=== PATIENT | female | born 1935 | race Caucasian/White ===

== ENCOUNTER 2017-07-11 14:10 | Inpatient (IN) | payer OTHER, MEDICAID ==
[2017-07-11] MEDS ORDERED: TYLENOL 500 MG TAB EXTRA STRENGTH PO PRN (15:25)
[2017-07-11 16:48] LABS: BASOPHILS % (AUTO) 0.6 % (0.2-1.0); EOSINOPHILS # (AUTO) 0.3 x10^3/uL (0.0-0.2); EOSINOPHILS % (AUTO) 4.2 % (0.9-2.9); HEMOGLOBIN 10.3 g/dL (12.0-16.0); LYMPHOCYTES # (AUTO) 1.1 X10^3/uL (1.3-2.9); LYMPHOCYTES % (AUTO) 15.6 % (21.0-51.0); MEAN CORPUSCULAR HEMOGLOBIN 32.5 pg (27.0-34.0); MEAN CORPUSCULAR HGB CONC 34.4 g/dL (33.0-35.0); MEAN CORPUSCULAR VOLUME 94.6 fL (80.0-100.0); MEAN PLATELET VOLUME 8.8 fL (7.4-11.0); MONOCYTES # (AUTO) 0.6 x10^3/uL (0.3-0.8); NEUTROPHILS % (AUTO) 70.6 % (42.0-75.0); PLATELET COUNT 166 X10^3/uL (150.0-450.0); RED BLOOD COUNT 3.17 X10^6/uL (3.5-5.4); RED CELL DISTRIBUTION WIDTH 13.7 % (11.6-16.5)
[2017-07-11] MEDS: NS 1000 ML 1,000 ML IV SCH (16:49)
[2017-07-11 16:53] LABS: APPEARANCE,URINE HAZY (CLEAR); BILIRUBIN,URINE NEGATIVE (NEGATIVE); BLOOD/HEMOGLOBIN,URINE 1+ (NEGATIVE); COLOR,URINE YELLOW (YELLOW); GLUCOSE, URINE NEGATIVE (NEGATIVE); KETONES,URINE NEGATIVE (NEGATIVE); LEUKOCYTE ESTERASE ,URINE 3+ (NEGATIVE); NITRITES,URINE POSITIVE (NEGATIVE); PROTEIN,URINE 1+ (NEGATIVE); UROBILINOGEN,URINE NORMAL (NORMAL)
[2017-07-11 17:00] LABS: BACTERIA,URINE 3+ /HPF (NEGATIVE); SQUAMOUS EPITHELIAL CELL,UR RARE /HPF (NEGATIVE)
[2017-07-11 17:01] LABS: ALANINE AMINOTRANSFERASE 18 Units/L (12-78); ALBUMIN 3.4 g/dL (3.4-5.0); ALKALINE PHOSPHATASE 121 Units/L (46-116); ASPARTATE AMINO TRANSFERASE 12 Units/L (15-37); BLOOD UREA NITROGEN 26 mg/dL (7-18); CALCIUM 7.9 mg/dL (8.5-10.1); CARBON DIOXIDE 24.7 mmol/L (21-32); CHLORIDE 104 mmol/L (98-107); COR NA(FOR HYPERGLY) 139 mmol/L (136-145); SODIUM 139 mmol/L (136-145); TOTAL PROTEIN 6.7 g/dL (6.4-8.2); eGFR BLACK RACES 40 (>60); eGFR NON BLACK RACES 33 (>60)
[2017-07-11] MEDS ORDERED: MERREM PREMIX IV 500 MG 500 MG/50 ML BAG IV SCH (21:00)
[2017-07-11] MEDS ORDERED: PHENERGAN TAB 25 MG PO PRN (21:11)
[2017-07-11] MEDS ORDERED: PATIENT'S HOME MEDICATION (Alprazolam [Alprazolam] 1 MG) PO PRN (21:11)
--- NOTE | 2017-07-11 21:18 | DR.H&P ---
H&P - History & Physical for Day of: H&P Date: 07/11/17 - Chief Complaint Chief Complaint: Weakness with Nausea - Allergies Allergies/Adverse Reactions: Allergies Allergy/AdvReac Type Severity Reaction Status Date / Time azithromycin [From Zithromax] Allergy Verified 07/11/17 16:45 ceftriaxone [From Rocephin] Allergy Verified 07/11/17 16:45 cefuroxime Allergy Verified 07/11/17 16:45 cephalexin [From Keflex] Allergy Verified 07/11/17 16:45 gentamicin Allergy Verified 07/11/17 16:45 levofloxacin [From Levaquin] Allergy Verified 07/11/17 16:45 meperidine [From Demerol] Allergy Verified 07/11/17 16:45 methylprednisolone Allergy Verified 07/11/17 16:45 [From Solu-Medrol] nitrofurantoin Allergy Verified 07/11/17 16:45 [From Furadantin] Penicillins Allergy Verified 07/11/17 16:45 Sulfa (Sulfonamide Allergy Verified 07/11/17 16:45 Antibiotics) Tetracyclines Allergy Verified 07/11/17 16:45 trimethoprim Allergy Verified 07/11/17 16:45 - History of Present Illness History of Present Illness: The patient is an 82yo WF who has history of recurrent UTIs. Is followed by Dr KAT Perdomo Urologist. Patient was hospitalized 2 weeks ago with UTI. Urine culture was negative. Patient complained of weakness with persistent nausea. No Fever. Urine culture is + for >100,000 colony count E Coli. Patient urine culture is senstive to all meds however, patient is allergic to all PO meds. Patient admitted for IV antibiotic. - Past Medical History Past Medical History: Anxiety, Diabetes, Hypertension - Past Surgical History Surgical History: Appendectomy, Hysterectomy, Mastectomy, Lithotripsy, Other Additional Surgical History: Colon resection with colostomy, Cystoscopy - Family History Family Medical History: Diabetes Mellitus, Cancer, [place], Coronary Artery Disease, Heart Failure, Hypertension - Social History Does patient currently use any type of tobacco product: No Have you used tobacco products in the last 12 months: No Type of Tobacco Use: None Does any household member use tobacco: No Alcohol Use: None Drug Use: Prescription Drugs - Medications Home Medications: Allopurinol [ZYLOPRIM tab 100 mg *] 100 mg PO DAILY 07/11/17 [History Confirmed 07/11/17] Alprazolam 1 mg PO BID PRN 07/11/17 [History Confirmed 07/11/17] Alprazolam 1 mg PO HS 07/11/17 [History Confirmed 07/11/17] Biotin 10,000 mcg PO DAILY 07/11/17 [History Confirmed 07/11/17] Cyanocobalamin (Vitamin B-12) [B-12] 1,000 mcg PO DAILY 07/11/17 [History Confirmed 07/11/17] Furosemide [Lasix] 40 mg PO BID 07/11/17 [History Confirmed 07/11/17] Hydrocodone Bitartrate [Hysingla ER] 80 mg PO 1200 07/11/17 [History Confirmed 07/11/17] Hydroxychloroquine Sulfate [Plaquenil] 200 mg PO BID 07/11/17 [History Confirmed 07/11/17] Levothyroxine Sodium 125 mcg PO HS 07/11/17 [History Confirmed 07/11/17] Montelukast Sodium 10 mg PO HS 07/11/17 [History Confirmed 07/11/17] Peg 400/Hypromellose/Glycerin [Visine Dry Eye Relief Drop] 15 ml OP QID [History Confirmed 07/11/17] Potassium Chloride [K-Dur Tab 20 Meq] 20 meq PO DAILY 07/11/17 [History Confirmed 07/11/17] Pramipexole Dihydrochloride [Mirapex Tab 0.25 mg] 0.25 mg PO HS 07/11/17 [ History Confirmed 07/11/17] Promethazine HCl [PHENERGAN TAB 25 MG *] 25 mg PO BID PRN 07/11/17 [History Confirmed 07/11/17] Ranitidine HCl [Ranitidine [address]] 150 mg PO BID 07/11/17 [History Confirmed 07/11/17] Tamsulosin HCl [FLOMAX (GENERIC) 0.4 MG *] 0.4 mg PO HS 07/11/17 [History Confirmed 07/11/17] - Review of Systems Constitutional: Weakness, Malaise Eyes: No Symptoms Reported ENT: No Symptoms Reported Respiratory: No Symptoms Reported Cardiovascular: No Symptoms Reported Gastrointestinal: No Symptoms Reported Genitourinary: See HPI, Dysuria Musculoskeletal: No Symptoms Reported Skin: No Symptoms Reported Neurological: No Symptoms Reported - Physical Exam Vital Signs: Temperature 98.1 F Pulse Rate [Left Brachial] 78 Respiratory Rate 16 Blood Pressure [Left Arm] 139/58 O2 Sat by Pulse Oximetry 98 Oriented: Normal Eyes: Normal Ear: Normal Nose: Normal Throat: Normal Respiratory: Clear Throughout Cardiovascular: Normal : Normal Auscultation: Bowel Sounds: Normal Palpation: Normal, Other (Colostomy LLQ) Tenderness: Normal Skin: Normal Musculoskeletal: Normal Psychiatric: Normal Mood Description: Calm Affect: Normal Speech Pattern: Clear - Assessment/Plan (1) UTI (urinary tract infection) due to Enterococcus Status: Acute Plan: IV Merrem. Labs, UA CX. See admit orders.
[2017-07-11] MEDS ORDERED: MERREM VIAL ONE (21:23)
[2017-07-11] MEDS ORDERED: NS 100 ML IV 100 ML IV ONE (21:23)
[2017-07-11] MEDS ORDERED: XANAX PO PRN (22:43)
[2017-07-12 05:17] VITALS: BMI 27.5
[2017-07-12 06:20] LABS: BASOPHILS % (AUTO) 0.9 % (0.2-1.0); EOSINOPHILS # (AUTO) 0.3 x10^3/uL (0.0-0.2); EOSINOPHILS % (AUTO) 6.1 % (0.9-2.9); HEMATOCRIT 27.3 % (36.0-47.0); HEMOGLOBIN 9.4 g/dL (12.0-16.0); LYMPHOCYTES # (AUTO) 1.2 X10^3/uL (1.3-2.9); LYMPHOCYTES % (AUTO) 26.4 % (21.0-51.0); MEAN CORPUSCULAR HEMOGLOBIN 33.1 pg (27.0-34.0); MEAN CORPUSCULAR HGB CONC 34.6 g/dL (33.0-35.0); MEAN CORPUSCULAR VOLUME 95.7 fL (80.0-100.0); MEAN PLATELET VOLUME 8.8 fL (7.4-11.0); MONOCYTES # (AUTO) 0.5 x10^3/uL (0.3-0.8); MONOCYTES % (AUTO) 9.9 % (0.0-13.0); NEUTROPHILS # (AUTO) 2.6 x10^3/uL (2.2-4.8); NEUTROPHILS % (AUTO) 56.7 % (42.0-75.0); PLATELET COUNT 142 X10^3/uL (150.0-450.0); RED BLOOD COUNT 2.85 X10^6/uL (3.5-5.4); RED CELL DISTRIBUTION WIDTH 13.7 % (11.6-16.5); WHITE BLOOD COUNT 4.6 X10^3/uL (3.6-10.0)
[2017-07-12 06:23] LABS: ALBUMIN 2.7 g/dL (3.4-5.0); CALCIUM 7.9 mg/dL (8.5-10.1); CARBON DIOXIDE 22.6 mmol/L (21-32); COR CA(FOR HYPOALB) 8.9 mg/dL (8.5-10.1); CREATININE 1.55 mg/dL (0.55-1.02); TOTAL PROTEIN 5.7 g/dL (6.4-8.2)
[2017-07-12] MEDS: ZYLOPRIM PO SCH (08:57)
[2017-07-12] MEDS: ZANTAC PO SCH (08:57)
[2017-07-12] MEDS: VITAMIN B-12 PO SCH (08:57)
[2017-07-12] MEDS: PLAQUENIL PO SCH ×2 (08:58→21:14)
[2017-07-12] MEDS: K-DUR TAB 20 MEQ PO SCH (08:58)
[2017-07-12] MEDS: NS 1000 ML 1,000 ML IV SCH (08:59)
[2017-07-12] MEDS ORDERED: PATIENT'S HOME MEDICATION (Biotin [Biotin] 10,000 MCG) PO SCH (09:00)
[2017-07-12] MEDS ORDERED: GLYCERIN OP SCH (09:00)
[2017-07-12] MEDS ORDERED: HYPROMELLOSE OP SCH (09:00)
[2017-07-12] MEDS ORDERED: POLYETHYLENE GLYCOL 400 OP SCH (09:00)
[2017-07-12] MEDS ORDERED: [UNRECOGNIZED DRUG - OTHER] OP SCH (09:00)
[2017-07-12] MEDS ORDERED: PATIENT'S HOME MEDICATION (Cyanocobalamin (Vitamin B-12) [Vitamin B-12] 1,000 MCG) PO SCH (09:00)
--- NOTE | 2017-07-12 10:40 | RAD ---
History: Diminished breath sounds, hypertension Study: Chest AP portable Findings: AP portable examination of chest demonstrates satisfactory appearance of the heart and medi astinal structures. A left subclavian Port-A-Cath is in place tip in the region of the superior vena cava. Lungs and pleural spaces are clear. There are degenerative changes of the right shoulder. Impression: No acute intra thoracic disease is identified. Reported By:
[2017-07-12] MEDS: MERREM VIAL 500 MG in NS 100 ML IV + SPIKE MINIBAG* 100 ML IV SCH ×2 (11:40→21:13)
[2017-07-12] MEDS: HYDROCODONE BITARTRATE 80 MG PO SCH (11:43)
[2017-07-12] MEDS ORDERED: PATIENT'S HOME MEDICATION (Alprazolam [Alprazolam] 1 MG) PO SCH (21:00)
[2017-07-12] MEDS: FLOMAX PO SCH (21:13)
[2017-07-12] MEDS: SYNTHROID 125 mcg TAB PO SCH (21:14)
[2017-07-12] MEDS: SINGULAIR TAB 10 MG PO SCH (21:14)
[2017-07-12] MEDS: MIRAPEX TAB 0.25 MG PO SCH (21:14)
[2017-07-12] MEDS: XANAX PO SCH (21:15)
[2017-07-12] MEDS: NORCO 10/325 TAB PO PRN (21:19)
[2017-07-13] MEDS: NORCO 10/325 TAB PO PRN ×3 (01:57→23:36)
[2017-07-13 06:15] LABS: BASOPHILS % (AUTO) 0.9 % (0.2-1.0); EOSINOPHILS # (AUTO) 0.3 x10^3/uL (0.0-0.2); EOSINOPHILS % (AUTO) 6.7 % (0.9-2.9); HEMATOCRIT 27.9 % (36.0-47.0); HEMOGLOBIN 9.6 g/dL (12.0-16.0); LYMPHOCYTES # (AUTO) 1.2 X10^3/uL (1.3-2.9); LYMPHOCYTES % (AUTO) 25.5 % (21.0-51.0); MEAN CORPUSCULAR HEMOGLOBIN 32.8 pg (27.0-34.0); MEAN CORPUSCULAR HGB CONC 34.4 g/dL (33.0-35.0); MEAN CORPUSCULAR VOLUME 95.3 fL (80.0-100.0); MEAN PLATELET VOLUME 8.8 fL (7.4-11.0); MONOCYTES # (AUTO) 0.4 x10^3/uL (0.3-0.8); MONOCYTES % (AUTO) 9.5 % (0.0-13.0); NEUTROPHILS # (AUTO) 2.7 x10^3/uL (2.2-4.8); NEUTROPHILS % (AUTO) 57.4 % (42.0-75.0); PLATELET COUNT 153 X10^3/uL (150.0-450.0); RED BLOOD COUNT 2.93 X10^6/uL (3.5-5.4); RED CELL DISTRIBUTION WIDTH 13.7 % (11.6-16.5); WHITE BLOOD COUNT 4.6 X10^3/uL (3.6-10.0)
[2017-07-13 06:37] LABS: ALBUMIN 2.8 g/dL (3.4-5.0); CALCIUM 7.8 mg/dL (8.5-10.1); CARBON DIOXIDE 21.7 mmol/L (21-32); COR CA(FOR HYPOALB) 8.8 mg/dL (8.5-10.1); CREATININE 1.46 mg/dL (0.55-1.02); TOTAL PROTEIN 5.9 g/dL (6.4-8.2)
[2017-07-13] MEDS: ZANTAC PO SCH (08:30)
[2017-07-13] MEDS: NS 1000 ML 1,000 ML IV SCH ×2 (08:30→18:11)
[2017-07-13] MEDS: MERREM VIAL 500 MG in NS 100 ML IV + SPIKE MINIBAG* 100 ML IV SCH ×2 (08:30→20:55)
[2017-07-13] MEDS: VITAMIN B-12 PO SCH (08:30)
[2017-07-13] MEDS: PLAQUENIL PO SCH ×2 (08:30→20:56)
[2017-07-13] MEDS: ZYLOPRIM PO SCH (08:31)
[2017-07-13] MEDS: K-DUR TAB 20 MEQ PO SCH (08:31)
[2017-07-13] MEDS: MIRALAX POWDER (1 DOSE 17GM) PO SCH ×3 (09:57→21:00)
[2017-07-13] MEDS: HYDROCODONE BITARTRATE 80 MG PO SCH (12:40)
[2017-07-13] MEDS: FLOMAX PO SCH (20:55)
[2017-07-13] MEDS: XANAX PO SCH (20:56)
[2017-07-13] MEDS: MIRAPEX TAB 0.25 MG PO SCH (20:56)
[2017-07-13] MEDS: SINGULAIR TAB 10 MG PO SCH (20:56)
[2017-07-13] MEDS: SYNTHROID 125 mcg TAB PO SCH (20:56)
[2017-07-14] MEDS: NS 1000 ML 1,000 ML IV SCH ×3 (00:24→18:46)
[2017-07-14 05:49] LABS: ALBUMIN 2.6 g/dL (3.4-5.0); CALCIUM 7.8 mg/dL (8.5-10.1); CARBON DIOXIDE 22.5 mmol/L (21-32); COR CA(FOR HYPOALB) 8.9 mg/dL (8.5-10.1); CREATININE 1.29 mg/dL (0.55-1.02); TOTAL PROTEIN 5.3 g/dL (6.4-8.2)
[2017-07-14 06:10] LABS: BASOPHILS % (AUTO) 0.8 % (0.2-1.0); EOSINOPHILS # (AUTO) 0.3 x10^3/uL (0.0-0.2); EOSINOPHILS % (AUTO) 7.9 % (0.9-2.9); HEMATOCRIT 26.4 % (36.0-47.0); LYMPHOCYTES # (AUTO) 1.1 X10^3/uL (1.3-2.9); LYMPHOCYTES % (AUTO) 27.6 % (21.0-51.0); MEAN CORPUSCULAR HEMOGLOBIN 33.1 pg (27.0-34.0); MEAN CORPUSCULAR HGB CONC 34.3 g/dL (33.0-35.0); MEAN CORPUSCULAR VOLUME 96.6 fL (80.0-100.0); MEAN PLATELET VOLUME 8.8 fL (7.4-11.0); MONOCYTES # (AUTO) 0.4 x10^3/uL (0.3-0.8); MONOCYTES % (AUTO) 9.3 % (0.0-13.0); NEUTROPHILS # (AUTO) 2.1 x10^3/uL (2.2-4.8); NEUTROPHILS % (AUTO) 54.4 % (42.0-75.0); PLATELET COUNT 134 X10^3/uL (150.0-450.0); RED BLOOD COUNT 2.73 X10^6/uL (3.5-5.4); RED CELL DISTRIBUTION WIDTH 13.7 % (11.6-16.5); WHITE BLOOD COUNT 3.9 X10^3/uL (3.6-10.0)
[2017-07-14] MEDS: MERREM VIAL 500 MG in NS 100 ML IV + SPIKE MINIBAG* 100 ML IV SCH ×2 (09:28→21:08)
[2017-07-14] MEDS: PLAQUENIL PO SCH ×2 (09:29→21:09)
[2017-07-14] MEDS: VITAMIN B-12 PO SCH (09:29)
[2017-07-14] MEDS: ZYLOPRIM PO SCH (09:29)
[2017-07-14] MEDS: K-DUR TAB 20 MEQ PO SCH (09:29)
[2017-07-14] MEDS: ZANTAC PO SCH (09:30)
[2017-07-14] MEDS: HYDROCODONE BITARTRATE 80 MG PO SCH (12:33)
--- NOTE | 2017-07-14 13:40 | PCM.PROG ---
Progress Note - Progress Note for Day of Date: 07/13/17 - Subjective Subjective: 82 WF DIRECT ADMIT FOR TREATMENT OF RESISTENT UTI. PT CURRENTLY ON IV ATBX, WITH URINE CULTURE POSITIVE FOR ECOLI. PT CO CONSTIPATION. PT HAS COLOSTOMY AND STATES SHE TAKE MOM FOR BM'S. PT ALSO CO INSOMNIA, PT HAS PRN XANAX AND ENCOURAGED TO USE MEDS FOR REST NEEDED. - Past Medical Family Social History Past Med/Fam/Surg Hx: No changes since H&P Allergies: Allergies azithromycin [From Zithromax] Allergy (Verified 07/11/17 16:45) ceftriaxone [From Rocephin] Allergy (Verified 07/11/17 16:45) cefuroxime Allergy (Verified 07/11/17 16:45) cephalexin [From Keflex] Allergy (Verified 07/11/17 16:45) gentamicin Allergy (Verified 07/11/17 16:45) levofloxacin [From Levaquin] Allergy (Verified 07/11/17 16:45) meperidine [From Demerol] Allergy (Verified 07/11/17 16:45) methylprednisolone [From Solu-Medrol] Allergy (Verified 07/11/17 16:45) nitrofurantoin [From Furadantin] Allergy (Verified 07/11/17 16:45) Penicillins Allergy (Verified 07/11/17 16:45) Sulfa (Sulfonamide Antibiotics) Allergy (Verified 07/11/17 16:45) Tetracyclines Allergy (Verified 07/11/17 16:45) trimethoprim Allergy (Verified 07/11/17 16:45) - Review of Systems ROS: No change since H&P - Vital Signs and I&O's Vital Signs: Temperature 97.8 F Pulse Rate [Right Brachial] 61 Pulse Rate [Left Brachial] 56 Respiratory Rate 18 Blood Pressure [Right Arm] 119/55 Blood Pressure [Left Arm] 120/51 O2 Sat by Pulse Oximetry 97 Intake and Output: Intake & Output 07/12/17 07/13/17 07/14/17 07/15/17 11:59 11:59 11:59 11:59 Intake Total 1671 2490 2340 Output Total 1000 400 Balance 671 2090 2340 - Physical Exam Oriented: Normal Eyes: Normal Ear: Normal Nose: Normal Throat: Normal Respiratory: Normal Cardiovascular: Normal : Normal Auscultation: Bowel Sounds: Decreased Tenderness: Normal Skin: Normal, Other (COLOSTOMY) Musculoskeletal: Back:Lumbar Psychiatric: Anxiety Mood Description: Anxious Affect: Normal Speech Pattern: Clear, Appropriate - Laboratory and Diagnostics Result Diagrams: 07/14/17 04:34 07/14/17 04:34 Labs: 07/11/17 21:34 Blood Blood Culture - Preliminary 07/11/17 21:28 Blood Blood Culture - Preliminary 07/11/17 16:30 Urine,Clean Catch Urine Culture - Final Escherichia Coli Laboratory WBC 3.9 X10^3/uL (3.6-10.0) 07/14/17 04:34 RBC 2.73 X10^6/uL (3.5-5.4) L 07/14/17 04:34 Hgb 9.0 g/dL (12.0-16.0) L 07/14/17 04:34 Hct 26.4 % (36.0-47.0) L 07/14/17 04:34 MCV 96.6 fL (80.0-100.0) 07/14/17 04:34 MCH 33.1 pg (27.0-34.0) 07/14/17 04:34 MCHC 34.3 g/dL (33.0-35.0) 07/14/17 04:34 RDW 13.7 % (11.6-16.5) 07/14/17 04:34 Plt Count 134 X10^3/uL (150.0-450.0) L 07/14/17 04:34 MPV 8.8 fL (7.4-11.0) 07/14/17 04:34 Neut % (Auto) 54.4 % (42.0-75.0) 07/14/17 04:34 Lymph % (Auto) 27.6 % (21.0-51.0) 07/14/17 04:34 [place] % (Auto) 9.3 % (0.0-13.0) 07/14/17 04:34 Eos % (Auto) 7.9 % (0.9-2.9) H 07/14/17 04:34 Baso % (Auto) 0.8 % (0.2-1.0) 07/14/17 04:34 Neut # (Auto) 2.1 x10^3/uL (2.2-4.8) L 07/14/17 04:34 Lymph # (Auto) 1.1 X10^3/uL (1.3-2.9) L 07/14/17 04:34 [place] # (Auto) 0.4 x10^3/uL (0.3-0.8) 07/14/17 04:34 Eos # (Auto) 0.3 x10^3/uL (0.0-0.2) H 07/14/17 04:34 Baso # (Auto) 0.0 X10^3/uL (0.0-0.1) 07/14/17 04:34 Absolute Nucleated RBC 0.0 /100WBC 07/14/17 04:34 Sodium 141 mmol/L (136-145) 07/14/17 04:34 Corrected Sodium 141 mmol/L (136-145) 07/14/17 04:34 Potassium 4.0 mmol/L (3.5-5.1) 07/14/17 04:34 Chloride 109 mmol/L (98-107) H 07/14/17 04:34 Carbon Dioxide 22.5 mmol/L (21-32) 07/14/17 04:34 BUN 18 mg/dL (7-18) 07/14/17 04:34 Creatinine 1.29 mg/dL (0.55-1.02) H 07/14/17 04:34 Est GFR (MDRD) Af Amer 51 (>60) L 07/14/17 04:34 Est GFR (MDRD) Non-Af 42 (>60) L 07/14/17 04:34 Glucose 118 mg/dL (65-99) H 07/14/17 04:34 POC Glucose (mg/dL) 145 mg/dL (65-99) H 07/13/17 20:53 Calcium 7.8 mg/dL (8.5-10.1) L 07/14/17 04:34 Corrected Calcium 8.9 mg/dL (8.5-10.1) 07/14/17 04:34 Total Bilirubin 0.10 mg/dL (0.2-1.0) L 07/14/17 04:34 AST 11 Units/L (15-37) L 07/14/17 04:34 ALT 14 Units/L (12-78) 07/14/17 04:34 Alkaline Phosphatase 92 Units/L (46-116) 07/14/17 04:34 Total Protein 5.3 g/dL (6.4-8.2) L 07/14/17 04:34 Albumin 2.6 g/dL (3.4-5.0) L 07/14/17 04:34 Globulin 2.7 g/dL (2.5-4.5) 07/14/17 04:34 Albumin/Globulin Ratio 1.0 Ratio (1.1-2.1) L 07/14/17 04:34 Specimen Type Clean catch urine 07/11/17 16:30 Urine Color Yellow (YELLOW) 07/11/17 16:30 Urine Appearance Hazy (CLEAR) 07/11/17 16:30 Urine pH 5.0 (5.0 - 8.0) 07/11/17 16:30 Ur Specific [place] 1.015 (1.000-1.030) 07/11/17 16:30 Urine Protein 1+ (NEGATIVE) 07/11/17 16:30 Urine Glucose (UA) Negative (NEGATIVE) 07/11/17 16:30 Urine Ketones Negative (NEGATIVE) 07/11/17 16:30 Urine Occult Blood 1+ (NEGATIVE) 07/11/17 16:30 Urine Nitrite Positive (NEGATIVE) 07/11/17 16:30 Urine Bilirubin Negative (NEGATIVE) 07/11/17 16:30 Urine Urobilinogen Normal (NORMAL) 07/11/17 16:30 Ur Leukocyte Esterase 3+ (NEGATIVE) 07/11/17 16:30 Urine RBC 3-5 /HPF (NONE SEEN) 07/11/17 16:30 Urine WBC Tntc /HPF (NONE SEEN) 07/11/17 16:30 Ur Squamous Epith Cells Rare /HPF (NEGATIVE) 07/11/17 16:30 Urine Bacteria 3+ /HPF (NEGATIVE) 07/11/17 16:30 Ur Culture Indicated? Yes/culture set up 07/11/17 16:30 - Plan (1) UTI (urinary tract infection), bacterial Status: Acute Plan: CONTINUE IV ATBX. ENCOURAGE ORAL HYDRATION AND PT. REPEAT AM LABS. CONTINUE HOME MEDS, MOM PRN CONSTIPATION. 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 Labs, UA CX. See admit orders.
--- NOTE | 2017-07-14 13:43 | PCM.PROG ---
Progress Note - Progress Note for Day of Date: 07/14/17 - Subjective Subjective: 82 WF DIRECT ADMIT FOR TREATMENT OF RESISTENT UTI. PT CURRENTLY ON IV ATBX, WITH URINE CULTURE POSITIVE FOR ECOLI. PT ALSO CO INSOMNIA, PT HAS PRN XANAX AND ENCOURAGED TO USE MEDS FOR REST NEEDED. PT STATES SHE FEEL A LITTLE IMPROVED, DENIES FEVER NAUSEA OR VOMITING - Past Medical Family Social History Past Med/Fam/Surg Hx: No changes since H&P Allergies: Allergies azithromycin [From Zithromax] Allergy (Verified 07/11/17 16:45) ceftriaxone [From Rocephin] Allergy (Verified 07/11/17 16:45) cefuroxime Allergy (Verified 07/11/17 16:45) cephalexin [From Keflex] Allergy (Verified 07/11/17 16:45) gentamicin Allergy (Verified 07/11/17 16:45) levofloxacin [From Levaquin] Allergy (Verified 07/11/17 16:45) meperidine [From Demerol] Allergy (Verified 07/11/17 16:45) methylprednisolone [From Solu-Medrol] Allergy (Verified 07/11/17 16:45) nitrofurantoin [From Furadantin] Allergy (Verified 07/11/17 16:45) Penicillins Allergy (Verified 07/11/17 16:45) Sulfa (Sulfonamide Antibiotics) Allergy (Verified 07/11/17 16:45) Tetracyclines Allergy (Verified 07/11/17 16:45) trimethoprim Allergy (Verified 07/11/17 16:45) - Review of Systems ROS: No change since H&P - Vital Signs and I&O's Vital Signs: Temperature 97.8 F Pulse Rate [Right Brachial] 61 Pulse Rate [Left Brachial] 56 Respiratory Rate 18 Blood Pressure [Right Arm] 119/55 Blood Pressure [Left Arm] 120/51 O2 Sat by Pulse Oximetry 97 Intake and Output: Intake & Output 07/12/17 07/13/17 07/14/17 07/15/17 11:59 11:59 11:59 11:59 Intake Total 1671 2490 2340 Output Total 1000 400 Balance 671 2090 2340 - Physical Exam Oriented: Normal Eyes: Normal Ear: Normal Nose: Normal Throat: Normal Respiratory: Normal Cardiovascular: Normal : Normal Auscultation: Bowel Sounds: Decreased Tenderness: Normal Skin: Normal, Other (COLOSTOMY) Musculoskeletal: Back:Lumbar Psychiatric: Anxiety Mood Description: Anxious Affect: Normal Speech Pattern: Clear, Appropriate - Laboratory and Diagnostics Result Diagrams: 07/14/17 04:34 07/14/17 04:34 Labs: 07/11/17 21:34 Blood Blood Culture - Preliminary 07/11/17 21:28 Blood Blood Culture - Preliminary 07/11/17 16:30 Urine,Clean Catch Urine Culture - Final Escherichia Coli Laboratory WBC 3.9 X10^3/uL (3.6-10.0) 07/14/17 04:34 RBC 2.73 X10^6/uL (3.5-5.4) L 07/14/17 04:34 Hgb 9.0 g/dL (12.0-16.0) L 07/14/17 04:34 Hct 26.4 % (36.0-47.0) L 07/14/17 04:34 MCV 96.6 fL (80.0-100.0) 07/14/17 04:34 MCH 33.1 pg (27.0-34.0) 07/14/17 04:34 MCHC 34.3 g/dL (33.0-35.0) 07/14/17 04:34 RDW 13.7 % (11.6-16.5) 07/14/17 04:34 Plt Count 134 X10^3/uL (150.0-450.0) L 07/14/17 04:34 MPV 8.8 fL (7.4-11.0) 07/14/17 04:34 Neut % (Auto) 54.4 % (42.0-75.0) 07/14/17 04:34 Lymph % (Auto) 27.6 % (21.0-51.0) 07/14/17 04:34 [place] % (Auto) 9.3 % (0.0-13.0) 07/14/17 04:34 Eos % (Auto) 7.9 % (0.9-2.9) H 07/14/17 04:34 Baso % (Auto) 0.8 % (0.2-1.0) 07/14/17 04:34 Neut # (Auto) 2.1 x10^3/uL (2.2-4.8) L 07/14/17 04:34 Lymph # (Auto) 1.1 X10^3/uL (1.3-2.9) L 07/14/17 04:34 [place] # (Auto) 0.4 x10^3/uL (0.3-0.8) 07/14/17 04:34 Eos # (Auto) 0.3 x10^3/uL (0.0-0.2) H 07/14/17 04:34 Baso # (Auto) 0.0 X10^3/uL (0.0-0.1) 07/14/17 04:34 Absolute Nucleated RBC 0.0 /100WBC 07/14/17 04:34 Sodium 141 mmol/L (136-145) 07/14/17 04:34 Corrected Sodium 141 mmol/L (136-145) 07/14/17 04:34 Potassium 4.0 mmol/L (3.5-5.1) 07/14/17 04:34 Chloride 109 mmol/L (98-107) H 07/14/17 04:34 Carbon Dioxide 22.5 mmol/L (21-32) 07/14/17 04:34 BUN 18 mg/dL (7-18) 07/14/17 04:34 Creatinine 1.29 mg/dL (0.55-1.02) H 07/14/17 04:34 Est GFR (MDRD) Af Amer 51 (>60) L 07/14/17 04:34 Est GFR (MDRD) Non-Af 42 (>60) L 07/14/17 04:34 Glucose 118 mg/dL (65-99) H 07/14/17 04:34 POC Glucose (mg/dL) 145 mg/dL (65-99) H 07/13/17 20:53 Calcium 7.8 mg/dL (8.5-10.1) L 07/14/17 04:34 Corrected Calcium 8.9 mg/dL (8.5-10.1) 07/14/17 04:34 Total Bilirubin 0.10 mg/dL (0.2-1.0) L 07/14/17 04:34 AST 11 Units/L (15-37) L 07/14/17 04:34 ALT 14 Units/L (12-78) 07/14/17 04:34 Alkaline Phosphatase 92 Units/L (46-116) 07/14/17 04:34 Total Protein 5.3 g/dL (6.4-8.2) L 07/14/17 04:34 Albumin 2.6 g/dL (3.4-5.0) L 07/14/17 04:34 Globulin 2.7 g/dL (2.5-4.5) 07/14/17 04:34 Albumin/Globulin Ratio 1.0 Ratio (1.1-2.1) L 07/14/17 04:34 Specimen Type Clean catch urine 07/11/17 16:30 Urine Color Yellow (YELLOW) 07/11/17 16:30 Urine Appearance Hazy (CLEAR) 07/11/17 16:30 Urine pH 5.0 (5.0 - 8.0) 07/11/17 16:30 Ur Specific [place] 1.015 (1.000-1.030) 07/11/17 16:30 Urine Protein 1+ (NEGATIVE) 07/11/17 16:30 Urine Glucose (UA) Negative (NEGATIVE) 07/11/17 16:30 Urine Ketones Negative (NEGATIVE) 07/11/17 16:30 Urine Occult Blood 1+ (NEGATIVE) 07/11/17 16:30 Urine Nitrite Positive (NEGATIVE) 07/11/17 16:30 Urine Bilirubin Negative (NEGATIVE) 07/11/17 16:30 Urine Urobilinogen Normal (NORMAL) 07/11/17 16:30 Ur Leukocyte Esterase 3+ (NEGATIVE) 07/11/17 16:30 Urine RBC 3-5 /HPF (NONE SEEN) 07/11/17 16:30 Urine WBC Tntc /HPF (NONE SEEN) 07/11/17 16:30 Ur Squamous Epith Cells Rare /HPF (NEGATIVE) 07/11/17 16:30 Urine Bacteria 3+ /HPF (NEGATIVE) 07/11/17 16:30 Ur Culture Indicated? Yes/culture set up 07/11/17 16:30 - Plan (1) UTI (urinary tract infection), bacterial Status: Acute Plan: CONTINUE IV ATBX. ENCOURAGE ORAL HYDRATION AND PT. REPEAT AM LABS. CONTINUE HOME MEDS, MOM PRN CONSTIPATION. COLOSTOMY CARE (2) Colostomy in place Status: Acute (3) Osteoarthritis Status: Acute (4) TAHMINA (generalized anxiety disorder) Status: Acute (5) UTI (urinary tract infection) due to Enterococcus Status: Acute Plan: IV MEROPENEM. Labs, UA CX. See admit orders.
[2017-07-14] MEDS: NORCO 10/325 TAB PO PRN ×2 (15:12→21:08)
[2017-07-14] MEDS: FLOMAX PO SCH (21:09)
[2017-07-14] MEDS: MIRAPEX TAB 0.25 MG PO SCH (21:09)
[2017-07-14] MEDS: SINGULAIR TAB 10 MG PO SCH (21:09)
[2017-07-14] MEDS: SYNTHROID 125 mcg TAB PO SCH (21:09)
[2017-07-14] MEDS: MIRALAX POWDER (1 DOSE 17GM) PO SCH (21:09)
[2017-07-14] MEDS: XANAX PO SCH (21:09)
[2017-07-15] MEDS: NS 1000 ML 1,000 ML IV SCH ×3 (04:29→15:27)
[2017-07-15 05:35] LABS: EOSINOPHILS # (AUTO) 0.3 x10^3/uL (0.0-0.2); EOSINOPHILS % (AUTO) 7.7 % (0.9-2.9); HEMATOCRIT 25.8 % (36.0-47.0); HEMOGLOBIN 8.9 g/dL (12.0-16.0); LYMPHOCYTES # (AUTO) 0.9 X10^3/uL (1.3-2.9); LYMPHOCYTES % (AUTO) 28.9 % (21.0-51.0); MEAN CORPUSCULAR HGB CONC 34.3 g/dL (33.0-35.0); MEAN CORPUSCULAR VOLUME 96.1 fL (80.0-100.0); MEAN PLATELET VOLUME 8.8 fL (7.4-11.0); MONOCYTES # (AUTO) 0.3 x10^3/uL (0.3-0.8); MONOCYTES % (AUTO) 10.3 % (0.0-13.0); NEUTROPHILS # (AUTO) 1.7 x10^3/uL (2.2-4.8); NEUTROPHILS % (AUTO) 52.1 % (42.0-75.0); PLATELET COUNT 120 X10^3/uL (150.0-450.0); RED BLOOD COUNT 2.69 X10^6/uL (3.5-5.4); WHITE BLOOD COUNT 3.3 X10^3/uL (3.6-10.0)
[2017-07-15 05:40] LABS: ALANINE AMINOTRANSFERASE 14 Units/L (12-78); ALBUMIN 2.6 g/dL (3.4-5.0); ALKALINE PHOSPHATASE 92 Units/L (46-116); ASPARTATE AMINO TRANSFERASE 10 Units/L (15-37); BLOOD UREA NITROGEN 16 mg/dL (7-18); CALCIUM 7.7 mg/dL (8.5-10.1); CARBON DIOXIDE 21.7 mmol/L (21-32); CHLORIDE 112 mmol/L (98-107); COR CA(FOR HYPOALB) 8.8 mg/dL (8.5-10.1); CREATININE 1.28 mg/dL (0.55-1.02); SODIUM 142 mmol/L (136-145); TOTAL PROTEIN 5.3 g/dL (6.4-8.2); eGFR BLACK RACES 51 (>60); eGFR NON BLACK RACES 43 (>60)
[2017-07-15] MEDS: PLAQUENIL PO SCH ×2 (09:06→20:58)
[2017-07-15] MEDS: MERREM VIAL 500 MG in NS 100 ML IV + SPIKE MINIBAG* 100 ML IV SCH ×2 (09:06→21:35)
[2017-07-15] MEDS: ZYLOPRIM PO SCH (09:07)
[2017-07-15] MEDS: ZANTAC PO SCH (09:07)
[2017-07-15] MEDS: VITAMIN B-12 PO SCH (09:07)
[2017-07-15] MEDS: K-DUR TAB 20 MEQ PO SCH (09:07)
[2017-07-15] MEDS: HYDROCODONE BITARTRATE 80 MG PO SCH (11:25)
--- NOTE | 2017-07-15 14:09 | PCM.PROG ---
Progress Note - Progress Note for Day of Date: 07/15/17 - Subjective Subjective: 82 WF DIRECT ADMIT FOR TREATMENT OF RESISTENT UTI. PT CURRENTLY ON IV ATBX, WITH URINE CULTURE POSITIVE FOR ECOLI. PT CO INCREASED JOINT PAIN THIS AM, LOW BACK PAIN. PT STATES SHE FEEL A LITTLE IMPROVED, DENIES FEVER NAUSEA OR VOMITING - Past Medical Family Social History Past Med/Fam/Surg Hx: No changes since H&P Allergies: Allergies azithromycin [From Zithromax] Allergy (Verified 07/11/17 16:45) ceftriaxone [From Rocephin] Allergy (Verified 07/11/17 16:45) cefuroxime Allergy (Verified 07/11/17 16:45) cephalexin [From Keflex] Allergy (Verified 07/11/17 16:45) gentamicin Allergy (Verified 07/11/17 16:45) levofloxacin [From Levaquin] Allergy (Verified 07/11/17 16:45) meperidine [From Demerol] Allergy (Verified 07/11/17 16:45) methylprednisolone [From Solu-Medrol] Allergy (Verified 07/11/17 16:45) nitrofurantoin [From Furadantin] Allergy (Verified 07/11/17 16:45) Penicillins Allergy (Verified 07/11/17 16:45) Sulfa (Sulfonamide Antibiotics) Allergy (Verified 07/11/17 16:45) Tetracyclines Allergy (Verified 07/11/17 16:45) trimethoprim Allergy (Verified 07/11/17 16:45) - Review of Systems ROS: No change since H&P - Vital Signs and I&O's Vital Signs: Temperature 98.1 F Pulse Rate [Right Brachial] 53 Pulse Rate [Left Brachial] 64 Respiratory Rate 18 Blood Pressure [Right Arm] 125/60 Blood Pressure [Left Arm] 121/57 O2 Sat by Pulse Oximetry 96 Intake and Output: Intake & Output 07/13/17 07/14/17 07/15/17 07/16/17 11:59 11:59 11:59 11:59 Intake Total 2490 2340 2978 Output Total 400 Balance 0 2340 2978 - Physical Exam Oriented: Normal Eyes: Normal Ear: Normal Nose: Normal Throat: Normal Respiratory: Normal Cardiovascular: Normal : Normal Auscultation: Bowel Sounds: Decreased Tenderness: Normal Skin: Normal, Other (COLOSTOMY) Musculoskeletal: Hip, Back:Thoracic, Back:Lumbar Psychiatric: Anxiety Mood Description: Anxious Affect: Normal Speech Pattern: Clear, Appropriate - Laboratory and Diagnostics Result Diagrams: 07/15/17 05:00 07/15/17 05:00 Labs: 07/11/17 21:34 Blood Blood Culture - Preliminary 07/11/17 21:28 Blood Blood Culture - Preliminary 07/11/17 16:30 Urine,Clean Catch Urine Culture - Final Escherichia Coli Laboratory WBC 3.3 X10^3/uL (3.6-10.0) L 07/15/17 05:00 RBC 2.69 X10^6/uL (3.5-5.4) L 07/15/17 05:00 Hgb 8.9 g/dL (12.0-16.0) L 07/15/17 05:00 Hct 25.8 % (36.0-47.0) L 07/15/17 05:00 MCV 96.1 fL (80.0-100.0) 07/15/17 05:00 MCH 33.0 pg (27.0-34.0) 07/15/17 05:00 MCHC 34.3 g/dL (33.0-35.0) 07/15/17 05:00 RDW 14.0 % (11.6-16.5) 07/15/17 05:00 Plt Count 120 X10^3/uL (150.0-450.0) L 07/15/17 05:00 MPV 8.8 fL (7.4-11.0) 07/15/17 05:00 Neut % (Auto) 52.1 % (42.0-75.0) 07/15/17 05:00 Lymph % (Auto) 28.9 % (21.0-51.0) 07/15/17 05:00 [place] % (Auto) 10.3 % (0.0-13.0) 07/15/17 05:00 Eos % (Auto) 7.7 % (0.9-2.9) H 07/15/17 05:00 Baso % (Auto) 1.0 % (0.2-1.0) 07/15/17 05:00 Neut # (Auto) 1.7 x10^3/uL (2.2-4.8) L 07/15/17 05:00 Lymph # (Auto) 0.9 X10^3/uL (1.3-2.9) L 07/15/17 05:00 [place] # (Auto) 0.3 x10^3/uL (0.3-0.8) 07/15/17 05:00 Eos # (Auto) 0.3 x10^3/uL (0.0-0.2) H 07/15/17 05:00 Baso # (Auto) 0.0 X10^3/uL (0.0-0.1) 07/15/17 05:00 Absolute Nucleated RBC 0.1 /100WBC 07/15/17 05:00 Sodium 142 mmol/L (136-145) 07/15/17 05:00 Corrected Sodium TNP 07/15/17 05:00 Potassium 4.4 mmol/L (3.5-5.1) 07/15/17 05:00 Chloride 112 mmol/L (98-107) H 07/15/17 05:00 Carbon Dioxide 21.7 mmol/L (21-32) 07/15/17 05:00 BUN 16 mg/dL (7-18) 07/15/17 05:00 Creatinine 1.28 mg/dL (0.55-1.02) H 07/15/17 05:00 Est GFR (MDRD) Af Amer 51 (>60) L 07/15/17 05:00 Est GFR (MDRD) Non-Af 43 (>60) L 07/15/17 05:00 Glucose 106 mg/dL (65-99) H 07/15/17 05:00 POC Glucose (mg/dL) 145 mg/dL (65-99) H 07/13/17 20:53 Calcium 7.7 mg/dL (8.5-10.1) L 07/15/17 05:00 Corrected Calcium 8.8 mg/dL (8.5-10.1) 07/15/17 05:00 Total Bilirubin 0.10 mg/dL (0.2-1.0) L 07/15/17 05:00 AST 10 Units/L (15-37) L 07/15/17 05:00 ALT 14 Units/L (12-78) 07/15/17 05:00 Alkaline Phosphatase 92 Units/L (46-116) 07/15/17 05:00 Total Protein 5.3 g/dL (6.4-8.2) L 07/15/17 05:00 Albumin 2.6 g/dL (3.4-5.0) L 07/15/17 05:00 Globulin 2.7 g/dL (2.5-4.5) 07/15/17 05:00 Albumin/Globulin Ratio 1.0 Ratio (1.1-2.1) L 07/15/17 05:00 Specimen Type Clean catch urine 07/11/17 16:30 Urine Color Yellow (YELLOW) 07/11/17 16:30 Urine Appearance Hazy (CLEAR) 07/11/17 16:30 Urine pH 5.0 (5.0 - 8.0) 07/11/17 16:30 Ur Specific [place] 1.015 (1.000-1.030) 07/11/17 16:30 Urine Protein 1+ (NEGATIVE) 07/11/17 16:30 Urine Glucose (UA) Negative (NEGATIVE) 07/11/17 16:30 Urine Ketones Negative (NEGATIVE) 07/11/17 16:30 Urine Occult Blood 1+ (NEGATIVE) 07/11/17 16:30 Urine Nitrite Positive (NEGATIVE) 07/11/17 16:30 Urine Bilirubin Negative (NEGATIVE) 07/11/17 16:30 Urine Urobilinogen Normal (NORMAL) 07/11/17 16:30 Ur Leukocyte Esterase 3+ (NEGATIVE) 07/11/17 16:30 Urine RBC 3-5 /HPF (NONE SEEN) 07/11/17 16:30 Urine WBC Tntc /HPF (NONE SEEN) 07/11/17 16:30 Ur Squamous Epith Cells Rare /HPF (NEGATIVE) 07/11/17 16:30 Urine Bacteria 3+ /HPF (NEGATIVE) 07/11/17 16:30 Ur Culture Indicated? Yes/culture set up 07/11/17 16:30 - Plan (1) UTI (urinary tract infection), bacterial Status: Acute Plan: CONTINUE IV ATBX. ENCOURAGE ORAL HYDRATION AND PT. REPEAT AM LABS. CONTINUE HOME MEDS, MOM PRN CONSTIPATION. COLOSTOMY CARE (2) Colostomy in place Status: Acute (3) Osteoarthritis Status: Acute Plan: PAIN CONTROL (4) TAHMINA (generalized anxiety disorder) Status: Acute (5) UTI (urinary tract infection) due to Enterococcus Status: Acute Plan: IV MEROPENEM. Labs, UA CX. See admit orders.
[2017-07-15] MEDS: NORCO 10/325 TAB PO PRN ×2 (14:37→20:57)
[2017-07-15] MEDS: SYNTHROID 125 mcg TAB PO SCH (20:56)
[2017-07-15] MEDS: XANAX PO SCH (20:57)
[2017-07-15] MEDS: SINGULAIR TAB 10 MG PO SCH (20:58)
[2017-07-15] MEDS: FLOMAX PO SCH (20:58)
[2017-07-15] MEDS: MIRAPEX TAB 0.25 MG PO SCH (20:58)
[2017-07-15] MEDS: MIRALAX POWDER (1 DOSE 17GM) PO SCH (21:01)
[2017-07-16] MEDS: NS 1000 ML 1,000 ML IV SCH ×3 (03:51→16:07)
[2017-07-16 06:24] LABS: BASOPHILS % (AUTO) 0.6 % (0.2-1.0); EOSINOPHILS # (AUTO) 0.3 x10^3/uL (0.0-0.2); EOSINOPHILS % (AUTO) 5.8 % (0.9-2.9); HEMATOCRIT 25.2 % (36.0-47.0); HEMOGLOBIN 8.7 g/dL (12.0-16.0); LYMPHOCYTES # (AUTO) 0.8 X10^3/uL (1.3-2.9); MEAN CORPUSCULAR HEMOGLOBIN 32.9 pg (27.0-34.0); MEAN CORPUSCULAR HGB CONC 34.4 g/dL (33.0-35.0); MEAN CORPUSCULAR VOLUME 95.7 fL (80.0-100.0); MEAN PLATELET VOLUME 8.9 fL (7.4-11.0); MONOCYTES # (AUTO) 0.5 x10^3/uL (0.3-0.8); MONOCYTES % (AUTO) 12.3 % (0.0-13.0); NEUTROPHILS # (AUTO) 2.7 x10^3/uL (2.2-4.8); NEUTROPHILS % (AUTO) 62.3 % (42.0-75.0); PLATELET COUNT 111 X10^3/uL (150.0-450.0); RED BLOOD COUNT 2.63 X10^6/uL (3.5-5.4); RED CELL DISTRIBUTION WIDTH 13.9 % (11.6-16.5); WHITE BLOOD COUNT 4.4 X10^3/uL (3.6-10.0)
[2017-07-16 06:38] LABS: ALANINE AMINOTRANSFERASE 14 Units/L (12-78); ALBUMIN 2.5 g/dL (3.4-5.0); ALKALINE PHOSPHATASE 94 Units/L (46-116); ASPARTATE AMINO TRANSFERASE 11 Units/L (15-37); BLOOD UREA NITROGEN 15 mg/dL (7-18); CALCIUM 7.5 mg/dL (8.5-10.1); CARBON DIOXIDE 22.5 mmol/L (21-32); CHLORIDE 111 mmol/L (98-107); COR CA(FOR HYPOALB) 8.7 mg/dL (8.5-10.1); COR NA(FOR HYPERGLY) 141 mmol/L (136-145); CREATININE 1.12 mg/dL (0.55-1.02); SODIUM 141 mmol/L (136-145); TOTAL PROTEIN 5.2 g/dL (6.4-8.2); eGFR BLACK RACES > 60 (>60); eGFR NON BLACK RACES 50 (>60)
[2017-07-16] MEDS: VITAMIN B-12 PO SCH (08:10)
[2017-07-16] MEDS: ZANTAC PO SCH (08:11)
[2017-07-16] MEDS: PLAQUENIL PO SCH ×2 (08:11→20:42)
[2017-07-16] MEDS: K-DUR TAB 20 MEQ PO SCH (08:11)
[2017-07-16] MEDS: MERREM VIAL 500 MG in NS 100 ML IV + SPIKE MINIBAG* 100 ML IV SCH ×2 (08:11→20:40)
[2017-07-16] MEDS: ZYLOPRIM PO SCH (08:11)
[2017-07-16] MEDS: HYDROCODONE BITARTRATE 80 MG PO SCH (13:08)
[2017-07-16] MEDS: XANAX PO SCH (20:38)
[2017-07-16] MEDS: SYNTHROID 125 mcg TAB PO SCH (20:39)
[2017-07-16] MEDS: MIRAPEX TAB 0.25 MG PO SCH (20:40)
[2017-07-16] MEDS: FLOMAX PO SCH (20:40)
[2017-07-16] MEDS: SINGULAIR TAB 10 MG PO SCH (20:40)
[2017-07-16] MEDS: MIRALAX POWDER (1 DOSE 17GM) PO SCH (20:41)
[2017-07-16] MEDS: NORCO 10/325 TAB PO PRN (20:47)
[2017-07-17] MEDS: NS 1000 ML 1,000 ML IV SCH ×2 (04:53→10:26)
[2017-07-17 05:58] LABS: BASOPHILS % (AUTO) 0.8 % (0.2-1.0); EOSINOPHILS # (AUTO) 0.3 x10^3/uL (0.0-0.2); EOSINOPHILS % (AUTO) 6.5 % (0.9-2.9); HEMATOCRIT 24.5 % (36.0-47.0); HEMOGLOBIN 8.6 g/dL (12.0-16.0); LYMPHOCYTES # (AUTO) 0.8 X10^3/uL (1.3-2.9); LYMPHOCYTES % (AUTO) 21.1 % (21.0-51.0); MEAN CORPUSCULAR HEMOGLOBIN 33.3 pg (27.0-34.0); MEAN CORPUSCULAR HGB CONC 34.9 g/dL (33.0-35.0); MEAN CORPUSCULAR VOLUME 95.4 fL (80.0-100.0); MEAN PLATELET VOLUME 8.2 fL (7.4-11.0); MONOCYTES # (AUTO) 0.5 x10^3/uL (0.3-0.8); MONOCYTES % (AUTO) 14.1 % (0.0-13.0); NEUTROPHILS # (AUTO) 2.2 x10^3/uL (2.2-4.8); NEUTROPHILS % (AUTO) 57.5 % (42.0-75.0); PLATELET COUNT 112 X10^3/uL (150.0-450.0); RED BLOOD COUNT 2.57 X10^6/uL (3.5-5.4); RED CELL DISTRIBUTION WIDTH 14.1 % (11.6-16.5); WHITE BLOOD COUNT 3.9 X10^3/uL (3.6-10.0)
[2017-07-17 06:22] LABS: ALANINE AMINOTRANSFERASE 14 Units/L (12-78); ALBUMIN 2.5 g/dL (3.4-5.0); ALKALINE PHOSPHATASE 94 Units/L (46-116); ASPARTATE AMINO TRANSFERASE 10 Units/L (15-37); BLOOD UREA NITROGEN 13 mg/dL (7-18); CALCIUM 7.5 mg/dL (8.5-10.1); CARBON DIOXIDE 20.5 mmol/L (21-32); CHLORIDE 109 mmol/L (98-107); COR CA(FOR HYPOALB) 8.7 mg/dL (8.5-10.1); CREATININE 1.13 mg/dL (0.55-1.02); SODIUM 139 mmol/L (136-145); TOTAL PROTEIN 5.5 g/dL (6.4-8.2); eGFR BLACK RACES 59 (>60); eGFR NON BLACK RACES 49 (>60)
[2017-07-17] MEDS: ZANTAC PO SCH (08:49)
[2017-07-17] MEDS: K-DUR TAB 20 MEQ PO SCH (08:50)
[2017-07-17] MEDS: ZYLOPRIM PO SCH (08:50)
[2017-07-17] MEDS: VITAMIN B-12 PO SCH (08:50)
[2017-07-17] MEDS: MERREM VIAL 500 MG in NS 100 ML IV + SPIKE MINIBAG* 100 ML IV SCH (08:51)
[2017-07-17] MEDS: PLAQUENIL PO SCH (10:19)
[2017-07-17 10:29] VITALS: BP 146/63
== END 2017-07-17 11:30 | disposition home health service (06) | DRG 690 ==
LOC: MED/SURG 14:10
PROVIDERS: ADMIT Internal Medicine; ATTEND Internal Medicine
DX: N39.0 Urinary tract infection, site not specified (principal); B95.2 Enterococcus as the cause of diseases classified elsewhere; E11.65 Type 2 diabetes mellitus with hyperglycemia; I10 Essential (primary) hypertension; Z93.3 Colostomy status; F41.8 Other specified anxiety disorders; M19.90 Unspecified osteoarthritis, unspecified site; G47.09 Other insomnia; K21.9 Gastro-esophageal reflux disease without esophagitis
CPT/HCPCS: 36415; 71045; 80053; 81001; 85025; 87040; 87086; 87088; 87186; A4216; A4222; J2185

== ENCOUNTER 2017-08-31 09:35 | Observation (INO) | payer OTHER, MEDICAID ==
[2017-08-31 11:38] VITALS: BMI 26.9
[2017-08-31 11:51] LABS: COLOR,URINE ORANGE (YELLOW)
[2017-08-31] MEDS ORDERED: TYLENOL 500 MG TAB EXTRA STRENGTH PO PRN (11:51)
[2017-08-31 11:52] LABS: APPEARANCE,URINE CLEAR (CLEAR)
[2017-08-31] MEDS ORDERED: HumuLIN R SUBCUT PRN (11:57)
[2017-08-31 12:00] LABS: BACTERIA,URINE 1+ /HPF (NEGATIVE); SQUAMOUS EPITHELIAL CELL,UR FEW /HPF (NEGATIVE)
[2017-08-31 12:11] LABS: ALANINE AMINOTRANSFERASE 20 Units/L (12-78); ALBUMIN 3.8 g/dL (3.4-5.0); ALKALINE PHOSPHATASE 122 Units/L (46-116); ASPARTATE AMINO TRANSFERASE 15 Units/L (15-37); BLOOD UREA NITROGEN 24 mg/dL (7-18); CALCIUM 7.8 mg/dL (8.5-10.1); CARBON DIOXIDE 27.6 mmol/L (21-32); CHLORIDE 102 mmol/L (98-107); CREATININE 1.52 mg/dL (0.55-1.02); SODIUM 137 mmol/L (136-145); TOTAL PROTEIN 6.9 g/dL (6.4-8.2); eGFR BLACK RACES 42 (>60); eGFR NON BLACK RACES 35 (>60)
[2017-08-31 12:14] LABS: BASOPHILS # (AUTO) 0.1 X10^3/uL (0.0-0.1); BASOPHILS % (AUTO) 1.3 % (0.2-1.0); EOSINOPHILS # (AUTO) 0.2 x10^3/uL (0.0-0.2); EOSINOPHILS % (AUTO) 4.2 % (0.9-2.9); HEMATOCRIT 31.3 % (36.0-47.0); HEMOGLOBIN 10.6 g/dL (12.0-16.0); LYMPHOCYTES % (AUTO) 20.5 % (21.0-51.0); MEAN CORPUSCULAR HEMOGLOBIN 31.9 pg (27.0-34.0); MEAN CORPUSCULAR HGB CONC 33.8 g/dL (33.0-35.0); MEAN CORPUSCULAR VOLUME 94.2 fL (80.0-100.0); MEAN PLATELET VOLUME 8.7 fL (7.4-11.0); MONOCYTES # (AUTO) 0.5 x10^3/uL (0.3-0.8); MONOCYTES % (AUTO) 10.2 % (0.0-13.0); NEUTROPHILS % (AUTO) 63.8 % (42.0-75.0); PLATELET COUNT 185 X10^3/uL (150.0-450.0); RED BLOOD COUNT 3.33 X10^6/uL (3.5-5.4); RED CELL DISTRIBUTION WIDTH 13.5 % (11.6-16.5); WHITE BLOOD COUNT 4.8 X10^3/uL (3.6-10.0)
[2017-08-31] MEDS ORDERED: PHENERGAN TAB 25 MG PO PRN (12:33)
[2017-08-31] MEDS: MERREM VIAL 500 MG in NS 100 ML IV + SPIKE MINIBAG* 100 ML IV SCH ×2 (14:23→21:08)
[2017-08-31] MEDS: NS 1000 ML 1,000 ML IV SCH ×2 (14:23→20:21)
[2017-08-31] MEDS: NORCO 10/325 TAB PO PRN ×2 (14:29→20:50)
[2017-08-31] MEDS: FLOMAX PO SCH (20:41)
[2017-08-31] MEDS: PLAQUENIL PO SCH (20:42)
[2017-08-31] MEDS: SINGULAIR TAB 10 MG PO SCH (20:42)
[2017-08-31] MEDS: ZANTAC PO SCH (20:43)
[2017-08-31] MEDS: SYNTHROID 125 mcg TAB PO SCH (20:43)
[2017-08-31] MEDS: MIRAPEX TAB 0.25 MG PO SCH (20:50)
[2017-08-31] MEDS ORDERED: MERREM PREMIX IV 500 MG 500 MG/50 ML BAG IV SCH (21:00)
[2017-08-31] MEDS: XANAX PO PRN (22:29)
[2017-09-01] MEDS: MERREM VIAL 500 MG in NS 100 ML IV + SPIKE MINIBAG* 100 ML IV SCH ×3 (05:06→20:44)
[2017-09-01] MEDS: NS 1000 ML 1,000 ML IV SCH ×3 (05:24→20:51)
[2017-09-01] MEDS: NORCO 10/325 TAB PO PRN ×3 (05:46→23:45)
[2017-09-01 06:09] LABS: BASOPHILS % (AUTO) 0.8 % (0.2-1.0); EOSINOPHILS # (AUTO) 0.2 x10^3/uL (0.0-0.2); EOSINOPHILS % (AUTO) 7.3 % (0.9-2.9); HEMATOCRIT 27.7 % (36.0-47.0); HEMOGLOBIN 9.4 g/dL (12.0-16.0); LYMPHOCYTES # (AUTO) 0.9 X10^3/uL (1.3-2.9); LYMPHOCYTES % (AUTO) 25.5 % (21.0-51.0); MEAN CORPUSCULAR HEMOGLOBIN 32.2 pg (27.0-34.0); MEAN CORPUSCULAR VOLUME 94.7 fL (80.0-100.0); MEAN PLATELET VOLUME 8.4 fL (7.4-11.0); MONOCYTES # (AUTO) 0.4 x10^3/uL (0.3-0.8); MONOCYTES % (AUTO) 11.2 % (0.0-13.0); NEUTROPHILS # (AUTO) 1.9 x10^3/uL (2.2-4.8); NEUTROPHILS % (AUTO) 55.2 % (42.0-75.0); PLATELET COUNT 144 X10^3/uL (150.0-450.0); RED BLOOD COUNT 2.93 X10^6/uL (3.5-5.4); RED CELL DISTRIBUTION WIDTH 13.4 % (11.6-16.5); WHITE BLOOD COUNT 3.4 X10^3/uL (3.6-10.0)
[2017-09-01 07:14] LABS: ALBUMIN 3.1 g/dL (3.4-5.0); CALCIUM 7.5 mg/dL (8.5-10.1); COR CA(FOR HYPOALB) 8.2 mg/dL (8.5-10.1); CREATININE 1.36 mg/dL (0.55-1.02); TOTAL PROTEIN 5.8 g/dL (6.4-8.2)
[2017-09-01] MEDS: PLAQUENIL PO SCH ×2 (08:34→20:34)
[2017-09-01] MEDS: ZYLOPRIM PO SCH (08:35)
[2017-09-01] MEDS: ZANTAC PO SCH ×2 (08:35→20:36)
--- NOTE | 2017-09-01 12:24 | DR.H&P ---
H&P - History & Physical for Day of: H&P Date: 08/31/17 - Chief Complaint Chief Complaint: UTI, weakness and fever - Allergies Allergies/Adverse Reactions: Allergies Allergy/AdvReac Type Severity Reaction Status Date / Time azithromycin [From Zithromax] Allergy Verified 08/31/17 11:26 ceftriaxone [From Rocephin] Allergy Verified 08/31/17 11:26 cefuroxime Allergy Verified 08/31/17 11:26 cephalexin [From Keflex] Allergy Verified 08/31/17 11:26 gentamicin Allergy Verified 08/31/17 11:26 levofloxacin [From Levaquin] Allergy Verified 08/31/17 11:26 meperidine [From Demerol] Allergy Verified 08/31/17 11:26 methylprednisolone Allergy Verified 08/31/17 11:26 [From Solu-Medrol] nitrofurantoin Allergy Verified 08/31/17 11:26 [From Furadantin] Penicillins Allergy Verified 08/31/17 11:26 Sulfa (Sulfonamide Allergy Verified 08/31/17 11:26 Antibiotics) Tetracyclines Allergy Verified 08/31/17 11:26 trimethoprim Allergy Verified 08/31/17 11:26 - History of Present Illness History of Present Illness: The patient is an 82-year-old white female who presented to the clinic on 08/30/2017 and urinalysis revealed UTI. Patient states she is drinking plenty of fluids as well as taking cranberry tablets. Patient has multiple drug allergies. Patient was resistant to hospitalization for IV antibiotics due to great-granddaughter getting on the weekend. Subsequently on 08/31/2017 patient has complaints of low-grade fever with nausea which is consistent with symptoms for UTI. Patient will be admitted for IV antibiotics. - Past Medical History Past Medical History: Anxiety, Diabetes, Hypertension - Past Surgical History Surgical History: Appendectomy, Hysterectomy, Mastectomy, Lithotripsy, Other Additional Surgical History: Colon resection with colostomy, Cystoscopy - Family History Family Medical History: Diabetes Mellitus, Cancer, [place], Coronary Artery Disease, Heart Failure, Hypertension - Social History Does patient currently use any type of tobacco product: No Have you used tobacco products in the last 12 months: No Type of Tobacco Use: None Does any household member use tobacco: No Alcohol Use: None Drug Use: Prescription Drugs - Medications Home Medications: Misc Home Med [Patient's Home Medication] 1 ea PO DAILY 08/31/17 [History Confirmed 08/31/17] - Review of Systems Constitutional: Fever, Malaise Eyes: No Symptoms Reported ENT: No Symptoms Reported Respiratory: No Symptoms Reported Cardiovascular: No Symptoms Reported Gastrointestinal: Nausea (it is) Genitourinary: Dysuria Musculoskeletal: No Symptoms Reported Skin: No Symptoms Reported Neurological: No Symptoms Reported - Physical Exam Vital Signs: Temperature 98.7 F Pulse Rate [Left Brachial] 70 Respiratory Rate 15 Blood Pressure [Right Arm] 134/58 Blood Pressure [Left Arm] 181/77 Blood Pressure 146/63 O2 Sat by Pulse Oximetry 96 Oriented: Normal Eyes: Normal Ear: Normal Nose: Normal Throat: Normal Respiratory: Clear Throughout Cardiovascular: Normal : Normal Auscultation: Bowel Sounds: Normal Palpation: Normal Tenderness: Suprapubic Skin: Normal Musculoskeletal: Normal Psychiatric: Normal Mood Description: Calm Affect: Normal Speech Pattern: Clear - Assessment/Plan (1) Diabetes mellitus Qualifiers: Diabetes mellitus type: type 2 Status: Acute Plan: Monitor BS (2) UTI (urinary tract infection), bacterial Status: Acute Plan: UA Culture, Merrem IV x 5 days
[2017-09-01] MEDS: HYDROCODONE BITARTRATE 80 MG PO SCH (12:49)
--- NOTE | 2017-09-01 18:36 | PCM.PROG ---
Progress Note - Progress Note for Day of Date: 09/01/17 - Subjective Subjective: 82 WF ADMITTED ON 08/31 WITH UTI, N/V. PT ON MEROPENEM AND IV HYDRATION. RESUME HOME MEDS, CULTURE PENDING, CO CONSTIPATION TODAY, PT HAS COLOSTOMY, WILL ORDER KUB - Past Medical Family Social History Past Med/Fam/Surg Hx: No changes since H&P Allergies: Allergies azithromycin [From Zithromax] Allergy (Verified 08/31/17 11:26) ceftriaxone [From Rocephin] Allergy (Verified 08/31/17 11:26) cefuroxime Allergy (Verified 08/31/17 11:26) cephalexin [From Keflex] Allergy (Verified 08/31/17 11:26) gentamicin Allergy (Verified 08/31/17 11:26) levofloxacin [From Levaquin] Allergy (Verified 08/31/17 11:26) meperidine [From Demerol] Allergy (Verified 08/31/17 11:26) methylprednisolone [From Solu-Medrol] Allergy (Verified 08/31/17 11:26) nitrofurantoin [From Furadantin] Allergy (Verified 08/31/17 11:26) Penicillins Allergy (Verified 08/31/17 11:26) Sulfa (Sulfonamide Antibiotics) Allergy (Verified 08/31/17 11:26) Tetracyclines Allergy (Verified 08/31/17 11:26) trimethoprim Allergy (Verified 08/31/17 11:26) - Review of Systems ROS: No change since H&P - Vital Signs and I&O's Vital Signs: Temperature 98.4 F Pulse Rate [Left Brachial] 64 Respiratory Rate 16 Blood Pressure [Right Arm] 134/58 Blood Pressure [Left Arm] 138/70 Blood Pressure 146/63 O2 Sat by Pulse Oximetry 96 Intake and Output: Intake & Output 08/30/17 08/31/17 09/01/17 09/02/17 11:59 11:59 11:59 11:59 Intake Total 2063 1292 Output Total 500 Balance 1563 1292 - Physical Exam Oriented: Normal Eyes: Normal Ear: Normal Nose: Normal Throat: Normal Respiratory: Normal Cardiovascular: Normal : Normal Auscultation: Bowel Sounds: Normal Tenderness: Suprapubic Skin: Normal, Other (COLOSTOMY PRESENT WITH PINK STOMA) Musculoskeletal: Back:Thoracic, Back:Lumbar, Back:Midline, Tender, Instability Psychiatric: Normal Mood Description: Calm Affect: Normal Speech Pattern: Clear - Laboratory and Diagnostics Result Diagrams: 09/01/17 05:43 09/01/17 05:43 Labs: 08/31/17 12:40 Urine,Clean Catch Urine Culture - Preliminary Laboratory WBC 3.4 X10^3/uL (3.6-10.0) L 09/01/17 05:43 RBC 2.93 X10^6/uL (3.5-5.4) L 09/01/17 05:43 Hgb 9.4 g/dL (12.0-16.0) L 09/01/17 05:43 Hct 27.7 % (36.0-47.0) L 09/01/17 05:43 MCV 94.7 fL (80.0-100.0) 09/01/17 05:43 MCH 32.2 pg (27.0-34.0) 09/01/17 05:43 MCHC 34.0 g/dL (33.0-35.0) 09/01/17 05:43 RDW 13.4 % (11.6-16.5) 09/01/17 05:43 Plt Count 144 X10^3/uL (150.0-450.0) L 09/01/17 05:43 MPV 8.4 fL (7.4-11.0) 09/01/17 05:43 Neut % (Auto) 55.2 % (42.0-75.0) 09/01/17 05:43 Lymph % (Auto) 25.5 % (21.0-51.0) 09/01/17 05:43 [place] % (Auto) 11.2 % (0.0-13.0) 09/01/17 05:43 Eos % (Auto) 7.3 % (0.9-2.9) H 09/01/17 05:43 Baso % (Auto) 0.8 % (0.2-1.0) 09/01/17 05:43 Neut # (Auto) 1.9 x10^3/uL (2.2-4.8) L 09/01/17 05:43 Lymph # (Auto) 0.9 X10^3/uL (1.3-2.9) L 09/01/17 05:43 [place] # (Auto) 0.4 x10^3/uL (0.3-0.8) 09/01/17 05:43 Eos # (Auto) 0.2 x10^3/uL (0.0-0.2) 09/01/17 05:43 Baso # (Auto) 0.0 X10^3/uL (0.0-0.1) 09/01/17 05:43 Absolute Nucleated RBC 0.0 /100WBC 09/01/17 05:43 Sodium 139 mmol/L (136-145) 09/01/17 05:43 Corrected Sodium 139 mmol/L (136-145) 09/01/17 05:43 Potassium 4.0 mmol/L (3.5-5.1) 09/01/17 05:43 Chloride 107 mmol/L (98-107) 09/01/17 05:43 Carbon Dioxide 24.0 mmol/L (21-32) 09/01/17 05:43 BUN 22 mg/dL (7-18) H 09/01/17 05:43 Creatinine 1.36 mg/dL (0.55-1.02) H 09/01/17 05:43 Est GFR (MDRD) Af Amer 48 (>60) L 09/01/17 05:43 Est GFR (MDRD) Non-Af 40 (>60) L 09/01/17 05:43 Glucose 115 mg/dL (65-99) H 09/01/17 05:43 POC Glucose (mg/dL) 159 mg/dL (65-99) H 09/01/17 16:11 Calcium 7.5 mg/dL (8.5-10.1) L 09/01/17 05:43 Corrected Calcium 8.2 mg/dL (8.5-10.1) L 09/01/17 05:43 Total Bilirubin 0.30 mg/dL (0.2-1.0) 09/01/17 05:43 AST 12 Units/L (15-37) L 09/01/17 05:43 ALT 17 Units/L (12-78) 09/01/17 05:43 Alkaline Phosphatase 103 Units/L (46-116) 09/01/17 05:43 Total Protein 5.8 g/dL (6.4-8.2) L 09/01/17 05:43 Albumin 3.1 g/dL (3.4-5.0) L 09/01/17 05:43 Globulin 2.7 g/dL (2.5-4.5) 09/01/17 05:43 Albumin/Globulin Ratio 1.1 Ratio (1.1-2.1) 09/01/17 05:43 Specimen Type Random urine 08/31/17 11:45 Urine Color [place] (YELLOW) 08/31/17 11:45 Urine Appearance Clear (CLEAR) 08/31/17 11:45 Urine RBC 5-10 /HPF (NONE SEEN) 08/31/17 11:45 Urine WBC 30-50 /HPF (NONE SEEN) 08/31/17 11:45 Ur Squamous Epith Cells Few /HPF (NEGATIVE) 08/31/17 11:45 Urine Bacteria 1+ /HPF (NEGATIVE) 08/31/17 11:45 Ur Culture Indicated? No/not indicated 08/31/17 11:45 - Plan (1) UTI (urinary tract infection), bacterial Status: Acute Plan: UA Culture, Merrem IV x 5 days (2) Diabetes mellitus Status: Acute Qualifiers: Diabetes mellitus type: type 2 Plan: Monitor BS (3) Colostomy in place Status: Acute (4) TAHMINA (generalized anxiety disorder) Status: Acute (5) Osteoarthritis Status: Acute
[2017-09-01] MEDS: FLOMAX PO SCH (20:34)
[2017-09-01] MEDS: SYNTHROID 125 mcg TAB PO SCH (20:35)
[2017-09-01] MEDS: SINGULAIR TAB 10 MG PO SCH (20:35)
[2017-09-01] MEDS: MIRAPEX TAB 0.25 MG PO SCH (20:43)
[2017-09-01] MEDS: XANAX PO PRN (22:37)
[2017-09-02] MEDS: NS 1000 ML 1,000 ML IV SCH ×4 (02:00→21:30)
[2017-09-02 06:40] LABS: BASOPHILS % (AUTO) 1.1 % (0.2-1.0); EOSINOPHILS # (AUTO) 0.2 x10^3/uL (0.0-0.2); EOSINOPHILS % (AUTO) 7.9 % (0.9-2.9); HEMATOCRIT 26.9 % (36.0-47.0); HEMOGLOBIN 9.2 g/dL (12.0-16.0); LYMPHOCYTES # (AUTO) 0.9 X10^3/uL (1.3-2.9); LYMPHOCYTES % (AUTO) 29.1 % (21.0-51.0); MEAN CORPUSCULAR HEMOGLOBIN 32.3 pg (27.0-34.0); MEAN CORPUSCULAR HGB CONC 34.1 g/dL (33.0-35.0); MEAN CORPUSCULAR VOLUME 94.9 fL (80.0-100.0); MEAN PLATELET VOLUME 8.4 fL (7.4-11.0); MONOCYTES # (AUTO) 0.4 x10^3/uL (0.3-0.8); MONOCYTES % (AUTO) 11.3 % (0.0-13.0); NEUTROPHILS # (AUTO) 1.6 x10^3/uL (2.2-4.8); NEUTROPHILS % (AUTO) 50.6 % (42.0-75.0); PLATELET COUNT 132 X10^3/uL (150.0-450.0); RED BLOOD COUNT 2.83 X10^6/uL (3.5-5.4); RED CELL DISTRIBUTION WIDTH 13.4 % (11.6-16.5); WHITE BLOOD COUNT 3.2 X10^3/uL (3.6-10.0)
[2017-09-02 06:55] LABS: ALANINE AMINOTRANSFERASE 17 Units/L (12-78); ALBUMIN 2.9 g/dL (3.4-5.0); ALKALINE PHOSPHATASE 102 Units/L (46-116); ASPARTATE AMINO TRANSFERASE 12 Units/L (15-37); BLOOD UREA NITROGEN 16 mg/dL (7-18); CALCIUM 7.5 mg/dL (8.5-10.1); CARBON DIOXIDE 24.2 mmol/L (21-32); CHLORIDE 107 mmol/L (98-107); COR CA(FOR HYPOALB) 8.4 mg/dL (8.5-10.1); CREATININE 1.26 mg/dL (0.55-1.02); SODIUM 137 mmol/L (136-145); TOTAL PROTEIN 5.6 g/dL (6.4-8.2); eGFR BLACK RACES 52 (>60); eGFR NON BLACK RACES 43 (>60)
--- NOTE | 2017-09-02 07:11 | RAD ---
Examination: KUB History: Constipation Findings: Nonobstructive intestinal gas pattern when no evidence for abdominal mass, free fluid or vi sceral enlargement. Surgical clips right lower quadrant. Suspect stomal device, consistent with histo ry of colon resection with colostomy. Impression: Postsurgical findings, no acute abnormality demonstrated. Reported By:
[2017-09-02] MEDS: MERREM VIAL 500 MG in NS 100 ML IV + SPIKE MINIBAG* 100 ML IV SCH ×2 (08:15→20:51)
[2017-09-02] MEDS: ZANTAC PO SCH ×2 (08:15→20:50)
[2017-09-02] MEDS: ZYLOPRIM PO SCH (08:15)
[2017-09-02] MEDS: PLAQUENIL PO SCH ×2 (08:15→20:51)
[2017-09-02] MEDS: NORCO 10/325 TAB PO PRN ×3 (08:15→20:57)
[2017-09-02] MEDS: HYDROCODONE BITARTRATE 80 MG PO SCH (12:33)
--- NOTE | 2017-09-02 14:06 | PCM.PROG ---
Progress Note - Progress Note for Day of Date: 09/02/17 - Subjective Subjective: 82 WF ADMITTED ON 08/31 WITH UTI, N/V. PT ON MEROPENEM AND IV HYDRATION. RESUME HOME MEDS, CULTURE +ECOLI - Past Medical Family Social History Past Med/Fam/Surg Hx: No changes since H&P Allergies: Allergies azithromycin [From Zithromax] Allergy (Verified 08/31/17 11:26) ceftriaxone [From Rocephin] Allergy (Verified 08/31/17 11:26) cefuroxime Allergy (Verified 08/31/17 11:26) cephalexin [From Keflex] Allergy (Verified 08/31/17 11:26) gentamicin Allergy (Verified 08/31/17 11:26) levofloxacin [From Levaquin] Allergy (Verified 08/31/17 11:26) meperidine [From Demerol] Allergy (Verified 08/31/17 11:26) methylprednisolone [From Solu-Medrol] Allergy (Verified 08/31/17 11:26) nitrofurantoin [From Furadantin] Allergy (Verified 08/31/17 11:26) Penicillins Allergy (Verified 08/31/17 11:26) Sulfa (Sulfonamide Antibiotics) Allergy (Verified 08/31/17 11:26) Tetracyclines Allergy (Verified 08/31/17 11:26) trimethoprim Allergy (Verified 08/31/17 11:26) - Review of Systems ROS: No change since H&P - Vital Signs and I&O's Vital Signs: Temperature 98.5 F Pulse Rate [Left Brachial] 72 Respiratory Rate 18 Blood Pressure [Right Arm] 146/67 Blood Pressure [Left Arm] 143/85 Blood Pressure 146/63 O2 Sat by Pulse Oximetry 96 Intake and Output: Intake & Output 08/31/17 09/01/17 09/02/17 09/03/17 11:59 11:59 11:59 11:59 Intake Total 3 2202 Output Total 500 Balance 1563 2202 - Physical Exam Oriented: Normal Eyes: Normal Ear: Normal Nose: Normal Throat: Normal Respiratory: Diminished Cardiovascular: Murmur : Normal Auscultation: Bowel Sounds: Normal Tenderness: Suprapubic Skin: Normal, Other (COLOSTOMY PRESENT WITH PINK STOMA) Musculoskeletal: Back:Thoracic, Back:Lumbar, Back:Midline, Tender, Instability Psychiatric: Normal Mood Description: Calm Affect: Normal Speech Pattern: Clear, Appropriate - Laboratory and Diagnostics Result Diagrams: 09/02/17 06:00 09/02/17 06:00 Labs: 08/31/17 12:40 Urine,Clean Catch Urine Culture - Preliminary Escherichia Coli Laboratory WBC 3.2 X10^3/uL (3.6-10.0) L 09/02/17 06:00 RBC 2.83 X10^6/uL (3.5-5.4) L 09/02/17 06:00 Hgb 9.2 g/dL (12.0-16.0) L 09/02/17 06:00 Hct 26.9 % (36.0-47.0) L 09/02/17 06:00 MCV 94.9 fL (80.0-100.0) 09/02/17 06:00 MCH 32.3 pg (27.0-34.0) 09/02/17 06:00 MCHC 34.1 g/dL (33.0-35.0) 09/02/17 06:00 RDW 13.4 % (11.6-16.5) 09/02/17 06:00 Plt Count 132 X10^3/uL (150.0-450.0) L 09/02/17 06:00 MPV 8.4 fL (7.4-11.0) 09/02/17 06:00 Neut % (Auto) 50.6 % (42.0-75.0) 09/02/17 06:00 Lymph % (Auto) 29.1 % (21.0-51.0) 09/02/17 06:00 [place] % (Auto) 11.3 % (0.0-13.0) 09/02/17 06:00 Eos % (Auto) 7.9 % (0.9-2.9) H 09/02/17 06:00 Baso % (Auto) 1.1 % (0.2-1.0) H 09/02/17 06:00 Neut # (Auto) 1.6 x10^3/uL (2.2-4.8) L 09/02/17 06:00 Lymph # (Auto) 0.9 X10^3/uL (1.3-2.9) L 09/02/17 06:00 [place] # (Auto) 0.4 x10^3/uL (0.3-0.8) 09/02/17 06:00 Eos # (Auto) 0.2 x10^3/uL (0.0-0.2) 09/02/17 06:00 Baso # (Auto) 0.0 X10^3/uL (0.0-0.1) 09/02/17 06:00 Absolute Nucleated RBC 0.1 /100WBC 09/02/17 06:00 Sodium 137 mmol/L (136-145) 09/02/17 06:00 Corrected Sodium TNP 09/02/17 06:00 Potassium 4.0 mmol/L (3.5-5.1) 09/02/17 06:00 Chloride 107 mmol/L (98-107) 09/02/17 06:00 Carbon Dioxide 24.2 mmol/L (21-32) 09/02/17 06:00 BUN 16 mg/dL (7-18) 09/02/17 06:00 Creatinine 1.26 mg/dL (0.55-1.02) H 09/02/17 06:00 Est GFR (MDRD) Af Amer 52 (>60) L 09/02/17 06:00 Est GFR (MDRD) Non-Af 43 (>60) L 09/02/17 06:00 Glucose 105 mg/dL (65-99) H 09/02/17 06:00 POC Glucose (mg/dL) 117 mg/dL (65-99) H 09/02/17 11:13 Calcium 7.5 mg/dL (8.5-10.1) L 09/02/17 06:00 Corrected Calcium 8.4 mg/dL (8.5-10.1) L 09/02/17 06:00 Total Bilirubin 0.20 mg/dL (0.2-1.0) 09/02/17 06:00 AST 12 Units/L (15-37) L 09/02/17 06:00 ALT 17 Units/L (12-78) 09/02/17 06:00 Alkaline Phosphatase 102 Units/L (46-116) 09/02/17 06:00 Total Protein 5.6 g/dL (6.4-8.2) L 09/02/17 06:00 Albumin 2.9 g/dL (3.4-5.0) L 09/02/17 06:00 Globulin 2.7 g/dL (2.5-4.5) 09/02/17 06:00 Albumin/Globulin Ratio 1.1 Ratio (1.1-2.1) 09/02/17 06:00 Specimen Type Random urine 08/31/17 11:45 Urine Color [place] (YELLOW) 08/31/17 11:45 Urine Appearance Clear (CLEAR) 08/31/17 11:45 Urine RBC 5-10 /HPF (NONE SEEN) 08/31/17 11:45 Urine WBC 30-50 /HPF (NONE SEEN) 08/31/17 11:45 Ur Squamous Epith Cells Few /HPF (NEGATIVE) 08/31/17 11:45 Urine Bacteria 1+ /HPF (NEGATIVE) 08/31/17 11:45 Ur Culture Indicated? No/not indicated 08/31/17 11:45 - Plan (1) UTI (urinary tract infection), bacterial Status: Acute Plan: UA Culture + ECOLI. , Merrem IV x 5 days (2) Diabetes mellitus Status: Acute Qualifiers: Diabetes mellitus type: type 2 Plan: Monitor BS (3) Colostomy in place Status: Acute (4) TAHMINA (generalized anxiety disorder) Status: Acute (5) Osteoarthritis Status: Acute
[2017-09-02] MEDS: MIRAPEX TAB 0.25 MG PO SCH (20:50)
[2017-09-02] MEDS: SYNTHROID 125 mcg TAB PO SCH (20:50)
[2017-09-02] MEDS: SINGULAIR TAB 10 MG PO SCH (20:50)
[2017-09-02] MEDS: FLOMAX PO SCH (20:51)
[2017-09-02] MEDS: XANAX PO PRN (22:08)
[2017-09-03] MEDS: NS 1000 ML 1,000 ML IV SCH ×3 (05:04→20:42)
[2017-09-03] MEDS ORDERED: NORCO 10/325 TAB ONE (07:33)
[2017-09-03] MEDS: NORCO 10/325 TAB PO PRN ×4 (07:35→20:43)
[2017-09-03 07:37] LABS: BASOPHILS % (AUTO) 0.6 % (0.2-1.0); EOSINOPHILS # (AUTO) 0.3 x10^3/uL (0.0-0.2); EOSINOPHILS % (AUTO) 8.2 % (0.9-2.9); HEMATOCRIT 30.6 % (36.0-47.0); HEMOGLOBIN 10.3 g/dL (12.0-16.0); LYMPHOCYTES # (AUTO) 1.2 X10^3/uL (1.3-2.9); LYMPHOCYTES % (AUTO) 28.8 % (21.0-51.0); MEAN CORPUSCULAR HEMOGLOBIN 32.2 pg (27.0-34.0); MEAN CORPUSCULAR HGB CONC 33.8 g/dL (33.0-35.0); MEAN CORPUSCULAR VOLUME 95.3 fL (80.0-100.0); MEAN PLATELET VOLUME 8.5 fL (7.4-11.0); MONOCYTES # (AUTO) 0.4 x10^3/uL (0.3-0.8); NEUTROPHILS # (AUTO) 2.2 x10^3/uL (2.2-4.8); NEUTROPHILS % (AUTO) 52.4 % (42.0-75.0); PLATELET COUNT 166 X10^3/uL (150.0-450.0); RED BLOOD COUNT 3.22 X10^6/uL (3.5-5.4); RED CELL DISTRIBUTION WIDTH 13.7 % (11.6-16.5); WHITE BLOOD COUNT 4.3 X10^3/uL (3.6-10.0)
[2017-09-03 07:42] LABS: ALANINE AMINOTRANSFERASE 18 Units/L (12-78); ALBUMIN 3.4 g/dL (3.4-5.0); ALKALINE PHOSPHATASE 116 Units/L (46-116); ASPARTATE AMINO TRANSFERASE 11 Units/L (15-37); BLOOD UREA NITROGEN 17 mg/dL (7-18); CALCIUM 7.3 mg/dL (8.5-10.1); CARBON DIOXIDE 23.1 mmol/L (21-32); CHLORIDE 107 mmol/L (98-107); CREATININE 1.22 mg/dL (0.55-1.02); SODIUM 139 mmol/L (136-145); TOTAL PROTEIN 6.4 g/dL (6.4-8.2); eGFR BLACK RACES 54 (>60); eGFR NON BLACK RACES 45 (>60)
[2017-09-03] MEDS: ZANTAC PO SCH ×2 (08:54→20:42)
[2017-09-03] MEDS: ZYLOPRIM PO SCH (08:54)
[2017-09-03] MEDS: PLAQUENIL PO SCH ×2 (08:54→20:43)
[2017-09-03] MEDS: MERREM VIAL 500 MG in NS 100 ML IV + SPIKE MINIBAG* 100 ML IV SCH ×2 (08:54→20:43)
[2017-09-03] MEDS: MIRALAX POWDER (1 DOSE 17GM) PO SCH (10:18)
[2017-09-03] MEDS: HYDROCODONE BITARTRATE 80 MG PO SCH (12:24)
[2017-09-03] MEDS: MIRAPEX TAB 0.25 MG PO SCH (20:42)
[2017-09-03] MEDS: SINGULAIR TAB 10 MG PO SCH (20:42)
[2017-09-03] MEDS: SYNTHROID 125 mcg TAB PO SCH (20:42)
[2017-09-03] MEDS: FLOMAX PO SCH (20:43)
[2017-09-04] MEDS: NS 1000 ML 1,000 ML IV SCH ×3 (05:26→20:00)
[2017-09-04 07:31] LABS: BASOPHILS % (AUTO) 0.7 % (0.2-1.0); EOSINOPHILS # (AUTO) 0.3 x10^3/uL (0.0-0.2); EOSINOPHILS % (AUTO) 6.4 % (0.9-2.9); HEMATOCRIT 26.3 % (36.0-47.0); HEMOGLOBIN 9.1 g/dL (12.0-16.0); LYMPHOCYTES # (AUTO) 0.7 X10^3/uL (1.3-2.9); LYMPHOCYTES % (AUTO) 15.2 % (21.0-51.0); MEAN CORPUSCULAR HEMOGLOBIN 32.6 pg (27.0-34.0); MEAN CORPUSCULAR HGB CONC 34.5 g/dL (33.0-35.0); MEAN CORPUSCULAR VOLUME 94.5 fL (80.0-100.0); MEAN PLATELET VOLUME 8.5 fL (7.4-11.0); MONOCYTES # (AUTO) 0.5 x10^3/uL (0.3-0.8); MONOCYTES % (AUTO) 10.2 % (0.0-13.0); NEUTROPHILS # (AUTO) 3.3 x10^3/uL (2.2-4.8); NEUTROPHILS % (AUTO) 67.5 % (42.0-75.0); PLATELET COUNT 125 X10^3/uL (150.0-450.0); RED BLOOD COUNT 2.79 X10^6/uL (3.5-5.4); RED CELL DISTRIBUTION WIDTH 13.9 % (11.6-16.5); WHITE BLOOD COUNT 4.9 X10^3/uL (3.6-10.0)
[2017-09-04 07:48] LABS: ALANINE AMINOTRANSFERASE 16 Units/L (12-78); ALBUMIN 2.9 g/dL (3.4-5.0); ALKALINE PHOSPHATASE 98 Units/L (46-116); ASPARTATE AMINO TRANSFERASE 12 Units/L (15-37); BLOOD UREA NITROGEN 15 mg/dL (7-18); CALCIUM 7.4 mg/dL (8.5-10.1); CARBON DIOXIDE 22.3 mmol/L (21-32); CHLORIDE 108 mmol/L (98-107); COR CA(FOR HYPOALB) 8.3 mg/dL (8.5-10.1); CREATININE 1.16 mg/dL (0.55-1.02); SODIUM 139 mmol/L (136-145); TOTAL PROTEIN 5.6 g/dL (6.4-8.2); eGFR BLACK RACES 58 (>60); eGFR NON BLACK RACES 48 (>60)
[2017-09-04] MEDS ORDERED: NORCO 10/325 TAB ONE (08:21)
[2017-09-04] MEDS: MIRALAX POWDER (1 DOSE 17GM) PO SCH (08:26)
[2017-09-04] MEDS: MERREM VIAL 500 MG in NS 100 ML IV + SPIKE MINIBAG* 100 ML IV SCH ×2 (08:26→20:24)
[2017-09-04] MEDS: ZANTAC PO SCH ×2 (08:27→20:23)
[2017-09-04] MEDS: NORCO 10/325 TAB PO PRN ×3 (08:27→21:30)
[2017-09-04] MEDS: PLAQUENIL PO SCH ×2 (08:27→20:22)
[2017-09-04] MEDS: ZYLOPRIM PO SCH (08:27)
--- NOTE | 2017-09-04 10:45 | PCM.PROG ---
Progress Note - Progress Note for Day of Date: 09/03/17 - Subjective Subjective: 82 WF ADMITTED ON 08/31 WITH UTI, N/V. PT ON MEROPENEM AND IV HYDRATION. RESUME HOME MEDS, CULTURE +ECOLI - Past Medical Family Social History Past Med/Fam/Surg Hx: No changes since H&P Allergies: Allergies azithromycin [From Zithromax] Allergy (Verified 08/31/17 11:26) ceftriaxone [From Rocephin] Allergy (Verified 08/31/17 11:26) cefuroxime Allergy (Verified 08/31/17 11:26) cephalexin [From Keflex] Allergy (Verified 08/31/17 11:26) gentamicin Allergy (Verified 08/31/17 11:26) levofloxacin [From Levaquin] Allergy (Verified 08/31/17 11:26) meperidine [From Demerol] Allergy (Verified 08/31/17 11:26) methylprednisolone [From Solu-Medrol] Allergy (Verified 08/31/17 11:26) nitrofurantoin [From Furadantin] Allergy (Verified 08/31/17 11:26) Penicillins Allergy (Verified 08/31/17 11:26) Sulfa (Sulfonamide Antibiotics) Allergy (Verified 08/31/17 11:26) Tetracyclines Allergy (Verified 08/31/17 11:26) trimethoprim Allergy (Verified 08/31/17 11:26) - Review of Systems ROS: No change since H&P - Vital Signs and I&O's Vital Signs: Temperature 98.9 F Pulse Rate [Left Brachial] 67 Respiratory Rate 18 Blood Pressure [Right Arm] 178/72 Blood Pressure [Left Arm] 152/66 Blood Pressure 146/63 O2 Sat by Pulse Oximetry 97 Intake and Output: Intake & Output 09/01/17 09/02/17 09/03/17 09/04/17 11:59 11:59 11:59 11:59 Intake Total 2063 2202 1689 2800 Output Total 500 Balance 1563 2202 1689 2800 - Physical Exam Oriented: Normal Eyes: Normal Ear: Normal Nose: Normal Throat: Normal Respiratory: Diminished Cardiovascular: Murmur : Normal Auscultation: Bowel Sounds: Normal Tenderness: Suprapubic Skin: Normal, Other (COLOSTOMY PRESENT WITH PINK STOMA) Musculoskeletal: Back:Thoracic, Back:Lumbar, Back:Midline, Tender, Instability Psychiatric: Normal Mood Description: Calm Affect: Normal Speech Pattern: Clear, Appropriate - Laboratory and Diagnostics Result Diagrams: 09/04/17 07:12 09/04/17 07:12 Labs: 08/31/17 12:40 Urine,Clean Catch Urine Culture - Final Escherichia Coli Escherichia Coli#2 Laboratory WBC 4.9 X10^3/uL (3.6-10.0) 09/04/17 07:12 RBC 2.79 X10^6/uL (3.5-5.4) L 09/04/17 07:12 Hgb 9.1 g/dL (12.0-16.0) L 09/04/17 07:12 Hct 26.3 % (36.0-47.0) L 09/04/17 07:12 MCV 94.5 fL (80.0-100.0) 09/04/17 07:12 MCH 32.6 pg (27.0-34.0) 09/04/17 07:12 MCHC 34.5 g/dL (33.0-35.0) 09/04/17 07:12 RDW 13.9 % (11.6-16.5) 09/04/17 07:12 Plt Count 125 X10^3/uL (150.0-450.0) L 09/04/17 07:12 MPV 8.5 fL (7.4-11.0) 09/04/17 07:12 Neut % (Auto) 67.5 % (42.0-75.0) 09/04/17 07:12 Lymph % (Auto) 15.2 % (21.0-51.0) L 09/04/17 07:12 Lane % (Auto) 10.2 % (0.0-13.0) 09/04/17 07:12 Eos % (Auto) 6.4 % (0.9-2.9) H 09/04/17 07:12 Baso % (Auto) 0.7 % (0.2-1.0) 09/04/17 07:12 Neut # (Auto) 3.3 x10^3/uL (2.2-4.8) 09/04/17 07:12 Lymph # (Auto) 0.7 X10^3/uL (1.3-2.9) L 09/04/17 07:12 Lane # (Auto) 0.5 x10^3/uL (0.3-0.8) 09/04/17 07:12 Eos # (Auto) 0.3 x10^3/uL (0.0-0.2) H 09/04/17 07:12 Baso # (Auto) 0.0 X10^3/uL (0.0-0.1) 09/04/17 07:12 Absolute Nucleated RBC 0.0 /100WBC 09/04/17 07:12 Sodium 139 mmol/L (136-145) 09/04/17 07:12 Corrected Sodium TNP 09/04/17 07:12 Potassium 3.8 mmol/L (3.5-5.1) 09/04/17 07:12 Chloride 108 mmol/L (98-107) H 09/04/17 07:12 Carbon Dioxide 22.3 mmol/L (21-32) 09/04/17 07:12 BUN 15 mg/dL (7-18) 09/04/17 07:12 Creatinine 1.16 mg/dL (0.55-1.02) H 09/04/17 07:12 Est GFR (MDRD) Af Amer 58 (>60) L 09/04/17 07:12 Est GFR (MDRD) Non-Af 48 (>60) L 09/04/17 07:12 Glucose 110 mg/dL (65-99) H 09/04/17 07:12 POC Glucose (mg/dL) 117 mg/dL (65-99) H 09/02/17 11:13 Calcium 7.4 mg/dL (8.5-10.1) L 09/04/17 07:12 Corrected Calcium 8.3 mg/dL (8.5-10.1) L 09/04/17 07:12 Total Bilirubin 0.40 mg/dL (0.2-1.0) 09/04/17 07:12 AST 12 Units/L (15-37) L 09/04/17 07:12 ALT 16 Units/L (12-78) 09/04/17 07:12 Alkaline Phosphatase 98 Units/L (46-116) 09/04/17 07:12 Total Protein 5.6 g/dL (6.4-8.2) L 09/04/17 07:12 Albumin 2.9 g/dL (3.4-5.0) L 09/04/17 07:12 Globulin 2.7 g/dL (2.5-4.5) 09/04/17 07:12 Albumin/Globulin Ratio 1.1 Ratio (1.1-2.1) 09/04/17 07:12 Specimen Type Random urine 08/31/17 11:45 Urine Color [place] (YELLOW) 08/31/17 11:45 Urine Appearance Clear (CLEAR) 08/31/17 11:45 Urine RBC 5-10 /HPF (NONE SEEN) 08/31/17 11:45 Urine WBC 30-50 /HPF (NONE SEEN) 08/31/17 11:45 Ur Squamous Epith Cells Few /HPF (NEGATIVE) 08/31/17 11:45 Urine Bacteria 1+ /HPF (NEGATIVE) 08/31/17 11:45 Ur Culture Indicated? No/not indicated 08/31/17 11:45 - Plan (1) UTI (urinary tract infection), bacterial Status: Acute Plan: UA Culture + ECOLI. , Merrem IV x 5 days (2) Diabetes mellitus Status: Acute Qualifiers: Diabetes mellitus type: type 2 Plan: Monitor BS (3) Colostomy in place Status: Acute (4) TAHMINA (generalized anxiety disorder) Status: Acute (5) Osteoarthritis Status: Acute
[2017-09-04] MEDS: HYDROCODONE BITARTRATE 80 MG PO SCH (13:31)
[2017-09-04] MEDS: SINGULAIR TAB 10 MG PO SCH (20:22)
[2017-09-04] MEDS: MIRAPEX TAB 0.25 MG PO SCH (20:22)
[2017-09-04] MEDS: FLOMAX PO SCH (20:24)
[2017-09-05] MEDS: XANAX PO PRN (00:50)
[2017-09-05] MEDS: NS 1000 ML 1,000 ML IV SCH (04:00)
[2017-09-05 06:13] LABS: BASOPHILS % (AUTO) 0.6 % (0.2-1.0); EOSINOPHILS # (AUTO) 0.3 x10^3/uL (0.0-0.2); EOSINOPHILS % (AUTO) 5.3 % (0.9-2.9); HEMATOCRIT 27.8 % (36.0-47.0); HEMOGLOBIN 9.5 g/dL (12.0-16.0); LYMPHOCYTES # (AUTO) 1.2 X10^3/uL (1.3-2.9); LYMPHOCYTES % (AUTO) 22.2 % (21.0-51.0); MEAN CORPUSCULAR HEMOGLOBIN 32.2 pg (27.0-34.0); MEAN CORPUSCULAR HGB CONC 34.1 g/dL (33.0-35.0); MEAN CORPUSCULAR VOLUME 94.5 fL (80.0-100.0); MEAN PLATELET VOLUME 9.1 fL (7.4-11.0); MONOCYTES # (AUTO) 0.5 x10^3/uL (0.3-0.8); MONOCYTES % (AUTO) 9.8 % (0.0-13.0); NEUTROPHILS # (AUTO) 3.4 x10^3/uL (2.2-4.8); NEUTROPHILS % (AUTO) 62.1 % (42.0-75.0); PLATELET COUNT 140 X10^3/uL (150.0-450.0); RED BLOOD COUNT 2.94 X10^6/uL (3.5-5.4); RED CELL DISTRIBUTION WIDTH 13.3 % (11.6-16.5); WHITE BLOOD COUNT 5.5 X10^3/uL (3.6-10.0)
[2017-09-05 06:14] LABS: ALANINE AMINOTRANSFERASE 16 Units/L (12-78); ALBUMIN 3.1 g/dL (3.4-5.0); ALKALINE PHOSPHATASE 107 Units/L (46-116); ASPARTATE AMINO TRANSFERASE 13 Units/L (15-37); BLOOD UREA NITROGEN 16 mg/dL (7-18); CALCIUM 7.4 mg/dL (8.5-10.1); CARBON DIOXIDE 22.9 mmol/L (21-32); CHLORIDE 108 mmol/L (98-107); COR CA(FOR HYPOALB) 8.1 mg/dL (8.5-10.1); COR NA(FOR HYPERGLY) 139 mmol/L (136-145); CREATININE 1.09 mg/dL (0.55-1.02); SODIUM 139 mmol/L (136-145); eGFR BLACK RACES > 60 (>60); eGFR NON BLACK RACES 51 (>60)
[2017-09-05] MEDS ORDERED: SYNTHROID 125 mcg TAB PO SCH ×2 (07:00)
[2017-09-05] MEDS: MERREM VIAL 500 MG in NS 100 ML IV + SPIKE MINIBAG* 100 ML IV SCH (08:11)
[2017-09-05] MEDS: PLAQUENIL PO SCH (08:12)
[2017-09-05] MEDS: ZYLOPRIM PO SCH (08:12)
[2017-09-05] MEDS: ZANTAC PO SCH (08:13)
[2017-09-05] MEDS: MIRALAX POWDER (1 DOSE 17GM) PO SCH (08:13)
[2017-09-05] MEDS: HYDROCODONE BITARTRATE 80 MG PO SCH (12:00)
[2017-09-05 12:15] VITALS: BP 165/75
== END 2017-09-05 16:15 | disposition home or self-care (01) ==
LOC: UNDOADMOB 09:35 → OBS 09:35 → ICU 09-04 14:55
PROVIDERS: ADMIT Internal Medicine; ATTEND Internal Medicine
DX: N39.0 Urinary tract infection, site not specified (principal); R53.1 Weakness; E11.65 Type 2 diabetes mellitus with hyperglycemia; R11.2 Nausea with vomiting, unspecified; Z93.1 Gastrostomy status; F41.8 Other specified anxiety disorders; M19.90 Unspecified osteoarthritis, unspecified site; B96.29 Other Escherichia coli [E. coli] as the cause of diseases classified elsewhere
CPT/HCPCS: 36415; 74018; 80053; 85008; 85025; 87086; 87088; 87186; A4222; Q0169; G0378; J2185

== ENCOUNTER 2018-01-12 09:34 | Observation (INO) ==
[2018-01-12] MEDS: NS 1000 ML 1,000 ML IV SCH ×2 (12:55→20:48)
[2018-01-12 12:56] LABS: BILIRUBIN,URINE NEGATIVE (NEGATIVE); BLOOD/HEMOGLOBIN,URINE NEGATIVE (NEGATIVE); GLUCOSE, URINE NEGATIVE (NEGATIVE); KETONES,URINE NEGATIVE (NEGATIVE); LEUKOCYTE ESTERASE ,URINE NEGATIVE (NEGATIVE); NITRITES,URINE NEGATIVE (NEGATIVE); PROTEIN,URINE NEGATIVE (NEGATIVE); UROBILINOGEN,URINE NORMAL (NORMAL)
[2018-01-12 13:00] LABS: APPEARANCE,URINE CLEAR (CLEAR); COLOR,URINE YELLOW (YELLOW)
[2018-01-12 13:06] LABS: BASOPHILS % (AUTO) 0.7 % (0.2-1.0); EOSINOPHILS # (AUTO) 0.1 x10^3/uL (0.0-0.2); HEMATOCRIT 38.9 % (36.0-47.0); HEMOGLOBIN 13.3 g/dL (12.0-16.0); LYMPHOCYTES # (AUTO) 0.8 X10^3/uL (1.3-2.9); LYMPHOCYTES % (AUTO) 14.9 % (21.0-51.0); MEAN CORPUSCULAR HEMOGLOBIN 33.5 pg (27.0-34.0); MEAN CORPUSCULAR HGB CONC 34.2 g/dL (33.0-35.0); MEAN CORPUSCULAR VOLUME 98.1 fL (80.0-100.0); MONOCYTES # (AUTO) 0.6 x10^3/uL (0.3-0.8); MONOCYTES % (AUTO) 11.2 % (0.0-13.0); NEUTROPHILS # (AUTO) 3.8 x10^3/uL (2.2-4.8); NEUTROPHILS % (AUTO) 71.2 % (42.0-75.0); PLATELET COUNT 174 X10^3/uL (150.0-450.0); RED BLOOD COUNT 3.97 X10^6/uL (3.5-5.4); RED CELL DISTRIBUTION WIDTH 13.5 % (11.6-16.5); WHITE BLOOD COUNT 5.3 X10^3/uL (3.6-10.0)
[2018-01-12 13:13] LABS: ALANINE AMINOTRANSFERASE 25 Units/L (12-78); ALBUMIN 4.3 g/dL (3.4-5.0); ALKALINE PHOSPHATASE 106 Units/L (46-116); ASPARTATE AMINO TRANSFERASE 17 Units/L (15-37); BLOOD UREA NITROGEN 37 mg/dL (7-18); CARBON DIOXIDE 30.4 mmol/L (21-32); CHLORIDE 101 mmol/L (98-107); CREATININE 1.84 mg/dL (0.55-1.02); SODIUM 138 mmol/L (136-145); TOTAL PROTEIN 7.7 g/dL (6.4-8.2); eGFR NON BLACK RACES 28 (>60)
[2018-01-12] MEDS: MERREM VIAL 500 MG in NS 100 ML IV + SPIKE MINIBAG* 100 ML IV SCH ×2 (13:31→21:24)
[2018-01-12 14:33] VITALS: BMI 26.7
[2018-01-12] MEDS: TYLENOL 500 MG TAB EXTRA STRENGTH PO PRN (14:52)
--- NOTE | 2018-01-12 17:10 | RAD ---
HISTORY: Congestion. Headache. Study: PA and lateral chest Comparison: 07/12/2017 Findings: The lungs are clear. The heart size is normal. A mahamed cath is present on the left and the tip is a t the cavoatrial junction. Mild osteopenia is noted. No acute bony abnormalities are identified. IMPRESSION: 1. No radiographic evidence of acute cardiopulmonary disease or significant change is noted when co mpared to the prior examination. Reported By:
[2018-01-12] MEDS ORDERED: PHENERGAN TAB 25 MG PO PRN (17:16)
[2018-01-12] MEDS: NORCO 10/325 TAB PO PRN (19:20)
[2018-01-12] MEDS: FLOMAX PO SCH (20:48)
[2018-01-12] MEDS: SINGULAIR TAB 10 MG PO SCH (20:48)
[2018-01-12] MEDS: MIRAPEX TAB 0.25 MG PO SCH (20:48)
[2018-01-12] MEDS: SYNTHROID 125 mcg TAB PO SCH (20:48)
[2018-01-12] MEDS: PLAQUENIL PO SCH (20:48)
[2018-01-12] MEDS: ZANTAC PO SCH (20:49)
[2018-01-12] MEDS: XANAX PO PRN (22:53)
[2018-01-13] MEDS: MERREM VIAL 500 MG in NS 100 ML IV + SPIKE MINIBAG* 100 ML IV SCH ×3 (05:06→23:00)
[2018-01-13] MEDS: NS 1000 ML 1,000 ML IV SCH ×2 (05:06→23:56)
[2018-01-13 05:26] LABS: ALANINE AMINOTRANSFERASE 17 Units/L (12-78); ALBUMIN 2.9 g/dL (3.4-5.0); ALKALINE PHOSPHATASE 96 Units/L (46-116); ASPARTATE AMINO TRANSFERASE 13 Units/L (15-37); BLOOD UREA NITROGEN 38 mg/dL (7-18); CALCIUM 7.8 mg/dL (8.5-10.1); CARBON DIOXIDE 26.8 mmol/L (21-32); CHLORIDE 107 mmol/L (98-107); COR CA(FOR HYPOALB) 8.7 mg/dL (8.5-10.1); CREATININE 1.66 mg/dL (0.55-1.02); SODIUM 139 mmol/L (136-145); TOTAL PROTEIN 5.5 g/dL (6.4-8.2); eGFR NON BLACK RACES 32 (>60)
[2018-01-13 06:40] LABS: EOSINOPHILS # (AUTO) 0.2 x10^3/uL (0.0-0.2); EOSINOPHILS % (AUTO) 4.3 % (0.9-2.9); HEMATOCRIT 32.6 % (36.0-47.0); LYMPHOCYTES # (AUTO) 0.8 X10^3/uL (1.3-2.9); LYMPHOCYTES % (AUTO) 18.8 % (21.0-51.0); MEAN CORPUSCULAR HEMOGLOBIN 33.8 pg (27.0-34.0); MEAN CORPUSCULAR HGB CONC 34.4 g/dL (33.0-35.0); MEAN CORPUSCULAR VOLUME 98.5 fL (80.0-100.0); MEAN PLATELET VOLUME 8.8 fL (7.4-11.0); MONOCYTES # (AUTO) 0.5 x10^3/uL (0.3-0.8); MONOCYTES % (AUTO) 11.9 % (0.0-13.0); NEUTROPHILS # (AUTO) 2.9 x10^3/uL (2.2-4.8); PLATELET COUNT 149 X10^3/uL (150.0-450.0); RED BLOOD COUNT 3.31 X10^6/uL (3.5-5.4); RED CELL DISTRIBUTION WIDTH 13.6 % (11.6-16.5); WHITE BLOOD COUNT 4.5 X10^3/uL (3.6-10.0)
[2018-01-13 06:44] LABS: HEMOGLOBIN 11.2 g/dL (12.0-16.0)
[2018-01-13] MEDS: TYLENOL 500 MG TAB EXTRA STRENGTH PO PRN ×2 (07:44→13:52)
[2018-01-13] MEDS: ZYLOPRIM PO SCH (08:53)
[2018-01-13] MEDS: ZANTAC PO SCH ×2 (08:53→21:08)
[2018-01-13] MEDS: PLAQUENIL PO SCH ×2 (08:53→21:08)
[2018-01-13] MEDS: LASIX PO SCH (08:53)
[2018-01-13] MEDS: K-DUR TAB 20 MEQ PO SCH (08:53)
[2018-01-13] MEDS ORDERED: [UNRECOGNIZED DRUG - OTHER] PO SCH (09:00)
[2018-01-13 11:05] LABS: CRYPTOSPORIDIUM PARVUM ANTIGEN NEGATIVE (NEGATIVE); GIARDIA LAMBLIA ANTIGEN NEGATIVE (NEGATIVE); STOOL FOR WBC POSITIVE (NEGATIVE)
[2018-01-13] MEDS: HYDROCODONE BITARTRATE 80 MG PO SCH (11:35)
[2018-01-13] MEDS: LOVENOX INJ 40 MG SYR SC SCH (13:43)
--- NOTE | 2018-01-13 13:59 | PCM.PROG ---
Progress Note - Progress Note for Day of Date of Exam: 01/13/18 - Subjective Subjective: 82 WF ADMITTED ON 01/12 WITH GE, DEHYDRATION. PT CURRENTLY ON IV ATBX, STOOL STUDIES ORDERED THIS AM, CONTINUE NAUSEA CONTROL. CHRONIC PAIN CONTROL, BP CONTROL - Past Medical Family Social History Past Med/Fam/Surg Hx: No changes since H&P Allergies: Allergies azithromycin [From Zithromax] Allergy (Verified 08/31/17 11:26) ceftriaxone [From Rocephin] Allergy (Verified 08/31/17 11:26) cefuroxime Allergy (Verified 08/31/17 11:26) cephalexin [From Keflex] Allergy (Verified 08/31/17 11:26) gentamicin Allergy (Verified 08/31/17 11:26) levofloxacin [From Levaquin] Allergy (Verified 08/31/17 11:26) meperidine [From Demerol] Allergy (Verified 08/31/17 11:26) methylprednisolone [From Solu-Medrol] Allergy (Verified 08/31/17 11:26) nitrofurantoin [From Furadantin] Allergy (Verified 08/31/17 11:26) Penicillins Allergy (Verified 08/31/17 11:26) Sulfa (Sulfonamide Antibiotics) Allergy (Verified 08/31/17 11:26) Tetracyclines Allergy (Verified 08/31/17 11:26) trimethoprim Allergy (Verified 08/31/17 11:26) - Vital Signs and I&O's Vital Signs: Temperature 98.1 F Pulse Rate [Right Brachial] 63 Respiratory Rate 20 Blood Pressure [Left Radial 127/63 Artery] Blood Pressure [Right Arm] 178/72 Blood Pressure [Left Arm] 136/63 Blood Pressure 165/75 O2 Sat by Pulse Oximetry 98 Intake and Output: Intake & Output 01/11/18 01/12/18 01/13/18 01/14/18 11:59 11:59 11:59 11:59 Intake Total 1800 / 1800 Output Total 700 / 700 Balance 1100 / 1100 - Physical Exam Oriented: Normal Eyes: Normal Ear: Normal Nose: Normal Throat: Normal Respiratory: Diminished Cardiovascular: Normal : Normal Auscultation: Bowel Sounds: Increased Palpation: Normal Tenderness: Diffuse, Mild, Other (COLOSTOMY PRESENT, PINK STOMA) Skin: Decreased Turgur Musculoskeletal: Right, Left, Knee, Back:Lumbar, Tender Psychiatric: Anxiety Affect: Anxious Speech Pattern: Clear, Appropriate - Laboratory and Diagnostics Result Diagrams: 01/13/18 06:20 01/13/18 06:20 Labs: 01/13/18 09:40 Stool - Final 01/12/18 12:36 Urine,Clean Catch Urine Culture - Preliminary Laboratory WBC 4.5 X10^3/uL (3.6-10.0) 01/13/18 06:20 RBC 3.31 X10^6/uL (3.5-5.4) L 01/13/18 06:20 Hgb 11.2 g/dL (12.0-16.0) L D 01/13/18 06:20 Hct 32.6 % (36.0-47.0) L 01/13/18 06:20 MCV 98.5 fL (80.0-100.0) 01/13/18 06:20 MCH 33.8 pg (27.0-34.0) 01/13/18 06:20 MCHC 34.4 g/dL (33.0-35.0) 01/13/18 06:20 RDW 13.6 % (11.6-16.5) 01/13/18 06:20 Plt Count 149 X10^3/uL (150.0-450.0) L 01/13/18 06:20 MPV 8.8 fL (7.4-11.0) 01/13/18 06:20 Neut % (Auto) 64.0 % (42.0-75.0) 01/13/18 06:20 Lymph % (Auto) 18.8 % (21.0-51.0) L 01/13/18 06:20 [place] % (Auto) 11.9 % (0.0-13.0) 01/13/18 06:20 Eos % (Auto) 4.3 % (0.9-2.9) H 01/13/18 06:20 Baso % (Auto) 1.0 % (0.2-1.0) 01/13/18 06:20 Neut # (Auto) 2.9 x10^3/uL (2.2-4.8) 01/13/18 06:20 Lymph # (Auto) 0.8 X10^3/uL (1.3-2.9) L 01/13/18 06:20 [place] # (Auto) 0.5 x10^3/uL (0.3-0.8) 01/13/18 06:20 Eos # (Auto) 0.2 x10^3/uL (0.0-0.2) 01/13/18 06:20 Baso # (Auto) 0.0 X10^3/uL (0.0-0.1) 01/13/18 06:20 Absolute Nucleated RBC 0.0 /100WBC 01/13/18 06:20 Sodium 139 mmol/L (136-145) 01/13/18 06:20 Corrected Sodium TNP 01/13/18 06:20 Potassium 4.4 mmol/L (3.5-5.1) 01/13/18 06:20 Chloride 107 mmol/L (98-107) 01/13/18 06:20 Carbon Dioxide 26.8 mmol/L (21-32) 01/13/18 06:20 BUN 38 mg/dL (7-18) H 01/13/18 06:20 Creatinine 1.66 mg/dL (0.55-1.02) H 01/13/18 06:20 Est GFR (MDRD) Af Amer 38 (>60) L 01/13/18 06:20 Est GFR (MDRD) Non-Af 32 (>60) L 01/13/18 06:20 Glucose 106 mg/dL (65-99) H 01/13/18 06:20 Calcium 7.8 mg/dL (8.5-10.1) L 01/13/18 06:20 Corrected Calcium 8.7 mg/dL (8.5-10.1) 01/13/18 06:20 Total Bilirubin 0.20 mg/dL (0.2-1.0) 01/13/18 06:20 AST 13 Units/L (15-37) L 01/13/18 06:20 ALT 17 Units/L (12-78) 01/13/18 06:20 Alkaline Phosphatase 96 Units/L (46-116) 01/13/18 06:20 Total Protein 5.5 g/dL (6.4-8.2) L 01/13/18 06:20 Albumin 2.9 g/dL (3.4-5.0) L 01/13/18 06:20 Globulin 2.6 g/dL (2.5-4.5) 01/13/18 06:20 Albumin/Globulin Ratio 1.1 Ratio (1.1-2.1) 01/13/18 06:20 Specimen Type Clean catch urine 01/12/18 12:36 Urine Color Yellow (YELLOW) 01/12/18 12:36 Urine Appearance Clear (CLEAR) 01/12/18 12:36 Urine pH 5.0 (5.0 - 8.0) 01/12/18 12:36 Ur Specific [place] 1.010 (1.000-1.030) 01/12/18 12:36 Urine Protein Negative (NEGATIVE) 01/12/18 12:36 Urine Glucose (UA) Negative (NEGATIVE) 01/12/18 12:36 Urine Ketones Negative (NEGATIVE) 01/12/18 12:36 Urine Occult Blood Negative (NEGATIVE) 01/12/18 12:36 Urine Nitrite Negative (NEGATIVE) 01/12/18 12:36 Urine Bilirubin Negative (NEGATIVE) 01/12/18 12:36 Urine Urobilinogen Normal (NORMAL) 01/12/18 12:36 Ur Leukocyte Esterase Negative (NEGATIVE) 01/12/18 12:36 Stool Description 25g l.brn lqd 01/13/18 09:40 Stl Occult Blood (IFOB) Positive (NEGATIVE) A 01/13/18 09:40 Stool for White Cells Positive (NEGATIVE) A 01/13/18 09:40 Cryptosporid parvum Ag Negative (NEGATIVE) 01/13/18 09:40 Giardia lamblia Ag Negative (NEGATIVE) 01/13/18 09:40 - Plan (1) Gastroenteritis Status: Acute Plan: CONTINUE NAUSEA CONTROL, IV HDYRATION. AM LABS, PAIN CONTROL. 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
[2018-01-13] MEDS: NORCO 10/325 TAB PO PRN (16:28)
--- NOTE | 2018-01-13 16:40 | DR.H&P ---
H&P - History & Physical for Day of: H&P Date: 01/12/18 - Chief Complaint Chief Complaint: Weakness, Nausea, Fever - History of Present Illness History of Present Illness: The patient is a 82-year-old white female who is admitted secondary to complain of persistent generalized weakness with nausea. Patient was seen in the clinic yesterday. Patient complains of generalized weakness and fatigue. States that she does not feel good. Has had diarrhea which is slowly improving. States she is trying to drink anything and nausea. Patient does have a colostomy. Has complained of low-grade temperature. Patient does have multiple antibiotic allergies. Patient admitted for further workup - Past Medical History Past Medical History: Anxiety, Diabetes, Hypertension - Past Surgical History Surgical History: Appendectomy, Hysterectomy, Mastectomy, Lithotripsy, Other Additional Surgical History: Colon resection with colostomy, Cystoscopy - Family History Family Medical History: Diabetes Mellitus, Cancer, [place], Coronary Artery Disease, Heart Failure, Hypertension - Social History Does patient currently use any type of tobacco product: No Have you used tobacco products in the last 12 months: No Type of Tobacco Use: None Does any household member use tobacco: No Alcohol Use: None Drug Use: None - Medications Home Medications: azithromycin [From Zithromax] Allergy (Verified 08/31/17 11:26) ceftriaxone [From Rocephin] Allergy (Verified 08/31/17 11:26) cefuroxime Allergy (Verified 08/31/17 11:26) cephalexin [From Keflex] Allergy (Verified 08/31/17 11:26) gentamicin Allergy (Verified 08/31/17 11:26) levofloxacin [From Levaquin] Allergy (Verified 08/31/17 11:26) meperidine [From Demerol] Allergy (Verified 08/31/17 11:26) methylprednisolone [From Solu-Medrol] Allergy (Verified 08/31/17 11:26) nitrofurantoin [From Furadantin] Allergy (Verified 08/31/17 11:26) Penicillins Allergy (Verified 08/31/17 11:26) Sulfa (Sulfonamide Antibiotics) Allergy (Verified 08/31/17 11:26) Tetracyclines Allergy (Verified 08/31/17 11:26) trimethoprim Allergy (Verified 08/31/17 11:26) - Review of Systems Constitutional: Fever, Weakness, Malaise Eyes: No Symptoms Reported ENT: No Symptoms Reported Respiratory: Cough Cardiovascular: No Symptoms Reported Gastrointestinal: Nausea, Diarrhea Genitourinary: No Symptoms Reported Musculoskeletal: No Symptoms Reported Skin: No Symptoms Reported Neurological: No Symptoms Reported - Physical Exam Vital Signs: Temperature 98.6 F Pulse Rate [Right Brachial] 66 Respiratory Rate 17 Blood Pressure [Left Radial 127/63 Artery] Blood Pressure [Right Arm] 140/74 Blood Pressure [Left Arm] 136/63 Blood Pressure 165/75 O2 Sat by Pulse Oximetry 97 Oriented: Normal Eyes: Normal Ear: Normal Nose: Normal Throat: Normal Respiratory: Clear Throughout Cardiovascular: Normal : Normal Auscultation: Bowel Sounds: Normal, Other (Left colostomy) Palpation: Normal Tenderness: Diffuse Skin: Decreased Turgur Musculoskeletal: Normal Psychiatric: Normal Mood Description: Calm Affect: Normal Speech Pattern: Clear - Assessment/Plan (1) Nausea Status: Acute Plan: antimetics prn (2) Fever Status: Acute (3) Weakness generalized Status: Acute Plan: Labs, IVFs (4) Diarrhea Status: Acute Plan: IV hydration, Labs, Monitor output (5) Dehydration Narrative Support Text: In office CR 1.50 Status: Acute Plan: Labs, IV hydration - Allergies Allergies/Adverse Reactions: Allergies Allergy/AdvReac Type Severity Reaction Status Date / Time azithromycin [From Zithromax] Allergy Verified 08/31/17 11:26 ceftriaxone [From Rocephin] Allergy Verified 08/31/17 11:26 cefuroxime Allergy Verified 08/31/17 11:26 cephalexin [From Keflex] Allergy Verified 08/31/17 11:26 gentamicin Allergy Verified 08/31/17 11:26 levofloxacin [From Levaquin] Allergy Verified 08/31/17 11:26 meperidine [From Demerol] Allergy Verified 08/31/17 11:26 methylprednisolone Allergy Verified 08/31/17 11:26 [From Solu-Medrol] nitrofurantoin Allergy Verified 08/31/17 11:26 [From Furadantin] Penicillins Allergy Verified 08/31/17 11:26 Sulfa (Sulfonamide Allergy Verified 08/31/17 11:26 Antibiotics) Tetracyclines Allergy Verified 08/31/17 11:26 trimethoprim Allergy Verified 08/31/17 11:26
[2018-01-13] MEDS: FLOMAX PO SCH (21:08)
[2018-01-13] MEDS: MIRAPEX TAB 0.25 MG PO SCH (21:08)
[2018-01-13] MEDS: SYNTHROID 125 mcg TAB PO SCH (21:08)
[2018-01-13] MEDS: SINGULAIR TAB 10 MG PO SCH (21:09)
[2018-01-13] MEDS: XANAX PO PRN (23:30)
[2018-01-14] MEDS: NS 1000 ML 1,000 ML IV SCH ×3 (05:39→22:03)
[2018-01-14] MEDS: MERREM VIAL 500 MG in NS 100 ML IV + SPIKE MINIBAG* 100 ML IV SCH ×3 (06:07→22:03)
[2018-01-14 06:08] LABS: BASOPHILS % (AUTO) 0.6 % (0.2-1.0); EOSINOPHILS # (AUTO) 0.3 x10^3/uL (0.0-0.2); EOSINOPHILS % (AUTO) 5.8 % (0.9-2.9); HEMATOCRIT 32.5 % (36.0-47.0); HEMOGLOBIN 11.1 g/dL (12.0-16.0); LYMPHOCYTES # (AUTO) 1.2 X10^3/uL (1.3-2.9); LYMPHOCYTES % (AUTO) 24.3 % (21.0-51.0); MEAN CORPUSCULAR HEMOGLOBIN 33.5 pg (27.0-34.0); MEAN CORPUSCULAR HGB CONC 34.2 g/dL (33.0-35.0); MEAN CORPUSCULAR VOLUME 97.8 fL (80.0-100.0); MEAN PLATELET VOLUME 8.7 fL (7.4-11.0); MONOCYTES # (AUTO) 0.5 x10^3/uL (0.3-0.8); MONOCYTES % (AUTO) 10.2 % (0.0-13.0); NEUTROPHILS # (AUTO) 2.9 x10^3/uL (2.2-4.8); NEUTROPHILS % (AUTO) 59.1 % (42.0-75.0); PLATELET COUNT 145 X10^3/uL (150.0-450.0); RED BLOOD COUNT 3.32 X10^6/uL (3.5-5.4); RED CELL DISTRIBUTION WIDTH 13.5 % (11.6-16.5); WHITE BLOOD COUNT 4.9 X10^3/uL (3.6-10.0)
[2018-01-14 06:54] LABS: ALBUMIN 3.2 g/dL (3.4-5.0); CALCIUM 8.3 mg/dL (8.5-10.1); CARBON DIOXIDE 27.5 mmol/L (21-32); COR CA(FOR HYPOALB) 8.9 mg/dL (8.5-10.1); CREATININE 1.49 mg/dL (0.55-1.02); TOTAL PROTEIN 5.9 g/dL (6.4-8.2)
[2018-01-14] MEDS: LOVENOX INJ 40 MG SYR SC SCH (08:25)
[2018-01-14] MEDS: PLAQUENIL PO SCH ×2 (08:26→20:32)
[2018-01-14] MEDS: ZANTAC PO SCH ×2 (08:26→20:32)
[2018-01-14] MEDS: ZYLOPRIM PO SCH (08:26)
[2018-01-14] MEDS: K-DUR TAB 20 MEQ PO SCH (08:26)
[2018-01-14] MEDS: LASIX PO SCH (08:26)
[2018-01-14] MEDS: HYDROCODONE BITARTRATE 80 MG PO SCH (12:38)
[2018-01-14] MEDS: TYLENOL 500 MG TAB EXTRA STRENGTH PO PRN (16:11)
[2018-01-14] MEDS: FLOMAX PO SCH (20:32)
[2018-01-14] MEDS: SINGULAIR TAB 10 MG PO SCH (20:32)
[2018-01-14] MEDS: SYNTHROID 125 mcg TAB PO SCH (20:32)
[2018-01-14] MEDS: MIRAPEX TAB 0.25 MG PO SCH (20:32)
[2018-01-14] MEDS: XANAX PO PRN (22:54)
[2018-01-15] MEDS: MERREM VIAL 500 MG in NS 100 ML IV + SPIKE MINIBAG* 100 ML IV SCH ×2 (06:03→14:49)
[2018-01-15] MEDS: NS 1000 ML 1,000 ML IV SCH ×2 (06:03→12:48)
[2018-01-15 06:12] LABS: BASOPHILS % (AUTO) 0.8 % (0.2-1.0); EOSINOPHILS # (AUTO) 0.2 x10^3/uL (0.0-0.2); EOSINOPHILS % (AUTO) 6.2 % (0.9-2.9); HEMATOCRIT 30.6 % (36.0-47.0); HEMOGLOBIN 10.5 g/dL (12.0-16.0); LYMPHOCYTES % (AUTO) 25.5 % (21.0-51.0); MEAN CORPUSCULAR HEMOGLOBIN 33.8 pg (27.0-34.0); MEAN CORPUSCULAR HGB CONC 34.4 g/dL (33.0-35.0); MEAN CORPUSCULAR VOLUME 98.3 fL (80.0-100.0); MEAN PLATELET VOLUME 8.8 fL (7.4-11.0); MONOCYTES # (AUTO) 0.4 x10^3/uL (0.3-0.8); MONOCYTES % (AUTO) 11.3 % (0.0-13.0); NEUTROPHILS # (AUTO) 2.2 x10^3/uL (2.2-4.8); NEUTROPHILS % (AUTO) 56.2 % (42.0-75.0); PLATELET COUNT 137 X10^3/uL (150.0-450.0); RED BLOOD COUNT 3.12 X10^6/uL (3.5-5.4); RED CELL DISTRIBUTION WIDTH 13.6 % (11.6-16.5); WHITE BLOOD COUNT 3.9 X10^3/uL (3.6-10.0)
[2018-01-15 06:35] LABS: ALANINE AMINOTRANSFERASE 21 Units/L (12-78); ALBUMIN 2.9 g/dL (3.4-5.0); ALKALINE PHOSPHATASE 73 Units/L (46-116); ASPARTATE AMINO TRANSFERASE 12 Units/L (15-37); BLOOD UREA NITROGEN 30 mg/dL (7-18); CALCIUM 8.1 mg/dL (8.5-10.1); CARBON DIOXIDE 25.8 mmol/L (21-32); CHLORIDE 106 mmol/L (98-107); CREATININE 1.41 mg/dL (0.55-1.02); SODIUM 140 mmol/L (136-145); TOTAL PROTEIN 5.5 g/dL (6.4-8.2); eGFR NON BLACK RACES 38 (>60)
[2018-01-15] MEDS: K-DUR TAB 20 MEQ PO SCH (08:46)
[2018-01-15] MEDS: ZYLOPRIM PO SCH (08:46)
[2018-01-15] MEDS: ZANTAC PO SCH (08:46)
[2018-01-15] MEDS: PLAQUENIL PO SCH (08:46)
[2018-01-15] MEDS: LASIX PO SCH (08:47)
[2018-01-15] MEDS: LOVENOX INJ 40 MG SYR SC SCH (08:47)
[2018-01-15] MEDS: HYDROCODONE BITARTRATE 80 MG PO SCH (12:30)
[2018-01-15 12:52] VITALS: BP 140/60
== END 2018-01-15 14:40 | disposition home health service (06) ==
LOC: MED/SURG
PROVIDERS: ADMIT Internal Medicine; ATTEND Internal Medicine
DX: F41.8 Other specified anxiety disorders; R26.89 Other abnormalities of gait and mobility; E11.65 Type 2 diabetes mellitus with hyperglycemia; K52.89 Other specified noninfective gastroenteritis and colitis; K92.1 Melena; R53.1 Weakness; N39.0 Urinary tract infection, site not specified; B96.29 Other Escherichia coli [E. coli] as the cause of diseases classified elsewhere; I10 Essential (primary) hypertension; R11.0 Nausea; Z93.3 Colostomy status; R53.83 Other fatigue; R50.9 Fever, unspecified; E86.0 Dehydration; R94.4 Abnormal results of kidney function studies
CPT/HCPCS: 36415; 71020; 71046; 80053; 81003; 82270; 83630; 85025; 87045; 87086; 87088; 87186; 87328; 87329; 87427; 87449; 87899; 96367; 96372; 97161; A4222; Q0169; G0378; J1650; J2185; J7030; J7050

== ENCOUNTER 2018-07-10 15:01 | Inpatient (IN) ==
[2018-07-10 16:47] LABS: BILIRUBIN,URINE NEGATIVE (NEGATIVE); BLOOD/HEMOGLOBIN,URINE 1+ (NEGATIVE); GLUCOSE, URINE NEGATIVE (NEGATIVE); KETONES,URINE NEGATIVE (NEGATIVE); LEUKOCYTE ESTERASE ,URINE 3+ (NEGATIVE); NITRITES,URINE POSITIVE (NEGATIVE); PROTEIN,URINE 1+ (NEGATIVE); UROBILINOGEN,URINE 1+ (NORMAL)
[2018-07-10 16:58] LABS: APPEARANCE,URINE HAZY (CLEAR); COLOR,URINE ORANGE (YELLOW)
[2018-07-10 16:59] LABS: BACTERIA,URINE 3+ /HPF (NEGATIVE); SQUAMOUS EPITHELIAL CELL,UR FEW /HPF (NEGATIVE)
[2018-07-10] MEDS ORDERED: TYLENOL 500 MG TAB EXTRA STRENGTH PO PRN (17:13)
--- NOTE | 2018-07-10 17:23 | DR.H&P ---
H&P - History & Physical for Day of: H&P Date: 07/10/18 - Chief Complaint Chief Complaint: UTI symptoms - History of Present Illness History of Present Illness: the patient is an 83-year-old white female who presents to the office with complaints of UTI symptoms. States last she began to ache more than usual. States that she is having burning with urination and frequency since yesterday. Denies fever. Patient has chronic UTIs with multidrug allergies. Is not able to take any by mouth antibiotics. Urinalysis does reflect positive nitrites, leukocytes 3+. Trace blood. Patient does have history of urosepsis as well. Patient denies any other complaints. Is agreeable for hospitalization. - Past Medical History Past Medical History: Anxiety, Diabetes, Hypertension - Past Surgical History Surgical History: Appendectomy, Hysterectomy, Mastectomy, Lithotripsy, Other Additional Surgical History: Colon resection with colostomy, Cystoscopy - Family History Family Medical History: Diabetes Mellitus, Cancer, [place], Coronary Artery Disease, Heart Failure, Hypertension - Social History Does patient currently use any type of tobacco product: No Have you used tobacco products in the last 12 months: No Type of Tobacco Use: None Does any household member use tobacco: No Alcohol Use: None Drug Use: None - Medications Home Medications: azithromycin [From Zithromax] Allergy (Verified 07/10/18 16:24) ceftriaxone [From Rocephin] Allergy (Verified 07/10/18 16:24) cefuroxime Allergy (Verified 07/10/18 16:24) cephalexin [From Keflex] Allergy (Verified 07/10/18 16:24) gentamicin Allergy (Verified 07/10/18 16:24) levofloxacin [From Levaquin] Allergy (Verified 07/10/18 16:24) meperidine [From Demerol] Allergy (Verified 07/10/18 16:24) methylprednisolone [From Solu-Medrol] Allergy (Verified 07/10/18 16:24) nitrofurantoin [From Furadantin] Allergy (Verified 07/10/18 16:24) Penicillins Allergy (Verified 07/10/18 16:24) Sulfa (Sulfonamide Antibiotics) Allergy (Verified 07/10/18 16:24) Tetracyclines Allergy (Verified 07/10/18 16:24) trimethoprim Allergy (Verified 07/10/18 16:24) - Review of Systems Constitutional: Weakness, Malaise Eyes: No Symptoms Reported ENT: No Symptoms Reported Respiratory: No Symptoms Reported Cardiovascular: No Symptoms Reported Gastrointestinal: No Symptoms Reported Genitourinary: Dysuria, Frequency Musculoskeletal: Back Pain, Leg Pain Skin: No Symptoms Reported Neurological: No Symptoms Reported - Physical Exam Vital Signs: Temperature 98.0 F Pulse Rate [Apical] 65 Respiratory Rate 20 Blood Pressure [Left Radial 147/65 Artery] Blood Pressure [Right Arm] 148/67 Blood Pressure [Left Arm] 136/63 Blood Pressure 140/60 O2 Sat by Pulse Oximetry 97 Oriented: Normal Eyes: Normal Ear: Normal Nose: Normal Throat: Normal Respiratory: Clear Throughout Cardiovascular: Normal : Normal Auscultation: Bowel Sounds: Normal Palpation: Other (Colostomy Left mid abd) Tenderness: Suprapubic Skin: Normal Musculoskeletal: Back:Lumbar, Motor Deficit Psychiatric: Normal Mood Description: Calm Affect: Normal Speech Pattern: Clear - Assessment/Plan (1) UTI (urinary tract infection), bacterial Status: Acute Plan: LABS, UA, UA CX, [place] (2) Diabetes mellitus Qualifiers: Diabetes mellitus type: type 2 Status: Acute Plan: Monitor BS and provide coverage as needed. (3) Weakness generalized Status: Acute Plan: IV Hydration, Labs - Allergies Allergies/Adverse Reactions: Allergies Allergy/AdvReac Type Severity Reaction Status Date / Time azithromycin [From Zithromax] Allergy Verified 07/10/18 16:24 ceftriaxone [From Rocephin] Allergy Verified 07/10/18 16:24 cefuroxime Allergy Verified 07/10/18 16:24 cephalexin [From Keflex] Allergy Verified 07/10/18 16:24 gentamicin Allergy Verified 07/10/18 16:24 levofloxacin [From Levaquin] Allergy Verified 07/10/18 16:24 meperidine [From Demerol] Allergy Verified 07/10/18 16:24 methylprednisolone Allergy Verified 07/10/18 16:24 [From Solu-Medrol] nitrofurantoin Allergy Verified 07/10/18 16:24 [From Furadantin] Penicillins Allergy Verified 07/10/18 16:24 Sulfa (Sulfonamide Allergy Verified 07/10/18 16:24 Antibiotics) Tetracyclines Allergy Verified 07/10/18 16:24 trimethoprim Allergy Verified 07/10/18 16:24
[2018-07-10 17:24] LABS: BASOPHILS % (AUTO) 0.6 % (0.2-1.0); EOSINOPHILS # (AUTO) 0.2 x10^3/uL (0.0-0.2); EOSINOPHILS % (AUTO) 3.1 % (0.9-2.9); HEMATOCRIT 34.8 % (36.0-47.0); HEMOGLOBIN 11.7 g/dL (12.0-16.0); LYMPHOCYTES # (AUTO) 1.3 X10^3/uL (1.3-2.9); LYMPHOCYTES % (AUTO) 20.3 % (21.0-51.0); MEAN CORPUSCULAR HEMOGLOBIN 33.4 pg (27.0-34.0); MEAN CORPUSCULAR HGB CONC 33.6 g/dL (33.0-35.0); MEAN CORPUSCULAR VOLUME 99.2 fL (80.0-100.0); MEAN PLATELET VOLUME 8.7 fL (7.4-11.0); MONOCYTES # (AUTO) 0.5 x10^3/uL (0.3-0.8); MONOCYTES % (AUTO) 8.8 % (0.0-13.0); NEUTROPHILS # (AUTO) 4.2 x10^3/uL (2.2-4.8); NEUTROPHILS % (AUTO) 67.2 % (42.0-75.0); PLATELET COUNT 202 X10^3/uL (150.0-450.0); RED BLOOD COUNT 3.51 X10^6/uL (3.5-5.4); RED CELL DISTRIBUTION WIDTH 13.6 % (11.6-16.5); WHITE BLOOD COUNT 6.2 X10^3/uL (3.6-10.0)
[2018-07-10 17:36] LABS: ALANINE AMINOTRANSFERASE 22 Units/L (12-78); ALKALINE PHOSPHATASE 106 Units/L (46-116); ASPARTATE AMINO TRANSFERASE 19 Units/L (15-37); BLOOD UREA NITROGEN 30 mg/dL (7-18); CALCIUM 8.8 mg/dL (8.5-10.1); CARBON DIOXIDE 25.9 mmol/L (21-32); CHLORIDE 103 mmol/L (98-107); COR NA(FOR HYPERGLY) 141 mmol/L (136-145); CREATININE 1.87 mg/dL (0.55-1.02); SODIUM 140 mmol/L (136-145); TOTAL PROTEIN 7.5 g/dL (6.4-8.2); eGFR NON BLACK RACES 27 (>60)
[2018-07-10 18:33] VITALS: BMI 28.5
[2018-07-10] MEDS: MERREM VIAL 500 MG in NS 100 ML IV + SPIKE MINIBAG* 100 ML IV SCH ×2 (19:04→21:18)
[2018-07-10] MEDS: NS 1000 ML 1,000 ML IV SCH (19:04)
[2018-07-10] MEDS: NORCO 10/325 TAB PO PRN (19:32)
[2018-07-11] MEDS: NORCO 10/325 TAB PO PRN ×3 (00:48→21:26)
[2018-07-11] MEDS: NS 1000 ML 1,000 ML IV SCH ×3 (03:01→18:34)
[2018-07-11 08:05] LABS: ALANINE AMINOTRANSFERASE 18 Units/L (12-78); ALBUMIN 2.9 g/dL (3.4-5.0); ALKALINE PHOSPHATASE 83 Units/L (46-116); ASPARTATE AMINO TRANSFERASE 14 Units/L (15-37); BLOOD UREA NITROGEN 27 mg/dL (7-18); CALCIUM 8.4 mg/dL (8.5-10.1); CHLORIDE 108 mmol/L (98-107); COR CA(FOR HYPOALB) 9.3 mg/dL (8.5-10.1); CREATININE 1.44 mg/dL (0.55-1.02); SODIUM 142 mmol/L (136-145); TOTAL PROTEIN 5.7 g/dL (6.4-8.2); eGFR NON BLACK RACES 37 (>60)
[2018-07-11 08:14] LABS: BASOPHILS % (AUTO) 0.6 % (0.2-1.0); EOSINOPHILS # (AUTO) 0.2 x10^3/uL (0.0-0.2); EOSINOPHILS % (AUTO) 3.9 % (0.9-2.9); HEMATOCRIT 30.4 % (36.0-47.0); HEMOGLOBIN 10.1 g/dL (12.0-16.0); LYMPHOCYTES # (AUTO) 1.1 X10^3/uL (1.3-2.9); LYMPHOCYTES % (AUTO) 25.2 % (21.0-51.0); MEAN CORPUSCULAR HEMOGLOBIN 33.6 pg (27.0-34.0); MEAN CORPUSCULAR HGB CONC 33.4 g/dL (33.0-35.0); MEAN CORPUSCULAR VOLUME 100.6 fL (80.0-100.0); MEAN PLATELET VOLUME 8.4 fL (7.4-11.0); MONOCYTES # (AUTO) 0.4 x10^3/uL (0.3-0.8); NEUTROPHILS # (AUTO) 2.6 x10^3/uL (2.2-4.8); NEUTROPHILS % (AUTO) 61.3 % (42.0-75.0); PLATELET COUNT 158 X10^3/uL (150.0-450.0); RED BLOOD COUNT 3.02 X10^6/uL (3.5-5.4); RED CELL DISTRIBUTION WIDTH 13.4 % (11.6-16.5); WHITE BLOOD COUNT 4.3 X10^3/uL (3.6-10.0)
[2018-07-11] MEDS: MERREM VIAL 500 MG in NS 100 ML IV + SPIKE MINIBAG* 100 ML IV SCH ×2 (08:47→21:27)
[2018-07-11] MEDS ORDERED: IMODIUM CAP 2 MG PO PRN (09:44)
[2018-07-11] MEDS: GLIMEPIRIDE 1 MG PO SCH (11:39)
[2018-07-11] MEDS: COZAAR PO SCH (11:40)
[2018-07-11] MEDS: NexIUM PO SCH (11:40)
--- NOTE | 2018-07-11 12:39 | PCM.PROG ---
Progress Note - Progress Note for Day of Date of Exam: 07/11/18 - Subjective Subjective: 83 WF ADMITTED ON 07/10 WITH UTI, LOWER ABDOMINAL PAIN. PT HAS HX OF MULTI-DRUG RESISTANT UTI'S. PT WAS STARTED ON [place] WITH CULTURE COLLECTED ON ADMISSION. PT HAS PMH OF COLOSTOMY AND RA. PTS HOME MEDICATION HAS BEEN RESUMED. PT DENIES DYSURIA THIS AM, CO MILD NAUSEA. - Past Medical Family Social History Past Med/Fam/Surg Hx: No changes since H&P Allergies: Allergies azithromycin [From Zithromax] Allergy (Verified 07/10/18 16:24) ceftriaxone [From Rocephin] Allergy (Verified 07/10/18 16:24) cefuroxime Allergy (Verified 07/10/18 16:24) cephalexin [From Keflex] Allergy (Verified 07/10/18 16:24) gentamicin Allergy (Verified 07/10/18 16:24) levofloxacin [From Levaquin] Allergy (Verified 07/10/18 16:24) meperidine [From Demerol] Allergy (Verified 07/10/18 16:24) methylprednisolone [From Solu-Medrol] Allergy (Verified 07/10/18 16:24) nitrofurantoin [From Furadantin] Allergy (Verified 07/10/18 16:24) Penicillins Allergy (Verified 07/10/18 16:24) Sulfa (Sulfonamide Antibiotics) Allergy (Verified 07/10/18 16:24) Tetracyclines Allergy (Verified 07/10/18 16:24) trimethoprim Allergy (Verified 07/10/18 16:24) - Review of Systems ROS: No change since H&P - Vital Signs and I&O's Vital Signs: Temperature 97.9 F Pulse Rate [Apical] 53 Respiratory Rate 16 Blood Pressure [Left Radial 147/65 Artery] Blood Pressure [Right Arm] 144/66 Blood Pressure [Left Arm] 136/63 Blood Pressure 140/60 O2 Sat by Pulse Oximetry 96 Intake and Output: Intake & Output 07/09/18 07/10/18 07/11/18 07/12/18 11:59 11:59 11:59 11:59 Intake Total 1170 / 1170 Balance 1170 / 1170 - Physical Exam Oriented: Normal Eyes: Normal Ear: Normal Nose: Normal Throat: Normal Respiratory: Diminished Cardiovascular: Normal : Normal Auscultation: Bowel Sounds: Normal Tenderness: Suprapubic Skin: Normal, Other (COLOSTOMY PRESENT) Musculoskeletal: Back:Lumbar, Motor Deficit Psychiatric: Normal Mood Description: Calm Affect: Normal Speech Pattern: Clear, Appropriate - Laboratory and Diagnostics Result Diagrams: 07/11/18 07:43 07/11/18 07:43 Labs: 07/10/18 16:00 Urine,Clean Catch Urine Culture - Preliminary Laboratory WBC 4.3 X10^3/uL (3.6-10.0) 07/11/18 07:43 RBC 3.02 X10^6/uL (3.5-5.4) L 07/11/18 07:43 Hgb 10.1 g/dL (12.0-16.0) L 07/11/18 07:43 Hct 30.4 % (36.0-47.0) L 07/11/18 07:43 MCV 100.6 fL (80.0-100.0) H 07/11/18 07:43 MCH 33.6 pg (27.0-34.0) 07/11/18 07:43 MCHC 33.4 g/dL (33.0-35.0) 07/11/18 07:43 RDW 13.4 % (11.6-16.5) 07/11/18 07:43 Plt Count 158 X10^3/uL (150.0-450.0) 07/11/18 07:43 MPV 8.4 fL (7.4-11.0) 07/11/18 07:43 Neut % (Auto) 61.3 % (42.0-75.0) 07/11/18 07:43 Lymph % (Auto) 25.2 % (21.0-51.0) 07/11/18 07:43 [place] % (Auto) 9.0 % (0.0-13.0) 07/11/18 07:43 Eos % (Auto) 3.9 % (0.9-2.9) H 07/11/18 07:43 Baso % (Auto) 0.6 % (0.2-1.0) 07/11/18 07:43 Neut # (Auto) 2.6 x10^3/uL (2.2-4.8) 07/11/18 07:43 Lymph # (Auto) 1.1 X10^3/uL (1.3-2.9) L 07/11/18 07:43 [place] # (Auto) 0.4 x10^3/uL (0.3-0.8) 07/11/18 07:43 Eos # (Auto) 0.2 x10^3/uL (0.0-0.2) 07/11/18 07:43 Baso # (Auto) 0.0 X10^3/uL (0.0-0.1) 07/11/18 07:43 Absolute Nucleated RBC 0.0 /100WBC 07/11/18 07:43 Sodium 142 mmol/L (136-145) 07/11/18 07:43 Corrected Sodium TNP 07/11/18 07:43 Potassium 4.3 mmol/L (3.5-5.1) 07/11/18 07:43 Chloride 108 mmol/L (98-107) H 07/11/18 07:43 Carbon Dioxide 27.0 mmol/L (21-32) 07/11/18 07:43 BUN 27 mg/dL (7-18) H 07/11/18 07:43 Creatinine 1.44 mg/dL (0.55-1.02) H 07/11/18 07:43 Est GFR (MDRD) Af Amer 45 (>60) L 07/11/18 07:43 Est GFR (MDRD) Non-Af 37 (>60) L 07/11/18 07:43 Glucose 98 mg/dL (65-99) 07/11/18 07:43 POC Glucose (mg/dL) 86 mg/dL (65-99) 07/11/18 11:48 Calcium 8.4 mg/dL (8.5-10.1) L 07/11/18 07:43 Corrected Calcium 9.3 mg/dL (8.5-10.1) 07/11/18 07:43 Total Bilirubin 0.30 mg/dL (0.2-1.0) 07/11/18 07:43 AST 14 Units/L (15-37) L 07/11/18 07:43 ALT 18 Units/L (12-78) 07/11/18 07:43 Alkaline Phosphatase 83 Units/L (46-116) 07/11/18 07:43 Total Protein 5.7 g/dL (6.4-8.2) L 07/11/18 07:43 Albumin 2.9 g/dL (3.4-5.0) L 07/11/18 07:43 Globulin 2.8 g/dL (2.5-4.5) 07/11/18 07:43 Albumin/Globulin Ratio 1.0 Ratio (1.1-2.1) L 07/11/18 07:43 Specimen Type Clean catch urine 07/10/18 16:00 Urine Color [place] (YELLOW) 07/10/18 16:00 Urine Appearance Hazy (CLEAR) 07/10/18 16:00 Urine pH 5.0 (5.0 - 8.0) 07/10/18 16:00 Ur Specific [place] 1.015 (1.000-1.030) 07/10/18 16:00 Urine Protein 1+ (NEGATIVE) 07/10/18 16:00 Urine Glucose (UA) Negative (NEGATIVE) 07/10/18 16:00 Urine Ketones Negative (NEGATIVE) 07/10/18 16:00 Urine Occult Blood 1+ (NEGATIVE) 07/10/18 16:00 Urine Nitrite Positive (NEGATIVE) 07/10/18 16:00 Urine Bilirubin Negative (NEGATIVE) 07/10/18 16:00 Urine Urobilinogen 1+ (NORMAL) 07/10/18 16:00 Ur Leukocyte Esterase 3+ (NEGATIVE) 07/10/18 16:00 Urine RBC 5-10 /HPF (NONE SEEN) 07/10/18 16:00 Urine WBC 30-50 /HPF (NONE SEEN) 07/10/18 16:00 Ur Squamous Epith Cells Few /HPF (NEGATIVE) 07/10/18 16:00 Urine Bacteria 3+ /HPF (NEGATIVE) 07/10/18 16:00 Ur Culture Indicated? 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 (6) Nausea Status: Acute
[2018-07-11] MEDS: HYDROCODONE BITARTRATE 80 MG PO SCH (13:17)
[2018-07-11] MEDS: FLEXERIL TAB 10 MG PO PRN (15:15)
[2018-07-11] MEDS: XANAX PO PRN (15:15)
[2018-07-11] MEDS: LOVENOX INJ 30 MG SYR SC SCH (15:29)
[2018-07-11] MEDS: ZANTAC PO SCH (21:26)
[2018-07-11] MEDS: FLOMAX PO SCH (21:26)
[2018-07-11] MEDS: PLAQUENIL PO SCH (21:27)
[2018-07-11] MEDS: ZyrTEC TAB 10 MG PO SCH (21:27)
[2018-07-11] MEDS: MIRAPEX TAB 0.25 MG PO SCH (21:27)
[2018-07-11] MEDS: SYNTHROID 125 mcg TAB PO SCH (21:27)
[2018-07-11] MEDS: SINGULAIR TAB 10 MG PO SCH (21:27)
[2018-07-12] MEDS: XANAX PO PRN ×2 (00:19→23:41)
[2018-07-12] MEDS: NS 1000 ML 1,000 ML IV SCH ×4 (01:43→23:49)
[2018-07-12 06:19] LABS: EOSINOPHILS # (AUTO) 0.2 x10^3/uL (0.0-0.2); EOSINOPHILS % (AUTO) 5.3 % (0.9-2.9); HEMATOCRIT 27.4 % (36.0-47.0); HEMOGLOBIN 9.3 g/dL (12.0-16.0); LYMPHOCYTES # (AUTO) 1.1 X10^3/uL (1.3-2.9); LYMPHOCYTES % (AUTO) 30.3 % (21.0-51.0); MEAN CORPUSCULAR HGB CONC 33.8 g/dL (33.0-35.0); MEAN CORPUSCULAR VOLUME 100.3 fL (80.0-100.0); MEAN PLATELET VOLUME 8.5 fL (7.4-11.0); MONOCYTES # (AUTO) 0.4 x10^3/uL (0.3-0.8); NEUTROPHILS # (AUTO) 1.9 x10^3/uL (2.2-4.8); NEUTROPHILS % (AUTO) 53.4 % (42.0-75.0); PLATELET COUNT 138 X10^3/uL (150.0-450.0); RED BLOOD COUNT 2.73 X10^6/uL (3.5-5.4); RED CELL DISTRIBUTION WIDTH 13.4 % (11.6-16.5); WHITE BLOOD COUNT 3.6 X10^3/uL (3.6-10.0)
[2018-07-12 06:39] LABS: ALBUMIN 2.5 g/dL (3.4-5.0); CALCIUM 7.9 mg/dL (8.5-10.1); CARBON DIOXIDE 25.1 mmol/L (21-32); COR CA(FOR HYPOALB) 9.1 mg/dL (8.5-10.1); CREATININE 1.34 mg/dL (0.55-1.02); TOTAL PROTEIN 5.1 g/dL (6.4-8.2)
[2018-07-12] MEDS: COZAAR PO SCH (08:24)
[2018-07-12] MEDS: GLIMEPIRIDE 1 MG PO SCH (08:25)
[2018-07-12] MEDS: K-DUR TAB 20 MEQ PO SCH (08:25)
[2018-07-12] MEDS: LASIX PO SCH (08:25)
[2018-07-12] MEDS: LOVENOX INJ 30 MG SYR SC SCH (08:26)
[2018-07-12] MEDS: MERREM VIAL 500 MG in NS 100 ML IV + SPIKE MINIBAG* 100 ML IV SCH ×2 (08:26→20:56)
[2018-07-12] MEDS: NexIUM PO SCH (08:27)
[2018-07-12] MEDS: PLAQUENIL PO SCH ×2 (08:27→20:57)
[2018-07-12] MEDS: TAB-A-VITE PO SCH (08:28)
[2018-07-12] MEDS: ZANTAC PO SCH ×2 (08:28→20:56)
[2018-07-12] MEDS: ZYLOPRIM PO SCH (08:28)
[2018-07-12] MEDS: NORCO 10/325 TAB PO PRN ×4 (08:29→21:59)
[2018-07-12] MEDS: HYDROCODONE BITARTRATE 80 MG PO SCH (11:39)
--- NOTE | 2018-07-12 12:57 | CT ---
HISTORY: Pelvic, flank pain, left-sided pain, history of colectomy Study: CT abdomen and pelvis without contrast Comparison: None Technique: Multiple axial images of the abdomen and pelvis were obtained without IV contrast. Dose reduction techniques including Automated Exposure Control (AEC) and adjustment of mA and kV were utilized. Findings: Please note evaluation is limited without use of IV contrast. The visualized lung bases are clear. The liver, spleen, pancreas, and adrenal glands are unremarkable in their unenhanced CT appearance. The gallbladder is normal. Left nephrolithiasis is noted with the largest stone at the lower pole measuring 7 mm. No obstructive uropathy. No ureteral stones are identified. No free intraperitoneal air. No evidence of intestinal obstruction or inflammation. There is surgical changes compatible with previous colectomy with a moderate-sized parastomal hernia. No free fluid is identified. There is grade 1 anterolisthesis of L4 on L5 without pars interarticularis defect. Limited evaluation of vascular structures due to lack of contrast. No pathologically enlarged lymph nodes are identified. Uterus is absent. Urinary bladder is unremarkable. IMPRESSION: 1. Left nephrolithiasis without evidence of obstructive uropathy. 2. 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 No evidence of bowel obstruction. 3. Additional chronic findings as noted above. Reported By:
[2018-07-12] MEDS: SINGULAIR TAB 10 MG PO SCH (20:56)
[2018-07-12] MEDS: ZyrTEC TAB 10 MG PO SCH (20:56)
[2018-07-12] MEDS: SYNTHROID 125 mcg TAB PO SCH (20:57)
[2018-07-12] MEDS: MIRAPEX TAB 0.25 MG PO SCH (20:57)
[2018-07-12] MEDS: FLOMAX PO SCH (21:01)
[2018-07-13] MEDS: NORCO 10/325 TAB PO PRN ×3 (03:16→20:23)
[2018-07-13] MEDS: NS 1000 ML 1,000 ML IV SCH ×4 (03:22→18:36)
[2018-07-13 06:26] LABS: BASOPHILS % (AUTO) 1.1 % (0.2-1.0); EOSINOPHILS # (AUTO) 0.2 x10^3/uL (0.0-0.2); HEMATOCRIT 28.2 % (36.0-47.0); HEMOGLOBIN 9.7 g/dL (12.0-16.0); LYMPHOCYTES # (AUTO) 1.1 X10^3/uL (1.3-2.9); LYMPHOCYTES % (AUTO) 29.6 % (21.0-51.0); MEAN CORPUSCULAR HEMOGLOBIN 34.2 pg (27.0-34.0); MEAN CORPUSCULAR HGB CONC 34.5 g/dL (33.0-35.0); MEAN CORPUSCULAR VOLUME 99.1 fL (80.0-100.0); MEAN PLATELET VOLUME 8.5 fL (7.4-11.0); MONOCYTES # (AUTO) 0.4 x10^3/uL (0.3-0.8); MONOCYTES % (AUTO) 9.6 % (0.0-13.0); NEUTROPHILS # (AUTO) 2.1 x10^3/uL (2.2-4.8); NEUTROPHILS % (AUTO) 53.7 % (42.0-75.0); PLATELET COUNT 149 X10^3/uL (150.0-450.0); RED BLOOD COUNT 2.84 X10^6/uL (3.5-5.4); RED CELL DISTRIBUTION WIDTH 13.4 % (11.6-16.5); WHITE BLOOD COUNT 3.8 X10^3/uL (3.6-10.0)
[2018-07-13 06:33] LABS: ALANINE AMINOTRANSFERASE 16 Units/L (12-78); ALBUMIN 2.7 g/dL (3.4-5.0); ALKALINE PHOSPHATASE 77 Units/L (46-116); ASPARTATE AMINO TRANSFERASE 15 Units/L (15-37); BLOOD UREA NITROGEN 19 mg/dL (7-18); CALCIUM 8.2 mg/dL (8.5-10.1); CARBON DIOXIDE 27.1 mmol/L (21-32); CHLORIDE 108 mmol/L (98-107); COR CA(FOR HYPOALB) 9.2 mg/dL (8.5-10.1); CREATININE 1.32 mg/dL (0.55-1.02); SODIUM 141 mmol/L (136-145); TOTAL PROTEIN 5.3 g/dL (6.4-8.2); eGFR NON BLACK RACES 41 (>60)
[2018-07-13] MEDS: COZAAR PO SCH (08:26)
[2018-07-13] MEDS: ZYLOPRIM PO SCH (08:26)
[2018-07-13] MEDS: NexIUM PO SCH (08:27)
[2018-07-13] MEDS: TAB-A-VITE PO SCH (08:27)
[2018-07-13] MEDS: LASIX PO SCH (08:27)
[2018-07-13] MEDS: K-DUR TAB 20 MEQ PO SCH (08:28)
[2018-07-13] MEDS: PLAQUENIL PO SCH ×2 (08:28→20:32)
[2018-07-13] MEDS: ZANTAC PO SCH ×2 (08:29→20:31)
[2018-07-13] MEDS: MERREM VIAL 500 MG in NS 100 ML IV + SPIKE MINIBAG* 100 ML IV SCH ×2 (08:29→20:29)
[2018-07-13] MEDS: GLIMEPIRIDE 1 MG PO SCH (08:30)
[2018-07-13] MEDS: LOVENOX INJ 30 MG SYR SC SCH (08:30)
[2018-07-13] MEDS: HYDROCODONE BITARTRATE 80 MG PO SCH (11:55)
[2018-07-13] MEDS: XANAX PO PRN (14:26)
--- NOTE | 2018-07-13 18:22 | PCM.PROG ---
Progress Note - Progress Note for Day of Date of Exam: 07/13/18 - Subjective Subjective: 83 WF ADMITTED ON 07/10 WITH UTI, LOWER ABDOMINAL PAIN. PT HAS HX OF MULTI-DRUG RESISTANT UTI'S. PT WAS STARTED ON MEROPENEM WITH CULTURE COLLECTED ON ADMISSION, CULTURE +ENTEROBACTER. PT HAS PMH OF COLOSTOMY AND RA. PT CO FLANK PAIN, CT W/O WITH RENAL CALCULI WITHOUT OBSTRUCTION - Past Medical Family Social History Past Med/Fam/Surg Hx: No changes since H&P Allergies: Allergies azithromycin [From Zithromax] Allergy (Verified 07/10/18 16:24) ceftriaxone [From Rocephin] Allergy (Verified 07/10/18 16:24) cefuroxime Allergy (Verified 07/10/18 16:24) cephalexin [From Keflex] Allergy (Verified 07/10/18 16:24) gentamicin Allergy (Verified 07/10/18 16:24) levofloxacin [From Levaquin] Allergy (Verified 07/10/18 16:24) meperidine [From Demerol] Allergy (Verified 07/10/18 16:24) methylprednisolone [From Solu-Medrol] Allergy (Verified 07/10/18 16:24) nitrofurantoin [From Furadantin] Allergy (Verified 07/10/18 16:24) Penicillins Allergy (Verified 07/10/18 16:24) Sulfa (Sulfonamide Antibiotics) Allergy (Verified 07/10/18 16:24) Tetracyclines Allergy (Verified 07/10/18 16:24) trimethoprim Allergy (Verified 07/10/18 16:24) - Review of Systems ROS: No change since H&P - Vital Signs and I&O's Vital Signs: Temperature 98.3 F Pulse Rate [Left Brachial] 62 Pulse Rate [Apical] 69 Respiratory Rate 18 Blood Pressure [Left Radial 147/65 Artery] Blood Pressure [Right Arm] 167/70 Blood Pressure [Left Arm] 145/63 Blood Pressure 140/60 O2 Sat by Pulse Oximetry 97 Intake and Output: Intake & Output 07/11/18 07/12/18 07/13/18 07/14/18 11:59 11:59 11:59 11:59 Intake Total 1170 / 1170 2740 / 2740 2570 / 2570 814 / 814 Balance 1170 / 1170 2740 / 2740 2570 / 2570 814 / 814 - Physical Exam Oriented: Normal Eyes: Normal Ear: Normal Nose: Normal Throat: Normal Respiratory: Diminished Cardiovascular: Normal : Normal Auscultation: Bowel Sounds: Normal Tenderness: Suprapubic Skin: Normal, Other (COLOSTOMY PRESENT) Musculoskeletal: Back:Lumbar, Motor Deficit Psychiatric: Normal Mood Description: Calm Affect: Normal Speech Pattern: Clear, Appropriate - Laboratory and Diagnostics Result Diagrams: 07/13/18 05:45 07/13/18 05:45 Labs: 07/10/18 16:00 Urine,Clean Catch Urine Culture - Final Enterobacter Cloacae Laboratory WBC 3.8 X10^3/uL (3.6-10.0) 07/13/18 05:45 RBC 2.84 X10^6/uL (3.5-5.4) L 07/13/18 05:45 Hgb 9.7 g/dL (12.0-16.0) L 07/13/18 05:45 Hct 28.2 % (36.0-47.0) L 07/13/18 05:45 MCV 99.1 fL (80.0-100.0) 07/13/18 05:45 MCH 34.2 pg (27.0-34.0) H 07/13/18 05:45 MCHC 34.5 g/dL (33.0-35.0) 07/13/18 05:45 RDW 13.4 % (11.6-16.5) 07/13/18 05:45 Plt Count 149 X10^3/uL (150.0-450.0) L 07/13/18 05:45 MPV 8.5 fL (7.4-11.0) 07/13/18 05:45 Neut % (Auto) 53.7 % (42.0-75.0) 07/13/18 05:45 Lymph % (Auto) 29.6 % (21.0-51.0) 07/13/18 05:45 [place] % (Auto) 9.6 % (0.0-13.0) 07/13/18 05:45 Eos % (Auto) 6.0 % (0.9-2.9) H 07/13/18 05:45 Baso % (Auto) 1.1 % (0.2-1.0) H 07/13/18 05:45 Neut # (Auto) 2.1 x10^3/uL (2.2-4.8) L 07/13/18 05:45 Lymph # (Auto) 1.1 X10^3/uL (1.3-2.9) L 07/13/18 05:45 [place] # (Auto) 0.4 x10^3/uL (0.3-0.8) 07/13/18 05:45 Eos # (Auto) 0.2 x10^3/uL (0.0-0.2) 07/13/18 05:45 Baso # (Auto) 0.0 X10^3/uL (0.0-0.1) 07/13/18 05:45 Absolute Nucleated RBC 0.1 /100WBC 07/13/18 05:45 Sodium 141 mmol/L (136-145) 07/13/18 05:45 Corrected Sodium TNP 07/13/18 05:45 Potassium 4.0 mmol/L (3.5-5.1) 07/13/18 05:45 Chloride 108 mmol/L (98-107) H 07/13/18 05:45 Carbon Dioxide 27.1 mmol/L (21-32) 07/13/18 05:45 BUN 19 mg/dL (7-18) H 07/13/18 05:45 Creatinine 1.32 mg/dL (0.55-1.02) H 07/13/18 05:45 Est GFR (MDRD) Af Amer 50 (>60) L 07/13/18 05:45 Est GFR (MDRD) Non-Af 41 (>60) L 07/13/18 05:45 Glucose 100 mg/dL (65-99) H 07/13/18 05:45 POC Glucose (mg/dL) 109 mg/dL (65-99) H 07/13/18 16:24 Calcium 8.2 mg/dL (8.5-10.1) L 07/13/18 05:45 Corrected Calcium 9.2 mg/dL (8.5-10.1) 07/13/18 05:45 Total Bilirubin 0.10 mg/dL (0.2-1.0) L 07/13/18 05:45 AST 15 Units/L (15-37) 07/13/18 05:45 ALT 16 Units/L (12-78) 07/13/18 05:45 Alkaline Phosphatase 77 Units/L (46-116) 07/13/18 05:45 Total Protein 5.3 g/dL (6.4-8.2) L 07/13/18 05:45 Albumin 2.7 g/dL (3.4-5.0) L 07/13/18 05:45 Globulin 2.6 g/dL (2.5-4.5) 07/13/18 05:45 Albumin/Globulin Ratio 1.0 Ratio (1.1-2.1) L 07/13/18 05:45 Specimen Type Clean catch urine 07/10/18 16:00 Urine Color [place] (YELLOW) 07/10/18 16:00 Urine Appearance Hazy (CLEAR) 07/10/18 16:00 Urine pH 5.0 (5.0 - 8.0) 07/10/18 16:00 Ur Specific [place] 1.015 (1.000-1.030) 07/10/18 16:00 Urine Protein 1+ (NEGATIVE) 07/10/18 16:00 Urine Glucose (UA) Negative (NEGATIVE) 07/10/18 16:00 Urine Ketones Negative (NEGATIVE) 07/10/18 16:00 Urine Occult Blood 1+ (NEGATIVE) 07/10/18 16:00 Urine Nitrite Positive (NEGATIVE) 07/10/18 16:00 Urine Bilirubin Negative (NEGATIVE) 07/10/18 16:00 Urine Urobilinogen 1+ (NORMAL) 07/10/18 16:00 Ur Leukocyte Esterase 3+ (NEGATIVE) 07/10/18 16:00 Urine RBC 5-10 /HPF (NONE SEEN) 07/10/18 16:00 Urine WBC 30-50 /HPF (NONE SEEN) 07/10/18 16:00 Ur Squamous Epith Cells Few /HPF (NEGATIVE) 07/10/18 16:00 Urine Bacteria 3+ /HPF (NEGATIVE) 07/10/18 16:00 Ur Culture Indicated? 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 (6) Nausea Status: Acute
[2018-07-13] MEDS: MIRAPEX TAB 0.25 MG PO SCH (20:24)
[2018-07-13] MEDS: SINGULAIR TAB 10 MG PO SCH (20:24)
[2018-07-13] MEDS: ZyrTEC TAB 10 MG PO SCH (20:25)
[2018-07-13] MEDS: FLOMAX PO SCH (20:32)
[2018-07-14] MEDS: NORCO 10/325 TAB PO PRN ×4 (00:03→19:30)
[2018-07-14] MEDS: NS 1000 ML 1,000 ML IV SCH ×4 (03:17→22:00)
[2018-07-14] MEDS: XANAX PO PRN ×2 (03:17→23:35)
[2018-07-14] MEDS: SYNTHROID 125 mcg TAB PO SCH (05:47)
[2018-07-14 06:08] LABS: BASOPHILS % (AUTO) 0.9 % (0.2-1.0); EOSINOPHILS # (AUTO) 0.3 x10^3/uL (0.0-0.2); EOSINOPHILS % (AUTO) 6.5 % (0.9-2.9); HEMATOCRIT 27.7 % (36.0-47.0); HEMOGLOBIN 9.3 g/dL (12.0-16.0); LYMPHOCYTES # (AUTO) 1.2 X10^3/uL (1.3-2.9); LYMPHOCYTES % (AUTO) 30.5 % (21.0-51.0); MEAN CORPUSCULAR HEMOGLOBIN 33.5 pg (27.0-34.0); MEAN CORPUSCULAR HGB CONC 33.6 g/dL (33.0-35.0); MEAN CORPUSCULAR VOLUME 99.7 fL (80.0-100.0); MEAN PLATELET VOLUME 8.3 fL (7.4-11.0); MONOCYTES # (AUTO) 0.4 x10^3/uL (0.3-0.8); MONOCYTES % (AUTO) 11.2 % (0.0-13.0); NEUTROPHILS % (AUTO) 50.9 % (42.0-75.0); PLATELET COUNT 149 X10^3/uL (150.0-450.0); RED BLOOD COUNT 2.78 X10^6/uL (3.5-5.4); RED CELL DISTRIBUTION WIDTH 13.2 % (11.6-16.5); WHITE BLOOD COUNT 3.9 X10^3/uL (3.6-10.0)
[2018-07-14 06:38] LABS: ALANINE AMINOTRANSFERASE 21 Units/L (12-78); ALBUMIN 2.7 g/dL (3.4-5.0); ALKALINE PHOSPHATASE 87 Units/L (46-116); ASPARTATE AMINO TRANSFERASE 20 Units/L (15-37); BLOOD UREA NITROGEN 21 mg/dL (7-18); CALCIUM 8.1 mg/dL (8.5-10.1); CARBON DIOXIDE 26.4 mmol/L (21-32); CHLORIDE 106 mmol/L (98-107); COR CA(FOR HYPOALB) 9.1 mg/dL (8.5-10.1); CREATININE 1.35 mg/dL (0.55-1.02); SODIUM 141 mmol/L (136-145); TOTAL PROTEIN 5.4 g/dL (6.4-8.2); eGFR NON BLACK RACES 40 (>60)
[2018-07-14] MEDS: ZANTAC PO SCH ×2 (09:50→22:01)
[2018-07-14] MEDS: LASIX PO SCH (09:50)
[2018-07-14] MEDS: TAB-A-VITE PO SCH (09:50)
[2018-07-14] MEDS: PLAQUENIL PO SCH ×2 (09:50→22:01)
[2018-07-14] MEDS: NexIUM PO SCH (09:50)
[2018-07-14] MEDS: COZAAR PO SCH (09:51)
[2018-07-14] MEDS: K-DUR TAB 20 MEQ PO SCH (09:52)
[2018-07-14] MEDS: ZYLOPRIM PO SCH (09:54)
[2018-07-14] MEDS: LOVENOX INJ 30 MG SYR SC SCH (09:54)
[2018-07-14] MEDS: MERREM VIAL 500 MG in NS 100 ML IV + SPIKE MINIBAG* 100 ML IV SCH ×2 (09:57→22:00)
[2018-07-14] MEDS: GLIMEPIRIDE 1 MG PO SCH (10:00)
[2018-07-14] MEDS ORDERED: MORPHINE SULFATE INJ 2 MG INJ IVP PRN (10:31)
[2018-07-14] MEDS: HYDROCODONE BITARTRATE 80 MG PO SCH (12:22)
[2018-07-14] MEDS: SINGULAIR TAB 10 MG PO SCH (22:00)
[2018-07-14] MEDS: ZyrTEC TAB 10 MG PO SCH (22:00)
[2018-07-14] MEDS: MIRAPEX TAB 0.25 MG PO SCH (22:01)
[2018-07-14] MEDS: FLOMAX PO SCH (22:01)
[2018-07-15] MEDS: NORCO 10/325 TAB PO PRN ×3 (01:44→22:05)
[2018-07-15] MEDS: NS 1000 ML 1,000 ML IV SCH ×4 (01:44→21:10)
[2018-07-15 05:27] LABS: BASOPHILS # (AUTO) 0.1 X10^3/uL (0.0-0.1); BASOPHILS % (AUTO) 1.1 % (0.2-1.0); EOSINOPHILS # (AUTO) 0.3 x10^3/uL (0.0-0.2); EOSINOPHILS % (AUTO) 6.5 % (0.9-2.9); HEMATOCRIT 32.3 % (36.0-47.0); LYMPHOCYTES # (AUTO) 1.3 X10^3/uL (1.3-2.9); LYMPHOCYTES % (AUTO) 27.5 % (21.0-51.0); MEAN CORPUSCULAR HEMOGLOBIN 33.8 pg (27.0-34.0); MEAN CORPUSCULAR VOLUME 99.3 fL (80.0-100.0); MEAN PLATELET VOLUME 8.8 fL (7.4-11.0); MONOCYTES # (AUTO) 0.4 x10^3/uL (0.3-0.8); MONOCYTES % (AUTO) 9.1 % (0.0-13.0); NEUTROPHILS # (AUTO) 2.7 x10^3/uL (2.2-4.8); NEUTROPHILS % (AUTO) 55.8 % (42.0-75.0); PLATELET COUNT 161 X10^3/uL (150.0-450.0); RED BLOOD COUNT 3.25 X10^6/uL (3.5-5.4); RED CELL DISTRIBUTION WIDTH 13.4 % (11.6-16.5); WHITE BLOOD COUNT 4.9 X10^3/uL (3.6-10.0)
[2018-07-15 05:34] LABS: ALANINE AMINOTRANSFERASE 36 Units/L (12-78); ALBUMIN 3.2 g/dL (3.4-5.0); ALKALINE PHOSPHATASE 102 Units/L (46-116); ASPARTATE AMINO TRANSFERASE 38 Units/L (15-37); BLOOD UREA NITROGEN 23 mg/dL (7-18); CALCIUM 8.5 mg/dL (8.5-10.1); CARBON DIOXIDE 24.6 mmol/L (21-32); CHLORIDE 105 mmol/L (98-107); COR CA(FOR HYPOALB) 9.1 mg/dL (8.5-10.1); CREATININE 1.31 mg/dL (0.55-1.02); SODIUM 141 mmol/L (136-145); TOTAL PROTEIN 6.4 g/dL (6.4-8.2); eGFR NON BLACK RACES 41 (>60)
[2018-07-15] MEDS: SYNTHROID 125 mcg TAB PO SCH (06:01)
[2018-07-15] MEDS: COZAAR PO SCH (09:18)
[2018-07-15] MEDS: MERREM VIAL 500 MG in NS 100 ML IV + SPIKE MINIBAG* 100 ML IV SCH ×2 (09:18→21:09)
[2018-07-15] MEDS: LOVENOX INJ 30 MG SYR SC SCH (09:18)
[2018-07-15] MEDS: TAB-A-VITE PO SCH (09:20)
[2018-07-15] MEDS: K-DUR TAB 20 MEQ PO SCH (09:20)
[2018-07-15] MEDS: LASIX PO SCH (09:20)
[2018-07-15] MEDS: ZYLOPRIM PO SCH (09:21)
[2018-07-15] MEDS: NexIUM PO SCH (09:22)
[2018-07-15] MEDS: ZANTAC PO SCH ×2 (09:23→21:08)
[2018-07-15] MEDS: PLAQUENIL PO SCH ×2 (09:23→21:08)
[2018-07-15] MEDS: GLIMEPIRIDE 1 MG PO SCH (10:18)
[2018-07-15] MEDS: HYDROCODONE BITARTRATE 80 MG PO SCH (13:00)
[2018-07-15] MEDS: PHENERGAN TAB 25 MG PO PRN (15:55)
--- NOTE | 2018-07-15 16:10 | PCM.PROG ---
Progress Note - Progress Note for Day of Date of Exam: 07/15/18 - Subjective Subjective: IS BEING TREATED FOR A UTI AND LEFT SIDED NON-OBSTRUCTIVE RENAL STONE. TODAY, SHE IS ALERT, LYING IN BED ON MORNING ROUNDS. SHE CONTINUES WITH ABDOMINAL TENDERNESS. ABDOMEN IS ROUND, SOFT, AND NOTED WITH NORMAL BOWEL SOUNDS IN ALL QUADRANTS. COLOSTOMY PRESENT. HER VITALS THIS MORNING ARE 97.7-78-18-97%-169/72. LABS WERE OBTAINED. ABNORMAL LAB VALUES INCLUDE THE FOLLOWING: RBC 3.25, HGB 11.0, HCT 32.3, BUN 23, CREATININE 1.31, GLUCOSE 108, AST 38, ALBUMIN 3.2. URINE CULTURE REPORTED GROWTH OF ENTEROBACTER CLOACAE. SHE IS CURRENTLY RECEIVING MEROPENEM 500MG IV Q12H AND IV HYDRATION. WE WILL CONTINUE WITH CURRENT PLAN OF CARE TODAY. OTHERWISE, WE WILL FOLLOW UP WITH AM LABS AND CONTINUE TO MONITOR. - Past Medical Family Social History Past Med/Fam/Surg Hx: No changes since H&P Allergies: Allergies azithromycin [From Zithromax] Allergy (Verified 07/10/18 16:24) ceftriaxone [From Rocephin] Allergy (Verified 07/10/18 16:24) cefuroxime Allergy (Verified 07/10/18 16:24) cephalexin [From Keflex] Allergy (Verified 07/10/18 16:24) gentamicin Allergy (Verified 07/10/18 16:24) levofloxacin [From Levaquin] Allergy (Verified 07/10/18 16:24) meperidine [From Demerol] Allergy (Verified 07/10/18 16:24) methylprednisolone [From Solu-Medrol] Allergy (Verified 07/10/18 16:24) nitrofurantoin [From Furadantin] Allergy (Verified 07/10/18 16:24) Penicillins Allergy (Verified 07/10/18 16:24) Sulfa (Sulfonamide Antibiotics) Allergy (Verified 07/10/18 16:24) Tetracyclines Allergy (Verified 07/10/18 16:24) trimethoprim Allergy (Verified 07/10/18 16:24) - Review of Systems ROS: No change since H&P - Vital Signs and I&O's Vital Signs: Temperature 97.6 F Pulse Rate [Left Brachial] 78 Pulse Rate [Apical] 68 Respiratory Rate 18 Blood Pressure [Left Radial 147/65 Artery] Blood Pressure [Right Arm] 144/65 Blood Pressure [Left Arm] 169/72 Blood Pressure 140/60 O2 Sat by Pulse Oximetry 95 Intake and Output: Intake & Output 07/13/18 07/14/18 07/15/18 07/16/18 11:59 11:59 11:59 11:59 Intake Total 2570 / 2570 2655 / 2655 3025 / 3025 Balance 2570 / 2570 2655 / 2655 3025 / 3025 - Physical Exam Oriented: Normal Eyes: Normal Ear: Normal Nose: Normal Throat: Normal Respiratory: Diminished Cardiovascular: Normal : Normal Auscultation: Bowel Sounds: Normal Tenderness: Suprapubic Skin: Normal, Other (COLOSTOMY PRESENT) Musculoskeletal: Back:Lumbar, Motor Deficit Psychiatric: Normal Mood Description: Calm Affect: Normal Speech Pattern: Clear, Appropriate - Laboratory and Diagnostics Result Diagrams: 07/15/18 05:10 07/15/18 05:10 Labs: 07/10/18 16:00 Urine,Clean Catch Urine Culture - Final Enterobacter Cloacae Laboratory WBC 4.9 X10^3/uL (3.6-10.0) 07/15/18 05:10 RBC 3.25 X10^6/uL (3.5-5.4) L 07/15/18 05:10 Hgb 11.0 g/dL (12.0-16.0) L 07/15/18 05:10 Hct 32.3 % (36.0-47.0) L 07/15/18 05:10 MCV 99.3 fL (80.0-100.0) 07/15/18 05:10 MCH 33.8 pg (27.0-34.0) 07/15/18 05:10 MCHC 34.0 g/dL (33.0-35.0) 07/15/18 05:10 RDW 13.4 % (11.6-16.5) 07/15/18 05:10 Plt Count 161 X10^3/uL (150.0-450.0) 07/15/18 05:10 MPV 8.8 fL (7.4-11.0) 07/15/18 05:10 Neut % (Auto) 55.8 % (42.0-75.0) 07/15/18 05:10 Lymph % (Auto) 27.5 % (21.0-51.0) 07/15/18 05:10 [place] % (Auto) 9.1 % (0.0-13.0) 07/15/18 05:10 Eos % (Auto) 6.5 % (0.9-2.9) H 07/15/18 05:10 Baso % (Auto) 1.1 % (0.2-1.0) H 07/15/18 05:10 Neut # (Auto) 2.7 x10^3/uL (2.2-4.8) 07/15/18 05:10 Lymph # (Auto) 1.3 X10^3/uL (1.3-2.9) 07/15/18 05:10 [place] # (Auto) 0.4 x10^3/uL (0.3-0.8) 07/15/18 05:10 Eos # (Auto) 0.3 x10^3/uL (0.0-0.2) H 07/15/18 05:10 Baso # (Auto) 0.1 X10^3/uL (0.0-0.1) 07/15/18 05:10 Absolute Nucleated RBC 0.0 /100WBC 07/15/18 05:10 Sodium 141 mmol/L (136-145) 07/15/18 05:10 Corrected Sodium TNP 07/15/18 05:10 Potassium 3.9 mmol/L (3.5-5.1) 07/15/18 05:10 Chloride 105 mmol/L (98-107) 07/15/18 05:10 Carbon Dioxide 24.6 mmol/L (21-32) 07/15/18 05:10 BUN 23 mg/dL (7-18) H 07/15/18 05:10 Creatinine 1.31 mg/dL (0.55-1.02) H 07/15/18 05:10 Est GFR (MDRD) Af Amer 50 (>60) L 07/15/18 05:10 Est GFR (MDRD) Non-Af 41 (>60) L 07/15/18 05:10 Glucose 108 mg/dL (65-99) H 07/15/18 05:10 POC Glucose (mg/dL) 84 mg/dL (65-99) 07/15/18 12:35 Calcium 8.5 mg/dL (8.5-10.1) 07/15/18 05:10 Corrected Calcium 9.1 mg/dL (8.5-10.1) 07/15/18 05:10 Magnesium 1.9 mg/dL (1.7-2.9) 07/14/18 05:40 Total Bilirubin 0.20 mg/dL (0.2-1.0) 07/15/18 05:10 AST 38 Units/L (15-37) H 07/15/18 05:10 ALT 36 Units/L (12-78) 07/15/18 05:10 Alkaline Phosphatase 102 Units/L (46-116) 07/15/18 05:10 Total Protein 6.4 g/dL (6.4-8.2) 07/15/18 05:10 Albumin 3.2 g/dL (3.4-5.0) L 07/15/18 05:10 Globulin 3.2 g/dL (2.5-4.5) 07/15/18 05:10 Albumin/Globulin Ratio 1.0 Ratio (1.1-2.1) L 07/15/18 05:10 Specimen Type Clean catch urine 07/10/18 16:00 Urine Color [place] (YELLOW) 07/10/18 16:00 Urine Appearance Hazy (CLEAR) 07/10/18 16:00 Urine pH 5.0 (5.0 - 8.0) 07/10/18 16:00 Ur Specific [place] 1.015 (1.000-1.030) 07/10/18 16:00 Urine Protein 1+ (NEGATIVE) 07/10/18 16:00 Urine Glucose (UA) Negative (NEGATIVE) 07/10/18 16:00 Urine Ketones Negative (NEGATIVE) 07/10/18 16:00 Urine Occult Blood 1+ (NEGATIVE) 07/10/18 16:00 Urine Nitrite Positive (NEGATIVE) 07/10/18 16:00 Urine Bilirubin Negative (NEGATIVE) 07/10/18 16:00 Urine Urobilinogen 1+ (NORMAL) 07/10/18 16:00 Ur Leukocyte Esterase 3+ (NEGATIVE) 07/10/18 16:00 Urine RBC 5-10 /HPF (NONE SEEN) 07/10/18 16:00 Urine WBC 30-50 /HPF (NONE SEEN) 07/10/18 16:00 Ur Squamous Epith Cells Few /HPF (NEGATIVE) 07/10/18 16:00 Urine Bacteria 3+ /HPF (NEGATIVE) 07/10/18 16:00 Ur Culture Indicated? Yes/culture set up 07/10/18 16:00 - Plan (1) UTI (urinary tract infection) due to Enterococcus Status: Acute Plan: MEROPENEM 500MG IV Q12H, CONTINUE TO MONITOR
[2018-07-15 17:10] LABS: BILIRUBIN,URINE NEGATIVE (NEGATIVE); BLOOD/HEMOGLOBIN,URINE NEGATIVE (NEGATIVE); GLUCOSE, URINE NEGATIVE (NEGATIVE); KETONES,URINE NEGATIVE (NEGATIVE); LEUKOCYTE ESTERASE ,URINE NEGATIVE (NEGATIVE); NITRITES,URINE NEGATIVE (NEGATIVE); PROTEIN,URINE NEGATIVE (NEGATIVE); UROBILINOGEN,URINE NORMAL (NORMAL)
[2018-07-15 17:14] LABS: APPEARANCE,URINE CLEAR (CLEAR); COLOR,URINE PALE YELLOW (YELLOW)
[2018-07-15] MEDS: SINGULAIR TAB 10 MG PO SCH (21:08)
[2018-07-15] MEDS: FLOMAX PO SCH (21:08)
[2018-07-15] MEDS: ZyrTEC TAB 10 MG PO SCH (21:08)
[2018-07-15] MEDS: MIRAPEX TAB 0.25 MG PO SCH (21:09)
[2018-07-16] MEDS: XANAX PO PRN ×2 (00:22→23:32)
[2018-07-16] MEDS: NS 1000 ML 1,000 ML IV SCH ×4 (01:28→20:42)
[2018-07-16] MEDS: SYNTHROID 125 mcg TAB PO SCH (05:20)
[2018-07-16 05:41] LABS: BASOPHILS % (AUTO) 0.8 % (0.2-1.0); EOSINOPHILS # (AUTO) 0.3 x10^3/uL (0.0-0.2); EOSINOPHILS % (AUTO) 7.5 % (0.9-2.9); HEMATOCRIT 27.8 % (36.0-47.0); HEMOGLOBIN 9.5 g/dL (12.0-16.0); LYMPHOCYTES # (AUTO) 1.1 X10^3/uL (1.3-2.9); MEAN CORPUSCULAR VOLUME 99.9 fL (80.0-100.0); MEAN PLATELET VOLUME 8.7 fL (7.4-11.0); MONOCYTES # (AUTO) 0.4 x10^3/uL (0.3-0.8); NEUTROPHILS # (AUTO) 2.3 x10^3/uL (2.2-4.8); NEUTROPHILS % (AUTO) 54.7 % (42.0-75.0); PLATELET COUNT 139 X10^3/uL (150.0-450.0); RED BLOOD COUNT 2.78 X10^6/uL (3.5-5.4); RED CELL DISTRIBUTION WIDTH 13.7 % (11.6-16.5); WHITE BLOOD COUNT 4.2 X10^3/uL (3.6-10.0)
[2018-07-16 05:58] LABS: ALBUMIN 2.7 g/dL (3.4-5.0); CALCIUM 8.3 mg/dL (8.5-10.1); CARBON DIOXIDE 29.2 mmol/L (21-32); COR CA(FOR HYPOALB) 9.3 mg/dL (8.5-10.1); CREATININE 1.3 mg/dL (0.55-1.02); TOTAL PROTEIN 5.4 g/dL (6.4-8.2)
[2018-07-16] MEDS: COZAAR PO SCH (10:25)
[2018-07-16] MEDS: LOVENOX INJ 30 MG SYR SC SCH (10:26)
[2018-07-16] MEDS: LASIX PO SCH (10:26)
[2018-07-16] MEDS: K-DUR TAB 20 MEQ PO SCH (10:26)
[2018-07-16] MEDS: ZYLOPRIM PO SCH (10:27)
[2018-07-16] MEDS: ZANTAC PO SCH ×2 (10:27→20:43)
[2018-07-16] MEDS: NexIUM PO SCH (10:27)
[2018-07-16] MEDS: PLAQUENIL PO SCH ×2 (10:27→20:43)
[2018-07-16] MEDS: TAB-A-VITE PO SCH (10:27)
[2018-07-16] MEDS: PHENERGAN TAB 25 MG PO PRN (10:27)
[2018-07-16] MEDS: MERREM VIAL 500 MG in NS 100 ML IV + SPIKE MINIBAG* 100 ML IV SCH ×2 (10:28→20:43)
[2018-07-16] MEDS: GLIMEPIRIDE 1 MG PO SCH (11:55)
[2018-07-16] MEDS: HYDROCODONE BITARTRATE 80 MG PO SCH (13:00)
[2018-07-16] MEDS: NORCO 10/325 TAB PO PRN ×2 (18:16→22:15)
[2018-07-16] MEDS: SINGULAIR TAB 10 MG PO SCH (20:43)
[2018-07-16] MEDS: MIRAPEX TAB 0.25 MG PO SCH (20:43)
[2018-07-16] MEDS: FLOMAX PO SCH (20:43)
[2018-07-16] MEDS: ZyrTEC TAB 10 MG PO SCH (20:44)
--- NOTE | 2018-07-16 21:22 | PCM.PROG ---
Progress Note - Progress Note for Day of Date of Exam: 07/16/18 - Subjective Subjective: IS BEING TREATED FOR A UTI AND LEFT SIDED NON-OBSTRUCTIVE RENAL STONE. TODAY, SHE IS ALERT, LYING IN BED ON MORNING ROUNDS. SHE CONTINUES WITH ABDOMINAL TENDERNESS. ABDOMEN IS ROUND, SOFT, AND NOTED WITH NORMAL BOWEL SOUNDS IN ALL QUADRANTS. COLOSTOMY PRESENT. HER VITALS THIS MORNING ARE 97.8-60-18-96%-128/60. LABS WERE OBTAINED. ABNORMAL LAB VALUES INCLUDE THE FOLLOWING: RBC 2.78, HGB 9.5, HCT 27.8, PLT COUNT 139, BUN 22, CREATININE 1.30, GLUCOSE 112, CALCIUM 8.3, TOTAL BILI 0.10, TOTAL PROTEIN 5.4, ALBUMIN 2.7. URINE CULTURE REPORTED GROWTH OF ENTEROBACTER CLOACAE. SHE IS CURRENTLY RECEIVING MEROPENEM 500MG IV Q12H AND IV HYDRATION. WE WILL CONTINUE WITH CURRENT PLAN OF CARE TODAY. OTHERWISE, WE WILL FOLLOW UP WITH AM LABS AND CONTINUE TO MONITOR. - Past Medical Family Social History Past Med/Fam/Surg Hx: No changes since H&P Allergies: Allergies azithromycin [From Zithromax] Allergy (Verified 07/10/18 16:24) ceftriaxone [From Rocephin] Allergy (Verified 07/10/18 16:24) cefuroxime Allergy (Verified 07/10/18 16:24) cephalexin [From Keflex] Allergy (Verified 07/10/18 16:24) gentamicin Allergy (Verified 07/10/18 16:24) levofloxacin [From Levaquin] Allergy (Verified 07/10/18 16:24) meperidine [From Demerol] Allergy (Verified 07/10/18 16:24) methylprednisolone [From Solu-Medrol] Allergy (Verified 07/10/18 16:24) nitrofurantoin [From Furadantin] Allergy (Verified 07/10/18 16:24) Penicillins Allergy (Verified 07/10/18 16:24) Sulfa (Sulfonamide Antibiotics) Allergy (Verified 07/10/18 16:24) Tetracyclines Allergy (Verified 07/10/18 16:24) trimethoprim Allergy (Verified 07/10/18 16:24) - Review of Systems ROS: No change since H&P - Vital Signs and I&O's Vital Signs: Temperature 98.3 F Pulse Rate [Left Brachial] 52 Pulse Rate [Apical] 60 Respiratory Rate 20 Blood Pressure [Left Radial 147/65 Artery] Blood Pressure [Right Arm] 167/68 Blood Pressure [Left Arm] 169/72 Blood Pressure 140/60 O2 Sat by Pulse Oximetry 97 Intake and Output: Intake & Output 07/14/18 07/15/18 07/16/18 07/17/18 11:59 11:59 11:59 11:59 Intake Total 2655 / 2655 3025 / 3025 2490 / 2490 360 / 360 Balance 2655 / 2655 3025 / 3025 2490 / 2490 360 / 360 - Physical Exam Oriented: Normal Eyes: Normal Ear: Normal Nose: Normal Throat: Normal Respiratory: Diminished Cardiovascular: Normal : Normal Auscultation: Bowel Sounds: Normal Palpation: Normal Tenderness: Suprapubic Skin: Normal, Other (COLOSTOMY PRESENT) Musculoskeletal: Back:Lumbar, Motor Deficit Psychiatric: Normal Mood Description: Calm Affect: Normal Speech Pattern: Clear, Appropriate - Laboratory and Diagnostics Result Diagrams: 07/16/18 04:48 07/16/18 04:48 Labs: 07/10/18 16:00 Urine,Clean Catch Urine Culture - Final Enterobacter Cloacae Laboratory WBC 4.2 X10^3/uL (3.6-10.0) 07/16/18 04:48 RBC 2.78 X10^6/uL (3.5-5.4) L 07/16/18 04:48 Hgb 9.5 g/dL (12.0-16.0) L 07/16/18 04:48 Hct 27.8 % (36.0-47.0) L 07/16/18 04:48 MCV 99.9 fL (80.0-100.0) 07/16/18 04:48 MCH 34.0 pg (27.0-34.0) 07/16/18 04:48 MCHC 34.0 g/dL (33.0-35.0) 07/16/18 04:48 RDW 13.7 % (11.6-16.5) 07/16/18 04:48 Plt Count 139 X10^3/uL (150.0-450.0) L 07/16/18 04:48 MPV 8.7 fL (7.4-11.0) 07/16/18 04:48 Neut % (Auto) 54.7 % (42.0-75.0) 07/16/18 04:48 Lymph % (Auto) 27.0 % (21.0-51.0) 07/16/18 04:48 [place] % (Auto) 10.0 % (0.0-13.0) 07/16/18 04:48 Eos % (Auto) 7.5 % (0.9-2.9) H 07/16/18 04:48 Baso % (Auto) 0.8 % (0.2-1.0) 07/16/18 04:48 Neut # (Auto) 2.3 x10^3/uL (2.2-4.8) 07/16/18 04:48 Lymph # (Auto) 1.1 X10^3/uL (1.3-2.9) L 07/16/18 04:48 [place] # (Auto) 0.4 x10^3/uL (0.3-0.8) 07/16/18 04:48 Eos # (Auto) 0.3 x10^3/uL (0.0-0.2) H 07/16/18 04:48 Baso # (Auto) 0.0 X10^3/uL (0.0-0.1) 07/16/18 04:48 Absolute Nucleated RBC 0.0 /100WBC 07/16/18 04:48 Sodium 142 mmol/L (136-145) 07/16/18 04:48 Corrected Sodium 142 mmol/L (136-145) 07/16/18 04:48 Potassium 4.0 mmol/L (3.5-5.1) 07/16/18 04:48 Chloride 107 mmol/L (98-107) 07/16/18 04:48 Carbon Dioxide 29.2 mmol/L (21-32) 07/16/18 04:48 BUN 22 mg/dL (7-18) H 07/16/18 04:48 Creatinine 1.30 mg/dL (0.55-1.02) H 07/16/18 04:48 Est GFR (MDRD) Af Amer 50 (>60) L 07/16/18 04:48 Est GFR (MDRD) Non-Af 42 (>60) L 07/16/18 04:48 Glucose 112 mg/dL (65-99) H 07/16/18 04:48 POC Glucose (mg/dL) 108 mg/dL (65-99) H 07/16/18 20:05 Calcium 8.3 mg/dL (8.5-10.1) L 07/16/18 04:48 Corrected Calcium 9.3 mg/dL (8.5-10.1) 07/16/18 04:48 Magnesium 1.9 mg/dL (1.7-2.9) 07/14/18 05:40 Total Bilirubin 0.10 mg/dL (0.2-1.0) L 07/16/18 04:48 AST 28 Units/L (15-37) 07/16/18 04:48 ALT 34 Units/L (12-78) 07/16/18 04:48 Alkaline Phosphatase 79 Units/L (46-116) 07/16/18 04:48 Total Protein 5.4 g/dL (6.4-8.2) L 07/16/18 04:48 Albumin 2.7 g/dL (3.4-5.0) L 07/16/18 04:48 Globulin 2.7 g/dL (2.5-4.5) 07/16/18 04:48 Albumin/Globulin Ratio 1.0 Ratio (1.1-2.1) L 07/16/18 04:48 Specimen Type Clean catch urine 07/15/18 16:52 Urine Color Pale yellow (YELLOW) 07/15/18 16:52 Urine Appearance Clear (CLEAR) 07/15/18 16:52 Urine pH 6.0 (5.0 - 8.0) 07/15/18 16:52 Ur Specific [place] 1.010 (1.000-1.030) 07/15/18 16:52 Urine Protein Negative (NEGATIVE) 07/15/18 16:52 Urine Glucose (UA) Negative (NEGATIVE) 07/15/18 16:52 Urine Ketones Negative (NEGATIVE) 07/15/18 16:52 Urine Occult Blood Negative (NEGATIVE) 07/15/18 16:52 Urine Nitrite Negative (NEGATIVE) 07/15/18 16:52 Urine Bilirubin Negative (NEGATIVE) 07/15/18 16:52 Urine Urobilinogen Normal (NORMAL) 07/15/18 16:52 Ur Leukocyte Esterase Negative (NEGATIVE) 07/15/18 16:52 Urine RBC 5-10 /HPF (NONE SEEN) 07/10/18 16:00 Urine WBC 30-50 /HPF (NONE SEEN) 07/10/18 16:00 Ur Squamous Epith Cells Few /HPF (NEGATIVE) 07/10/18 16:00 Urine Bacteria 3+ /HPF (NEGATIVE) 07/10/18 16:00 Ur Culture Indicated? Yes/culture set up 07/10/18 16:00 - Plan (1) UTI (urinary tract infection) due to Enterococcus Status: Acute Plan: MEROPENEM 500MG IV Q12H, CONTINUE TO MONITOR
[2018-07-17] MEDS: NS 1000 ML 1,000 ML IV SCH ×3 (04:49→18:09)
[2018-07-17] MEDS: SYNTHROID 125 mcg TAB PO SCH (05:39)
[2018-07-17 06:08] LABS: BASOPHILS % (AUTO) 0.6 % (0.2-1.0); EOSINOPHILS # (AUTO) 0.3 x10^3/uL (0.0-0.2); EOSINOPHILS % (AUTO) 6.3 % (0.9-2.9); HEMATOCRIT 27.2 % (36.0-47.0); HEMOGLOBIN 9.3 g/dL (12.0-16.0); LYMPHOCYTES # (AUTO) 1.1 X10^3/uL (1.3-2.9); LYMPHOCYTES % (AUTO) 27.4 % (21.0-51.0); MEAN CORPUSCULAR VOLUME 100.1 fL (80.0-100.0); MONOCYTES # (AUTO) 0.5 x10^3/uL (0.3-0.8); MONOCYTES % (AUTO) 11.2 % (0.0-13.0); NEUTROPHILS # (AUTO) 2.2 x10^3/uL (2.2-4.8); NEUTROPHILS % (AUTO) 54.5 % (42.0-75.0); PLATELET COUNT 140 X10^3/uL (150.0-450.0); RED BLOOD COUNT 2.72 X10^6/uL (3.5-5.4); RED CELL DISTRIBUTION WIDTH 13.3 % (11.6-16.5)
[2018-07-17 06:25] LABS: ALANINE AMINOTRANSFERASE 33 Units/L (12-78); ALBUMIN 2.7 g/dL (3.4-5.0); ALKALINE PHOSPHATASE 83 Units/L (46-116); ASPARTATE AMINO TRANSFERASE 26 Units/L (15-37); BLOOD UREA NITROGEN 25 mg/dL (7-18); CALCIUM 8.1 mg/dL (8.5-10.1); CARBON DIOXIDE 28.7 mmol/L (21-32); CHLORIDE 107 mmol/L (98-107); COR CA(FOR HYPOALB) 9.1 mg/dL (8.5-10.1); CREATININE 1.28 mg/dL (0.55-1.02); SODIUM 142 mmol/L (136-145); TOTAL PROTEIN 5.4 g/dL (6.4-8.2); eGFR NON BLACK RACES 42 (>60)
[2018-07-17] MEDS: LOVENOX INJ 30 MG SYR SC SCH (09:19)
[2018-07-17] MEDS: COZAAR PO SCH (09:19)
[2018-07-17] MEDS: PLAQUENIL PO SCH ×2 (09:20→20:48)
[2018-07-17] MEDS: NexIUM PO SCH (09:20)
[2018-07-17] MEDS: K-DUR TAB 20 MEQ PO SCH (09:20)
[2018-07-17] MEDS: LASIX PO SCH (09:20)
[2018-07-17] MEDS: TAB-A-VITE PO SCH (09:20)
[2018-07-17] MEDS: NORCO 10/325 TAB PO PRN ×3 (09:20→22:22)
[2018-07-17] MEDS: ZYLOPRIM PO SCH (09:20)
[2018-07-17] MEDS: GLIMEPIRIDE 1 MG PO SCH (09:20)
[2018-07-17] MEDS: ZANTAC PO SCH ×2 (09:21→20:47)
[2018-07-17] MEDS: MERREM VIAL 500 MG in NS 100 ML IV + SPIKE MINIBAG* 100 ML IV SCH (09:21)
[2018-07-17] MEDS: HYDROCODONE BITARTRATE 80 MG PO SCH (12:54)
[2018-07-17] MEDS: FLEXERIL TAB 10 MG PO PRN (13:33)
--- NOTE | 2018-07-17 16:30 | RAD ---
HISTORY: Back pain. History of kidney stones. Flank pain. Study: Upright PA chest with supine and upright abdominal views. Comparison: 09/02/2017, 01/12/2018 Findings: The lungs are clear. The heart size is normal. A Port-A-Cath is present on the left and the tip is at the cavoatrial junction. No acute bony abnormalities are identified. Examination of the abdomen demonstrates scattered large and small bowel gas. There are questionable left-sided renal calculi versus material within bowel. A small to moderate amount of stool is noted in the ascending colon and proximal transverse colon. Surgical clips overlie the abdomen. There appears to be a colostomy ring overlying the midline abdomen. The hernia demonstrated on the CT scan is not identified. Mild lumbar spondylosis is noted. Mild degenerative changes present in the hips. IMPRESSION: 1. No radiographic evidence of acute cardiopulmonary disease or significant change is noted when compared to the prior examination. 2. No evidence of bowel obstruction or pneumoperitoneum. Reported By:
--- NOTE | 2018-07-17 16:50 | RAD ---
Thoracic spine three views Indication: Back pain. History of kidney stones. Flank pain Comparison: 01/12/2018 chest radiograph Findings: Port-A-Cath tip is over the SVC. Heart size is prominent lungs appear minimally hyperinflated suggesting COPD. There is mild multilevel disc degenerative change, generally worse caudally at the lower thoracic spine/thoracolumbar junction. Mild cervical spine DJD suggested. There is no cortical lucency or malalignment. No compression deformity convincingly demonstrated. Impression: Spine degenerative changes without acute abnormality otherwise. Reported By:
--- NOTE | 2018-07-17 17:47 | PCM.PROG ---
Progress Note - Progress Note for Day of Date of Exam: 07/17/18 - Subjective Subjective: IS BEING TREATED FOR A UTI AND LEFT SIDED NON-OBSTRUCTIVE RENAL STONE. TODAY, SHE IS ALERT, LYING IN BED ON MORNING ROUNDS. SHE CONTINUES WITH ABDOMINAL TENDERNESS. ABDOMEN IS ROUND, SOFT, AND NOTED WITH NORMAL BOWEL SOUNDS IN ALL QUADRANTS. COLOSTOMY PRESENT. URINE CULTURE REPORTED GROWTH OF ENTEROBACTER CLOACAE. SHE IS CURRENTLY RECEIVING MEROPENEM 500MG IV Q12H AND IV HYDRATION, DISCUSSED D/C HOME. PT CO MID BACK, LEFT FLANK PAIN AND LOWER ABDOMINAL PAIN YESTERDAY NOT RELIEVED WITH NORCO. T SPINE SERIES AND ABD SERIES ORDRED, REPEAT UA - Past Medical Family Social History Past Med/Fam/Surg Hx: No changes since H&P Allergies: Allergies azithromycin [From Zithromax] Allergy (Verified 07/10/18 16:24) ceftriaxone [From Rocephin] Allergy (Verified 07/10/18 16:24) cefuroxime Allergy (Verified 07/10/18 16:24) cephalexin [From Keflex] Allergy (Verified 07/10/18 16:24) gentamicin Allergy (Verified 07/10/18 16:24) levofloxacin [From Levaquin] Allergy (Verified 07/10/18 16:24) meperidine [From Demerol] Allergy (Verified 07/10/18 16:24) methylprednisolone [From Solu-Medrol] Allergy (Verified 07/10/18 16:24) nitrofurantoin [From Furadantin] Allergy (Verified 07/10/18 16:24) Penicillins Allergy (Verified 07/10/18 16:24) Sulfa (Sulfonamide Antibiotics) Allergy (Verified 07/10/18 16:24) Tetracyclines Allergy (Verified 07/10/18 16:24) trimethoprim Allergy (Verified 07/10/18 16:24) - Review of Systems ROS: No change since H&P - Vital Signs and I&O's Vital Signs: Temperature 97.8 F Pulse Rate [Left Brachial] 60 Pulse Rate [Apical] 60 Respiratory Rate 18 Blood Pressure [Left Radial 147/65 Artery] Blood Pressure [Right Arm] 148/61 Blood Pressure [Left Arm] 169/72 Blood Pressure 140/60 O2 Sat by Pulse Oximetry 99 Intake and Output: Intake & Output 07/15/18 07/16/18 07/17/1819 11:59 11:59 11:59 11:59 Intake Total 3025 / 3025 2490 / 2490 1740 / 1740 843 / 843 Balance 3025 / 3025 2490 / 2490 1740 / 1740 843 / 843 - Physical Exam Oriented: Normal Eyes: Normal Ear: Normal Nose: Normal Throat: Normal Respiratory: Diminished Cardiovascular: Normal : Normal Auscultation: Bowel Sounds: Normal Tenderness: Suprapubic Skin: Normal, Other (COLOSTOMY PRESENT) Musculoskeletal: Back:Lumbar, Motor Deficit Psychiatric: Normal Mood Description: Calm Affect: Normal Speech Pattern: Clear, Appropriate - Laboratory and Diagnostics Result Diagrams: 07/17/18 04:56 07/17/18 04:56 Labs: 07/10/18 16:00 Urine,Clean Catch Urine Culture - Final Enterobacter Cloacae Laboratory WBC 4.0 X10^3/uL (3.6-10.0) 07/17/18 04:56 RBC 2.72 X10^6/uL (3.5-5.4) L 07/17/18 04:56 Hgb 9.3 g/dL (12.0-16.0) L 07/17/18 04:56 Hct 27.2 % (36.0-47.0) L 07/17/18 04:56 MCV 100.1 fL (80.0-100.0) H 07/17/18 04:56 MCH 34.0 pg (27.0-34.0) 07/17/18 04:56 MCHC 34.0 g/dL (33.0-35.0) 07/17/18 04:56 RDW 13.3 % (11.6-16.5) 07/17/18 04:56 Plt Count 140 X10^3/uL (150.0-450.0) L 07/17/18 04:56 MPV 9.0 fL (7.4-11.0) 07/17/18 04:56 Neut % (Auto) 54.5 % (42.0-75.0) 07/17/18 04:56 Lymph % (Auto) 27.4 % (21.0-51.0) 07/17/18 04:56 [place] % (Auto) 11.2 % (0.0-13.0) 07/17/18 04:56 Eos % (Auto) 6.3 % (0.9-2.9) H 07/17/18 04:56 Baso % (Auto) 0.6 % (0.2-1.0) 07/17/18 04:56 Neut # (Auto) 2.2 x10^3/uL (2.2-4.8) 07/17/18 04:56 Lymph # (Auto) 1.1 X10^3/uL (1.3-2.9) L 07/17/18 04:56 [place] # (Auto) 0.5 x10^3/uL (0.3-0.8) 07/17/18 04:56 Eos # (Auto) 0.3 x10^3/uL (0.0-0.2) H 07/17/18 04:56 Baso # (Auto) 0.0 X10^3/uL (0.0-0.1) 07/17/18 04:56 Absolute Nucleated RBC 0.2 /100WBC 07/17/18 04:56 Sodium 142 mmol/L (136-145) 07/17/18 04:56 Corrected Sodium TNP 07/17/18 04:56 Potassium 3.9 mmol/L (3.5-5.1) 07/17/18 04:56 Chloride 107 mmol/L (98-107) 07/17/18 04:56 Carbon Dioxide 28.7 mmol/L (21-32) 07/17/18 04:56 BUN 25 mg/dL (7-18) H 07/17/18 04:56 Creatinine 1.28 mg/dL (0.55-1.02) H 07/17/18 04:56 Est GFR (MDRD) Af Amer 51 (>60) L 07/17/18 04:56 Est GFR (MDRD) Non-Af 42 (>60) L 07/17/18 04:56 Glucose 99 mg/dL (65-99) 07/17/18 04:56 POC Glucose (mg/dL) 107 mg/dL (65-99) H 07/17/18 16:32 Calcium 8.1 mg/dL (8.5-10.1) L 07/17/18 04:56 Corrected Calcium 9.1 mg/dL (8.5-10.1) 07/17/18 04:56 Magnesium 1.9 mg/dL (1.7-2.9) 07/14/18 05:40 Total Bilirubin 0.10 mg/dL (0.2-1.0) L 07/17/18 04:56 AST 26 Units/L (15-37) 07/17/18 04:56 ALT 33 Units/L (12-78) 07/17/18 04:56 Alkaline Phosphatase 83 Units/L (46-116) 07/17/18 04:56 Total Protein 5.4 g/dL (6.4-8.2) L 07/17/18 04:56 Albumin 2.7 g/dL (3.4-5.0) L 07/17/18 04:56 Globulin 2.7 g/dL (2.5-4.5) 07/17/18 04:56 Albumin/Globulin Ratio 1.0 Ratio (1.1-2.1) L 07/17/18 04:56 Specimen Type Clean catch urine 07/15/18 16:52 Urine Color Pale yellow (YELLOW) 07/15/18 16:52 Urine Appearance Clear (CLEAR) 07/15/18 16:52 Urine pH 6.0 (5.0 - 8.0) 07/15/18 16:52 Ur Specific [place] 1.010 (1.000-1.030) 07/15/18 16:52 Urine Protein Negative (NEGATIVE) 07/15/18 16:52 Urine Glucose (UA) Negative (NEGATIVE) 07/15/18 16:52 Urine Ketones Negative (NEGATIVE) 07/15/18 16:52 Urine Occult Blood Negative (NEGATIVE) 07/15/18 16:52 Urine Nitrite Negative (NEGATIVE) 07/15/18 16:52 Urine Bilirubin Negative (NEGATIVE) 07/15/18 16:52 Urine Urobilinogen Normal (NORMAL) 07/15/18 16:52 Ur Leukocyte Esterase Negative (NEGATIVE) 07/15/18 16:52 Urine RBC 5-10 /HPF (NONE SEEN) 07/10/18 16:00 Urine WBC 30-50 /HPF (NONE SEEN) 07/10/18 16:00 Ur Squamous Epith Cells Few /HPF (NEGATIVE) 07/10/18 16:00 Urine Bacteria 3+ /HPF (NEGATIVE) 07/10/18 16:00 Ur Culture Indicated? 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 (6) Nausea Status: Acute (7) Flank pain Status: Acute
[2018-07-17 20:07] LABS: BILIRUBIN,URINE NEGATIVE (NEGATIVE); BLOOD/HEMOGLOBIN,URINE NEGATIVE (NEGATIVE); GLUCOSE, URINE NEGATIVE (NEGATIVE); KETONES,URINE NEGATIVE (NEGATIVE); LEUKOCYTE ESTERASE ,URINE NEGATIVE (NEGATIVE); NITRITES,URINE NEGATIVE (NEGATIVE); PROTEIN,URINE NEGATIVE (NEGATIVE); UROBILINOGEN,URINE NORMAL (NORMAL)
[2018-07-17 20:09] LABS: APPEARANCE,URINE CLEAR (CLEAR); COLOR,URINE YELLOW (YELLOW)
[2018-07-17] MEDS: FLOMAX PO SCH (20:46)
[2018-07-17] MEDS: MIRAPEX TAB 0.25 MG PO SCH (20:47)
[2018-07-17] MEDS: ZyrTEC TAB 10 MG PO SCH (20:47)
[2018-07-17] MEDS: SINGULAIR TAB 10 MG PO SCH (20:48)
[2018-07-17] MEDS: XANAX PO PRN (22:20)
[2018-07-18] MEDS: NS 1000 ML 1,000 ML IV SCH ×2 (03:07→09:51)
[2018-07-18] MEDS: SYNTHROID 125 mcg TAB PO SCH (05:11)
[2018-07-18 05:36] LABS: ALANINE AMINOTRANSFERASE 31 Units/L (12-78); ALBUMIN 2.8 g/dL (3.4-5.0); ALKALINE PHOSPHATASE 85 Units/L (46-116); ASPARTATE AMINO TRANSFERASE 22 Units/L (15-37); BLOOD UREA NITROGEN 26 mg/dL (7-18); CARBON DIOXIDE 28.4 mmol/L (21-32); CHLORIDE 105 mmol/L (98-107); CREATININE 1.42 mg/dL (0.55-1.02); SODIUM 140 mmol/L (136-145); TOTAL PROTEIN 5.5 g/dL (6.4-8.2); eGFR NON BLACK RACES 38 (>60)
[2018-07-18 06:16] LABS: BASOPHILS % (AUTO) 0.7 % (0.2-1.0); EOSINOPHILS # (AUTO) 0.3 x10^3/uL (0.0-0.2); EOSINOPHILS % (AUTO) 5.8 % (0.9-2.9); HEMATOCRIT 27.2 % (36.0-47.0); HEMOGLOBIN 9.2 g/dL (12.0-16.0); LYMPHOCYTES # (AUTO) 1.1 X10^3/uL (1.3-2.9); LYMPHOCYTES % (AUTO) 21.5 % (21.0-51.0); MEAN CORPUSCULAR HEMOGLOBIN 34.1 pg (27.0-34.0); MEAN CORPUSCULAR VOLUME 100.4 fL (80.0-100.0); MEAN PLATELET VOLUME 9.1 fL (7.4-11.0); MONOCYTES # (AUTO) 0.5 x10^3/uL (0.3-0.8); MONOCYTES % (AUTO) 10.9 % (0.0-13.0); NEUTROPHILS % (AUTO) 61.1 % (42.0-75.0); PLATELET COUNT 132 X10^3/uL (150.0-450.0); RED BLOOD COUNT 2.71 X10^6/uL (3.5-5.4); RED CELL DISTRIBUTION WIDTH 13.3 % (11.6-16.5)
[2018-07-18] MEDS: NexIUM PO SCH (08:43)
[2018-07-18] MEDS: K-DUR TAB 20 MEQ PO SCH (08:43)
[2018-07-18] MEDS: PLAQUENIL PO SCH (08:43)
[2018-07-18] MEDS: ZYLOPRIM PO SCH (08:43)
[2018-07-18] MEDS: LASIX PO SCH (08:43)
[2018-07-18] MEDS: ZANTAC PO SCH (08:43)
[2018-07-18] MEDS: TAB-A-VITE PO SCH (08:43)
[2018-07-18] MEDS: COZAAR PO SCH (08:43)
[2018-07-18] MEDS: GLIMEPIRIDE 1 MG PO SCH (08:44)
[2018-07-18] MEDS: LOVENOX INJ 30 MG SYR SC SCH (08:48)
[2018-07-18] MEDS: NORCO 10/325 TAB PO PRN (11:19)
[2018-07-18 13:06] VITALS: BP 173/68
[2018-07-18] MEDS: HYDROCODONE BITARTRATE 80 MG PO SCH (13:07)
== END 2018-07-18 13:25 | disposition home health service (06) | DRG 690 ==
LOC: MED/SURG
PROVIDERS: ADMIT Internal Medicine; ATTEND Internal Medicine
DX: N39.0 Urinary tract infection, site not specified; F41.8 Other specified anxiety disorders; B96.89 Other specified bacterial agents as the cause of diseases classified elsewhere; R94.4 Abnormal results of kidney function studies; M06.9 Rheumatoid arthritis, unspecified; N28.9 Disorder of kidney and ureter, unspecified; N20.0 Calculus of kidney; R53.1 Weakness; E86.0 Dehydration; Z93.3 Colostomy status; Z87.440 Personal history of urinary (tract) infections; E11.65 Type 2 diabetes mellitus with hyperglycemia; R10.84 Generalized abdominal pain; I10 Essential (primary) hypertension; K21.9 Gastro-esophageal reflux disease without esophagitis; R11.2 Nausea with vomiting, unspecified
CPT/HCPCS: 36415; 72072; 74022; 74176; 80053; 81001; 81003; 83735; 85025; 87086; 87088; 87186; 94760; A4216; A4222; Q0169; G0378; J1642; J1650; J2185; J7030; J7050

== ENCOUNTER 2018-07-27 14:00 | Observation (INO) ==
[2018-07-27] MEDS ORDERED: TYLENOL 500 MG TAB EXTRA STRENGTH PO PRN (16:09)
[2018-07-27] MEDS ORDERED: HumuLIN R SC PRN (16:11)
[2018-07-27 16:25] LABS: BASOPHILS % (AUTO) 0.7 % (0.2-1.0); EOSINOPHILS # (AUTO) 0.4 x10^3/uL (0.0-0.2); EOSINOPHILS % (AUTO) 6.1 % (0.9-2.9); HEMATOCRIT 34.9 % (36.0-47.0); HEMOGLOBIN 11.8 g/dL (12.0-16.0); LYMPHOCYTES # (AUTO) 0.9 X10^3/uL (1.3-2.9); MEAN CORPUSCULAR HEMOGLOBIN 33.5 pg (27.0-34.0); MEAN CORPUSCULAR HGB CONC 33.9 g/dL (33.0-35.0); MEAN CORPUSCULAR VOLUME 98.7 fL (80.0-100.0); MEAN PLATELET VOLUME 8.9 fL (7.4-11.0); MONOCYTES # (AUTO) 0.6 x10^3/uL (0.3-0.8); MONOCYTES % (AUTO) 9.8 % (0.0-13.0); NEUTROPHILS # (AUTO) 3.9 x10^3/uL (2.2-4.8); NEUTROPHILS % (AUTO) 67.4 % (42.0-75.0); PLATELET COUNT 266 X10^3/uL (150.0-450.0); RED BLOOD COUNT 3.54 X10^6/uL (3.5-5.4); RED CELL DISTRIBUTION WIDTH 12.9 % (11.6-16.5); WHITE BLOOD COUNT 5.8 X10^3/uL (3.6-10.0)
[2018-07-27] MEDS ORDERED: ADRENALINE CHL INJ IM PRN (16:34)
[2018-07-27] MEDS ORDERED: BENADRYL INJ 50 MG VIAL IVP PRN (16:35)
[2018-07-27 16:40] LABS: ALANINE AMINOTRANSFERASE 24 Units/L (12-78); ALBUMIN 4.4 g/dL (3.4-5.0); ALKALINE PHOSPHATASE 105 Units/L (46-116); ASPARTATE AMINO TRANSFERASE 17 Units/L (15-37); BLOOD UREA NITROGEN 40 mg/dL (7-18); CALCIUM 9.1 mg/dL (8.5-10.1); CARBON DIOXIDE 25.3 mmol/L (21-32); CHLORIDE 100 mmol/L (98-107); CREATININE 1.83 mg/dL (0.55-1.02); SODIUM 137 mmol/L (136-145); eGFR NON BLACK RACES 28 (>60)
[2018-07-27] MEDS ORDERED: MERREM VIAL 500 MG in NS 100 ML IV + SPIKE MINIBAG* 100 ML IV SCH (17:00)
[2018-07-27 17:24] VITALS: BMI 28.5
[2018-07-27] MEDS: NS 1000 ML 1,000 ML IV SCH (17:38)
[2018-07-27] MEDS: INVANZ INJ 1 GM VIAL 1 GM in NS 100 ML IV + SPIKE MINIBAG* 100 ML IV SCH (17:39)
[2018-07-27 19:41] LABS: BILIRUBIN,URINE NEGATIVE (NEGATIVE); BLOOD/HEMOGLOBIN,URINE 1+ (NEGATIVE); GLUCOSE, URINE NEGATIVE (NEGATIVE); KETONES,URINE NEGATIVE (NEGATIVE); LEUKOCYTE ESTERASE ,URINE 3+ (NEGATIVE); NITRITES,URINE NEGATIVE (NEGATIVE); PROTEIN,URINE 1+ (NEGATIVE); UROBILINOGEN,URINE NORMAL (NORMAL)
[2018-07-27 19:44] LABS: APPEARANCE,URINE SLIGHTLY HAZY (CLEAR); COLOR,URINE YELLOW (YELLOW)
[2018-07-27 19:45] LABS: BACTERIA,URINE TRACE /HPF (NEGATIVE); SQUAMOUS EPITHELIAL CELL,UR NEGATIVE /HPF (NEGATIVE)
[2018-07-27] MEDS ORDERED: KEFLEX CAP 500 MG PO SCH (21:00)
[2018-07-27] MEDS: SNACK - Diabetic Appropriate PO SCH (21:00)
[2018-07-27] MEDS: CEFTIN PO SCH (22:40)
[2018-07-28 06:37] LABS: BASOPHILS % (AUTO) 0.9 % (0.2-1.0); EOSINOPHILS # (AUTO) 0.4 x10^3/uL (0.0-0.2); EOSINOPHILS % (AUTO) 10.8 % (0.9-2.9); HEMATOCRIT 29.7 % (36.0-47.0); HEMOGLOBIN 10.1 g/dL (12.0-16.0); LYMPHOCYTES # (AUTO) 1.1 X10^3/uL (1.3-2.9); LYMPHOCYTES % (AUTO) 29.2 % (21.0-51.0); MEAN CORPUSCULAR HEMOGLOBIN 33.6 pg (27.0-34.0); MEAN CORPUSCULAR HGB CONC 33.8 g/dL (33.0-35.0); MEAN CORPUSCULAR VOLUME 99.4 fL (80.0-100.0); MEAN PLATELET VOLUME 8.5 fL (7.4-11.0); MONOCYTES # (AUTO) 0.5 x10^3/uL (0.3-0.8); MONOCYTES % (AUTO) 13.3 % (0.0-13.0); NEUTROPHILS # (AUTO) 1.8 x10^3/uL (2.2-4.8); NEUTROPHILS % (AUTO) 45.8 % (42.0-75.0); PLATELET COUNT 211 X10^3/uL (150.0-450.0); RED BLOOD COUNT 2.99 X10^6/uL (3.5-5.4); RED CELL DISTRIBUTION WIDTH 12.9 % (11.6-16.5); WHITE BLOOD COUNT 3.9 X10^3/uL (3.6-10.0)
[2018-07-28 06:46] LABS: ALANINE AMINOTRANSFERASE 20 Units/L (12-78); ALBUMIN 3.3 g/dL (3.4-5.0); ALKALINE PHOSPHATASE 81 Units/L (46-116); ASPARTATE AMINO TRANSFERASE 14 Units/L (15-37); BLOOD UREA NITROGEN 34 mg/dL (7-18); CALCIUM 8.5 mg/dL (8.5-10.1); CARBON DIOXIDE 24.3 mmol/L (21-32); CHLORIDE 105 mmol/L (98-107); COR CA(FOR HYPOALB) 9.1 mg/dL (8.5-10.1); CREATININE 1.59 mg/dL (0.55-1.02); SODIUM 139 mmol/L (136-145); TOTAL PROTEIN 6.3 g/dL (6.4-8.2); eGFR NON BLACK RACES 33 (>60)
[2018-07-28] MEDS: CEFTIN PO SCH ×2 (08:17→21:46)
[2018-07-28] MEDS: INVANZ INJ 1 GM VIAL 1 GM in NS 100 ML IV + SPIKE MINIBAG* 100 ML IV SCH (08:17)
[2018-07-28] MEDS: CULTURELLE PRO-WELL PROBIOTIC CAP PO SCH (08:17)
[2018-07-28] MEDS: NORCO 10/325 TAB PO PRN ×2 (09:19→23:18)
[2018-07-28] MEDS ORDERED: XANAX PO PRN (09:51)
[2018-07-28] MEDS ORDERED: FLEXERIL TAB 10 MG PO PRN (09:51)
[2018-07-28] MEDS ORDERED: PHENERGAN TAB 25 MG PO PRN (09:51)
[2018-07-28] MEDS ORDERED: XANAX ONE (09:51)
[2018-07-28] MEDS: XANAX PO PRN (09:58)
[2018-07-28] MEDS: LASIX PO SCH ×2 (12:48→21:45)
[2018-07-28] MEDS: COZAAR PO SCH (12:48)
[2018-07-28] MEDS: MIRAPEX TAB 0.25 MG PO SCH (12:48)
[2018-07-28] MEDS: NexIUM PO SCH (12:49)
[2018-07-28] MEDS: ZANTAC PO SCH ×2 (12:49→21:45)
[2018-07-28] MEDS: AMARYL TAB 4 MG PO SCH (12:49)
[2018-07-28] MEDS: ZyrTEC TAB 10 MG PO SCH (12:49)
[2018-07-28] MEDS: K-DUR TAB 20 MEQ PO SCH (12:49)
[2018-07-28] MEDS: ZYLOPRIM PO SCH (12:49)
[2018-07-28] MEDS: FLOMAX PO SCH (12:53)
[2018-07-28] MEDS: NS 1000 ML 1,000 ML IV SCH ×2 (12:57→21:46)
[2018-07-28] MEDS ORDERED: NORCO 10/325 TAB PO SCH (13:00)
--- NOTE | 2018-07-28 13:43 | PCM.PROG ---
Progress Note - Progress Note for Day of Date of Exam: 07/28/18 - Subjective Subjective: 83 WF ADMITTED ON 07/27 WITH REOCCURRING UTI.PT CO FEVER AND BILATERAL FLANK PAIN. PT STATES PAIN IS WORSE ON LEFT "KIDNEY" PT IS CURRENTLY ON IV ATBX THERAPY WITH REPEAT CULTURE PENDING. PT HAS HX OF CHRONIC UTIS AND WAS RECENLTY IN [facility] FOR UTI 2 WEEKS AGO. PT STATES SHE HAD FELT SOME BETTER BUT FLANK PAIN RETURNED AND HAS BEEN PERSISTANT. DENIES BLOOD IN HER URINE. - Past Medical Family Social History Past Med/Fam/Surg Hx: No changes since H&P Allergies: Allergies azithromycin [From Zithromax] Allergy (Verified 07/10/18 16:24) ceftriaxone [From Rocephin] Allergy (Verified 07/10/18 16:24) cefuroxime Allergy (Verified 07/10/18 16:24) cephalexin [From Keflex] Allergy (Verified 07/10/18 16:24) gentamicin Allergy (Verified 07/10/18 16:24) levofloxacin [From Levaquin] Allergy (Verified 07/10/18 16:24) meperidine [From Demerol] Allergy (Verified 07/10/18 16:24) methylprednisolone [From Solu-Medrol] Allergy (Verified 07/10/18 16:24) nitrofurantoin [From Furadantin] Allergy (Verified 07/10/18 16:24) Penicillins Allergy (Verified 07/10/18 16:24) Sulfa (Sulfonamide Antibiotics) Allergy (Verified 07/10/18 16:24) Tetracyclines Allergy (Verified 07/10/18 16:24) trimethoprim Allergy (Verified 07/10/18 16:24) - Review of Systems ROS: No change since H&P - Vital Signs and I&O's Vital Signs: Temperature 98 F Pulse Rate [Right Brachial] 81 Respiratory Rate 18 Blood Pressure [Left Radial 147/65 Artery] Blood Pressure [Right Arm] 137/72 Blood Pressure [Left Arm] 169/72 Blood Pressure 173/68 O2 Sat by Pulse Oximetry 94 Intake and Output: Intake & Output 07/26/18 07/27/18 07/28/18 07/29/18 11:59 11:59 11:59 11:59 Intake Total 1260 / 1260 Balance 1260 / 1260 - Physical Exam Oriented: Normal Eyes: Normal Ear: Normal Nose: Normal Throat: Normal Respiratory: Diminished Cardiovascular: Murmur. negative: Edema : Normal Auscultation: Bowel Sounds: Normal Palpation: Normal Tenderness: Mild (BILATERAL CVA TENDERNESS) Skin: Decreased Turgur Musculoskeletal: Back:Thoracic, Back:Lumbar Psychiatric: Normal Speech Pattern: Clear, Appropriate - Laboratory and Diagnostics Result Diagrams: 07/28/18 06:10 07/28/18 06:10 Labs: 07/27/18 19:00 Urine,Clean Catch Urine Culture - Preliminary Laboratory WBC 3.9 X10^3/uL (3.6-10.0) 07/28/18 06:10 RBC 2.99 X10^6/uL (3.5-5.4) L 07/28/18 06:10 Hgb 10.1 g/dL (12.0-16.0) L 07/28/18 06:10 Hct 29.7 % (36.0-47.0) L 07/28/18 06:10 MCV 99.4 fL (80.0-100.0) 07/28/18 06:10 MCH 33.6 pg (27.0-34.0) 07/28/18 06:10 MCHC 33.8 g/dL (33.0-35.0) 07/28/18 06:10 RDW 12.9 % (11.6-16.5) 07/28/18 06:10 Plt Count 211 X10^3/uL (150.0-450.0) 07/28/18 06:10 MPV 8.5 fL (7.4-11.0) 07/28/18 06:10 Neut % (Auto) 45.8 % (42.0-75.0) 07/28/18 06:10 Lymph % (Auto) 29.2 % (21.0-51.0) 07/28/18 06:10 [place] % (Auto) 13.3 % (0.0-13.0) H 07/28/18 06:10 Eos % (Auto) 10.8 % (0.9-2.9) H 07/28/18 06:10 Baso % (Auto) 0.9 % (0.2-1.0) 07/28/18 06:10 Neut # (Auto) 1.8 x10^3/uL (2.2-4.8) L 07/28/18 06:10 Lymph # (Auto) 1.1 X10^3/uL (1.3-2.9) L 07/28/18 06:10 [place] # (Auto) 0.5 x10^3/uL (0.3-0.8) 07/28/18 06:10 Eos # (Auto) 0.4 x10^3/uL (0.0-0.2) H 07/28/18 06:10 Baso # (Auto) 0.0 X10^3/uL (0.0-0.1) 07/28/18 06:10 Absolute Nucleated RBC 0.0 /100WBC 07/28/18 06:10 Sodium 139 mmol/L (136-145) 07/28/18 06:10 Corrected Sodium TNP 07/28/18 06:10 Potassium 4.1 mmol/L (3.5-5.1) 07/28/18 06:10 Chloride 105 mmol/L (98-107) 07/28/18 06:10 Carbon Dioxide 24.3 mmol/L (21-32) 07/28/18 06:10 BUN 34 mg/dL (7-18) H 07/28/18 06:10 Creatinine 1.59 mg/dL (0.55-1.02) H 07/28/18 06:10 Est GFR (MDRD) Af Amer 40 (>60) L 07/28/18 06:10 Est GFR (MDRD) Non-Af 33 (>60) L 07/28/18 06:10 Glucose 89 mg/dL (65-99) 07/28/18 06:10 POC Glucose (mg/dL) 137 mg/dL (65-99) H 07/28/18 11:21 Calcium 8.5 mg/dL (8.5-10.1) 07/28/18 06:10 Corrected Calcium 9.1 mg/dL (8.5-10.1) 07/28/18 06:10 Total Bilirubin 0.20 mg/dL (0.2-1.0) 07/28/18 06:10 AST 14 Units/L (15-37) L 07/28/18 06:10 ALT 20 Units/L (12-78) 07/28/18 06:10 Alkaline Phosphatase 81 Units/L (46-116) 07/28/18 06:10 Total Protein 6.3 g/dL (6.4-8.2) L 07/28/18 06:10 Albumin 3.3 g/dL (3.4-5.0) L 07/28/18 06:10 Globulin 3.0 g/dL (2.5-4.5) 07/28/18 06:10 Albumin/Globulin Ratio 1.1 Ratio (1.1-2.1) 07/28/18 06:10 Specimen Type Clean catch urine 07/27/18 19:00 Urine Color Yellow (YELLOW) 07/27/18 19:00 Urine Appearance Slightly hazy (CLEAR) 07/27/18 19:00 Urine pH 6.0 (5.0 - 8.0) 07/27/18 19:00 Ur Specific [place] 1.010 (1.000-1.030) 07/27/18 19:00 Urine Protein 1+ (NEGATIVE) 07/27/18 19:00 Urine Glucose (UA) Negative (NEGATIVE) 07/27/18 19:00 Urine Ketones Negative (NEGATIVE) 07/27/18 19:00 Urine Occult Blood 1+ (NEGATIVE) 07/27/18 19:00 Urine Nitrite Negative (NEGATIVE) 07/27/18 19:00 Urine Bilirubin Negative (NEGATIVE) 07/27/18 19:00 Urine Urobilinogen Normal (NORMAL) 07/27/18 19:00 Ur Leukocyte Esterase 3+ (NEGATIVE) 07/27/18 19:00 Urine RBC 5-10 /HPF (NONE SEEN) 07/27/18 19:00 Urine WBC 20-30 /HPF (NONE SEEN) 07/27/18 19:00 Ur Squamous Epith Cells Negative /HPF (NEGATIVE) 07/27/18 19:00 Urine Bacteria Trace /HPF (NEGATIVE) 07/27/18 19:00 Ur Culture Indicated? Yes/culture set up 07/27/18 19:00 - Plan (1) UTI (urinary tract infection), bacterial Status: Acute Plan: UC BC ON ADMISSION. BP CONTROL, BS CONTROL. IV ATBX THERAPY, PAIN AND NAUSEA CONTROL. 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
[2018-07-28] MEDS: HYDROCODONE BITARTRATE 80 MG PO SCH (13:56)
--- NOTE | 2018-07-28 18:41 | CT ---
HISTORY: Left flank pain, UTI, fever Study: CT abdomen and pelvis without contrast Comparison: None Technique: Multiple axial images of the abdomen and pelvis were obtained without IV contrast. Dose reduction techniques including Automated Exposure Control (AEC) and adjustment of mA and kV were utilized. Findings: Please note evaluation is limited without use of IV contrast. The visualized lung bases are clear. The liver, spleen, pancreas, and adrenal glands are unremarkable in their unenhanced CT appearance. The gallbladder is normal. Bilateral nephrolithiasis is noted with the largest stone on the left measuring 5 mm. No obstructive uropathy or ureteral calculus identified. No inflammatory changes around the kidneys. No free intraperitoneal air. No evidence of intestinal obstruction or inflammation. There is a parastomal hernia containing a segment of the transverse colon without intestinal obstruction status post partial colectomy. No free fluid is identified. There is anterolisthesis of L4 on L5. Vascular structures are unremarkable. Urinary bladder is intact. Uterus is removed. IMPRESSION: 1. Bilateral nephrolithiasis without obstructive uropathy. 2. Large parastomal hernia that appears unchanged. 3. Chronic findings as described. Reported By:
[2018-07-28] MEDS: SYNTHROID 125 mcg TAB PO SCH (21:46)
[2018-07-28] MEDS: PLAQUENIL PO SCH (21:46)
[2018-07-28] MEDS: SNACK - Diabetic Appropriate PO SCH (21:47)
[2018-07-28] MEDS: COLACE CAP 100 MG PO SCH (23:17)
[2018-07-29] MEDS: XANAX PO PRN ×3 (00:25→23:13)
[2018-07-29 05:20] LABS: ALBUMIN 3.1 g/dL (3.4-5.0); CALCIUM 8.5 mg/dL (8.5-10.1); CARBON DIOXIDE 27.6 mmol/L (21-32); COR CA(FOR HYPOALB) 9.2 mg/dL (8.5-10.1); CREATININE 1.46 mg/dL (0.55-1.02); TOTAL PROTEIN 6.1 g/dL (6.4-8.2)
[2018-07-29 05:30] LABS: BASOPHILS % (AUTO) 0.9 % (0.2-1.0); EOSINOPHILS # (AUTO) 0.4 x10^3/uL (0.0-0.2); EOSINOPHILS % (AUTO) 10.7 % (0.9-2.9); HEMATOCRIT 29.3 % (36.0-47.0); LYMPHOCYTES % (AUTO) 24.7 % (21.0-51.0); MEAN CORPUSCULAR HEMOGLOBIN 34.5 pg (27.0-34.0); MEAN CORPUSCULAR HGB CONC 34.3 g/dL (33.0-35.0); MEAN CORPUSCULAR VOLUME 100.6 fL (80.0-100.0); MEAN PLATELET VOLUME 8.7 fL (7.4-11.0); MONOCYTES # (AUTO) 0.5 x10^3/uL (0.3-0.8); MONOCYTES % (AUTO) 12.1 % (0.0-13.0); NEUTROPHILS # (AUTO) 2.1 x10^3/uL (2.2-4.8); NEUTROPHILS % (AUTO) 51.6 % (42.0-75.0); PLATELET COUNT 204 X10^3/uL (150.0-450.0); RED BLOOD COUNT 2.91 X10^6/uL (3.5-5.4); RED CELL DISTRIBUTION WIDTH 13.1 % (11.6-16.5)
[2018-07-29] MEDS: TAB-A-VITE PO SCH (08:42)
[2018-07-29] MEDS: MIRAPEX TAB 0.25 MG PO SCH (08:42)
[2018-07-29] MEDS: ZyrTEC TAB 10 MG PO SCH (08:42)
[2018-07-29] MEDS: ZYLOPRIM PO SCH (08:43)
[2018-07-29] MEDS: ZANTAC PO SCH ×2 (08:43→20:41)
[2018-07-29] MEDS: LASIX PO SCH ×2 (08:43→20:40)
[2018-07-29] MEDS: FLOMAX PO SCH (08:43)
[2018-07-29] MEDS: PLAQUENIL PO SCH ×2 (08:43→20:40)
[2018-07-29] MEDS: K-DUR TAB 20 MEQ PO SCH (08:43)
[2018-07-29] MEDS: INVANZ INJ 1 GM VIAL 1 GM in NS 100 ML IV + SPIKE MINIBAG* 100 ML IV SCH (08:44)
[2018-07-29] MEDS: AMARYL TAB 4 MG PO SCH (08:44)
[2018-07-29] MEDS: NexIUM PO SCH (08:44)
[2018-07-29] MEDS: COZAAR PO SCH (08:44)
[2018-07-29] MEDS: SINGULAIR TAB 10 MG PO SCH (08:44)
[2018-07-29] MEDS: CULTURELLE PRO-WELL PROBIOTIC CAP PO SCH (08:44)
--- NOTE | 2018-07-29 09:14 | DR.UPDATE ---
H&P Update History and Physical Update: History and Physical reviewed and patient examined. H&P 07/10 Yes with the following: CO LOWER GRADE FEVER, LEFT FLANK PAIN WITH MILD LEFT CVA TENDERESS
[2018-07-29] MEDS: CEFTIN PO SCH ×2 (10:33→20:40)
[2018-07-29] MEDS: NORCO 10/325 TAB PO PRN ×2 (10:48→22:30)
[2018-07-29] MEDS: NS 1000 ML 1,000 ML IV SCH ×2 (13:22→16:35)
[2018-07-29] MEDS: HYDROCODONE BITARTRATE 80 MG PO SCH ×2 (13:59)
[2018-07-29] MEDS: SNACK - Diabetic Appropriate PO SCH (20:00)
[2018-07-29] MEDS: COLACE CAP 100 MG PO SCH (20:40)
[2018-07-29] MEDS: SYNTHROID 125 mcg TAB PO SCH (20:41)
[2018-07-30] MEDS: NS 1000 ML 1,000 ML IV SCH ×3 (01:00→14:45)
[2018-07-30 04:54] LABS: BASOPHILS % (AUTO) 0.9 % (0.2-1.0); EOSINOPHILS # (AUTO) 0.4 x10^3/uL (0.0-0.2); EOSINOPHILS % (AUTO) 10.1 % (0.9-2.9); HEMATOCRIT 30.4 % (36.0-47.0); HEMOGLOBIN 10.4 g/dL (12.0-16.0); LYMPHOCYTES # (AUTO) 1.1 X10^3/uL (1.3-2.9); LYMPHOCYTES % (AUTO) 28.1 % (21.0-51.0); MEAN CORPUSCULAR HEMOGLOBIN 34.1 pg (27.0-34.0); MEAN CORPUSCULAR HGB CONC 34.1 g/dL (33.0-35.0); MEAN CORPUSCULAR VOLUME 99.8 fL (80.0-100.0); MEAN PLATELET VOLUME 8.5 fL (7.4-11.0); MONOCYTES # (AUTO) 0.4 x10^3/uL (0.3-0.8); MONOCYTES % (AUTO) 11.7 % (0.0-13.0); NEUTROPHILS # (AUTO) 1.9 x10^3/uL (2.2-4.8); NEUTROPHILS % (AUTO) 49.2 % (42.0-75.0); PLATELET COUNT 198 X10^3/uL (150.0-450.0); RED BLOOD COUNT 3.04 X10^6/uL (3.5-5.4); RED CELL DISTRIBUTION WIDTH 13.1 % (11.6-16.5); WHITE BLOOD COUNT 3.8 X10^3/uL (3.6-10.0)
[2018-07-30 05:03] LABS: ALANINE AMINOTRANSFERASE 16 Units/L (12-78); ALBUMIN 3.1 g/dL (3.4-5.0); ALKALINE PHOSPHATASE 80 Units/L (46-116); ASPARTATE AMINO TRANSFERASE 15 Units/L (15-37); BLOOD UREA NITROGEN 29 mg/dL (7-18); CALCIUM 8.3 mg/dL (8.5-10.1); CARBON DIOXIDE 27.5 mmol/L (21-32); CHLORIDE 104 mmol/L (98-107); CREATININE 1.53 mg/dL (0.55-1.02); SODIUM 139 mmol/L (136-145); TOTAL PROTEIN 6.1 g/dL (6.4-8.2); eGFR NON BLACK RACES 35 (>60)
[2018-07-30] MEDS: NORCO 10/325 TAB PO PRN ×2 (06:50→15:45)
[2018-07-30] MEDS: CULTURELLE PRO-WELL PROBIOTIC CAP PO SCH (08:59)
[2018-07-30] MEDS: AMARYL TAB 4 MG PO SCH (09:00)
[2018-07-30] MEDS: INVANZ INJ 1 GM VIAL 1 GM in NS 100 ML IV + SPIKE MINIBAG* 100 ML IV SCH (09:00)
[2018-07-30] MEDS: MIRAPEX TAB 0.25 MG PO SCH (09:01)
[2018-07-30] MEDS: CEFTIN PO SCH ×2 (09:01→20:45)
[2018-07-30] MEDS: NexIUM PO SCH (09:02)
[2018-07-30] MEDS: ZYLOPRIM PO SCH (09:02)
[2018-07-30] MEDS: ZANTAC PO SCH ×2 (09:02→20:44)
[2018-07-30] MEDS: LASIX PO SCH ×2 (09:02→20:45)
[2018-07-30] MEDS: K-DUR TAB 20 MEQ PO SCH (09:02)
[2018-07-30] MEDS: ZyrTEC TAB 10 MG PO SCH (09:02)
[2018-07-30] MEDS: TAB-A-VITE PO SCH (09:02)
[2018-07-30] MEDS: SINGULAIR TAB 10 MG PO SCH (09:02)
[2018-07-30] MEDS: PLAQUENIL PO SCH ×2 (09:03→20:44)
[2018-07-30] MEDS: FLOMAX PO SCH (09:03)
[2018-07-30] MEDS: COZAAR PO SCH (09:03)
[2018-07-30] MEDS: HYDROCODONE BITARTRATE 80 MG PO SCH (13:24)
[2018-07-30] MEDS ORDERED: CIPRO IV 200 MG PREMIX* 200 MG/100 ML BAG IV ONE (20:00)
[2018-07-30] MEDS: SNACK - Diabetic Appropriate PO SCH (20:45)
[2018-07-30] MEDS: COLACE CAP 100 MG PO SCH (20:45)
[2018-07-30] MEDS: SYNTHROID 125 mcg TAB PO SCH (20:45)
[2018-07-31 05:31] LABS: EOSINOPHILS # (AUTO) 0.4 x10^3/uL (0.0-0.2); EOSINOPHILS % (AUTO) 9.3 % (0.9-2.9); HEMATOCRIT 31.6 % (36.0-47.0); HEMOGLOBIN 10.9 g/dL (12.0-16.0); LYMPHOCYTES % (AUTO) 25.3 % (21.0-51.0); MEAN CORPUSCULAR HEMOGLOBIN 34.3 pg (27.0-34.0); MEAN CORPUSCULAR HGB CONC 34.4 g/dL (33.0-35.0); MEAN CORPUSCULAR VOLUME 99.5 fL (80.0-100.0); MEAN PLATELET VOLUME 8.5 fL (7.4-11.0); MONOCYTES # (AUTO) 0.5 x10^3/uL (0.3-0.8); MONOCYTES % (AUTO) 11.5 % (0.0-13.0); NEUTROPHILS # (AUTO) 2.1 x10^3/uL (2.2-4.8); NEUTROPHILS % (AUTO) 52.9 % (42.0-75.0); PLATELET COUNT 215 X10^3/uL (150.0-450.0); RED BLOOD COUNT 3.17 X10^6/uL (3.5-5.4); WHITE BLOOD COUNT 4.1 X10^3/uL (3.6-10.0)
[2018-07-31 05:32] LABS: ALANINE AMINOTRANSFERASE 15 Units/L (12-78); ALBUMIN 3.3 g/dL (3.4-5.0); ALKALINE PHOSPHATASE 84 Units/L (46-116); ASPARTATE AMINO TRANSFERASE 15 Units/L (15-37); BLOOD UREA NITROGEN 27 mg/dL (7-18); CALCIUM 8.6 mg/dL (8.5-10.1); CARBON DIOXIDE 28.2 mmol/L (21-32); CHLORIDE 103 mmol/L (98-107); COR CA(FOR HYPOALB) 9.2 mg/dL (8.5-10.1); CREATININE 1.51 mg/dL (0.55-1.02); SODIUM 139 mmol/L (136-145); TOTAL PROTEIN 6.3 g/dL (6.4-8.2); eGFR NON BLACK RACES 35 (>60)
[2018-07-31] MEDS: NS 1000 ML 1,000 ML IV SCH ×2 (05:50→10:44)
[2018-07-31] MEDS: AMARYL TAB 4 MG PO SCH (08:14)
[2018-07-31] MEDS: COZAAR PO SCH (08:14)
[2018-07-31] MEDS: CEFTIN PO SCH (08:14)
[2018-07-31] MEDS: LASIX PO SCH (08:15)
[2018-07-31] MEDS: FLOMAX PO SCH (08:15)
[2018-07-31] MEDS: CULTURELLE PRO-WELL PROBIOTIC CAP PO SCH (08:15)
[2018-07-31] MEDS: K-DUR TAB 20 MEQ PO SCH (08:15)
[2018-07-31] MEDS: INVANZ INJ 1 GM VIAL 1 GM in NS 100 ML IV + SPIKE MINIBAG* 100 ML IV SCH (08:15)
[2018-07-31] MEDS: TAB-A-VITE PO SCH (08:16)
[2018-07-31] MEDS: SINGULAIR TAB 10 MG PO SCH (08:16)
[2018-07-31] MEDS: PLAQUENIL PO SCH (08:16)
[2018-07-31] MEDS: NexIUM PO SCH (08:16)
[2018-07-31] MEDS: MIRAPEX TAB 0.25 MG PO SCH (08:16)
[2018-07-31] MEDS: ZYLOPRIM PO SCH (08:17)
[2018-07-31] MEDS: ZANTAC PO SCH (08:17)
[2018-07-31] MEDS ORDERED: ZyrTEC TAB 10 MG PO SCH (09:00)
[2018-07-31] MEDS: NORCO 10/325 TAB PO PRN (09:38)
[2018-07-31] MEDS ORDERED: HEPARIN SODIUM INJ 5000 UNITS IVP ONE (11:50)
[2018-07-31] MEDS ORDERED: PYRIDIUM PO ONE ×2 (11:51→13:00)
[2018-07-31] MEDS: HYDROCODONE BITARTRATE 80 MG PO SCH (12:10)
[2018-07-31 16:41] VITALS: BP 160/69
--- NOTE | 2018-07-31 17:47 | PCM.PROG ---
Progress Note - Progress Note for Day of Date of Exam: 07/30/18 - Subjective Subjective: 83 WF ADMITTED ON 07/27 WITH REOCCURRING UTI.PT CO FEVER AND BILATERAL FLANK PAIN. PT STATES PAIN IS WORSE ON LEFT "KIDNEY" PT IS CURRENTLY ON IV ATBX THERAPY WITH REPEAT CULTURE+ENTEROBACTER. PT IS ON INVANZ AND STARTED ON PO CEFIN, WHICH SHE IS TOLERATING WELL. BUN 29, CREAT 1.[address] PT'S CT RESULTS AND PLAN TO CONTINUE IV ATBX AND ENCOURAGE PO HYDRATION - Past Medical Family Social History Past Med/Fam/Surg Hx: No changes since H&P Allergies: Allergies azithromycin [From Zithromax] Allergy (Verified 07/10/18 16:24) ceftriaxone [From Rocephin] Allergy (Verified 07/10/18 16:24) cefuroxime Allergy (Verified 07/10/18 16:24) cephalexin [From Keflex] Allergy (Verified 07/10/18 16:24) gentamicin Allergy (Verified 07/10/18 16:24) levofloxacin [From Levaquin] Allergy (Verified 07/10/18 16:24) meperidine [From Demerol] Allergy (Verified 07/10/18 16:24) methylprednisolone [From Solu-Medrol] Allergy (Verified 07/10/18 16:24) nitrofurantoin [From Furadantin] Allergy (Verified 07/10/18 16:24) Penicillins Allergy (Verified 07/10/18 16:24) Sulfa (Sulfonamide Antibiotics) Allergy (Verified 07/10/18 16:24) Tetracyclines Allergy (Verified 07/10/18 16:24) trimethoprim Allergy (Verified 07/10/18 16:24) - Review of Systems ROS: No change since H&P - Vital Signs and I&O's Vital Signs: Temperature 98.0 F Pulse Rate [Right Brachial] 67 Respiratory Rate 20 Blood Pressure [Left Radial 147/65 Artery] Blood Pressure [Right Arm] 160/69 Blood Pressure [Left Arm] 139/60 Blood Pressure 173/68 O2 Sat by Pulse Oximetry 94 Intake and Output: Intake & Output 07/29/18 07/30/18 07/31/18 08/01/18 11:59 11:59 11:59 11:59 Intake Total 1735 / 1735 2490 / 2490 3060 / 3060 600 / 600 Balance 1735 / 1735 2490 / 2490 3060 / 3060 600 / 600 - Physical Exam Oriented: Normal Eyes: Normal Ear: Normal Nose: Normal Throat: Normal Respiratory: Diminished Cardiovascular: Murmur. negative: Edema : Normal Auscultation: Bowel Sounds: Normal Tenderness: Mild (BILATERAL CVA TENDERNESS) Skin: Decreased Turgur Musculoskeletal: Back:Thoracic, Back:Lumbar Psychiatric: Normal Speech Pattern: Clear, Appropriate - Laboratory and Diagnostics Result Diagrams: 07/31/18 04:53 07/31/18 04:53 Labs: 07/27/18 19:00 Urine,Clean Catch Urine Culture - Final Enterobacter [place]ii 07/27/18 16:03 Blood Blood Culture - Preliminary 07/27/18 15:49 Blood Blood Culture - Preliminary Laboratory WBC 4.1 X10^3/uL (3.6-10.0) 07/31/18 04:53 RBC 3.17 X10^6/uL (3.5-5.4) L 07/31/18 04:53 Hgb 10.9 g/dL (12.0-16.0) L 07/31/18 04:53 Hct 31.6 % (36.0-47.0) L 07/31/18 04:53 MCV 99.5 fL (80.0-100.0) 07/31/18 04:53 MCH 34.3 pg (27.0-34.0) H 07/31/18 04:53 MCHC 34.4 g/dL (33.0-35.0) 07/31/18 04:53 RDW 13.0 % (11.6-16.5) 07/31/18 04:53 Plt Count 215 X10^3/uL (150.0-450.0) 07/31/18 04:53 MPV 8.5 fL (7.4-11.0) 07/31/18 04:53 Neut % (Auto) 52.9 % (42.0-75.0) 07/31/18 04:53 Lymph % (Auto) 25.3 % (21.0-51.0) 07/31/18 04:53 [place] % (Auto) 11.5 % (0.0-13.0) 07/31/18 04:53 Eos % (Auto) 9.3 % (0.9-2.9) H 07/31/18 04:53 Baso % (Auto) 1.0 % (0.2-1.0) 07/31/18 04:53 Neut # (Auto) 2.1 x10^3/uL (2.2-4.8) L 07/31/18 04:53 Lymph # (Auto) 1.0 X10^3/uL (1.3-2.9) L 07/31/18 04:53 [place] # (Auto) 0.5 x10^3/uL (0.3-0.8) 07/31/18 04:53 Eos # (Auto) 0.4 x10^3/uL (0.0-0.2) H 07/31/18 04:53 Baso # (Auto) 0.0 X10^3/uL (0.0-0.1) 07/31/18 04:53 Absolute Nucleated RBC 0.0 /100WBC 07/31/18 04:53 Sodium 139 mmol/L (136-145) 07/31/18 04:53 Corrected Sodium TNP 07/31/18 04:53 Potassium 3.6 mmol/L (3.5-5.1) 07/31/18 04:53 Chloride 103 mmol/L (98-107) 07/31/18 04:53 Carbon Dioxide 28.2 mmol/L (21-32) 07/31/18 04:53 BUN 27 mg/dL (7-18) H 07/31/18 04:53 Creatinine 1.51 mg/dL (0.55-1.02) H 07/31/18 04:53 Est GFR (MDRD) Af Amer 42 (>60) L 07/31/18 04:53 Est GFR (MDRD) Non-Af 35 (>60) L 07/31/18 04:53 Glucose 101 mg/dL (65-99) H 07/31/18 04:53 POC Glucose (mg/dL) 120 mg/dL (65-99) H 07/29/18 16:11 Calcium 8.6 mg/dL (8.5-10.1) 07/31/18 04:53 Corrected Calcium 9.2 mg/dL (8.5-10.1) 07/31/18 04:53 Total Bilirubin 0.20 mg/dL (0.2-1.0) 07/31/18 04:53 AST 15 Units/L (15-37) 07/31/18 04:53 ALT 15 Units/L (12-78) 07/31/18 04:53 Alkaline Phosphatase 84 Units/L (46-116) 07/31/18 04:53 Total Protein 6.3 g/dL (6.4-8.2) L 07/31/18 04:53 Albumin 3.3 g/dL (3.4-5.0) L 07/31/18 04:53 Globulin 3.0 g/dL (2.5-4.5) 07/31/18 04:53 Albumin/Globulin Ratio 1.1 Ratio (1.1-2.1) 07/31/18 04:53 Specimen Type Clean catch urine 07/27/18 19:00 Urine Color Yellow (YELLOW) 07/27/18 19:00 Urine Appearance Slightly hazy (CLEAR) 07/27/18 19:00 Urine pH 6.0 (5.0 - 8.0) 07/27/18 19:00 Ur Specific [place] 1.010 (1.000-1.030) 07/27/18 19:00 Urine Protein 1+ (NEGATIVE) 07/27/18 19:00 Urine Glucose (UA) Negative (NEGATIVE) 07/27/18 19:00 Urine Ketones Negative (NEGATIVE) 07/27/18 19:00 Urine Occult Blood 1+ (NEGATIVE) 07/27/18 19:00 Urine Nitrite Negative (NEGATIVE) 07/27/18 19:00 Urine Bilirubin Negative (NEGATIVE) 07/27/18 19:00 Urine Urobilinogen Normal (NORMAL) 07/27/18 19:00 Ur Leukocyte Esterase 3+ (NEGATIVE) 07/27/18 19:00 Urine RBC 5-10 /HPF (NONE SEEN) 07/27/18 19:00 Urine WBC 20-30 /HPF (NONE SEEN) 07/27/18 19:00 Ur Squamous Epith Cells Negative /HPF (NEGATIVE) 07/27/18 19:00 Urine Bacteria Trace /HPF (NEGATIVE) 07/27/18 19:00 Ur Culture Indicated? Yes/culture set up 07/27/18 19:00 - Plan (1) UTI (urinary tract infection), bacterial Status: Acute Plan: UC ON ADMISSION +ENTEROBACTER. BP CONTROL, BS CONTROL. IV ATBX THERAPY, PAIN AND NAUSEA CONTROL. 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
== END 2018-07-31 17:34 | disposition home health service (06) ==
LOC: MED/SURG
PROVIDERS: ADMIT Internal Medicine; ATTEND Internal Medicine
DX: K43.5 Parastomal hernia without obstruction or gangrene; M06.80 Other specified rheumatoid arthritis, unspecified site; E11.65 Type 2 diabetes mellitus with hyperglycemia; F41.8 Other specified anxiety disorders; E86.0 Dehydration; Z93.3 Colostomy status; B96.89 Other specified bacterial agents as the cause of diseases classified elsewhere; R10.84 Generalized abdominal pain; N20.0 Calculus of kidney; I10 Essential (primary) hypertension; N39.0 Urinary tract infection, site not specified
CPT/HCPCS: 36415; 74176; 80053; 81001; 85025; 87040; 87086; 87088; 87186; 94760; 97162; A4222; Q0169; G0378; J0744; J1335; J1642; J1815; J7030; J7050

== ENCOUNTER 2018-12-19 17:09 | Observation (INO) ==
[2018-12-19] MEDS ORDERED: TYLENOL 500 MG TAB EXTRA STRENGTH PO PRN (18:16)
[2018-12-19] MEDS ORDERED: PHENERGAN INJ 25 MG IM PRN (18:17)
[2018-12-19] MEDS ORDERED: ZOFRAN INJ 4 MG VIAL IVP PRN (18:17)
[2018-12-19] MEDS ORDERED: ZOFRAN TAB 4 MG SL PRN (18:17)
[2018-12-19] MEDS ORDERED: HumuLIN R SUBCUT PRN (18:18)
--- NOTE | 2018-12-19 18:23 | DR.H&P ---
H&P - History & Physical for Day of: H&P Date: 12/19/18 - Chief Complaint Chief Complaint: generalized weakness with no energy - History of Present Illness History of Present Illness: the patient is an 83-year-old white female who presents to the office with complaint of feeling bad. States that she has pain to the left side/flank area. Patient has chronic history on UTI. Office urinalysis does show trace of leukocytes. Patient denies fever. patient does have extensive allergy list was not able to tolerate any by mouth antibiotics. We will admit for 5 day antibiotic. - Past Medical History Past Medical History: Anxiety, Diabetes, Hypertension - Past Surgical History Surgical History: Appendectomy, Hysterectomy, Mastectomy, Lithotripsy, Other Additional Surgical History: Colon resection with colostomy, Cystoscopy - Family History Family Medical History: Diabetes Mellitus, Cancer, CO, Coronary Artery Disease, Heart Failure, Hypertension - Social History Does patient currently use any type of tobacco product: No Have you used tobacco products in the last 12 months: No Type of Tobacco Use: None Does any household member use tobacco: No Alcohol Use: None Drug Use: None Risks, benefits, and alternatives of opioids discussed: Yes Prescription drug monitoring program results: PDMP reviewed and no concerns identified - Medications Home Medications: azithromycin [From Zithromax] Allergy (Verified 07/10/18 16:24) ceftriaxone [From Rocephin] Allergy (Verified 07/10/18 16:24) cefuroxime Allergy (Verified 07/10/18 16:24) cephalexin [From Keflex] Allergy (Verified 07/10/18 16:24) gentamicin Allergy (Verified 07/10/18 16:24) levofloxacin [From Levaquin] Allergy (Verified 07/10/18 16:24) meperidine [From Demerol] Allergy (Verified 07/10/18 16:24) methylprednisolone [From Solu-Medrol] Allergy (Verified 07/10/18 16:24) nitrofurantoin [From Furadantin] Allergy (Verified 07/10/18 16:24) Penicillins Allergy (Verified 07/10/18 16:24) Sulfa (Sulfonamide Antibiotics) Allergy (Verified 07/10/18 16:24) Tetracyclines Allergy (Verified 07/10/18 16:24) trimethoprim Allergy (Verified 07/10/18 16:24) - Review of Systems Constitutional: Weakness, Malaise Eyes: No Symptoms Reported ENT: No Symptoms Reported Respiratory: No Symptoms Reported Cardiovascular: No Symptoms Reported Gastrointestinal: No Symptoms Reported Genitourinary: Other (left flank pain) Musculoskeletal: No Symptoms Reported Skin: No Symptoms Reported - Physical Exam Vital Signs: Blood Pressure [Left Radial 147/65 Artery] Blood Pressure [Right Arm] 160/69 Blood Pressure [Left Arm] 139/60 Blood Pressure 160/69 Oriented: Normal Eyes: Normal Ear: Normal Nose: Normal Throat: Normal Respiratory: Clear Throughout Cardiovascular: Normal : Normal Auscultation: Bowel Sounds: Normal Palpation: Normal Tenderness: Other (left CVA) Skin: Normal Musculoskeletal: Normal Psychiatric: Normal Mood Description: Calm Affect: Normal Speech Pattern: Clear - Assessment/Plan (1) UTI (urinary tract infection), bacterial Status: Acute Plan: urinalysis, urine culture, Lasix, Merrem 500 mg IV every 8 hours (2) Flank pain Status: Acute - Allergies Allergies/Adverse Reactions: Allergies Allergy/AdvReac Type Severity Reaction Status Date / Time azithromycin [From Zithromax] Allergy Verified 07/10/18 16:24 ceftriaxone [From Rocephin] Allergy Verified 07/10/18 16:24 cefuroxime Allergy Verified 07/10/18 16:24 cephalexin [From Keflex] Allergy Verified 07/10/18 16:24 gentamicin Allergy Verified 07/10/18 16:24 levofloxacin [From Levaquin] Allergy Verified 07/10/18 16:24 meperidine [From Demerol] Allergy Verified 07/10/18 16:24 methylprednisolone Allergy Verified 07/10/18 16:24 [From Solu-Medrol] nitrofurantoin Allergy Verified 07/10/18 16:24 [From Furadantin] Penicillins Allergy Verified 07/10/18 16:24 Sulfa (Sulfonamide Allergy Verified 07/10/18 16:24 Antibiotics) Tetracyclines Allergy Verified 07/10/18 16:24 trimethoprim Allergy Verified 07/10/18 16:24
[2018-12-19 20:23] LABS: BILIRUBIN,URINE NEGATIVE (NEGATIVE); BLOOD/HEMOGLOBIN,URINE NEGATIVE (NEGATIVE); GLUCOSE, URINE NEGATIVE (NEGATIVE); KETONES,URINE NEGATIVE (NEGATIVE); LEUKOCYTE ESTERASE ,URINE NEGATIVE (NEGATIVE); NITRITES,URINE NEGATIVE (NEGATIVE); PROTEIN,URINE 1+ (NEGATIVE); UROBILINOGEN,URINE NORMAL (NORMAL)
[2018-12-19] MEDS ORDERED: MERREM VIAL ONE (20:33)
[2018-12-19] MEDS ORDERED: NS 100 ML IV + SPIKE MINIBAG* 100 ML ONE (20:33)
[2018-12-19 20:35] LABS: APPEARANCE,URINE SLIGHTLY HAZY (CLEAR); BACTERIA,URINE TRACE /HPF (NEGATIVE); COLOR,URINE YELLOW (YELLOW); RBC,URINE 0-2 /HPF (0-3); SQUAMOUS EPITHELIAL CELL,UR RARE /HPF (NEGATIVE)
[2018-12-19 20:40] LABS: BASOPHILS % (AUTO) 0.9 % (0.2-1.0); EOSINOPHILS # (AUTO) 0.2 x10^3/uL (0.0-0.2); EOSINOPHILS % (AUTO) 4.8 % (0.9-2.9); HEMATOCRIT 30.6 % (36.0-47.0); HEMOGLOBIN 10.5 g/dL (12.0-16.0); LYMPHOCYTES # (AUTO) 0.9 X10^3/uL (1.3-2.9); LYMPHOCYTES % (AUTO) 18.1 % (21.0-51.0); MEAN CORPUSCULAR HEMOGLOBIN 32.8 pg (27.0-34.0); MEAN CORPUSCULAR HGB CONC 34.1 g/dL (33.0-35.0); MEAN CORPUSCULAR VOLUME 96.2 fL (80.0-100.0); MEAN PLATELET VOLUME 7.9 fL (7.4-11.0); MONOCYTES # (AUTO) 0.5 x10^3/uL (0.3-0.8); MONOCYTES % (AUTO) 10.1 % (0.0-13.0); NEUTROPHILS # (AUTO) 3.3 x10^3/uL (2.2-4.8); NEUTROPHILS % (AUTO) 66.1 % (42.0-75.0); PLATELET COUNT 173 X10^3/uL (150.0-450.0); RED BLOOD COUNT 3.19 X10^6/uL (3.5-5.4); WHITE BLOOD COUNT 4.9 X10^3/uL (3.6-10.0)
[2018-12-19] MEDS: NS 1000 ML 1,000 ML IV SCH (20:44)
[2018-12-19] MEDS: SNACK - Diabetic Appropriate PO SCH (20:45)
[2018-12-19 20:49] LABS: ALANINE AMINOTRANSFERASE 18 Units/L (12-78); ALBUMIN 3.7 g/dL (3.4-5.0); ALKALINE PHOSPHATASE 99 Units/L (46-116); ASPARTATE AMINO TRANSFERASE 16 Units/L (15-37); BLOOD UREA NITROGEN 31 mg/dL (7-18); CALCIUM 8.6 mg/dL (8.5-10.1); CARBON DIOXIDE 26.2 mmol/L (21-32); CHLORIDE 102 mmol/L (98-107); COR NA(FOR HYPERGLY) 139 mmol/L (136-145); CREATININE 1.92 mg/dL (0.55-1.02); SODIUM 138 mmol/L (136-145); eGFR NON BLACK RACES 27 (>60)
[2018-12-19] MEDS ORDERED: MERREM VIAL 500 MG in NS 100 ML IV + SPIKE MINIBAG* 100 ML IV SCH (21:00)
[2018-12-19 21:19] VITALS: BMI 30.8
[2018-12-19] MEDS: XANAX PO PRN (22:48)
--- NOTE | 2018-12-20 03:11 | RAD ---
Abdomen, one view Indication: Left flank pain, UTI Comparison: 07/17/2018 Findings: Moderate stool is present throughout the colon. The bowel gas pattern is otherwise nonobstructive. No free air or pneumatosis is identified. 5 mm stone projecting over the left renal silhouette noted. No definite additional abnormal calcifications seen. Degenerative changes of the lumbar spine noted. Imaged osseous structures otherwise grossly intact. Impression: Nonobstructive bowel gas pattern. Moderate stool throughout the colon suggests constipation. 5 mm left renal calculus. Reported By:
[2018-12-20] MEDS ORDERED: COLACE CAP 100 MG PO ONE (04:08)
[2018-12-20 05:21] LABS: BASOPHILS % (AUTO) 0.9 % (0.2-1.0); EOSINOPHILS # (AUTO) 0.2 x10^3/uL (0.0-0.2); EOSINOPHILS % (AUTO) 5.4 % (0.9-2.9); HEMOGLOBIN 9.6 g/dL (12.0-16.0); LYMPHOCYTES # (AUTO) 0.6 X10^3/uL (1.3-2.9); LYMPHOCYTES % (AUTO) 18.4 % (21.0-51.0); MEAN CORPUSCULAR HEMOGLOBIN 33.4 pg (27.0-34.0); MEAN CORPUSCULAR HGB CONC 34.2 g/dL (33.0-35.0); MEAN CORPUSCULAR VOLUME 97.4 fL (80.0-100.0); MEAN PLATELET VOLUME 8.3 fL (7.4-11.0); MONOCYTES # (AUTO) 0.4 x10^3/uL (0.3-0.8); MONOCYTES % (AUTO) 11.6 % (0.0-13.0); NEUTROPHILS # (AUTO) 2.1 x10^3/uL (2.2-4.8); NEUTROPHILS % (AUTO) 63.7 % (42.0-75.0); PLATELET COUNT 137 X10^3/uL (150.0-450.0); RED BLOOD COUNT 2.88 X10^6/uL (3.5-5.4); RED CELL DISTRIBUTION WIDTH 13.8 % (11.6-16.5); WHITE BLOOD COUNT 3.2 X10^3/uL (3.6-10.0)
[2018-12-20 05:36] LABS: ALANINE AMINOTRANSFERASE 16 Units/L (12-78); ALBUMIN 2.9 g/dL (3.4-5.0); ALKALINE PHOSPHATASE 79 Units/L (46-116); ASPARTATE AMINO TRANSFERASE 13 Units/L (15-37); BLOOD UREA NITROGEN 27 mg/dL (7-18); CARBON DIOXIDE 26.5 mmol/L (21-32); CHLORIDE 106 mmol/L (98-107); COR CA(FOR HYPOALB) 8.9 mg/dL (8.5-10.1); CREATININE 1.69 mg/dL (0.55-1.02); SODIUM 140 mmol/L (136-145); TOTAL PROTEIN 5.9 g/dL (6.4-8.2); eGFR NON BLACK RACES 31 (>60)
[2018-12-20] MEDS: NS 1000 ML 1,000 ML IV SCH ×2 (05:41→19:17)
[2018-12-20] MEDS: COLACE CAP 100 MG PO SCH ×2 (05:41→20:09)
[2018-12-20] MEDS ORDERED: FLOMAX PO SCH (09:00)
[2018-12-20] MEDS: MERREM VIAL 500 MG in NS 100 ML IV + SPIKE MINIBAG* 100 ML IV SCH ×2 (09:14→20:09)
[2018-12-20] MEDS: VSL#3 PO SCH (09:15)
[2018-12-20] MEDS ORDERED: BENADRYL CAP/TAB 25 MG PO PRN (12:13)
[2018-12-20] MEDS ORDERED: COZAAR PO SCH (13:00)
[2018-12-20] MEDS ORDERED: ZYLOPRIM PO SCH (13:00)
[2018-12-20] MEDS ORDERED: PLAQUENIL PO SCH (13:00)
[2018-12-20] MEDS ORDERED: ZyrTEC TAB 10 MG PO SCH (13:00)
[2018-12-20] MEDS ORDERED: TAB-A-VITE PO SCH (13:00)
[2018-12-20] MEDS ORDERED: MIRAPEX TAB 0.25 MG PO SCH (13:00)
[2018-12-20] MEDS ORDERED: NexIUM PO SCH (13:00)
[2018-12-20] MEDS: MILK OF MAGNESIA PO SCH ×2 (13:08→20:08)
--- NOTE | 2018-12-20 13:42 | VAS ---
Ultrasound right lower extremity venous Doppler Indication: Right leg swelling Technique: Dynamic grayscale, color and spectral Doppler imaging through the right lower extremity veins with compression techniques and spectral analysis Findings: The right common femoral vein, superficial femoral vein throughout its length and popliteal vein are patent compressible with normal respiratory phasicity. Impression: No right lower extremity deep vein thrombosis Reported By:
[2018-12-20] MEDS: AMARYL TAB 4 MG PO SCH (17:07)
[2018-12-20] MEDS: SNACK - Diabetic Appropriate PO SCH (19:17)
[2018-12-20] MEDS ORDERED: SNACK - Diabetic Appropriate PO SCH (20:00)
[2018-12-20] MEDS: ZANTAC PO SCH (20:08)
[2018-12-20] MEDS: SINGULAIR TAB 10 MG PO SCH (20:08)
[2018-12-20] MEDS: XANAX PO PRN (20:08)
[2018-12-20] MEDS: PLAQUENIL PO SCH (20:09)
[2018-12-20] MEDS: NORCO 10/325 TAB PO PRN (21:18)
[2018-12-21 05:29] LABS: BASOPHILS % (AUTO) 0.9 % (0.2-1.0); EOSINOPHILS # (AUTO) 0.2 x10^3/uL (0.0-0.2); EOSINOPHILS % (AUTO) 6.3 % (0.9-2.9); HEMATOCRIT 32.2 % (36.0-47.0); HEMOGLOBIN 10.7 g/dL (12.0-16.0); LYMPHOCYTES % (AUTO) 26.7 % (21.0-51.0); MEAN CORPUSCULAR HEMOGLOBIN 32.5 pg (27.0-34.0); MEAN CORPUSCULAR HGB CONC 33.2 g/dL (33.0-35.0); MEAN CORPUSCULAR VOLUME 97.9 fL (80.0-100.0); MONOCYTES # (AUTO) 0.5 x10^3/uL (0.3-0.8); MONOCYTES % (AUTO) 12.1 % (0.0-13.0); PLATELET COUNT 166 X10^3/uL (150.0-450.0); RED BLOOD COUNT 3.29 X10^6/uL (3.5-5.4); RED CELL DISTRIBUTION WIDTH 13.8 % (11.6-16.5); WHITE BLOOD COUNT 3.7 X10^3/uL (3.6-10.0)
[2018-12-21 05:47] LABS: ALANINE AMINOTRANSFERASE 17 Units/L (12-78); ALBUMIN 3.4 g/dL (3.4-5.0); ALKALINE PHOSPHATASE 87 Units/L (46-116); ASPARTATE AMINO TRANSFERASE 19 Units/L (15-37); BLOOD UREA NITROGEN 22 mg/dL (7-18); CALCIUM 8.5 mg/dL (8.5-10.1); CARBON DIOXIDE 26.7 mmol/L (21-32); CHLORIDE 103 mmol/L (98-107); CREATININE 1.49 mg/dL (0.55-1.02); SODIUM 138 mmol/L (136-145); TOTAL PROTEIN 6.7 g/dL (6.4-8.2); eGFR NON BLACK RACES 36 (>60)
[2018-12-21] MEDS: NS 1000 ML 1,000 ML IV SCH ×4 (06:00→20:18)
[2018-12-21] MEDS: SYNTHROID 125 mcg TAB PO SCH (06:01)
[2018-12-21] MEDS: AMARYL TAB 4 MG PO SCH ×2 (06:01→17:47)
[2018-12-21] MEDS: VSL#3 PO SCH (08:18)
[2018-12-21] MEDS: FLOMAX PO SCH (08:18)
[2018-12-21] MEDS: ZANTAC PO SCH ×2 (08:18→20:22)
[2018-12-21] MEDS: TAB-A-VITE PO SCH (08:19)
[2018-12-21] MEDS: NexIUM PO SCH (08:20)
[2018-12-21] MEDS: PLAQUENIL PO SCH ×2 (08:20→20:22)
[2018-12-21] MEDS: MIRAPEX TAB 0.25 MG PO SCH (08:21)
[2018-12-21] MEDS: COZAAR PO SCH (08:21)
[2018-12-21] MEDS: MILK OF MAGNESIA PO SCH ×2 (08:22→20:22)
[2018-12-21] MEDS: MERREM VIAL 500 MG in NS 100 ML IV + SPIKE MINIBAG* 100 ML IV SCH ×2 (08:22→20:21)
[2018-12-21] MEDS: ZYLOPRIM PO SCH (08:23)
[2018-12-21] MEDS: ZyrTEC TAB 10 MG PO SCH (10:12)
[2018-12-21] MEDS ORDERED: PHARMACY CONSULT - DOSE _____ XX SCH (12:00)
--- NOTE | 2018-12-21 15:09 | CT ---
CT abdomen and pelvis without contrast Indication: Left abdominal/flank pain Comparison: 07/28/2018 Technique: CT images of the abdomen and pelvis were obtained without contrast. Automatic exposure control was utilized. Findings: There is multilevel spine degenerative change, worst within the lower lumbar spine, with unchanged grade 1 anterolisthesis of L4 on L5. No acute osseous abnormality. Lung bases are essentially clear. Evaluation of the abdominal pelvic viscera is limited without contrast. Accounting for this, the liver, gallbladder, spleen, stomach, duodenum, pancreas, and adrenals demonstrate no significant abnormality. Bilateral renal stones are similar prior. There is unchanged left pelviectasis, without overt hydronephrosis. No radiopaque ureteral stone or hydroureter is observed. Large parastomal hernia associated with the loop colostomy is similar to prior, again containing mesenteric fat and a portion of the gastric antrum. No marked thickening or dilatation of the lower GI tract can be identified. Previous hysterectomy is noted. There is vaginal prolapse of the inferior urinary bladder. There is aortoiliac atherosclerosis, without aneurysm. Impression: No acute abnormality, within non contrast limitations. Large parastomal hernia containing a portion of the distal stomach is similar to prior. Nonobstructing bilateral nephrolithiasis. Vaginal prolapse of the bladder. Reported By:
[2018-12-21] MEDS: NORCO 10/325 TAB PO PRN (16:30)
[2018-12-21] MEDS: TYLENOL 325 MG TAB PO PRN ×2 (17:54→21:56)
[2018-12-21] MEDS: SNACK - Diabetic Appropriate PO SCH (20:18)
[2018-12-21] MEDS: SINGULAIR TAB 10 MG PO SCH (20:22)
[2018-12-21] MEDS: COLACE CAP 100 MG PO SCH (20:22)
[2018-12-21] MEDS: XANAX PO PRN (21:56)
[2018-12-21] MEDS ORDERED: ULTRAM ONE (23:32)
[2018-12-21] MEDS: ULTRAM PO PRN (23:36)
[2018-12-22] MEDS: NS 1000 ML 1,000 ML IV SCH ×3 (02:35→21:12)
[2018-12-22] MEDS: NORCO 10/325 TAB PO PRN ×2 (04:27→21:03)
[2018-12-22 05:23] LABS: BASOPHILS % (AUTO) 0.5 % (0.2-1.0); EOSINOPHILS # (AUTO) 0.3 x10^3/uL (0.0-0.2); EOSINOPHILS % (AUTO) 5.8 % (0.9-2.9); HEMATOCRIT 32.4 % (36.0-47.0); LYMPHOCYTES # (AUTO) 1.3 X10^3/uL (1.3-2.9); LYMPHOCYTES % (AUTO) 29.1 % (21.0-51.0); MEAN CORPUSCULAR VOLUME 97.1 fL (80.0-100.0); MEAN PLATELET VOLUME 8.1 fL (7.4-11.0); MONOCYTES # (AUTO) 0.5 x10^3/uL (0.3-0.8); MONOCYTES % (AUTO) 11.4 % (0.0-13.0); NEUTROPHILS # (AUTO) 2.4 x10^3/uL (2.2-4.8); NEUTROPHILS % (AUTO) 53.2 % (42.0-75.0); PLATELET COUNT 178 X10^3/uL (150.0-450.0); RED BLOOD COUNT 3.34 X10^6/uL (3.5-5.4); RED CELL DISTRIBUTION WIDTH 13.7 % (11.6-16.5); WHITE BLOOD COUNT 4.6 X10^3/uL (3.6-10.0)
[2018-12-22 05:42] LABS: ALANINE AMINOTRANSFERASE 20 Units/L (12-78); ALBUMIN 3.3 g/dL (3.4-5.0); ALKALINE PHOSPHATASE 88 Units/L (46-116); ASPARTATE AMINO TRANSFERASE 21 Units/L (15-37); BLOOD UREA NITROGEN 17 mg/dL (7-18); CALCIUM 8.6 mg/dL (8.5-10.1); CARBON DIOXIDE 26.6 mmol/L (21-32); CHLORIDE 103 mmol/L (98-107); COR CA(FOR HYPOALB) 9.2 mg/dL (8.5-10.1); CREATININE 1.36 mg/dL (0.55-1.02); SODIUM 137 mmol/L (136-145); TOTAL PROTEIN 6.9 g/dL (6.4-8.2); eGFR NON BLACK RACES 40 (>60)
[2018-12-22] MEDS: SYNTHROID 125 mcg TAB PO SCH (06:37)
[2018-12-22] MEDS: AMARYL TAB 4 MG PO SCH ×2 (06:37→16:15)
[2018-12-22] MEDS ORDERED: MORPHINE SULFATE INJ 2 MG INJ ONE (09:15)
[2018-12-22] MEDS: LOVENOX INJ 30 MG SYR SC SCH (10:18)
[2018-12-22] MEDS: MORPHINE SULFATE INJ 2 MG INJ IVP SCH ×2 (10:19→10:30)
[2018-12-22] MEDS: MILK OF MAGNESIA PO SCH ×2 (10:21→21:02)
[2018-12-22] MEDS: MERREM VIAL 500 MG in NS 100 ML IV + SPIKE MINIBAG* 100 ML IV SCH ×2 (10:21→21:02)
[2018-12-22] MEDS: ZANTAC PO SCH ×2 (10:22→21:02)
[2018-12-22] MEDS: COZAAR PO SCH (10:22)
[2018-12-22] MEDS: TAB-A-VITE PO SCH (10:22)
[2018-12-22] MEDS: ZYLOPRIM PO SCH (10:22)
[2018-12-22] MEDS: FLOMAX PO SCH (10:22)
[2018-12-22] MEDS: MIRAPEX TAB 0.25 MG PO SCH (10:23)
[2018-12-22] MEDS: ZyrTEC TAB 10 MG PO SCH ×2 (10:23→10:24)
[2018-12-22] MEDS: PLAQUENIL PO SCH ×2 (10:23→21:02)
[2018-12-22] MEDS: NexIUM PO SCH (10:24)
[2018-12-22] MEDS: VSL#3 PO SCH (10:24)
[2018-12-22] MEDS: ULTRAM PO PRN (10:28)
[2018-12-22] MEDS: XANAX PO PRN ×2 (10:29→23:46)
[2018-12-22] MEDS ORDERED: TORADOL 15 MG VIAL IVP PRN (11:11)
[2018-12-22] MEDS: PATIENT'S HOME MEDICATION PO SCH (11:26)
[2018-12-22] MEDS: TORADOL 15 MG VIAL IVP SCH ×2 (15:09→23:47)
[2018-12-22] MEDS: SNACK - Diabetic Appropriate PO SCH (21:00)
[2018-12-22] MEDS: COLACE CAP 100 MG PO SCH (21:02)
[2018-12-22] MEDS: SINGULAIR TAB 10 MG PO SCH (21:02)
[2018-12-23] MEDS: NS 1000 ML 1,000 ML IV SCH ×2 (05:23→20:07)
[2018-12-23 05:47] LABS: BASOPHILS % (AUTO) 0.3 % (0.2-1.0); EOSINOPHILS # (AUTO) 0.3 x10^3/uL (0.0-0.2); EOSINOPHILS % (AUTO) 4.6 % (0.9-2.9); HEMATOCRIT 27.8 % (36.0-47.0); HEMOGLOBIN 9.5 g/dL (12.0-16.0); LYMPHOCYTES # (AUTO) 0.6 X10^3/uL (1.3-2.9); LYMPHOCYTES % (AUTO) 9.7 % (21.0-51.0); MEAN CORPUSCULAR HEMOGLOBIN 33.5 pg (27.0-34.0); MEAN CORPUSCULAR HGB CONC 34.3 g/dL (33.0-35.0); MEAN CORPUSCULAR VOLUME 97.5 fL (80.0-100.0); MEAN PLATELET VOLUME 8.2 fL (7.4-11.0); MONOCYTES # (AUTO) 0.7 x10^3/uL (0.3-0.8); MONOCYTES % (AUTO) 11.4 % (0.0-13.0); NEUTROPHILS # (AUTO) 4.3 x10^3/uL (2.2-4.8); PLATELET COUNT 126 X10^3/uL (150.0-450.0); RED BLOOD COUNT 2.85 X10^6/uL (3.5-5.4); RED CELL DISTRIBUTION WIDTH 13.6 % (11.6-16.5); WHITE BLOOD COUNT 5.8 X10^3/uL (3.6-10.0)
[2018-12-23 06:02] LABS: ALBUMIN 2.8 g/dL (3.4-5.0); CALCIUM 7.9 mg/dL (8.5-10.1); CARBON DIOXIDE 27.3 mmol/L (21-32); COR CA(FOR HYPOALB) 8.9 mg/dL (8.5-10.1); CREATININE 1.55 mg/dL (0.55-1.02); TOTAL PROTEIN 5.8 g/dL (6.4-8.2)
[2018-12-23] MEDS: SYNTHROID 125 mcg TAB PO SCH (06:34)
[2018-12-23] MEDS: AMARYL TAB 4 MG PO SCH ×2 (06:34→16:57)
[2018-12-23] MEDS: TORADOL 15 MG VIAL IVP SCH ×2 (08:55→16:45)
[2018-12-23] MEDS: LOVENOX INJ 30 MG SYR SC SCH (09:45)
[2018-12-23] MEDS: COZAAR PO SCH (09:46)
[2018-12-23] MEDS: PLAQUENIL PO SCH ×2 (09:46→20:26)
[2018-12-23] MEDS: VSL#3 PO SCH (09:46)
[2018-12-23] MEDS: ZYLOPRIM PO SCH (09:47)
[2018-12-23] MEDS: ZyrTEC TAB 10 MG PO SCH (09:47)
[2018-12-23] MEDS: MIRAPEX TAB 0.25 MG PO SCH (09:47)
[2018-12-23] MEDS: ZANTAC PO SCH ×2 (09:47→20:25)
[2018-12-23] MEDS: TAB-A-VITE PO SCH (09:48)
[2018-12-23] MEDS: MERREM VIAL 500 MG in NS 100 ML IV + SPIKE MINIBAG* 100 ML IV SCH ×2 (09:48→20:27)
[2018-12-23] MEDS: MILK OF MAGNESIA PO SCH ×2 (09:53→20:32)
[2018-12-23] MEDS: TYLENOL 325 MG TAB PO PRN ×2 (09:54→20:26)
[2018-12-23] MEDS: NexIUM PO SCH (09:55)
[2018-12-23] MEDS: PATIENT'S HOME MEDICATION PO SCH (16:44)
[2018-12-23] MEDS: SNACK - Diabetic Appropriate PO SCH (20:06)
[2018-12-23] MEDS: SINGULAIR TAB 10 MG PO SCH (20:25)
[2018-12-23] MEDS: COLACE CAP 100 MG PO SCH (20:26)
[2018-12-23] MEDS: XANAX PO PRN (23:23)
[2018-12-24] MEDS: TORADOL 15 MG VIAL IVP SCH ×2 (00:14→08:37)
[2018-12-24] MEDS ORDERED: CATAPRES TAB 0.1 MG PO PRN (00:16)
[2018-12-24] MEDS: TYLENOL 325 MG TAB PO PRN (00:19)
[2018-12-24] MEDS ORDERED: CATAPRES TAB 0.1 MG ONE (00:19)
[2018-12-24] MEDS: XANAX PO PRN ×2 (02:35→21:43)
[2018-12-24] MEDS: NS 1000 ML 1,000 ML IV SCH ×3 (03:16→11:22)
[2018-12-24] MEDS: NORCO 10/325 TAB PO PRN ×4 (04:23→20:12)
[2018-12-24 05:54] LABS: BASOPHILS % (AUTO) 0.5 % (0.2-1.0); EOSINOPHILS # (AUTO) 0.1 x10^3/uL (0.0-0.2); EOSINOPHILS % (AUTO) 2.4 % (0.9-2.9); LYMPHOCYTES # (AUTO) 0.6 X10^3/uL (1.3-2.9); LYMPHOCYTES % (AUTO) 9.3 % (21.0-51.0); MEAN CORPUSCULAR HEMOGLOBIN 33.5 pg (27.0-34.0); MEAN CORPUSCULAR HGB CONC 34.6 g/dL (33.0-35.0); MEAN CORPUSCULAR VOLUME 96.9 fL (80.0-100.0); MEAN PLATELET VOLUME 8.4 fL (7.4-11.0); MONOCYTES # (AUTO) 0.7 x10^3/uL (0.3-0.8); MONOCYTES % (AUTO) 11.5 % (0.0-13.0); NEUTROPHILS # (AUTO) 4.6 x10^3/uL (2.2-4.8); NEUTROPHILS % (AUTO) 76.3 % (42.0-75.0); PLATELET COUNT 116 X10^3/uL (150.0-450.0); RED BLOOD COUNT 2.68 X10^6/uL (3.5-5.4); RED CELL DISTRIBUTION WIDTH 13.7 % (11.6-16.5)
[2018-12-24] MEDS: AMARYL TAB 4 MG PO SCH ×2 (06:04→17:56)
[2018-12-24] MEDS: SYNTHROID 125 mcg TAB PO SCH (06:04)
[2018-12-24 06:10] LABS: ALANINE AMINOTRANSFERASE 16 Units/L (12-78); ALBUMIN 2.6 g/dL (3.4-5.0); ALKALINE PHOSPHATASE 76 Units/L (46-116); ASPARTATE AMINO TRANSFERASE 17 Units/L (15-37); BLOOD UREA NITROGEN 20 mg/dL (7-18); CALCIUM 8.1 mg/dL (8.5-10.1); CARBON DIOXIDE 22.8 mmol/L (21-32); CHLORIDE 106 mmol/L (98-107); COR CA(FOR HYPOALB) 9.2 mg/dL (8.5-10.1); CREATININE 1.53 mg/dL (0.55-1.02); SODIUM 138 mmol/L (136-145); TOTAL PROTEIN 5.8 g/dL (6.4-8.2); eGFR NON BLACK RACES 35 (>60)
[2018-12-24] MEDS: VSL#3 PO SCH (08:31)
[2018-12-24] MEDS: MILK OF MAGNESIA PO SCH ×2 (08:31→20:11)
[2018-12-24] MEDS: PLAQUENIL PO SCH ×2 (08:32→20:12)
[2018-12-24] MEDS: ZANTAC PO SCH ×2 (08:32→20:12)
[2018-12-24] MEDS: COZAAR PO SCH (08:32)
[2018-12-24] MEDS: LOVENOX INJ 30 MG SYR SC SCH (08:38)
[2018-12-24] MEDS: NexIUM PO SCH (08:39)
[2018-12-24] MEDS: MERREM VIAL 500 MG in NS 100 ML IV + SPIKE MINIBAG* 100 ML IV SCH ×3 (08:39→20:18)
[2018-12-24] MEDS: MIRAPEX TAB 0.25 MG PO SCH (08:40)
[2018-12-24] MEDS: ZYLOPRIM PO SCH (08:41)
[2018-12-24] MEDS: TAB-A-VITE PO SCH (08:41)
[2018-12-24] MEDS: ZyrTEC TAB 10 MG PO SCH (08:41)
--- NOTE | 2018-12-24 11:01 | RAD ---
HISTORY: Wheezing. Study: Portable chest. Comparison: Chest x-ray dated January 12, 2018. Findings: Stable appearance of a left chest Port-A-Cath. The trachea is midline. The cardiac silhouette is enlarged with prominent perihilar vasculature, cephalization of vessels, and diffuse alveolar/interstitial markings. Chronic emphysematous and interstitial lung changes. No obvious focal consolidation, pleural effusion, or pneumothorax. The bony thorax is unremarkable. IMPRESSION: Constellation of findings likely representing pulmonary edema secondary to congestive heart failure. Underlying infiltrate not entirely excluded. Reported By:
[2018-12-24] MEDS: PATIENT'S HOME MEDICATION PO SCH (11:38)
[2018-12-24] MEDS ORDERED: LASIX IVP ONE (14:00)
[2018-12-24] MEDS: SINGULAIR TAB 10 MG PO SCH (20:11)
[2018-12-24] MEDS: COLACE CAP 100 MG PO SCH (20:12)
[2018-12-24] MEDS: SNACK - Diabetic Appropriate PO SCH (20:19)
[2018-12-25] MEDS: NORCO 10/325 TAB PO PRN ×2 (01:27→09:19)
[2018-12-25] MEDS: TYLENOL 325 MG TAB PO PRN (04:34)
[2018-12-25 05:41] LABS: BASOPHILS % (AUTO) 0.4 % (0.2-1.0); EOSINOPHILS # (AUTO) 0.1 x10^3/uL (0.0-0.2); HEMATOCRIT 25.5 % (36.0-47.0); HEMOGLOBIN 8.7 g/dL (12.0-16.0); LYMPHOCYTES # (AUTO) 0.6 X10^3/uL (1.3-2.9); LYMPHOCYTES % (AUTO) 9.3 % (21.0-51.0); MEAN CORPUSCULAR HGB CONC 34.3 g/dL (33.0-35.0); MEAN CORPUSCULAR VOLUME 96.4 fL (80.0-100.0); MEAN PLATELET VOLUME 8.5 fL (7.4-11.0); MONOCYTES # (AUTO) 0.8 x10^3/uL (0.3-0.8); MONOCYTES % (AUTO) 12.8 % (0.0-13.0); NEUTROPHILS # (AUTO) 4.6 x10^3/uL (2.2-4.8); NEUTROPHILS % (AUTO) 75.5 % (42.0-75.0); PLATELET COUNT 127 X10^3/uL (150.0-450.0); RED BLOOD COUNT 2.64 X10^6/uL (3.5-5.4); RED CELL DISTRIBUTION WIDTH 13.7 % (11.6-16.5)
[2018-12-25 06:04] LABS: ALANINE AMINOTRANSFERASE 14 Units/L (12-78); ALBUMIN 2.4 g/dL (3.4-5.0); ALKALINE PHOSPHATASE 74 Units/L (46-116); ASPARTATE AMINO TRANSFERASE 24 Units/L (15-37); BLOOD UREA NITROGEN 20 mg/dL (7-18); CHLORIDE 105 mmol/L (98-107); COR CA(FOR HYPOALB) 9.3 mg/dL (8.5-10.1); SODIUM 138 mmol/L (136-145); TOTAL PROTEIN 5.9 g/dL (6.4-8.2); eGFR NON BLACK RACES 38 (>60)
[2018-12-25] MEDS: AMARYL TAB 4 MG PO SCH (06:32)
[2018-12-25] MEDS: SYNTHROID 125 mcg TAB PO SCH (06:32)
--- NOTE | 2018-12-25 07:34 | RAD ---
HISTORY: Follow-up pulmonary edema Study: Chest AP portable Comparison: 12/24/2018 Findings: There is a port present on the left. The heart is enlarged. The jesse are normal. There is been some improvement in the interstitial lung changes being followed possibly resolving edema. No acute alveolar infiltrates, alveolar edema, or pleural effusions are identified. The bony thorax is unremarkable. IMPRESSION: Continued cardiomegaly but with improving interstitial lung changes suggestive of improving edema. Some of the interstitial lung changes may represent underlying chronic interstitial lung disease. Reported By:
[2018-12-25] MEDS: MERREM VIAL 500 MG in NS 100 ML IV + SPIKE MINIBAG* 100 ML IV SCH ×2 (09:11→09:13)
[2018-12-25] MEDS: LOVENOX INJ 30 MG SYR SC SCH (09:13)
[2018-12-25] MEDS: MILK OF MAGNESIA PO SCH (09:14)
[2018-12-25] MEDS: VSL#3 PO SCH (09:20)
[2018-12-25] MEDS: ZyrTEC TAB 10 MG PO SCH (09:21)
[2018-12-25] MEDS: ZYLOPRIM PO SCH (09:22)
[2018-12-25] MEDS: ZANTAC PO SCH (09:22)
[2018-12-25] MEDS: MIRAPEX TAB 0.25 MG PO SCH (09:23)
[2018-12-25] MEDS: TAB-A-VITE PO SCH (09:23)
[2018-12-25] MEDS: COZAAR PO SCH (09:23)
[2018-12-25] MEDS: PLAQUENIL PO SCH (09:25)
[2018-12-25] MEDS: NexIUM PO SCH (09:26)
[2018-12-25 10:02] VITALS: BP 140/64
== END 2018-12-25 10:52 | disposition home or self-care (01) ==
LOC: MED/SURG
PROVIDERS: ADMIT Internal Medicine; ATTEND Internal Medicine
DX: R26.89 Other abnormalities of gait and mobility; E86.0 Dehydration; I50.9 Heart failure, unspecified; Z93.3 Colostomy status; K59.09 Other constipation; I11.0 Hypertensive heart disease with heart failure; R10.84 Generalized abdominal pain; N18.9 Chronic kidney disease, unspecified; N17.8 Other acute kidney failure; M19.90 Unspecified osteoarthritis, unspecified site; Z87.442 Personal history of urinary calculi; N20.0 Calculus of kidney; M06.9 Rheumatoid arthritis, unspecified; I12.9 Hypertensive chronic kidney disease with stage 1 through stage 4 chronic kidney disease, or unspecified chronic kidney disease; E11.65 Type 2 diabetes mellitus with hyperglycemia; N39.0 Urinary tract infection, site not specified
CPT/HCPCS: 36415; 71010; 71045; 74000; 74018; 74176; 80053; 81001; 85025; 87086; 93971; 94760; 96367; 96372; 96374; 97110; 97116; 97162; 97165; 97530; A4216; A4222; G0378; J1642; J1650; J1885; J1940; J2185; J2270; J3490; J7030; J7050

== ENCOUNTER 2019-09-17 17:45 | Inpatient (IN) ==
[2019-09-17] MEDS ORDERED: PEPCID 20 MG IV PREMIX* 20 MG/50 ML BAG IV PRN (18:03)
[2019-09-17] MEDS ORDERED: PHENERGAN INJ 25 MG IM PRN (18:03)
[2019-09-17] MEDS ORDERED: MORPHINE SULFATE INJ 2 MG INJ IVP PRN (18:03)
[2019-09-17] MEDS ORDERED: HumuLIN R SC PRN (18:06)
[2019-09-17] MEDS ORDERED: NS 1000 ML 1,000 ML ONE (19:21)
[2019-09-17] MEDS: NS 1000 ML 1,000 ML IV SCH (20:15)
[2019-09-17 20:49] VITALS: BMI 28.8
[2019-09-17] MEDS: ZOFRAN INJ 4 MG VIAL IVP PRN (21:35)
[2019-09-17 21:57] LABS: BASOPHILS % (AUTO) 0.3 % (0.2-1.0); EOSINOPHILS % (AUTO) 0.6 % (0.9-2.9); HEMATOCRIT 34.7 % (36.0-47.0); HEMOGLOBIN 11.7 g/dL (12.0-16.0); LYMPHOCYTES # (AUTO) 0.6 X10^3/uL (1.3-2.9); LYMPHOCYTES % (AUTO) 8.5 % (21.0-51.0); MEAN CORPUSCULAR HEMOGLOBIN 32.6 pg (27.0-34.0); MEAN CORPUSCULAR HGB CONC 33.9 g/dL (33.0-35.0); MEAN CORPUSCULAR VOLUME 96.4 fL (80.0-100.0); MEAN PLATELET VOLUME 7.6 fL (7.4-11.0); MONOCYTES # (AUTO) 0.4 x10^3/uL (0.3-0.8); MONOCYTES % (AUTO) 5.5 % (0.0-13.0); NEUTROPHILS # (AUTO) 6.2 x10^3/uL (2.2-4.8); NEUTROPHILS % (AUTO) 85.1 % (42.0-75.0); PLATELET COUNT 245 X10^3/uL (150.0-450.0); RED CELL DISTRIBUTION WIDTH 13.5 % (11.6-16.5); WHITE BLOOD COUNT 7.2 X10^3/uL (3.6-10.0)
[2019-09-17 22:29] LABS: ALANINE AMINOTRANSFERASE 22 Units/L (12-78); ALKALINE PHOSPHATASE 111 Units/L (46-116); AMYLASE 42 Units/L (25-115); ASPARTATE AMINO TRANSFERASE 21 Units/L (15-37); BLOOD UREA NITROGEN 35 mg/dL (7-18); CALCIUM 9.1 mg/dL (8.5-10.1); CARBON DIOXIDE 31.6 mmol/L (21-32); CHLORIDE 98 mmol/L (98-107); COR NA(FOR HYPERGLY) 137 mmol/L (136-145); CREATININE 2.64 mg/dL (0.55-1.02); LIPASE 89 Units/L (73-393); SODIUM 136 mmol/L (136-145); TOTAL PROTEIN 7.7 g/dL (6.4-8.2); eGFR NON BLACK RACES 18 (>60)
[2019-09-17] MEDS: NORCO 5/325 MG TAB PO PRN (22:43)
[2019-09-18] MEDS: NORCO 5/325 MG TAB PO PRN ×3 (04:30→20:34)
[2019-09-18] MEDS: NS 1000 ML 1,000 ML IV SCH ×3 (06:06→21:00)
[2019-09-18 06:22] LABS: BASOPHILS % (AUTO) 0.3 % (0.2-1.0); EOSINOPHILS # (AUTO) 0.1 x10^3/uL (0.0-0.2); EOSINOPHILS % (AUTO) 1.2 % (0.9-2.9); HEMATOCRIT 29.7 % (36.0-47.0); HEMOGLOBIN 10.2 g/dL (12.0-16.0); LYMPHOCYTES # (AUTO) 0.8 X10^3/uL (1.3-2.9); LYMPHOCYTES % (AUTO) 12.4 % (21.0-51.0); MEAN CORPUSCULAR HEMOGLOBIN 33.6 pg (27.0-34.0); MEAN CORPUSCULAR HGB CONC 34.2 g/dL (33.0-35.0); MEAN CORPUSCULAR VOLUME 98.2 fL (80.0-100.0); MEAN PLATELET VOLUME 8.2 fL (7.4-11.0); MONOCYTES # (AUTO) 0.7 x10^3/uL (0.3-0.8); MONOCYTES % (AUTO) 10.3 % (0.0-13.0); NEUTROPHILS # (AUTO) 5.1 x10^3/uL (2.2-4.8); NEUTROPHILS % (AUTO) 75.8 % (42.0-75.0); PLATELET COUNT 215 X10^3/uL (150.0-450.0); RED BLOOD COUNT 3.03 X10^6/uL (3.5-5.4); RED CELL DISTRIBUTION WIDTH 13.8 % (11.6-16.5); WHITE BLOOD COUNT 6.8 X10^3/uL (3.6-10.0)
--- NOTE | 2019-09-18 06:23 | RAD ---
HISTORYIntractable nausea, vomiting, abdominal painSTUDYACUTE ABDOMEN [id number] of the chest demonstrates a port present on the left. T he heart is mildly enlarged. No congestive heart failure is noted. The lung carrillo are clear. The abd ominal gas pattern is nonspecific and nonobstructive. No pneumoperitoneum is present. No abnormal mas ses or abnormal calcifications are identified. The regional skeleton is intact.IMPRESSIONCardiomegaly without congestive heart failureLungs clearUnremarkable flat and upright abdomenElectronically agapito d by: COLE CORBIN (Sep 18, 2019 06:21:45)
[2019-09-18 06:35] LABS: ALBUMIN 3.2 g/dL (3.4-5.0); CALCIUM 8.2 mg/dL (8.5-10.1); CARBON DIOXIDE 28.1 mmol/L (21-32); COR CA(FOR HYPOALB) 8.8 mg/dL (8.5-10.1); CREATININE 2.34 mg/dL (0.55-1.02); TOTAL PROTEIN 6.5 g/dL (6.4-8.2)
[2019-09-18] MEDS: LOVENOX INJ 30 MG SYR SC SCH (09:29)
[2019-09-18 11:05] LABS: BILIRUBIN,URINE NEGATIVE (NEGATIVE); BLOOD/HEMOGLOBIN,URINE 3+ (NEGATIVE); GLUCOSE, URINE NEGATIVE (NEGATIVE); KETONES,URINE NEGATIVE (NEGATIVE); LEUKOCYTE ESTERASE ,URINE 3+ (NEGATIVE); NITRITES,URINE POSITIVE (NEGATIVE); PROTEIN,URINE 3+ (NEGATIVE); UROBILINOGEN,URINE NORMAL (NORMAL)
[2019-09-18 11:17] LABS: APPEARANCE,URINE CLOUDY (CLEAR); BACTERIA,URINE 1+ /HPF (NEGATIVE); COLOR,URINE YELLOW (YELLOW); SQUAMOUS EPITHELIAL CELL,UR RARE /HPF (NEGATIVE)
--- NOTE | 2019-09-18 18:31 | DR.H&P ---
H&P - History & Physical for Day of: H&P Date: 09/17/19 - Chief Complaint Chief Complaint: abdominal pain, distention, n/v - History of Present Illness History of Present Illness: PT IS 84 WF DIRECT ADMIT WITH CO N/V, ABDOMINAL PAIN AND DISTENTION WITH "SOME FEVER" AND CHILLS. PT HAS PMH OF REOCCURRING BOWEL OBTRUCTIONS, HAS COLOSTOMY, RA, HTN, OA, TAHMINA, RENAL DISEASE. PT WAS ADMITTED FOR TREATMENT AND EVALUATION OF ACUTE ILLNESS. - Past Medical History Past Medical History: Anxiety, Arthritis, Diabetes, Hypertension - Past Surgical History Surgical History: Appendectomy, Bowel Resection, Hysterectomy, Mastectomy, Lithotripsy, Other Additional Surgical History: Colon resection with colostomy, Cystoscopy - Family History Family Medical History: Diabetes Mellitus, Cancer, NE, Coronary Artery Disease, Heart Failure, Hypertension - Social History Type of Tobacco Use: None Alcohol Use: None Drug Use: None - Medications Home Medications: azithromycin [From Zithromax] Allergy (Verified 09/17/19 21:05) ceftriaxone [From Rocephin] Allergy (Verified 09/17/19 21:05) cefuroxime Allergy (Verified 09/17/19 21:05) cephalexin [From Keflex] Allergy (Verified 09/17/19 21:05) gentamicin Allergy (Verified 09/17/19 21:05) levofloxacin [From Levaquin] Allergy (Verified 09/17/19 21:05) meperidine [From Demerol] Allergy (Verified 09/17/19 21:05) methylprednisolone [From Solu-Medrol] Allergy (Verified 09/17/19 21:05) morphine Allergy (Verified 09/17/19 21:40) nitrofurantoin [From Furadantin] Allergy (Verified 09/17/19 21:05) Penicillins Allergy (Verified 09/17/19 21:05) Sulfa (Sulfonamide Antibiotics) Allergy (Verified 09/17/19 21:05) Tetracyclines Allergy (Verified 09/17/19 21:05) trimethoprim Allergy (Verified 09/17/19 21:05) CONTINUE taking the following medications famotidine 20 mg PO BID 09/17/19 [History] - Review of Systems Constitutional: Fever, Chills Eyes: No Symptoms Reported ENT: No Symptoms Reported Respiratory: No Symptoms Reported Cardiovascular: No Symptoms Reported Gastrointestinal: Nausea, Vomiting, Abdominal Pain Genitourinary: No Symptoms Reported Musculoskeletal: Back Pain Skin: No Symptoms Reported Neurological: No Symptoms Reported - Physical Exam Vital Signs: Temperature 98.5 F Pulse Rate [Left Brachial] 59 Respiratory Rate 20 Blood Pressure [Left Arm] 133/71 Blood Pressure [Left Radial 147/65 Artery] Blood Pressure [Right Arm] 140/64 O2 Sat by Pulse Oximetry 96 Oriented: Normal Eyes: Normal Ear: Normal Nose: Normal Throat: Normal Respiratory: RML Diminished, LLL Diminished Cardiovascular: Normal, Murmur. negative: Edema : Normal Auscultation: Bowel Sounds: Normal Palpation: Normal Tenderness: Diffuse Skin: Decreased Turgur Musculoskeletal: Back:Thoracic, Back:Lumbar Psychiatric: Anxiety Affect: Anxious Speech Pattern: Clear, Appropriate - Assessment/Plan (1) Acute abdominal pain Status: Acute Plan: ADMIT, ADMISSION LABS. ABD SERIES, IV HYDRATION. NPO, VERIFY HOME MEDICATION. BP CONTROL, PPI THERAPY. GB US IN THE AM, PAIN AND NAUSEA CONTROL (2) Nausea & vomiting Status: Acute (3) Colostomy in place Status: Acute (4) Dehydration Status: Acute (5) Diabetes mellitus Status: Acute (6) TAHMINA (generalized anxiety disorder) Status: Acute (7) Rheumatoid arthritis Status: Acute - Allergies Allergies/Adverse Reactions: Allergies Allergy/AdvReac Type Severity Reaction Status Date / Time azithromycin [From Zithromax] Allergy Verified 09/17/19 21:05 ceftriaxone [From Rocephin] Allergy Verified 09/17/19 21:05 cefuroxime Allergy Verified 09/17/19 21:05 cephalexin [From Keflex] Allergy Verified 09/17/19 21:05 gentamicin Allergy Verified 09/17/19 21:05 levofloxacin [From Levaquin] Allergy Verified 09/17/19 21:05 meperidine [From Demerol] Allergy Verified 09/17/19 21:05 methylprednisolone Allergy Verified 09/17/19 21:05 [From Solu-Medrol] morphine Allergy Verified 09/17/19 21:40 nitrofurantoin Allergy Verified 09/17/19 21:05 [From Furadantin] Penicillins Allergy Verified 09/17/19 21:05 Sulfa (Sulfonamide Allergy Verified 09/17/19 21:05 Antibiotics) Tetracyclines Allergy Verified 09/17/19 21:05 trimethoprim Allergy Verified 09/17/19 21:05
[2019-09-18] MEDS: PEPCID TAB 20 MG PO SCH (20:33)
[2019-09-18] MEDS: MIRAPEX TAB 0.25 MG PO SCH (20:33)
[2019-09-18] MEDS: PLAQUENIL PO SCH (20:33)
[2019-09-18] MEDS: XANAX PO PRN (20:36)
[2019-09-19 06:42] LABS: BASOPHILS % (AUTO) 0.3 % (0.2-1.0); EOSINOPHILS # (AUTO) 0.1 x10^3/uL (0.0-0.2); EOSINOPHILS % (AUTO) 2.2 % (0.9-2.9); HEMATOCRIT 31.1 % (36.0-47.0); HEMOGLOBIN 10.5 g/dL (12.0-16.0); LYMPHOCYTES # (AUTO) 0.8 X10^3/uL (1.3-2.9); LYMPHOCYTES % (AUTO) 13.4 % (21.0-51.0); MEAN CORPUSCULAR HEMOGLOBIN 32.8 pg (27.0-34.0); MEAN CORPUSCULAR HGB CONC 33.6 g/dL (33.0-35.0); MEAN CORPUSCULAR VOLUME 97.8 fL (80.0-100.0); MEAN PLATELET VOLUME 7.9 fL (7.4-11.0); MONOCYTES # (AUTO) 0.5 x10^3/uL (0.3-0.8); MONOCYTES % (AUTO) 8.1 % (0.0-13.0); NEUTROPHILS # (AUTO) 4.7 x10^3/uL (2.2-4.8); PLATELET COUNT 203 X10^3/uL (150.0-450.0); RED BLOOD COUNT 3.18 X10^6/uL (3.5-5.4); RED CELL DISTRIBUTION WIDTH 13.7 % (11.6-16.5); WHITE BLOOD COUNT 6.2 X10^3/uL (3.6-10.0)
[2019-09-19 07:06] LABS: ALANINE AMINOTRANSFERASE 18 Units/L (12-78); ALBUMIN 3.1 g/dL (3.4-5.0); ALKALINE PHOSPHATASE 83 Units/L (46-116); ASPARTATE AMINO TRANSFERASE 17 Units/L (15-37); BLOOD UREA NITROGEN 21 mg/dL (7-18); CALCIUM 8.5 mg/dL (8.5-10.1); CHLORIDE 105 mmol/L (98-107); COR CA(FOR HYPOALB) 9.2 mg/dL (8.5-10.1); CREATININE 1.65 mg/dL (0.55-1.02); SODIUM 138 mmol/L (136-145); TOTAL PROTEIN 6.4 g/dL (6.4-8.2); eGFR NON BLACK RACES 32 (>60)
[2019-09-19] MEDS: LOVENOX INJ 30 MG SYR SC SCH (09:18)
[2019-09-19] MEDS: PROTONIX INJ 40 MG VIAL IVP SCH (09:18)
[2019-09-19] MEDS: PLAQUENIL PO SCH ×2 (09:19→20:41)
[2019-09-19] MEDS: SINGULAIR TAB 10 MG PO SCH (09:19)
[2019-09-19] MEDS: COZAAR PO SCH (09:19)
[2019-09-19] MEDS ORDERED: MIRAPEX TAB 0.25 MG PO ONE (09:52)
[2019-09-19] MEDS: NORCO 5/325 MG TAB PO PRN ×2 (10:55→17:44)
[2019-09-19] MEDS: NS 1000 ML 1,000 ML IV SCH ×2 (11:11→17:47)
[2019-09-19] MEDS: ZOFRAN INJ 4 MG VIAL IVP PRN (14:10)
--- NOTE | 2019-09-19 14:48 | US ---
HISTORYABD PAINSTUDYUltrasound of the right upper quadrant of the abdomenCOMPARISONNoneFINDINGSThe liver is normal in size without focal mass. There is appropriate flow in the hepatic and portal veins.The gallbladder is normal in size without wall thickening or stone or sludge. The common hepatic duct measures 2.6 mm diameter.The right kidney measures 5.7 x 4.5 x 9 cm with cortical thickness of 1.6 cm. There is no renal mass or hydronephrosis.The visualized pancreas is unremarkable.There is no free fluid.The IVC is patent.IMPRESSIONNegativeElectronically signed by: CAROLINE ARAUJO (Sep 19, 2019 14:46:59)
[2019-09-19] MEDS: SYNTHROID 125 mcg TAB PO SCH (17:44)
[2019-09-19] MEDS: PEPCID TAB 20 MG PO SCH (20:40)
[2019-09-19] MEDS: MIRAPEX TAB 0.25 MG PO SCH (20:40)
[2019-09-19] MEDS: MERREM VIAL 500 MG in NS 100 ML IV + SPIKE MINIBAG* 100 ML IV SCH (20:42)
[2019-09-19] MEDS: XANAX PO PRN (22:00)
[2019-09-20] MEDS: NORCO 5/325 MG TAB PO PRN ×2 (00:02→07:40)
[2019-09-20] MEDS: NS 1000 ML 1,000 ML IV SCH ×3 (01:06→20:00)
[2019-09-20 06:32] LABS: BASOPHILS % (AUTO) 0.3 % (0.2-1.0); EOSINOPHILS # (AUTO) 0.2 x10^3/uL (0.0-0.2); EOSINOPHILS % (AUTO) 2.9 % (0.9-2.9); HEMATOCRIT 30.8 % (36.0-47.0); HEMOGLOBIN 10.4 g/dL (12.0-16.0); LYMPHOCYTES # (AUTO) 0.8 X10^3/uL (1.3-2.9); LYMPHOCYTES % (AUTO) 12.9 % (21.0-51.0); MEAN CORPUSCULAR HGB CONC 33.8 g/dL (33.0-35.0); MEAN CORPUSCULAR VOLUME 97.7 fL (80.0-100.0); MEAN PLATELET VOLUME 8.1 fL (7.4-11.0); MONOCYTES # (AUTO) 0.6 x10^3/uL (0.3-0.8); MONOCYTES % (AUTO) 9.1 % (0.0-13.0); NEUTROPHILS # (AUTO) 4.6 x10^3/uL (2.2-4.8); NEUTROPHILS % (AUTO) 74.8 % (42.0-75.0); PLATELET COUNT 213 X10^3/uL (150.0-450.0); RED BLOOD COUNT 3.16 X10^6/uL (3.5-5.4); RED CELL DISTRIBUTION WIDTH 13.6 % (11.6-16.5); WHITE BLOOD COUNT 6.1 X10^3/uL (3.6-10.0)
[2019-09-20 06:47] LABS: ALANINE AMINOTRANSFERASE 17 Units/L (12-78); ALBUMIN 3.1 g/dL (3.4-5.0); ALKALINE PHOSPHATASE 88 Units/L (46-116); ASPARTATE AMINO TRANSFERASE 16 Units/L (15-37); BLOOD UREA NITROGEN 15 mg/dL (7-18); CALCIUM 8.4 mg/dL (8.5-10.1); CHLORIDE 105 mmol/L (98-107); COR CA(FOR HYPOALB) 9.1 mg/dL (8.5-10.1); CREATININE 1.64 mg/dL (0.55-1.02); SODIUM 138 mmol/L (136-145); TOTAL PROTEIN 6.3 g/dL (6.4-8.2); eGFR NON BLACK RACES 32 (>60)
--- NOTE | 2019-09-20 08:38 | CT ---
HISTORYABD PAIN, DISTENTION, N/V history of breast carcinoma hypertension diabetes and previous colostomy.STUDYCT ABDOMEN/PELVIS w/O [id number] images through the abdomen were performed with oral contrast. CT scan was performed following ALARA (As low as Reasonably Achievable). Coronal and sagittal reformatted images were also performedFINDINGSThe lung bases demonstrate a minimal atelectases in the left. The liver demonstrates no focal lesions for noncontrast CT. The is spleen is not enlarged, the gallbladder is mildly distended. There is no inflammatory changes of the gallbladder measures in transverse dimension approximately 3.5 centimeters.The pancreas is atrophic. There is no intra or extrahepatic biliary dilatation. The stomach is not distended. There are bilateral normal-sized kidneys without hydronephrosis. There are again seen renal calculus in the left with the largest in the lower pole measuring approximately 1.2 centimeters. No obstructive ureteral stones.There is a large ventral hernia containing mainly large bowel loops and some small bowel loops. The contrast reached the colon, there is no evidence of high-grade obstructionThere is clumping of the small-bowel loops centrally and posterior to the hernia, there is a stranding of the mesentery there is also focal mucosal thickening of a small bowel loop in the area better seen on image 42 series 3 and and the coronal images image number 14, with with questionable new 4 millimeter and 5 millimeter nodules. There is no retroperitoneal masses.Pelves: The uterus is not present. No free fluid. No adnexal masses, there is metallic artifact and clips from prior surgery.Bone windows s 6 millimeters anterolisthesis of L4 on L5 with degenerative disc disease. No evidence of acute fractures no evidence of aggressive bone lesions.IMPRESSIONClumping of the small bowel loops centrally with an abnormal wall thickening iileal loop ; however no obstruction. Stranding with possible few mesenteric lymph nodes differential include postradiation changes infection vs peritoneal carcinomatosis. There is mild thickening of the peritoneum in the left abdomen and we favor peritoneal carcinomatosis. Follow-up with CT with contrast or PET scan could be helpful. No obstruction.Mild distended gallbladderElectronically signed by: Luli Menendez (Sep 20, 2019 08:37:08)
[2019-09-20] MEDS: MERREM VIAL 500 MG in NS 100 ML IV + SPIKE MINIBAG* 100 ML IV SCH ×2 (08:56→21:27)
[2019-09-20] MEDS: LOVENOX INJ 30 MG SYR SC SCH (08:57)
[2019-09-20] MEDS: COZAAR PO SCH (08:57)
[2019-09-20] MEDS: PROTONIX INJ 40 MG VIAL IVP SCH (08:57)
[2019-09-20] MEDS: PLAQUENIL PO SCH ×2 (08:57→21:30)
[2019-09-20] MEDS: SINGULAIR TAB 10 MG PO SCH (08:57)
[2019-09-20] MEDS: PATIENT'S HOME MEDICATION PO SCH (12:28)
[2019-09-20] MEDS: SYNTHROID 125 mcg TAB PO SCH (17:20)
[2019-09-20] MEDS: MIRAPEX TAB 0.25 MG PO SCH (21:28)
[2019-09-20] MEDS: PEPCID TAB 20 MG PO SCH (21:29)
[2019-09-20] MEDS: XANAX PO PRN (22:18)
[2019-09-21] MEDS ORDERED: NORCO 5/325 MG TAB ONE (00:16)
[2019-09-21] MEDS: NORCO 5/325 MG TAB PO PRN ×2 (00:19→21:28)
[2019-09-21 06:24] LABS: BASOPHILS % (AUTO) 0.4 % (0.2-1.0); EOSINOPHILS # (AUTO) 0.3 x10^3/uL (0.0-0.2); HEMOGLOBIN 11.1 g/dL (12.0-16.0); LYMPHOCYTES # (AUTO) 1.2 X10^3/uL (1.3-2.9); LYMPHOCYTES % (AUTO) 18.3 % (21.0-51.0); MEAN CORPUSCULAR HEMOGLOBIN 33.2 pg (27.0-34.0); MEAN CORPUSCULAR HGB CONC 33.8 g/dL (33.0-35.0); MEAN CORPUSCULAR VOLUME 98.3 fL (80.0-100.0); MEAN PLATELET VOLUME 7.9 fL (7.4-11.0); MONOCYTES # (AUTO) 0.7 x10^3/uL (0.3-0.8); MONOCYTES % (AUTO) 11.5 % (0.0-13.0); NEUTROPHILS # (AUTO) 4.2 x10^3/uL (2.2-4.8); NEUTROPHILS % (AUTO) 65.8 % (42.0-75.0); PLATELET COUNT 240 X10^3/uL (150.0-450.0); RED BLOOD COUNT 3.36 X10^6/uL (3.5-5.4); RED CELL DISTRIBUTION WIDTH 14.1 % (11.6-16.5); WHITE BLOOD COUNT 6.5 X10^3/uL (3.6-10.0)
[2019-09-21] MEDS: NS 1000 ML 1,000 ML IV SCH ×3 (06:24→20:30)
[2019-09-21 06:38] LABS: ALBUMIN 3.3 g/dL (3.4-5.0); CALCIUM 8.6 mg/dL (8.5-10.1); CARBON DIOXIDE 22.7 mmol/L (21-32); COR CA(FOR HYPOALB) 9.2 mg/dL (8.5-10.1); CREATININE 1.57 mg/dL (0.55-1.02); TOTAL PROTEIN 6.8 g/dL (6.4-8.2)
[2019-09-21] MEDS: SINGULAIR TAB 10 MG PO SCH (08:59)
[2019-09-21] MEDS: COZAAR PO SCH (08:59)
[2019-09-21] MEDS: PROTONIX INJ 40 MG VIAL IVP SCH (08:59)
[2019-09-21] MEDS: MERREM VIAL 500 MG in NS 100 ML IV + SPIKE MINIBAG* 100 ML IV SCH (08:59)
[2019-09-21] MEDS: PLAQUENIL PO SCH ×2 (08:59→20:31)
[2019-09-21] MEDS: LOVENOX INJ 30 MG SYR SC SCH (09:00)
[2019-09-21] MEDS: PATIENT'S HOME MEDICATION PO SCH (11:58)
[2019-09-21] MEDS: LASIX PO SCH (14:13)
[2019-09-21] MEDS: SYNTHROID 125 mcg TAB PO SCH (17:20)
[2019-09-21] MEDS: PEPCID TAB 20 MG PO SCH (20:31)
[2019-09-21] MEDS: MERREM VIAL 500 MG in NS 100 ML IV 100 ML IV SCH (20:31)
[2019-09-21] MEDS: MIRAPEX TAB 0.25 MG PO SCH (20:31)
[2019-09-21] MEDS: XANAX PO PRN (22:54)
[2019-09-22 06:56] LABS: BASOPHILS % (AUTO) 0.7 % (0.2-1.0); EOSINOPHILS # (AUTO) 0.3 x10^3/uL (0.0-0.2); EOSINOPHILS % (AUTO) 4.5 % (0.9-2.9); HEMATOCRIT 35.1 % (36.0-47.0); HEMOGLOBIN 11.8 g/dL (12.0-16.0); LYMPHOCYTES # (AUTO) 1.5 X10^3/uL (1.3-2.9); LYMPHOCYTES % (AUTO) 24.4 % (21.0-51.0); MEAN CORPUSCULAR HGB CONC 33.6 g/dL (33.0-35.0); MEAN CORPUSCULAR VOLUME 98.2 fL (80.0-100.0); MEAN PLATELET VOLUME 8.3 fL (7.4-11.0); MONOCYTES # (AUTO) 0.8 x10^3/uL (0.3-0.8); MONOCYTES % (AUTO) 12.1 % (0.0-13.0); NEUTROPHILS # (AUTO) 3.7 x10^3/uL (2.2-4.8); NEUTROPHILS % (AUTO) 58.3 % (42.0-75.0); PLATELET COUNT 247 X10^3/uL (150.0-450.0); RED BLOOD COUNT 3.57 X10^6/uL (3.5-5.4); RED CELL DISTRIBUTION WIDTH 14.2 % (11.6-16.5); WHITE BLOOD COUNT 6.3 X10^3/uL (3.6-10.0)
[2019-09-22 07:09] LABS: ALANINE AMINOTRANSFERASE 21 Units/L (12-78); ALBUMIN 3.5 g/dL (3.4-5.0); ALKALINE PHOSPHATASE 117 Units/L (46-116); ASPARTATE AMINO TRANSFERASE 20 Units/L (15-37); BLOOD UREA NITROGEN 16 mg/dL (7-18); CALCIUM 8.8 mg/dL (8.5-10.1); CARBON DIOXIDE 23.4 mmol/L (21-32); CHLORIDE 103 mmol/L (98-107); COR NA(FOR HYPERGLY) 137 mmol/L (136-145); SODIUM 136 mmol/L (136-145); TOTAL PROTEIN 7.2 g/dL (6.4-8.2); eGFR NON BLACK RACES 33 (>60)
[2019-09-22] MEDS: PROTONIX INJ 40 MG VIAL IVP SCH (09:31)
[2019-09-22] MEDS: SINGULAIR TAB 10 MG PO SCH (09:32)
[2019-09-22] MEDS: LASIX PO SCH (09:32)
[2019-09-22] MEDS: COZAAR PO SCH (09:32)
[2019-09-22] MEDS: PLAQUENIL PO SCH ×2 (09:33→21:00)
[2019-09-22] MEDS: MERREM VIAL 500 MG in NS 100 ML IV 100 ML IV SCH ×2 (09:35→21:00)
[2019-09-22] MEDS: LOVENOX INJ 30 MG SYR SC SCH (09:35)
[2019-09-22] MEDS ORDERED: MILK OF MAGNESIA PO SCH (11:00)
--- NOTE | 2019-09-22 11:51 | PCM.PROG ---
Progress Note Progress Note for Day of Date of Exam: 09/22/19 Subjective Subjective: Patient seen at bedside, no overnight events. Patient states she is doing well. Denies any complaints this morning. She is currently admitted for E.coli UTI and is on meropenem due to multiple drug allergies. She has a hx of colectomy and colostomy. Patient states she has been ambulating in the room. Labs: Cr: 1.60, Hgb 11.8, WBC normal Plan: continue Merrem, monitor AM labs for renal function, continue current treatment. Past Medical Family Social History Past Med/Fam/Surg Hx: No changes since H&P Allergies: Allergies azithromycin [From Zithromax] Allergy (Verified 09/17/19 21:05) ceftriaxone [From Rocephin] Allergy (Verified 09/17/19 21:05) cefuroxime Allergy (Verified 09/17/19 21:05) cephalexin [From Keflex] Allergy (Verified 09/17/19 21:05) gentamicin Allergy (Verified 09/17/19 21:05) levofloxacin [From Levaquin] Allergy (Verified 09/17/19 21:05) meperidine [From Demerol] Allergy (Verified 09/17/19 21:05) methylprednisolone [From Solu-Medrol] Allergy (Verified 09/17/19 21:05) morphine Allergy (Verified 09/17/19 21:40) nitrofurantoin [From Furadantin] Allergy (Verified 09/17/19 21:05) Penicillins Allergy (Verified 09/17/19 21:05) Sulfa (Sulfonamide Antibiotics) Allergy (Verified 09/17/19 21:05) Tetracyclines Allergy (Verified 09/17/19 21:05) trimethoprim Allergy (Verified 09/17/19 21:05) Review of Systems ROS: No change since H&P Vital Signs and I&O's Vital Signs: Temperature 97.9 F Pulse Rate [Left Brachial] 78 Respiratory Rate 18 Blood Pressure [Left Arm] 169/76 Blood Pressure [Left Radial 147/65 Artery] Blood Pressure [Right Arm] 118/56 O2 Sat by Pulse Oximetry 99 Intake and Output: Intake & Output 09/19/19 09/20/19 09/21/19 09/22/19 23:59 23:59 23:59 23:59 Intake Total 50 / 50 2466 / 2466 3129 / 3129 816 / 816 Balance 50 / 50 2465 / 2465 312 / 312 816 / 816 Physical Exam Oriented: Normal Eyes: Normal Ear: Normal Nose: Normal Throat: Normal Respiratory: Normal Cardiovascular: Normal and Murmur; negative Edema Auscultation: Bowel Sounds: Normal Tenderness: Normal Skin: Decreased Turgur Musculoskeletal: Back:Thoracic and Back:Lumbar Psychiatric: Normal Affect: Normal Speech Pattern: Clear and Appropriate Laboratory and Diagnostics Result Diagrams: 09/22/19 05:56 09/22/19 05:56 Labs: 09/18/19 10:40 Urine,Clean Catch Urine Culture - Final Escherichia Coli Laboratory WBC 6.3 X10^3/uL (3.6-10.0) 09/22/19 05:56 RBC 3.57 X10^6/uL (3.5-5.4) 09/22/19 05:56 Hgb 11.8 g/dL (12.0-16.0) L 09/22/19 05:56 Hct 35.1 % (36.0-47.0) L 09/22/19 05:56 MCV 98.2 fL (80.0-100.0) 09/22/19 05:56 MCH 33.0 pg (27.0-34.0) 09/22/19 05:56 MCHC 33.6 g/dL (33.0-35.0) 09/22/19 05:56 RDW 14.2 % (11.6-16.5) 09/22/19 05:56 Plt Count 247 X10^3/uL (150.0-450.0) 09/22/19 05:56 MPV 8.3 fL (7.4-11.0) 09/22/19 05:56 Neut % (Auto) 58.3 % (42.0-75.0) 09/22/19 05:56 Lymph % (Auto) 24.4 % (21.0-51.0) 09/22/19 05:56 Daniels % (Auto) 12.1 % (0.0-13.0) 09/22/19 05:56 Eos % (Auto) 4.5 % (0.9-2.9) H 09/22/19 05:56 Baso % (Auto) 0.7 % (0.2-1.0) 09/22/19 05:56 Neut # (Auto) 3.7 x10^3/uL (2.2-4.8) 09/22/19 05:56 Lymph # (Auto) 1.5 X10^3/uL (1.3-2.9) 09/22/19 05:56 Daniels # (Auto) 0.8 x10^3/uL (0.3-0.8) 09/22/19 05:56 Eos # (Auto) 0.3 x10^3/uL (0.0-0.2) H 09/22/19 05:56 Baso # (Auto) 0.0 X10^3/uL (0.0-0.1) 09/22/19 05:56 Absolute Nucleated RBC 0.0 /100WBC 09/22/19 05:56 Sodium 136 mmol/L (136-145) 09/22/19 05:56 Corrected Sodium 137 mmol/L (136-145) 09/22/19 05:56 Potassium 3.9 mmol/L (3.5-5.1) 09/22/19 05:56 Chloride 103 mmol/L (98-107) 09/22/19 05:56 Carbon Dioxide 23.4 mmol/L (21-32) 09/22/19 05:56 BUN 16 mg/dL (7-18) 09/22/19 05:56 Creatinine 1.60 mg/dL (0.55-1.02) H 09/22/19 05:56 Est GFR (MDRD) Af Amer 40 (>60) L 09/22/19 05:56 Est GFR (MDRD) Non-Af 33 (>60) L 09/22/19 05:56 Glucose 131 mg/dL (65-99) H 09/22/19 05:56 POC Glucose (mg/dL) 122 mg/dL (65-99) H 09/22/19 05:50 Calcium 8.8 mg/dL (8.5-10.1) 09/22/19 05:56 Corrected Calcium TNP 09/22/19 05:56 Total Bilirubin 0.20 mg/dL (0.2-1.0) 09/22/19 05:56 AST 20 Units/L (15-37) 09/22/19 05:56 ALT 21 Units/L (12-78) 09/22/19 05:56 Alkaline Phosphatase 117 Units/L (46-116) H 09/22/19 05:56 Total Protein 7.2 g/dL (6.4-8.2) 09/22/19 05:56 Albumin 3.5 g/dL (3.4-5.0) 09/22/19 05:56 Globulin 3.7 g/dL (2.5-4.5) 09/22/19 05:56 Albumin/Globulin Ratio 0.9 Ratio (1.1-2.1) L 09/22/19 05:56 Amylase 42 Units/L (25-115) 09/17/19 21:45 Lipase 89 Units/L (73-393) 09/17/19 21:45 Specimen Type Clean catch urine 09/18/19 10:40 Urine Color Yellow (YELLOW) 09/18/19 10:40 Urine Appearance Cloudy (CLEAR) 09/18/19 10:40 Urine pH 7.0 (5.0 - 8.0) 09/18/19 10:40 Ur Specific [place] 1.010 (1.000-1.030) 09/18/19 10:40 Urine Protein 3+ (NEGATIVE) 09/18/19 10:40 Urine Glucose (UA) Negative (NEGATIVE) 09/18/19 10:40 Urine Ketones Negative (NEGATIVE) 09/18/19 10:40 Urine Occult Blood 3+ (NEGATIVE) 09/18/19 10:40 Urine Nitrite Positive (NEGATIVE) 09/18/19 10:40 Urine Bilirubin Negative (NEGATIVE) 09/18/19 10:40 Urine Urobilinogen Normal (NORMAL) 09/18/19 10:40 Ur Leukocyte Esterase 3+ (NEGATIVE) 09/18/19 10:40 Urine RBC 5-10 /HPF (0-3) A 09/18/19 10:40 Urine WBC Tntc /HPF (0-5) A 09/18/19 10:40 Ur Squamous Epith Cells Rare /HPF (NEGATIVE) 09/18/19 10:40 Urine Bacteria 1+ /HPF (NEGATIVE) 09/18/19 10:40 Ur Culture Indicated? Yes/culture set up 09/18/19 10:40 Plan (1) UTI (urinary tract infection), bacterial: Status: Acute (2) Acute kidney injury superimposed on CKD: Status: Acute (3) Acute abdominal pain: Status: Acute (4) Nausea & vomiting: Status: Acute Qualifiers: Vomiting Intractability: unspecified Vomiting type: unspecified Qualified Code(s): R11.2 - Nausea with vomiting, unspecified (5) Colostomy in place: Status: Acute (6) Dehydration: Status: Acute (7) Diabetes mellitus: Status: Acute (8) TAHMINA (generalized anxiety disorder): Status: Acute (9) Rheumatoid arthritis: Status: Acute
[2019-09-22] MEDS: NS 1000 ML 1,000 ML IV SCH (12:09)
[2019-09-22] MEDS: PATIENT'S HOME MEDICATION PO SCH (12:10)
[2019-09-22] MEDS: SYNTHROID 125 mcg TAB PO SCH (16:29)
[2019-09-22] MEDS: PEPCID TAB 20 MG PO SCH (21:00)
[2019-09-22] MEDS: MIRAPEX TAB 0.25 MG PO SCH (21:00)
[2019-09-22] MEDS: COLACE CAP 100 MG PO SCH (21:01)
[2019-09-22] MEDS: XANAX PO PRN (22:44)
[2019-09-23] MEDS: NS 1000 ML 1,000 ML IV SCH ×4 (00:41→22:45)
[2019-09-23 05:22] LABS: BASOPHILS % (AUTO) 0.4 % (0.2-1.0); EOSINOPHILS # (AUTO) 0.2 x10^3/uL (0.0-0.2); EOSINOPHILS % (AUTO) 4.1 % (0.9-2.9); LYMPHOCYTES # (AUTO) 1.2 X10^3/uL (1.3-2.9); LYMPHOCYTES % (AUTO) 21.6 % (21.0-51.0); MEAN CORPUSCULAR HEMOGLOBIN 33.6 pg (27.0-34.0); MEAN CORPUSCULAR HGB CONC 33.7 g/dL (33.0-35.0); MEAN CORPUSCULAR VOLUME 99.6 fL (80.0-100.0); MEAN PLATELET VOLUME 8.9 fL (7.4-11.0); MONOCYTES # (AUTO) 0.6 x10^3/uL (0.3-0.8); NEUTROPHILS # (AUTO) 3.3 x10^3/uL (2.2-4.8); NEUTROPHILS % (AUTO) 61.9 % (42.0-75.0); PLATELET COUNT 194 X10^3/uL (150.0-450.0); RED BLOOD COUNT 2.92 X10^6/uL (3.5-5.4); RED CELL DISTRIBUTION WIDTH 14.3 % (11.6-16.5); WHITE BLOOD COUNT 5.4 X10^3/uL (3.6-10.0)
[2019-09-23 05:31] LABS: CALCIUM 8.3 mg/dL (8.5-10.1); CARBON DIOXIDE 28.9 mmol/L (21-32); CREATININE 1.29 mg/dL (0.55-1.02)
[2019-09-23 05:44] LABS: HEMOGLOBIN 9.8 g/dL (12.0-16.0)
[2019-09-23] MEDS ORDERED: MILK OF MAGNESIA PO PRN (07:18)
[2019-09-23] MEDS: COZAAR PO SCH (08:47)
[2019-09-23] MEDS: MERREM VIAL 500 MG in NS 100 ML IV 100 ML IV SCH ×2 (08:47→20:56)
[2019-09-23] MEDS: PLAQUENIL PO SCH ×2 (08:47→20:56)
[2019-09-23] MEDS: LASIX PO SCH (08:47)
[2019-09-23] MEDS: SINGULAIR TAB 10 MG PO SCH (08:47)
[2019-09-23] MEDS: PROTONIX INJ 40 MG VIAL IVP SCH ×2 (08:52→12:31)
[2019-09-23] MEDS: LOVENOX INJ 30 MG SYR SC SCH (09:40)
--- NOTE | 2019-09-23 10:29 | PCM.PROG ---
Progress Note Progress Note for Day of Date of Exam: 09/23/19 Subjective Subjective: Patient seen at bedside, no overnight events. Patient states she is doing well. Denies any complaints this morning. Her hgb dropped to 9.8 from 11.8. She denies bleeding, no melena. She is currently admitted for E.coli UTI and is on meropenem due to multiple drug allergies. She has a hx of colectomy and colostomy. Patient states she has been ambulating in the hallway. Labs: Cr improved 1.29, Hgb 9.8 Plan: continue Merrem, monitor AM labs, continue current treatment. Past Medical Family Social History Past Med/Fam/Surg Hx: No changes since H&P Allergies: Allergies azithromycin [From Zithromax] Allergy (Verified 09/17/19 21:05) ceftriaxone [From Rocephin] Allergy (Verified 09/17/19 21:05) cefuroxime Allergy (Verified 09/17/19 21:05) cephalexin [From Keflex] Allergy (Verified 09/17/19 21:05) gentamicin Allergy (Verified 09/17/19 21:05) levofloxacin [From Levaquin] Allergy (Verified 09/17/19 21:05) meperidine [From Demerol] Allergy (Verified 09/17/19 21:05) methylprednisolone [From Solu-Medrol] Allergy (Verified 09/17/19 21:05) morphine Allergy (Verified 09/17/19 21:40) nitrofurantoin [From Furadantin] Allergy (Verified 09/17/19 21:05) Penicillins Allergy (Verified 09/17/19 21:05) Sulfa (Sulfonamide Antibiotics) Allergy (Verified 09/17/19 21:05) Tetracyclines Allergy (Verified 09/17/19 21:05) trimethoprim Allergy (Verified 09/17/19 21:05) Review of Systems ROS: No change since H&P Vital Signs and I&O's Vital Signs: Temperature 98.3 F Pulse Rate [Left Brachial] 55 Respiratory Rate 18 Blood Pressure [Left Arm] 140/59 Blood Pressure [Left Radial 147/65 Artery] Blood Pressure [Right Arm] 118/56 O2 Sat by Pulse Oximetry 96 Intake and Output: Intake & Output 09/20/19 09/21/19 09/22/19 09/23/19 23:59 23:59 23:59 23:59 Intake Total 2465 / 6 3129 / 3129 2766 / 2766 400 / 400 Balance 2466 / 2466 3129 / 3129 2766 / 2766 400 / 400 Physical Exam Oriented: Normal Eyes: Normal Ear: Normal Nose: Normal Throat: Normal Respiratory: Normal Cardiovascular: Normal and Murmur; negative Edema Auscultation: Bowel Sounds: Normal Tenderness: Normal Skin: Decreased Turgur Musculoskeletal: Back:Thoracic and Back:Lumbar Psychiatric: Normal Affect: Normal Speech Pattern: Clear and Appropriate Laboratory and Diagnostics Result Diagrams: 09/23/19 04:19 09/23/19 04:19 Labs: 09/18/19 10:40 Urine,Clean Catch Urine Culture - Final Escherichia Coli Laboratory WBC 5.4 X10^3/uL (3.6-10.0) 09/23/19 04:19 RBC 2.92 X10^6/uL (3.5-5.4) L 09/23/19 04:19 Hgb 9.8 g/dL (12.0-16.0) L D 09/23/19 04:19 Hct 29.0 % (36.0-47.0) L 09/23/19 04:19 MCV 99.6 fL (80.0-100.0) 09/23/19 04:19 MCH 33.6 pg (27.0-34.0) 09/23/19 04:19 MCHC 33.7 g/dL (33.0-35.0) 09/23/19 04:19 RDW 14.3 % (11.6-16.5) 09/23/19 04:19 Plt Count 194 X10^3/uL (150.0-450.0) 09/23/19 04:19 MPV 8.9 fL (7.4-11.0) 09/23/19 04:19 Neut % (Auto) 61.9 % (42.0-75.0) 09/23/19 04:19 Lymph % (Auto) 21.6 % (21.0-51.0) 09/23/19 04:19 Martin % (Auto) 12.0 % (0.0-13.0) 09/23/19 04:19 Eos % (Auto) 4.1 % (0.9-2.9) H 09/23/19 04:19 Baso % (Auto) 0.4 % (0.2-1.0) 09/23/19 04:19 Neut # (Auto) 3.3 x10^3/uL (2.2-4.8) 09/23/19 04:19 Lymph # (Auto) 1.2 X10^3/uL (1.3-2.9) L 09/23/19 04:19 Martin # (Auto) 0.6 x10^3/uL (0.3-0.8) 09/23/19 04:19 Eos # (Auto) 0.2 x10^3/uL (0.0-0.2) 09/23/19 04:19 Baso # (Auto) 0.0 X10^3/uL (0.0-0.1) 09/23/19 04:19 Absolute Nucleated RBC 0.2 /100WBC 09/23/19 04:19 Sodium 136 mmol/L (136-145) 09/23/19 04:19 Corrected Sodium 136 mmol/L (136-145) 09/23/19 04:19 Potassium 3.8 mmol/L (3.5-5.1) 09/23/19 04:19 Chloride 104 mmol/L (98-107) 09/23/19 04:19 Carbon Dioxide 28.9 mmol/L (21-32) 09/23/19 04:19 BUN 14 mg/dL (7-18) 09/23/19 04:19 Creatinine 1.29 mg/dL (0.55-1.02) H 09/23/19 04:19 Est GFR (MDRD) Af Amer 51 (>60) L 09/23/19 04:19 Est GFR (MDRD) Non-Af 42 (>60) L 09/23/19 04:19 Glucose 113 mg/dL (65-99) H 09/23/19 04:19 POC Glucose (mg/dL) 103 mg/dL (65-99) H 09/23/19 05:22 Calcium 8.3 mg/dL (8.5-10.1) L 09/23/19 04:19 Corrected Calcium TNP 09/22/19 05:56 Total Bilirubin 0.20 mg/dL (0.2-1.0) 09/22/19 05:56 AST 20 Units/L (15-37) 09/22/19 05:56 ALT 21 Units/L (12-78) 09/22/19 05:56 Alkaline Phosphatase 117 Units/L (46-116) H 09/22/19 05:56 Total Protein 7.2 g/dL (6.4-8.2) 09/22/19 05:56 Albumin 3.5 g/dL (3.4-5.0) 09/22/19 05:56 Globulin 3.7 g/dL (2.5-4.5) 09/22/19 05:56 Albumin/Globulin Ratio 0.9 Ratio (1.1-2.1) L 09/22/19 05:56 Amylase 42 Units/L (25-115) 09/17/19 21:45 Lipase 89 Units/L (73-393) 09/17/19 21:45 Specimen Type Clean catch urine 09/18/19 10:40 Urine Color Yellow (YELLOW) 09/18/19 10:40 Urine Appearance Cloudy (CLEAR) 09/18/19 10:40 Urine pH 7.0 (5.0 - 8.0) 09/18/19 10:40 Ur Specific [place] 1.010 (1.000-1.030) 09/18/19 10:40 Urine Protein 3+ (NEGATIVE) 09/18/19 10:40 Urine Glucose (UA) Negative (NEGATIVE) 09/18/19 10:40 Urine Ketones Negative (NEGATIVE) 09/18/19 10:40 Urine Occult Blood 3+ (NEGATIVE) 09/18/19 10:40 Urine Nitrite Positive (NEGATIVE) 09/18/19 10:40 Urine Bilirubin Negative (NEGATIVE) 09/18/19 10:40 Urine Urobilinogen Normal (NORMAL) 09/18/19 10:40 Ur Leukocyte Esterase 3+ (NEGATIVE) 09/18/19 10:40 Urine RBC 5-10 /HPF (0-3) A 09/18/19 10:40 Urine WBC Tntc /HPF (0-5) A 09/18/19 10:40 Ur Squamous Epith Cells Rare /HPF (NEGATIVE) 09/18/19 10:40 Urine Bacteria 1+ /HPF (NEGATIVE) 09/18/19 10:40 Ur Culture Indicated? Yes/culture set up 09/18/19 10:40 Plan (1) UTI (urinary tract infection), bacterial: Status: Acute (2) Acute kidney injury superimposed on CKD: Status: Acute (3) Acute abdominal pain: Status: Acute Plan: ADMIT, ADMISSION LABS ABD SERIES, IV HYDRATION NPO, VERIFY HOME MEDICATION BP CONTROL, PPI THERAPY GB US IN THE AM, PAIN AND NAUSEA CONTROL (4) Nausea & vomiting: Status: Acute Qualifiers: Vomiting Intractability: unspecified Vomiting type: unspecified Qualified Code(s): R11.2 - Nausea with vomiting, unspecified (5) Colostomy in place: Status: Acute (6) Dehydration: Status: Acute (7) Diabetes mellitus: Status: Acute (8) TAHMINA (generalized anxiety disorder): Status: Acute (9) Rheumatoid arthritis: Status: Acute
[2019-09-23] MEDS: ZOFRAN INJ 4 MG VIAL IVP PRN (12:31)
[2019-09-23] MEDS: PATIENT'S HOME MEDICATION PO SCH (14:36)
[2019-09-23] MEDS: SYNTHROID 125 mcg TAB PO SCH (16:25)
[2019-09-23] MEDS: PEPCID TAB 20 MG PO SCH (20:56)
[2019-09-23] MEDS: MIRAPEX TAB 0.25 MG PO SCH (20:56)
[2019-09-23] MEDS: COLACE CAP 100 MG PO SCH (20:59)
[2019-09-23] MEDS: NORCO 5/325 MG TAB PO PRN (21:02)
[2019-09-23] MEDS: XANAX PO PRN (22:45)
[2019-09-24] MEDS: NS 1000 ML 1,000 ML IV SCH (05:39)
[2019-09-24 05:45] LABS: BASOPHILS % (AUTO) 0.7 % (0.2-1.0); EOSINOPHILS # (AUTO) 0.2 x10^3/uL (0.0-0.2); EOSINOPHILS % (AUTO) 4.4 % (0.9-2.9); HEMATOCRIT 28.5 % (36.0-47.0); HEMOGLOBIN 9.7 g/dL (12.0-16.0); LYMPHOCYTES # (AUTO) 1.1 X10^3/uL (1.3-2.9); LYMPHOCYTES % (AUTO) 24.6 % (21.0-51.0); MEAN CORPUSCULAR HEMOGLOBIN 33.4 pg (27.0-34.0); MEAN CORPUSCULAR HGB CONC 33.9 g/dL (33.0-35.0); MEAN CORPUSCULAR VOLUME 98.5 fL (80.0-100.0); MEAN PLATELET VOLUME 9.1 fL (7.4-11.0); MONOCYTES # (AUTO) 0.6 x10^3/uL (0.3-0.8); MONOCYTES % (AUTO) 12.3 % (0.0-13.0); NEUTROPHILS # (AUTO) 2.7 x10^3/uL (2.2-4.8); PLATELET COUNT 178 X10^3/uL (150.0-450.0); RED BLOOD COUNT 2.89 X10^6/uL (3.5-5.4); RED CELL DISTRIBUTION WIDTH 14.5 % (11.6-16.5); WHITE BLOOD COUNT 4.6 X10^3/uL (3.6-10.0)
[2019-09-24 06:01] LABS: CALCIUM 8.3 mg/dL (8.5-10.1); CARBON DIOXIDE 27.9 mmol/L (21-32); CREATININE 1.45 mg/dL (0.55-1.02)
[2019-09-24] MEDS ORDERED: POTASSIUM CHL 40 MEQ/NS 0.45% 500 ML IV PRN (07:45)
[2019-09-24] MEDS ORDERED: POTASSIUM CHLORIDE LIQ 20 MEQ UDC PO PRN (07:45)
[2019-09-24] MEDS ORDERED: MICRO K EXTEN CAP 10 MEQ PO PRN (07:45)
[2019-09-24] MEDS ORDERED: K-RIDER 10 MEQ/NS 100 ML 10 MEQ/100 ML BAG IV PRN (07:45)
[2019-09-24] MEDS ORDERED: KLOR-CON PO PRN (07:45)
[2019-09-24] MEDS ORDERED: POTASSIUM CHL 60 MEQ/NS 0.45% 500 ML IV PRN (07:45)
[2019-09-24] MEDS ORDERED: K-DUR TAB 20 MEQ PO PRN (07:45)
[2019-09-24] MEDS: LASIX PO SCH (08:19)
[2019-09-24] MEDS: PLAQUENIL PO SCH (08:19)
[2019-09-24] MEDS: SINGULAIR TAB 10 MG PO SCH (08:19)
[2019-09-24] MEDS: PROTONIX INJ 40 MG VIAL IVP SCH (08:20)
[2019-09-24] MEDS: LOVENOX INJ 30 MG SYR SC SCH (08:20)
[2019-09-24] MEDS: COZAAR PO SCH (08:20)
[2019-09-24] MEDS: MERREM VIAL 500 MG in NS 100 ML IV 100 ML IV SCH (08:21)
[2019-09-24 09:54] VITALS: BP 153/63
== END 2019-09-24 11:30 | disposition home health service (06) | DRG 683 ==
LOC: MED/SURG
PROVIDERS: ADMIT Internal Medicine; ATTEND Internal Medicine
DX: N18.9 Chronic kidney disease, unspecified; F41.1 Generalized anxiety disorder; R10.84 Generalized abdominal pain; M06.89 Other specified rheumatoid arthritis, multiple sites; I12.9 Hypertensive chronic kidney disease with stage 1 through stage 4 chronic kidney disease, or unspecified chronic kidney disease; E86.0 Dehydration; I25.10 Atherosclerotic heart disease of native coronary artery without angina pectoris; N17.8 Other acute kidney failure; Z79.899 Other long term (current) drug therapy; R11.2 Nausea with vomiting, unspecified; E11.65 Type 2 diabetes mellitus with hyperglycemia; B96.29 Other Escherichia coli [E. coli] as the cause of diseases classified elsewhere; R26.89 Other abnormalities of gait and mobility; Z93.3 Colostomy status; N39.0 Urinary tract infection, site not specified
CPT/HCPCS: 36415; 74022; 74176; 76705; 80048; 80053; 81001; 82150; 83690; 83735; 85025; 87086; 87088; 87186; 97110; 97116; 97162; 97166; 97530; 97535; A4216; A4222; C9113; G0378; J1642; J1650; J2185; J2405; J2550; J7030; J7050

== ENCOUNTER 2019-12-27 15:59 | Observation (INO) ==
[2019-12-28] MEDS ORDERED: NORCO 5/325 MG TAB PO PRN (02:29)
[2019-12-28] MEDS ORDERED: NORCO 5/325 MG TAB ONE (02:33)
[2019-12-28 06:05] LABS: BASOPHILS % (AUTO) 0.5 % (0.2-1.0); EOSINOPHILS # (AUTO) 0.1 x10^3/uL (0.0-0.2); EOSINOPHILS % (AUTO) 2.5 % (0.9-2.9); HEMATOCRIT 30.9 % (36.0-47.0); HEMOGLOBIN 10.5 g/dL (12.0-16.0); LYMPHOCYTES # (AUTO) 1.2 X10^3/uL (1.3-2.9); LYMPHOCYTES % (AUTO) 23.3 % (21.0-51.0); MEAN CORPUSCULAR HEMOGLOBIN 33.2 pg (27.0-34.0); MEAN CORPUSCULAR VOLUME 97.7 fL (80.0-100.0); MEAN PLATELET VOLUME 8.5 fL (7.4-11.0); MONOCYTES # (AUTO) 0.5 x10^3/uL (0.3-0.8); MONOCYTES % (AUTO) 10.7 % (0.0-13.0); NEUTROPHILS # (AUTO) 3.2 x10^3/uL (2.2-4.8); PLATELET COUNT 164 X10^3/uL (150.0-450.0); RED BLOOD COUNT 3.16 X10^6/uL (3.5-5.4); RED CELL DISTRIBUTION WIDTH 13.8 % (11.6-16.5); WHITE BLOOD COUNT 5.1 X10^3/uL (3.6-10.0)
[2019-12-28 06:22] LABS: CALCIUM 8.9 mg/dL (8.5-10.1); CARBON DIOXIDE 26.1 mmol/L (21-32); COR CA(FOR HYPOALB) 9.7 mg/dL (8.5-10.1); CREATININE 1.77 mg/dL (0.55-1.02); TOTAL PROTEIN 6.4 g/dL (6.4-8.2)
[2019-12-28] MEDS: ZYLOPRIM PO SCH (10:15)
[2019-12-28] MEDS: SINGULAIR TAB 10 MG PO SCH (10:15)
[2019-12-28] MEDS: NexIUM PO SCH (10:15)
[2019-12-28] MEDS: LASIX PO SCH ×2 (10:15→20:55)
[2019-12-28] MEDS: PEPCID TAB 20 MG PO SCH ×2 (10:15→21:20)
[2019-12-28] MEDS: ZyrTEC TAB 10 MG PO SCH (10:15)
[2019-12-28] MEDS: FLOMAX PO SCH (10:15)
[2019-12-28] MEDS: COZAAR PO SCH (10:15)
[2019-12-28] MEDS: K-DUR TAB 20 MEQ PO SCH (10:15)
[2019-12-28] MEDS ORDERED: LOVENOX INJ 30 MG SYR SC SCH (11:00)
[2019-12-28 12:00] LABS: BILIRUBIN,URINE NEGATIVE (NEGATIVE); BLOOD/HEMOGLOBIN,URINE NEGATIVE (NEGATIVE); GLUCOSE, URINE NEGATIVE (NEGATIVE); KETONES,URINE NEGATIVE (NEGATIVE); LEUKOCYTE ESTERASE ,URINE 2+ (NEGATIVE); NITRITES,URINE NEGATIVE (NEGATIVE); PROTEIN,URINE 1+ (NEGATIVE); UROBILINOGEN,URINE NORMAL (NORMAL)
[2019-12-28 12:07] LABS: APPEARANCE,URINE CLEAR (CLEAR); BACTERIA,URINE TRACE /HPF (NEGATIVE); COLOR,URINE YELLOW (YELLOW); RBC,URINE 0-2 /HPF (0-3); SQUAMOUS EPITHELIAL CELL,UR FEW /HPF (NEGATIVE); YEAST,URINE FEW /HPF (NEGATIVE)
[2019-12-28] MEDS: TAB-A-VITE PO SCH (12:40)
[2019-12-28] MEDS: HYDROCODONE BITARTRATE 80 MG PO SCH (12:40)
--- NOTE | 2019-12-28 13:06 | RAD ---
HISTORYPORT POSITIONINGSTUDYCHEST x-ray, 1 VIEWCOMPARISONX-ray 12/25/2018FINDINGSPort catheter terminates in the region of the mid SVC, similar to prior study. No pneumothorax, focal infiltrate, or pleural effusion is seen. Heart is normal in size.IMPRESSIONPort catheter terminates in the region of the mid SVC.Electronically signed by: Zack Read (Dec 28, 2019 13:05:52)
--- NOTE | 2019-12-28 13:45 | DR.H&P ---
H&P - History & Physical for Day of: H&P Date: 12/27/19 - Chief Complaint Chief Complaint: UTI, WEAKNESS - History of Present Illness History of Present Illness: PT IS 84 WF DIRECT ADMIT WITH UTI, WITH HX RECENT BILATERAL RENAL CALCULI WITH HYDRONEPHROSIS. PT STATES SHE HAS PASSED 2 STONES WITH IMPROVING PAIN, THEN ONSET OF UTI SYMPTOMS AND WEAKNESS AND MYALGIAS. PT HAS HX OF MULTI DRUG RESISTANT BACTERIA. PT ADMITTED FOR TREATMENT OF ACUTE ILLNESS. - Past Medical History Past Medical History: Anxiety, Arthritis, Diabetes, Hypertension, Liver Disease, Renal Disease - Past Surgical History Surgical History: Appendectomy, Bowel Resection, Hysterectomy, Mastectomy, Lithotripsy, Other Additional Surgical History: Colon resection with colostomy, Cystoscopy - Family History Family Medical History: Diabetes Mellitus, Cancer, [place], Coronary Artery Disease, Heart Failure, Hypertension - Social History Does patient currently use any type of tobacco product: No Have you used tobacco products in the last 12 months: No Type of Tobacco Use: None Alcohol Use: None Drug Use: None - Medications Home Medications: azithromycin [From Zithromax] Allergy (Verified 09/17/19 21:05) ceftriaxone [From Rocephin] Allergy (Verified 09/17/19 21:05) cefuroxime Allergy (Verified 09/17/19 21:05) cephalexin [From Keflex] Allergy (Verified 09/17/19 21:05) gentamicin Allergy (Verified 09/17/19 21:05) levofloxacin [From Levaquin] Allergy (Verified 09/17/19 21:05) meperidine [From Demerol] Allergy (Verified 09/17/19 21:05) methylprednisolone [From Solu-Medrol] Allergy (Verified 09/17/19 21:05) morphine Allergy (Verified 09/17/19 21:40) nitrofurantoin [From Furadantin] Allergy (Verified 09/17/19 21:05) Penicillins Allergy (Verified 09/17/19 21:05) Sulfa (Sulfonamide Antibiotics) Allergy (Verified 09/17/19 21:05) Tetracyclines Allergy (Verified 09/17/19 21:05) trimethoprim Allergy (Verified 09/17/19 21:05) CONTINUE taking the following medications furosemide [Lasix] 40 mg PO BID 12/27/19 [History] - Review of Systems Constitutional: Weakness Eyes: No Symptoms Reported ENT: No Symptoms Reported Respiratory: No Symptoms Reported Cardiovascular: No Symptoms Reported Gastrointestinal: Nausea Genitourinary: Dysuria, Frequency, Hematuria, Retention Musculoskeletal: Back Pain Skin: No Symptoms Reported Neurological: Weakness - Physical Exam Vital Signs: Temperature 97.7 F Pulse Rate [Left Brachial] 55 Respiratory Rate 16 Blood Pressure [Left Arm] 139/63 O2 Sat by Pulse Oximetry 97 Oriented: Normal Eyes: Normal Ear: Normal Nose: Normal Throat: Normal Respiratory: RLL Diminished, LLL Diminished Cardiovascular: Normal, Murmur : Normal Auscultation: Bowel Sounds: Normal Palpation: Normal Tenderness: Normal Skin: Decreased Turgur Musculoskeletal: Back:Thoracic, Back:Lumbar Psychiatric: Anxiety Affect: Anxious Speech Pattern: Clear, Appropriate - Assessment/Plan (1) UTI (urinary tract infection), bacterial Status: Acute Plan: ADMIT, BLOOD AND URINE CULTURE. IV ATBX THERAPY. VERIFY AND RESUME HOME MEDICATIONS. IV HYDRATION. AM LABS, COLOSTOMY CARE. OBTAIN LAST CT FROM [facility] AND URINE CULTURE (2) Acute kidney injury superimposed on CKD Status: Acute (3) TAHMINA (generalized anxiety disorder) Status: Acute (4) Osteoarthritis Status: Acute (5) Rheumatoid arthritis Status: Acute (6) Weakness generalized Status: Acute - Allergies Allergies/Adverse Reactions: Allergies Allergy/AdvReac Type Severity Reaction Status Date / Time azithromycin [From Zithromax] Allergy Verified 09/17/19 21:05 ceftriaxone [From Rocephin] Allergy Verified 09/17/19 21:05 cefuroxime Allergy Verified 09/17/19 21:05 cephalexin [From Keflex] Allergy Verified 09/17/19 21:05 gentamicin Allergy Verified 09/17/19 21:05 levofloxacin [From Levaquin] Allergy Verified 09/17/19 21:05 meperidine [From Demerol] Allergy Verified 09/17/19 21:05 methylprednisolone Allergy Verified 09/17/19 21:05 [From Solu-Medrol] morphine Allergy Verified 09/17/19 21:40 nitrofurantoin Allergy Verified 09/17/19 21:05 [From Furadantin] Penicillins Allergy Verified 09/17/19 21:05 Sulfa (Sulfonamide Allergy Verified 09/17/19 21:05 Antibiotics) Tetracyclines Allergy Verified 09/17/19 21:05 trimethoprim Allergy Verified 09/17/19 21:05
[2019-12-28] MEDS: MERREM VIAL 500 MG in NS 100 ML IV + SPIKE MINIBAG* 100 ML IV SCH ×3 (15:10→21:21)
[2019-12-28] MEDS: NS 1000 ML 1,000 ML IV SCH (15:10)
[2019-12-28] MEDS: NORCO 10/325 TAB PO PRN (20:55)
[2019-12-28] MEDS: SYNTHROID 125 mcg TAB PO SCH (20:55)
[2019-12-28] MEDS: MIRAPEX TAB 0.25 MG PO SCH (21:20)
[2019-12-28] MEDS: XANAX PO PRN (22:17)
[2019-12-29] MEDS: MERREM VIAL 500 MG in NS 100 ML IV + SPIKE MINIBAG* 100 ML IV SCH ×2 (05:04→19:18)
[2019-12-29] MEDS: PHENERGAN TAB 25 MG PO PRN (05:04)
[2019-12-29 07:11] LABS: CALCIUM 8.3 mg/dL (8.5-10.1); COR CA(FOR HYPOALB) 9.1 mg/dL (8.5-10.1); CREATININE 1.84 mg/dL (0.55-1.02); TOTAL PROTEIN 6.4 g/dL (6.4-8.2)
[2019-12-29 07:14] LABS: BASOPHILS # (AUTO) 0.1 X10^3/uL (0.0-0.1); BASOPHILS % (AUTO) 0.6 % (0.2-1.0); EOSINOPHILS # (AUTO) 0.3 x10^3/uL (0.0-0.2); EOSINOPHILS % (AUTO) 2.9 % (0.9-2.9); HEMATOCRIT 32.1 % (36.0-47.0); HEMOGLOBIN 10.7 g/dL (12.0-16.0); LYMPHOCYTES % (AUTO) 10.6 % (21.0-51.0); MEAN CORPUSCULAR HEMOGLOBIN 32.8 pg (27.0-34.0); MEAN CORPUSCULAR HGB CONC 33.5 g/dL (33.0-35.0); MEAN CORPUSCULAR VOLUME 97.8 fL (80.0-100.0); MEAN PLATELET VOLUME 8.6 fL (7.4-11.0); MONOCYTES # (AUTO) 1.1 x10^3/uL (0.3-0.8); MONOCYTES % (AUTO) 12.3 % (0.0-13.0); NEUTROPHILS # (AUTO) 6.6 x10^3/uL (2.2-4.8); NEUTROPHILS % (AUTO) 73.6 % (42.0-75.0); PLATELET COUNT 144 X10^3/uL (150.0-450.0); RED BLOOD COUNT 3.28 X10^6/uL (3.5-5.4)
[2019-12-29 07:24] LABS: PLATELET MORPHOLOGY COMMENT NORMAL (NORMAL)
[2019-12-29] MEDS: COZAAR PO SCH (09:19)
[2019-12-29] MEDS: FLOMAX PO SCH (09:21)
[2019-12-29] MEDS: LASIX PO SCH ×2 (09:22→21:23)
[2019-12-29] MEDS: NexIUM PO SCH (09:22)
[2019-12-29] MEDS: PEPCID TAB 20 MG PO SCH ×2 (09:22→21:24)
[2019-12-29] MEDS: SINGULAIR TAB 10 MG PO SCH (09:23)
[2019-12-29] MEDS: ZyrTEC TAB 10 MG PO SCH (09:23)
[2019-12-29] MEDS: ZYLOPRIM PO SCH (09:23)
[2019-12-29] MEDS: TAB-A-VITE PO SCH (09:23)
[2019-12-29] MEDS: K-DUR TAB 20 MEQ PO SCH (10:40)
[2019-12-29] MEDS: HYDROCODONE BITARTRATE 80 MG PO SCH (14:34)
[2019-12-29] MEDS: NS 1000 ML 1,000 ML IV SCH (19:18)
[2019-12-29] MEDS ORDERED: SNACK - Diabetic Appropriate PO SCH (20:00)
[2019-12-29] MEDS ORDERED: INVANZ INJ 1 GM VIAL ONE (20:51)
[2019-12-29] MEDS: INVANZ INJ 1 GM VIAL IM SCH (21:00)
[2019-12-29] MEDS: XANAX PO PRN (21:22)
[2019-12-29] MEDS: NORCO 10/325 TAB PO PRN (21:23)
[2019-12-29] MEDS: SYNTHROID 125 mcg TAB PO SCH (21:23)
[2019-12-29] MEDS: MIRAPEX TAB 0.25 MG PO SCH (21:23)
[2019-12-30] MEDS: PHENERGAN TAB 25 MG PO PRN (03:44)
[2019-12-30 06:32] LABS: BASOPHILS % (AUTO) 0.4 % (0.2-1.0); EOSINOPHILS # (AUTO) 0.2 x10^3/uL (0.0-0.2); EOSINOPHILS % (AUTO) 2.9 % (0.9-2.9); HEMATOCRIT 31.2 % (36.0-47.0); HEMOGLOBIN 10.5 g/dL (12.0-16.0); LYMPHOCYTES # (AUTO) 0.9 X10^3/uL (1.3-2.9); LYMPHOCYTES % (AUTO) 14.2 % (21.0-51.0); MEAN CORPUSCULAR HEMOGLOBIN 33.3 pg (27.0-34.0); MEAN CORPUSCULAR HGB CONC 33.8 g/dL (33.0-35.0); MEAN CORPUSCULAR VOLUME 98.6 fL (80.0-100.0); MEAN PLATELET VOLUME 8.3 fL (7.4-11.0); MONOCYTES # (AUTO) 0.7 x10^3/uL (0.3-0.8); MONOCYTES % (AUTO) 11.3 % (0.0-13.0); NEUTROPHILS # (AUTO) 4.6 x10^3/uL (2.2-4.8); NEUTROPHILS % (AUTO) 71.2 % (42.0-75.0); PLATELET COUNT 150 X10^3/uL (150.0-450.0); RED BLOOD COUNT 3.16 X10^6/uL (3.5-5.4); RED CELL DISTRIBUTION WIDTH 14.3 % (11.6-16.5); WHITE BLOOD COUNT 6.4 X10^3/uL (3.6-10.0)
[2019-12-30 06:57] LABS: CALCIUM 8.6 mg/dL (8.5-10.1); CARBON DIOXIDE 25.9 mmol/L (21-32); COR CA(FOR HYPOALB) 9.4 mg/dL (8.5-10.1); CREATININE 1.95 mg/dL (0.55-1.02); TOTAL PROTEIN 6.6 g/dL (6.4-8.2)
[2019-12-30] MEDS ORDERED: XYLOCAINE 1 % (PLAIN) ONE (07:43)
[2019-12-30] MEDS ORDERED: INVANZ INJ 1 GM VIAL ONE (07:45)
[2019-12-30] MEDS: COZAAR PO SCH (09:12)
[2019-12-30] MEDS: FLOMAX PO SCH (09:13)
[2019-12-30] MEDS: LASIX PO SCH (09:13)
[2019-12-30] MEDS: K-DUR TAB 20 MEQ PO SCH (09:13)
[2019-12-30] MEDS: TAB-A-VITE PO SCH (09:14)
[2019-12-30] MEDS: SINGULAIR TAB 10 MG PO SCH (09:14)
[2019-12-30] MEDS: ZyrTEC TAB 10 MG PO SCH (09:14)
[2019-12-30] MEDS: NexIUM PO SCH (09:15)
[2019-12-30] MEDS: PEPCID TAB 20 MG PO SCH (09:15)
[2019-12-30] MEDS: ZYLOPRIM PO SCH (09:15)
[2019-12-30] MEDS: INVANZ INJ 1 GM VIAL IM SCH (09:17)
[2019-12-30] MEDS: NS 1000 ML 1,000 ML IV SCH (10:56)
--- NOTE | 2019-12-30 11:44 | RAD ---
HISTORYSOB, COUGHSTUDYCHEST, 1 VIEWCOMPARISONChest x-ray dated December 28, 2019.FINDINGSLeft chest Port-A-Cath appears unchanged. The trachea is midline. The cardiac silhouette is unremarkable. Chronic emphysematous and interstitial lung changes. The lungs are clear without focal infiltrate, pneumothorax, or effusion. The bony thorax is unremarkable.IMPRESSIONNo acute cardiopulmonary disease.Electronically signed by: JORGE DUNNE (Dec 30, 2019 11:43:20)
[2019-12-30 12:20] VITALS: BP 115/57
== END 2019-12-30 12:53 | disposition home health service (06) ==
LOC: MED/SURG
PROVIDERS: ADMIT Internal Medicine; ATTEND Internal Medicine
DX: F41.8 Other specified anxiety disorders; E11.65 Type 2 diabetes mellitus with hyperglycemia; N39.0 Urinary tract infection, site not specified; I12.9 Hypertensive chronic kidney disease with stage 1 through stage 4 chronic kidney disease, or unspecified chronic kidney disease; M06.89 Other specified rheumatoid arthritis, multiple sites; N17.8 Other acute kidney failure; M19.90 Unspecified osteoarthritis, unspecified site; N18.9 Chronic kidney disease, unspecified; R53.1 Weakness; R30.0 Dysuria

== ENCOUNTER 2020-02-04 16:42 | Inpatient (IN) ==
--- NOTE | 2020-02-04 18:15 | DR.H&P ---
H&P - History & Physical for Day of: H&P Date: 02/04/20 - Chief Complaint Chief Complaint: Sleepy and dysuria - History of Present Illness History of Present Illness: the patient is an 84-year-old white female presents to the [facility] with long with complaints of cough burning urination. Does complain pressure to the lower abdomen. Patient has chronic urinary tract infection with multiple drug allergies. Patient states that she stay sleepy. States it started on Tuesday. Patient states that she sleepy. Patient [id number] states she has been confused.Denies fever. Does state that she was told her port-a-cath is clogged up. Also complains of a sore to top of her right foot. States it came up on Tuesday. Denies trauma to area. - Past Medical History Past Medical History: Anxiety, Arthritis, Diabetes, Hypertension, Liver Disease, Renal Disease - Past Surgical History Surgical History: Appendectomy, Bowel Resection, Hysterectomy, Mastectomy, Lithotripsy, Other Additional Surgical History: Colon resection with colostomy, Cystoscopy - Family History Family Medical History: Diabetes Mellitus, Cancer, [place], Coronary Artery Disease, Heart Failure, Hypertension - Social History Does patient currently use any type of tobacco product: No Have you used tobacco products in the last 12 months: No Type of Tobacco Use: None Does any household member use tobacco: No Alcohol Use: None Drug Use: None Risks, benefits, and alternatives of opioids discussed: No Prescription drug monitoring program results: PDMP reviewed and no concerns identified - Medications Home Medications: azithromycin [From Zithromax] Allergy (Verified 09/17/19 21:05) ceftriaxone [From Rocephin] Allergy (Verified 09/17/19 21:05) cefuroxime Allergy (Verified 09/17/19 21:05) cephalexin [From Keflex] Allergy (Verified 09/17/19 21:05) gentamicin Allergy (Verified 09/17/19 21:05) levofloxacin [From Levaquin] Allergy (Verified 09/17/19 21:05) meperidine [From Demerol] Allergy (Verified 09/17/19 21:05) methylprednisolone [From Solu-Medrol] Allergy (Verified 09/17/19 21:05) morphine Allergy (Verified 09/17/19 21:40) nitrofurantoin [From Furadantin] Allergy (Verified 09/17/19 21:05) Penicillins Allergy (Verified 09/17/19 21:05) Sulfa (Sulfonamide Antibiotics) Allergy (Verified 09/17/19 21:05) Tetracyclines Allergy (Verified 09/17/19 21:05) trimethoprim Allergy (Verified 09/17/19 21:05) - Review of Systems Constitutional: Weakness, Malaise Eyes: No Symptoms Reported ENT: No Symptoms Reported Respiratory: No Symptoms Reported Cardiovascular: No Symptoms Reported Gastrointestinal: No Symptoms Reported Genitourinary: Dysuria Musculoskeletal: No Symptoms Reported Skin: Other (erythema to top right foot) Neurological: Confusion - Physical Exam Vital Signs: Blood Pressure [Left Arm] 115/57 Oriented: Normal Eyes: Normal Ear: Normal Nose: Normal Throat: Normal Respiratory: Clear Throughout Cardiovascular: Normal Auscultation: Bowel Sounds: Normal Palpation: Normal, Other (left colostomy) Tenderness: Suprapubic Skin: Red (top right foot 1cm in size) Musculoskeletal: Back:Lumbar, Tender Psychiatric: Normal Mood Description: Calm Affect: Flat Speech Pattern: Clear - Assessment/Plan (1) AMS (altered mental status) Status: Acute Plan: LABS: CBC, CMP, UA, UA C&S, BLOOD C&S (2) UTI (urinary tract infection), bacterial Status: Acute Plan: LABS ABOVE. MERREM 1GM IV Q 8HRS (3) Weakness generalized Status: Acute - Allergies Allergies/Adverse Reactions: Allergies Allergy/AdvReac Type Severity Reaction Status Date / Time azithromycin [From Zithromax] Allergy Verified 09/17/19 21:05 ceftriaxone [From Rocephin] Allergy Verified 09/17/19 21:05 cefuroxime Allergy Verified 09/17/19 21:05 cephalexin [From Keflex] Allergy Verified 09/17/19 21:05 gentamicin Allergy Verified 09/17/19 21:05 levofloxacin [From Levaquin] Allergy Verified 09/17/19 21:05 meperidine [From Demerol] Allergy Verified 09/17/19 21:05 methylprednisolone Allergy Verified 09/17/19 21:05 [From Solu-Medrol] morphine Allergy Verified 09/17/19 21:40 nitrofurantoin Allergy Verified 09/17/19 21:05 [From Furadantin] Penicillins Allergy Verified 09/17/19 21:05 Sulfa (Sulfonamide Allergy Verified 09/17/19 21:05 Antibiotics) Tetracyclines Allergy Verified 09/17/19 21:05 trimethoprim Allergy Verified 09/17/19 21:05
[2020-02-04 19:11] LABS: ALANINE AMINOTRANSFERASE 29 Units/L (12-78); ALBUMIN 3.6 g/dL (3.4-5.0); ALKALINE PHOSPHATASE 104 Units/L (46-116); ASPARTATE AMINO TRANSFERASE 36 Units/L (15-37); BLOOD UREA NITROGEN 37 mg/dL (7-18); CALCIUM 9.6 mg/dL (8.5-10.1); CARBON DIOXIDE 23.7 mmol/L (21-32); CHLORIDE 102 mmol/L (98-107); COR NA(FOR HYPERGLY) 139 mmol/L (136-145); CREATININE 1.82 mg/dL (0.55-1.02); SODIUM 138 mmol/L (136-145); TOTAL PROTEIN 8.3 g/dL (6.4-8.2); eGFR NON BLACK RACES 28 (>60)
[2020-02-04] MEDS: NS 1000 ML 1,000 ML IV SCH (19:30)
[2020-02-04] MEDS ORDERED: MERREM VIAL ONE (20:41)
[2020-02-04] MEDS ORDERED: NS 100 ML IV 100 ML IV ONE (20:41)
[2020-02-04 20:51] LABS: BASOPHILS % (AUTO) 0.8 % (0.2-1.0); EOSINOPHILS # (AUTO) 0.2 x10^3/uL (0.0-0.2); HEMATOCRIT 29.3 % (36.0-47.0); HEMOGLOBIN 9.9 g/dL (12.0-16.0); LYMPHOCYTES % (AUTO) 17.2 % (21.0-51.0); MEAN CORPUSCULAR HEMOGLOBIN 33.4 pg (27.0-34.0); MEAN CORPUSCULAR HGB CONC 33.6 g/dL (33.0-35.0); MEAN CORPUSCULAR VOLUME 99.4 fL (80.0-100.0); MEAN PLATELET VOLUME 8.5 fL (7.4-11.0); MONOCYTES # (AUTO) 0.6 x10^3/uL (0.3-0.8); MONOCYTES % (AUTO) 11.3 % (0.0-13.0); NEUTROPHILS # (AUTO) 3.9 x10^3/uL (2.2-4.8); NEUTROPHILS % (AUTO) 67.7 % (42.0-75.0); PLATELET COUNT 247 X10^3/uL (150.0-450.0); RED BLOOD COUNT 2.95 X10^6/uL (3.5-5.4); WHITE BLOOD COUNT 5.7 X10^3/uL (3.6-10.0)
[2020-02-04] MEDS: MERREM VIAL 500 MG in NS 100 ML IV + SPIKE MINIBAG* 100 ML IV SCH (21:00)
[2020-02-05 04:08] LABS: APPEARANCE,URINE CLOUDY (CLEAR); BILIRUBIN,URINE NEGATIVE (NEGATIVE); BLOOD/HEMOGLOBIN,URINE 1+ (NEGATIVE); COLOR,URINE YELLOW (YELLOW); GLUCOSE, URINE NEGATIVE (NEGATIVE); KETONES,URINE NEGATIVE (NEGATIVE); LEUKOCYTE ESTERASE ,URINE 3+ (NEGATIVE); NITRITES,URINE POSITIVE (NEGATIVE); PROTEIN,URINE 2+ (NEGATIVE); UROBILINOGEN,URINE NORMAL (NORMAL)
[2020-02-05 04:09] LABS: BACTERIA,URINE 2+ /HPF (NEGATIVE); RBC,URINE 0-2 /HPF (0-3); SQUAMOUS EPITHELIAL CELL,UR FEW /HPF (NEGATIVE)
[2020-02-05] MEDS: NS 1000 ML 1,000 ML IV SCH ×3 (04:32→21:48)
[2020-02-05] MEDS ORDERED: NS 100 ML IV 100 ML IV ONE (05:29)
[2020-02-05] MEDS ORDERED: MERREM VIAL ONE (05:29)
[2020-02-05] MEDS: MERREM VIAL 500 MG in NS 100 ML IV + SPIKE MINIBAG* 100 ML IV SCH ×3 (05:47→21:42)
[2020-02-05 06:32] LABS: BASOPHILS % (AUTO) 0.4 % (0.2-1.0); EOSINOPHILS # (AUTO) 0.1 x10^3/uL (0.0-0.2); EOSINOPHILS % (AUTO) 2.7 % (0.9-2.9); HEMATOCRIT 27.3 % (36.0-47.0); HEMOGLOBIN 9.3 g/dL (12.0-16.0); LYMPHOCYTES # (AUTO) 0.8 X10^3/uL (1.3-2.9); LYMPHOCYTES % (AUTO) 16.2 % (21.0-51.0); MEAN CORPUSCULAR HEMOGLOBIN 33.5 pg (27.0-34.0); MEAN CORPUSCULAR HGB CONC 34.1 g/dL (33.0-35.0); MEAN CORPUSCULAR VOLUME 98.2 fL (80.0-100.0); MEAN PLATELET VOLUME 8.1 fL (7.4-11.0); MONOCYTES # (AUTO) 0.5 x10^3/uL (0.3-0.8); MONOCYTES % (AUTO) 10.2 % (0.0-13.0); NEUTROPHILS # (AUTO) 3.4 x10^3/uL (2.2-4.8); NEUTROPHILS % (AUTO) 70.5 % (42.0-75.0); PLATELET COUNT 239 X10^3/uL (150.0-450.0); RED BLOOD COUNT 2.78 X10^6/uL (3.5-5.4); RED CELL DISTRIBUTION WIDTH 13.7 % (11.6-16.5); WHITE BLOOD COUNT 4.9 X10^3/uL (3.6-10.0)
[2020-02-05 06:46] LABS: ALBUMIN 2.6 g/dL (3.4-5.0); CALCIUM 8.6 mg/dL (8.5-10.1); CARBON DIOXIDE 23.9 mmol/L (21-32); COR CA(FOR HYPOALB) 9.7 mg/dL (8.5-10.1); CREATININE 1.69 mg/dL (0.55-1.02); TOTAL PROTEIN 6.5 g/dL (6.4-8.2)
[2020-02-05 09:54] VITALS: BMI 31.0
[2020-02-05] MEDS: LOVENOX INJ 30 MG SYR SC SCH (12:30)
--- NOTE | 2020-02-05 17:02 | RAD ---
HISTORYPORTA CATH PLACEMENTSTUDYCHEST, 1 VIEWCOMPARISONChest film December 30, 2019FINDINGSThe trachea is midline. The cardiac silhouette is unremarkable. A Port-A-Cath is in place entering on the left tip in the superior vena cava. This appears to be a different Port-A-Cath in with the 1 that was seen on December 30, 2019. There is a diffuse interstitial nodular pattern throughout both lungs which is new from the prior study of December 29. No pneumothorax or effusions are observed. The bony thorax is unremarkable chronic rotator cuff tear at the right shoulder joint.IMPRESSIONNew bilateral diffuse interstitial infiltrates when compared to the last chest film of December 30, 2019. Port-A-Cath is been placed replaced with a new Port-A-Cath there is no pneumothorax and the central venous catheter is in good position.Electronically signed by: LUTHER GALVAN (Feb 05, 2020 17:00:42)
[2020-02-05] MEDS ORDERED: PLAQUENIL ONE (19:47)
[2020-02-05] MEDS ORDERED: PEPCID TAB 20 MG ONE (19:47)
[2020-02-05] MEDS: COZAAR PO SCH (20:00)
[2020-02-05] MEDS: SYNTHROID 125 mcg TAB PO SCH (20:00)
[2020-02-05] MEDS: NexIUM PO SCH (20:00)
[2020-02-05] MEDS: TYLENOL 500 MG TAB EXTRA STRENGTH PO PRN (21:00)
[2020-02-05] MEDS: PEPCID TAB 20 MG PO SCH (21:49)
[2020-02-05] MEDS: PLAQUENIL PO SCH (21:49)
[2020-02-05] MEDS: NORCO 5/325 MG TAB PO PRN (22:51)
[2020-02-05] MEDS: MIRAPEX TAB 0.25 MG PO SCH (22:54)
[2020-02-06] MEDS: XANAX PO PRN
[2020-02-06] MEDS: NS 1000 ML 1,000 ML IV SCH ×3 (03:17→23:30)
[2020-02-06] MEDS ORDERED: AMARYL TAB 4 MG ONE (05:35)
[2020-02-06] MEDS: MERREM VIAL 500 MG in NS 100 ML IV + SPIKE MINIBAG* 100 ML IV SCH ×3 (05:55→21:14)
[2020-02-06] MEDS: AMARYL TAB 4 MG PO SCH (06:05)
[2020-02-06 06:15] LABS: BASOPHILS % (AUTO) 0.6 % (0.2-1.0); EOSINOPHILS # (AUTO) 0.1 x10^3/uL (0.0-0.2); HEMATOCRIT 29.2 % (36.0-47.0); LYMPHOCYTES # (AUTO) 0.9 X10^3/uL (1.3-2.9); LYMPHOCYTES % (AUTO) 13.8 % (21.0-51.0); MEAN CORPUSCULAR HEMOGLOBIN 33.8 pg (27.0-34.0); MEAN CORPUSCULAR HGB CONC 34.3 g/dL (33.0-35.0); MEAN CORPUSCULAR VOLUME 98.5 fL (80.0-100.0); MEAN PLATELET VOLUME 8.2 fL (7.4-11.0); MONOCYTES # (AUTO) 0.6 x10^3/uL (0.3-0.8); MONOCYTES % (AUTO) 8.6 % (0.0-13.0); PLATELET COUNT 238 X10^3/uL (150.0-450.0); RED BLOOD COUNT 2.96 X10^6/uL (3.5-5.4); RED CELL DISTRIBUTION WIDTH 13.9 % (11.6-16.5); WHITE BLOOD COUNT 6.7 X10^3/uL (3.6-10.0)
[2020-02-06 06:35] LABS: ALBUMIN 2.7 g/dL (3.4-5.0); CALCIUM 8.9 mg/dL (8.5-10.1); CARBON DIOXIDE 22.6 mmol/L (21-32); COR CA(FOR HYPOALB) 9.9 mg/dL (8.5-10.1); CREATININE 1.3 mg/dL (0.55-1.02); TOTAL PROTEIN 6.8 g/dL (6.4-8.2)
[2020-02-06] MEDS: COZAAR PO SCH (08:20)
[2020-02-06] MEDS: LOVENOX INJ 30 MG SYR SC SCH (08:20)
[2020-02-06] MEDS: FLOMAX PO SCH (08:20)
[2020-02-06] MEDS: ZYLOPRIM PO SCH (08:21)
[2020-02-06] MEDS: PLAQUENIL PO SCH ×2 (08:21→21:14)
[2020-02-06] MEDS: NexIUM PO SCH (08:21)
[2020-02-06] MEDS: NORCO 5/325 MG TAB PO PRN ×3 (08:22→23:29)
[2020-02-06] MEDS ORDERED: POLYMYXIN B SULFATE ONE (09:51)
[2020-02-06] MEDS ORDERED: XYLOCAINE 1 % (PLAIN) ONE ×3 (09:51→12:38)
[2020-02-06] MEDS: LASIX IVP SCH ×3 (10:46→16:02)
[2020-02-06] MEDS ORDERED: FENTANYL INJ 100 mcg ONE (11:05)
[2020-02-06] MEDS ORDERED: KETALAR ONE (11:49)
[2020-02-06] MEDS ORDERED: MERREM VIAL ONE (12:06)
[2020-02-06] MEDS ORDERED: NS 100 ML IV + SPIKE MINIBAG* 100 ML IV ONE (12:06)
[2020-02-06] MEDS ORDERED: ZOFRAN INJ 4 MG VIAL ONE (12:10)
[2020-02-06] MEDS ORDERED: DIPRIVAN VIAL ONE (12:10)
[2020-02-06] MEDS ORDERED: BACTROBAN TOPICAL OINT ONE (13:15)
--- NOTE | 2020-02-06 14:15 | RAD ---
HISTORYPort placementSTUDYChest AP [id number] previously noted left-sided port is no longer present. There is a new right-sided port with its tip in the expected position of the superior vena cava. The heart is mildly enlarged. No congestive heart failure is noted. Mild to moderate interstitial lung changes are stable when compared with the prior examination. No pneumothorax, pleural effusion, or acute alveolar infiltrates are identified.IMPRESSIONRight port tip in good position within the superior vena cava, no pneumothoraxMild cardiomegaly without congestive heart failure unchangedInterstitial lung changes unchangedElectronically signed by: COLE CORBIN (Feb 06, 2020 14:13:17)
[2020-02-06] MEDS: SYNTHROID 125 mcg TAB PO SCH (15:57)
[2020-02-06] MEDS: HYDROCODONE BITARTRATE 80 MG PO SCH (16:36)
[2020-02-06] MEDS: MIRAPEX TAB 0.25 MG PO SCH (21:12)
[2020-02-06] MEDS: PEPCID TAB 20 MG PO SCH (21:14)
[2020-02-07] MEDS: NS 1000 ML 1,000 ML IV SCH ×2 (04:26→14:21)
[2020-02-07] MEDS: MERREM VIAL 500 MG in NS 100 ML IV + SPIKE MINIBAG* 100 ML IV SCH ×3 (05:56→21:30)
[2020-02-07 06:03] LABS: BASOPHILS % (AUTO) 0.4 % (0.2-1.0); EOSINOPHILS # (AUTO) 0.1 x10^3/uL (0.0-0.2); EOSINOPHILS % (AUTO) 2.2 % (0.9-2.9); HEMATOCRIT 30.5 % (36.0-47.0); HEMOGLOBIN 10.4 g/dL (12.0-16.0); LYMPHOCYTES # (AUTO) 0.6 X10^3/uL (1.3-2.9); LYMPHOCYTES % (AUTO) 9.5 % (21.0-51.0); MEAN CORPUSCULAR HEMOGLOBIN 33.5 pg (27.0-34.0); MEAN CORPUSCULAR HGB CONC 34.2 g/dL (33.0-35.0); MEAN CORPUSCULAR VOLUME 97.8 fL (80.0-100.0); MEAN PLATELET VOLUME 8.3 fL (7.4-11.0); MONOCYTES # (AUTO) 0.5 x10^3/uL (0.3-0.8); MONOCYTES % (AUTO) 8.4 % (0.0-13.0); NEUTROPHILS # (AUTO) 4.8 x10^3/uL (2.2-4.8); NEUTROPHILS % (AUTO) 79.5 % (42.0-75.0); PLATELET COUNT 245 X10^3/uL (150.0-450.0); RED BLOOD COUNT 3.11 X10^6/uL (3.5-5.4); RED CELL DISTRIBUTION WIDTH 13.8 % (11.6-16.5)
[2020-02-07 06:14] LABS: ALANINE AMINOTRANSFERASE 18 Units/L (12-78); ALBUMIN 2.7 g/dL (3.4-5.0); ALKALINE PHOSPHATASE 75 Units/L (46-116); ASPARTATE AMINO TRANSFERASE 22 Units/L (15-37); BLOOD UREA NITROGEN 14 mg/dL (7-18); CALCIUM 8.8 mg/dL (8.5-10.1); CARBON DIOXIDE 26.7 mmol/L (21-32); CHLORIDE 106 mmol/L (98-107); COR CA(FOR HYPOALB) 9.8 mg/dL (8.5-10.1); CREATININE 1.22 mg/dL (0.55-1.02); SODIUM 142 mmol/L (136-145); TOTAL PROTEIN 6.4 g/dL (6.4-8.2); eGFR NON BLACK RACES 45 (>60)
[2020-02-07] MEDS: AMARYL TAB 4 MG PO SCH (06:20)
[2020-02-07] MEDS: NORCO 5/325 MG TAB PO PRN ×2 (06:23→14:22)
[2020-02-07] MEDS: COZAAR PO SCH (08:52)
[2020-02-07] MEDS: FLOMAX PO SCH (08:52)
[2020-02-07] MEDS: LOVENOX INJ 30 MG SYR SC SCH (08:53)
[2020-02-07] MEDS: PLAQUENIL PO SCH ×2 (08:54→21:30)
[2020-02-07] MEDS: ZYLOPRIM PO SCH (08:54)
[2020-02-07] MEDS: NexIUM PO SCH (08:54)
[2020-02-07] MEDS: HYDROCODONE BITARTRATE 80 MG PO SCH ×2 (11:41→16:46)
[2020-02-07] MEDS: SYNTHROID 125 mcg TAB PO SCH (16:28)
[2020-02-07] MEDS: MIRAPEX TAB 0.25 MG PO SCH (21:30)
[2020-02-07] MEDS: PEPCID TAB 20 MG PO SCH (21:30)
[2020-02-08] MEDS: NS 1000 ML 1,000 ML IV SCH ×6 (00:22→21:53)
[2020-02-08] MEDS ORDERED: MERREM VIAL ONE (05:36)
[2020-02-08] MEDS ORDERED: NS 100 ML IV 100 ML IV ONE (05:36)
[2020-02-08] MEDS: MERREM VIAL 500 MG in NS 100 ML IV + SPIKE MINIBAG* 100 ML IV SCH ×3 (05:42→21:35)
[2020-02-08] MEDS: AMARYL TAB 4 MG PO SCH (06:09)
[2020-02-08 06:12] LABS: BASOPHILS % (AUTO) 0.6 % (0.2-1.0); EOSINOPHILS # (AUTO) 0.2 x10^3/uL (0.0-0.2); EOSINOPHILS % (AUTO) 3.2 % (0.9-2.9); HEMATOCRIT 26.1 % (36.0-47.0); HEMOGLOBIN 8.9 g/dL (12.0-16.0); LYMPHOCYTES # (AUTO) 0.8 X10^3/uL (1.3-2.9); LYMPHOCYTES % (AUTO) 14.4 % (21.0-51.0); MEAN CORPUSCULAR HEMOGLOBIN 33.6 pg (27.0-34.0); MEAN CORPUSCULAR HGB CONC 33.9 g/dL (33.0-35.0); MEAN CORPUSCULAR VOLUME 98.9 fL (80.0-100.0); MEAN PLATELET VOLUME 7.8 fL (7.4-11.0); MONOCYTES # (AUTO) 0.6 x10^3/uL (0.3-0.8); MONOCYTES % (AUTO) 10.5 % (0.0-13.0); NEUTROPHILS # (AUTO) 4.1 x10^3/uL (2.2-4.8); NEUTROPHILS % (AUTO) 71.3 % (42.0-75.0); PLATELET COUNT 222 X10^3/uL (150.0-450.0); RED BLOOD COUNT 2.64 X10^6/uL (3.5-5.4); RED CELL DISTRIBUTION WIDTH 14.1 % (11.6-16.5); WHITE BLOOD COUNT 5.7 X10^3/uL (3.6-10.0)
[2020-02-08 06:42] LABS: ALANINE AMINOTRANSFERASE 17 Units/L (12-78); ALBUMIN 2.3 g/dL (3.4-5.0); ALKALINE PHOSPHATASE 67 Units/L (46-116); ASPARTATE AMINO TRANSFERASE 17 Units/L (15-37); BLOOD UREA NITROGEN 14 mg/dL (7-18); CALCIUM 8.5 mg/dL (8.5-10.1); CARBON DIOXIDE 27.4 mmol/L (21-32); CHLORIDE 106 mmol/L (98-107); COR CA(FOR HYPOALB) 9.9 mg/dL (8.5-10.1); CREATININE 1.11 mg/dL (0.55-1.02); SODIUM 140 mmol/L (136-145); TOTAL PROTEIN 5.6 g/dL (6.4-8.2); eGFR NON BLACK RACES 50 (>60)
[2020-02-08] MEDS: FLOMAX PO SCH (08:57)
[2020-02-08] MEDS: PLAQUENIL PO SCH ×2 (08:57→20:49)
[2020-02-08] MEDS: LOVENOX INJ 30 MG SYR SC SCH (08:58)
[2020-02-08] MEDS: COZAAR PO SCH (08:58)
[2020-02-08] MEDS: ZYLOPRIM PO SCH (08:59)
[2020-02-08] MEDS: NexIUM PO SCH (08:59)
[2020-02-08] MEDS: NORCO 5/325 MG TAB PO PRN ×3 (09:00→22:23)
[2020-02-08] MEDS: HYDROCODONE BITARTRATE 80 MG PO SCH (13:50)
[2020-02-08] MEDS: SYNTHROID 125 mcg TAB PO SCH (16:22)
[2020-02-08] MEDS: PEPCID TAB 20 MG PO SCH (20:47)
[2020-02-08] MEDS: MIRAPEX TAB 0.25 MG PO SCH (20:48)
[2020-02-08] MEDS: XANAX PO PRN (23:43)
[2020-02-09] MEDS: NS 1000 ML 1,000 ML IV SCH ×3 (03:03→23:18)
[2020-02-09] MEDS: MERREM VIAL 500 MG in NS 100 ML IV + SPIKE MINIBAG* 100 ML IV SCH ×3 (05:40→21:17)
[2020-02-09 06:06] LABS: BASOPHILS % (AUTO) 0.4 % (0.2-1.0); EOSINOPHILS # (AUTO) 0.2 x10^3/uL (0.0-0.2); EOSINOPHILS % (AUTO) 2.7 % (0.9-2.9); HEMATOCRIT 25.3 % (36.0-47.0); HEMOGLOBIN 8.5 g/dL (12.0-16.0); LYMPHOCYTES # (AUTO) 0.6 X10^3/uL (1.3-2.9); LYMPHOCYTES % (AUTO) 10.1 % (21.0-51.0); MEAN CORPUSCULAR HEMOGLOBIN 33.4 pg (27.0-34.0); MEAN CORPUSCULAR HGB CONC 33.6 g/dL (33.0-35.0); MEAN CORPUSCULAR VOLUME 99.6 fL (80.0-100.0); MEAN PLATELET VOLUME 8.6 fL (7.4-11.0); MONOCYTES # (AUTO) 0.7 x10^3/uL (0.3-0.8); NEUTROPHILS # (AUTO) 4.8 x10^3/uL (2.2-4.8); NEUTROPHILS % (AUTO) 75.8 % (42.0-75.0); PLATELET COUNT 206 X10^3/uL (150.0-450.0); RED BLOOD COUNT 2.55 X10^6/uL (3.5-5.4); RED CELL DISTRIBUTION WIDTH 13.8 % (11.6-16.5); WHITE BLOOD COUNT 6.4 X10^3/uL (3.6-10.0)
[2020-02-09] MEDS: AMARYL TAB 4 MG PO SCH (06:11)
[2020-02-09 06:14] LABS: ALANINE AMINOTRANSFERASE 18 Units/L (12-78); ALBUMIN 2.2 g/dL (3.4-5.0); ALKALINE PHOSPHATASE 67 Units/L (46-116); ASPARTATE AMINO TRANSFERASE 17 Units/L (15-37); BLOOD UREA NITROGEN 15 mg/dL (7-18); CALCIUM 8.4 mg/dL (8.5-10.1); CARBON DIOXIDE 25.9 mmol/L (21-32); CHLORIDE 105 mmol/L (98-107); COR CA(FOR HYPOALB) 9.8 mg/dL (8.5-10.1); CREATININE 1.09 mg/dL (0.55-1.02); SODIUM 139 mmol/L (136-145); eGFR NON BLACK RACES 51 (>60)
[2020-02-09] MEDS: COZAAR PO SCH (09:17)
[2020-02-09] MEDS: NexIUM PO SCH (09:17)
[2020-02-09] MEDS: ZYLOPRIM PO SCH (09:17)
[2020-02-09] MEDS: LOVENOX INJ 30 MG SYR SC SCH (09:17)
[2020-02-09] MEDS: PLAQUENIL PO SCH ×2 (09:17→20:47)
[2020-02-09] MEDS: LASIX PO SCH (09:18)
[2020-02-09] MEDS: FLOMAX PO SCH (09:18)
[2020-02-09] MEDS: HYDROCODONE BITARTRATE 80 MG PO SCH (13:14)
[2020-02-09] MEDS: SYNTHROID 125 mcg TAB PO SCH (16:53)
[2020-02-09] MEDS: TYLENOL 500 MG TAB EXTRA STRENGTH PO PRN (17:00)
[2020-02-09] MEDS: MIRAPEX TAB 0.25 MG PO SCH (20:46)
[2020-02-09] MEDS: PEPCID TAB 20 MG PO SCH (20:47)
[2020-02-09] MEDS: NORCO 5/325 MG TAB PO PRN (22:36)
[2020-02-09] MEDS: XANAX PO PRN (23:18)
[2020-02-10] MEDS: NS 1000 ML 1,000 ML IV SCH ×3 (04:09→19:20)
[2020-02-10] MEDS: MERREM VIAL 500 MG in NS 100 ML IV + SPIKE MINIBAG* 100 ML IV SCH ×3 (06:12→22:10)
[2020-02-10] MEDS: AMARYL TAB 4 MG PO SCH (06:13)
[2020-02-10 06:36] LABS: BASOPHILS % (AUTO) 0.2 % (0.2-1.0); EOSINOPHILS # (AUTO) 0.2 x10^3/uL (0.0-0.2); EOSINOPHILS % (AUTO) 3.2 % (0.9-2.9); HEMATOCRIT 23.9 % (36.0-47.0); LYMPHOCYTES # (AUTO) 0.6 X10^3/uL (1.3-2.9); LYMPHOCYTES % (AUTO) 9.3 % (21.0-51.0); MEAN CORPUSCULAR HEMOGLOBIN 33.4 pg (27.0-34.0); MEAN CORPUSCULAR HGB CONC 33.6 g/dL (33.0-35.0); MEAN CORPUSCULAR VOLUME 99.3 fL (80.0-100.0); MEAN PLATELET VOLUME 8.2 fL (7.4-11.0); MONOCYTES # (AUTO) 0.7 x10^3/uL (0.3-0.8); MONOCYTES % (AUTO) 10.5 % (0.0-13.0); NEUTROPHILS # (AUTO) 4.8 x10^3/uL (2.2-4.8); NEUTROPHILS % (AUTO) 76.8 % (42.0-75.0); PLATELET COUNT 188 X10^3/uL (150.0-450.0); RED CELL DISTRIBUTION WIDTH 13.7 % (11.6-16.5); WHITE BLOOD COUNT 6.2 X10^3/uL (3.6-10.0)
[2020-02-10 06:56] LABS: ALANINE AMINOTRANSFERASE 15 Units/L (12-78); ALBUMIN 2.2 g/dL (3.4-5.0); ALKALINE PHOSPHATASE 70 Units/L (46-116); ASPARTATE AMINO TRANSFERASE 17 Units/L (15-37); BLOOD UREA NITROGEN 14 mg/dL (7-18); CALCIUM 8.6 mg/dL (8.5-10.1); CARBON DIOXIDE 26.9 mmol/L (21-32); CHLORIDE 102 mmol/L (98-107); COR NA(FOR HYPERGLY) 137 mmol/L (136-145); CREATININE 1.05 mg/dL (0.55-1.02); SODIUM 136 mmol/L (136-145); TOTAL PROTEIN 6.3 g/dL (6.4-8.2); eGFR NON BLACK RACES 53 (>60)
[2020-02-10] MEDS: COZAAR PO SCH (08:45)
[2020-02-10] MEDS: LASIX PO SCH (08:46)
[2020-02-10] MEDS: PLAQUENIL PO SCH ×2 (08:48→20:17)
[2020-02-10] MEDS: NexIUM PO SCH (08:48)
[2020-02-10] MEDS: FLOMAX PO SCH (08:48)
[2020-02-10] MEDS: ZYLOPRIM PO SCH (08:49)
[2020-02-10] MEDS: LOVENOX INJ 30 MG SYR SC SCH (08:52)
[2020-02-10] MEDS ORDERED: MICRO K EXTEN CAP 10 MEQ PO PRN (11:24)
[2020-02-10] MEDS ORDERED: K-RIDER 10 MEQ/NS 100 ML 10 MEQ/100 ML BAG IV PRN (11:24)
[2020-02-10] MEDS ORDERED: POTASSIUM CHL 40 MEQ/NS 0.45% 500 ML IV PRN (11:24)
[2020-02-10] MEDS ORDERED: KLOR-CON PO PRN (11:24)
[2020-02-10] MEDS ORDERED: K-DUR TAB 20 MEQ PO PRN (11:24)
[2020-02-10] MEDS ORDERED: POTASSIUM CHLORIDE LIQ 20 MEQ UDC PO PRN (11:24)
[2020-02-10] MEDS ORDERED: POTASSIUM CHL 60 MEQ/NS 0.45% 500 ML IV PRN (11:24)
[2020-02-10] MEDS: HYDROCODONE BITARTRATE 80 MG PO SCH (12:15)
[2020-02-10] MEDS: NORCO 5/325 MG TAB PO PRN ×2 (14:15→21:37)
[2020-02-10] MEDS: SYNTHROID 125 mcg TAB PO SCH (16:34)
[2020-02-10] MEDS: MIRAPEX TAB 0.25 MG PO SCH (20:16)
[2020-02-10] MEDS: PEPCID TAB 20 MG PO SCH (20:17)
[2020-02-10] MEDS: XANAX PO PRN (22:19)
[2020-02-11] MEDS: NS 1000 ML 1,000 ML IV SCH ×3 (06:24→23:17)
[2020-02-11] MEDS: MERREM VIAL 500 MG in NS 100 ML IV + SPIKE MINIBAG* 100 ML IV SCH ×3 (06:24→22:09)
[2020-02-11] MEDS: AMARYL TAB 4 MG PO SCH (06:25)
[2020-02-11 06:38] LABS: ALBUMIN 2.5 g/dL (3.4-5.0); BASOPHILS % (AUTO) 0.6 % (0.2-1.0); CALCIUM 9.1 mg/dL (8.5-10.1); CARBON DIOXIDE 26.7 mmol/L (21-32); COR CA(FOR HYPOALB) 10.3 mg/dL (8.5-10.1); CREATININE 1.25 mg/dL (0.55-1.02); EOSINOPHILS # (AUTO) 0.2 x10^3/uL (0.0-0.2); EOSINOPHILS % (AUTO) 3.6 % (0.9-2.9); HEMATOCRIT 27.1 % (36.0-47.0); HEMOGLOBIN 9.2 g/dL (12.0-16.0); LYMPHOCYTES # (AUTO) 0.7 X10^3/uL (1.3-2.9); LYMPHOCYTES % (AUTO) 11.4 % (21.0-51.0); MEAN CORPUSCULAR HEMOGLOBIN 33.2 pg (27.0-34.0); MEAN CORPUSCULAR HGB CONC 33.8 g/dL (33.0-35.0); MEAN CORPUSCULAR VOLUME 98.3 fL (80.0-100.0); MEAN PLATELET VOLUME 8.6 fL (7.4-11.0); MONOCYTES # (AUTO) 0.5 x10^3/uL (0.3-0.8); MONOCYTES % (AUTO) 8.3 % (0.0-13.0); NEUTROPHILS # (AUTO) 4.6 x10^3/uL (2.2-4.8); NEUTROPHILS % (AUTO) 76.1 % (42.0-75.0); PLATELET COUNT 224 X10^3/uL (150.0-450.0); RED BLOOD COUNT 2.76 X10^6/uL (3.5-5.4); RED CELL DISTRIBUTION WIDTH 13.6 % (11.6-16.5); TOTAL PROTEIN 7.2 g/dL (6.4-8.2); WHITE BLOOD COUNT 6.1 X10^3/uL (3.6-10.0)
--- NOTE | 2020-02-11 07:17 | CT ---
HISTORYBilateral lung infiltratesSTUDYCT chest without contrastTechnique: Axial noncontrast images with coronal and sagittal reformats. Dose reduction procedures were used with mA/kv adjusted for body size. THIS EXAMINATION IS LIMITED DUE TO THE LACK OF INTRAVENOUS CONTRAST. The examination was performed in this manner at the sole discretion of the ordering caregiver.COMPARISONNoneFINDINGSExamination of the mediastinum demonstrated no evidence for mediastin al masses, enlarged mediastinal or enlarged hilar adenopathy to the limitations of an unenhanced exam ination. Nonenlarged mediastinal nodes are present. Calcific atherosclerotic changes present in a non dilated thoracic aorta. Bilateral small pleural effusions are present. No chest wall or axillary abno rmality is identified. Those portions of the upper abdominal organs visualized are within normal limi ts to the limitations of an unenhanced examination. Examination of the lung carrillo demonstrated no si gnificant nodules or masses. No definite alveolar infiltrates, ground-glass infiltrates, or areas of consolidation are identified. There is some subsegmental atelectasis in the left upper lobe posterior ly and inferiorly.IMPRESSIONNo definite acute infiltrates identifiedFoci of subsegmental atelectasis in the superior segment of the left lower lobe and in the left lung base.Electronically signed by: RUTH ANN CORBIN (Feb 11, 2020 07:14:58)
[2020-02-11] MEDS: FLOMAX PO SCH (11:34)
[2020-02-11] MEDS: LASIX PO SCH (11:34)
[2020-02-11] MEDS: COZAAR PO SCH (11:34)
[2020-02-11] MEDS: LOVENOX INJ 30 MG SYR SC SCH (11:35)
[2020-02-11] MEDS: NexIUM PO SCH (11:35)
[2020-02-11] MEDS: PLAQUENIL PO SCH ×2 (11:35→20:33)
[2020-02-11] MEDS: ZYLOPRIM PO SCH (11:36)
[2020-02-11] MEDS: HYDROCODONE BITARTRATE 80 MG PO SCH (13:00)
[2020-02-11] MEDS ORDERED: NORCO 5/325 MG TAB PO PRN (17:44)
[2020-02-11] MEDS: MIRAPEX TAB 0.25 MG PO SCH (20:32)
[2020-02-11] MEDS: PEPCID TAB 20 MG PO SCH (20:33)
[2020-02-11] MEDS: XANAX PO PRN (22:10)
[2020-02-11] MEDS: SYNTHROID 125 mcg TAB PO SCH (23:18)
[2020-02-12] MEDS: NS 1000 ML 1,000 ML IV SCH ×2 (03:23→12:26)
[2020-02-12] MEDS: MERREM VIAL 500 MG in NS 100 ML IV + SPIKE MINIBAG* 100 ML IV SCH (05:40)
[2020-02-12 06:04] LABS: ALBUMIN 2.5 g/dL (3.4-5.0); CALCIUM 8.9 mg/dL (8.5-10.1); CARBON DIOXIDE 28.4 mmol/L (21-32); COR CA(FOR HYPOALB) 10.1 mg/dL (8.5-10.1); CREATININE 1.23 mg/dL (0.55-1.02)
[2020-02-12 06:09] LABS: BASOPHILS # (AUTO) 0.1 X10^3/uL (0.0-0.1); BASOPHILS % (AUTO) 1.1 % (0.2-1.0); EOSINOPHILS # (AUTO) 0.2 x10^3/uL (0.0-0.2); EOSINOPHILS % (AUTO) 4.5 % (0.9-2.9); HEMATOCRIT 26.8 % (36.0-47.0); HEMOGLOBIN 9.1 g/dL (12.0-16.0); LYMPHOCYTES # (AUTO) 0.9 X10^3/uL (1.3-2.9); LYMPHOCYTES % (AUTO) 17.1 % (21.0-51.0); MEAN CORPUSCULAR HEMOGLOBIN 33.4 pg (27.0-34.0); MEAN CORPUSCULAR HGB CONC 33.8 g/dL (33.0-35.0); MEAN CORPUSCULAR VOLUME 98.5 fL (80.0-100.0); MEAN PLATELET VOLUME 8.4 fL (7.4-11.0); MONOCYTES # (AUTO) 0.5 x10^3/uL (0.3-0.8); MONOCYTES % (AUTO) 10.4 % (0.0-13.0); NEUTROPHILS # (AUTO) 3.4 x10^3/uL (2.2-4.8); NEUTROPHILS % (AUTO) 66.9 % (42.0-75.0); PLATELET COUNT 242 X10^3/uL (150.0-450.0); RED BLOOD COUNT 2.72 X10^6/uL (3.5-5.4); RED CELL DISTRIBUTION WIDTH 13.6 % (11.6-16.5)
[2020-02-12] MEDS: AMARYL TAB 4 MG PO SCH (06:19)
[2020-02-12 08:09] VITALS: BP 147/68
[2020-02-12] MEDS: COZAAR PO SCH (08:13)
[2020-02-12] MEDS: FLOMAX PO SCH (08:14)
[2020-02-12] MEDS: LASIX PO SCH (08:14)
[2020-02-12] MEDS: LOVENOX INJ 30 MG SYR SC SCH ×2 (08:14→09:40)
[2020-02-12] MEDS: ZYLOPRIM PO SCH (08:15)
[2020-02-12] MEDS: NexIUM PO SCH (08:15)
[2020-02-12] MEDS: PLAQUENIL PO SCH (08:16)
--- NOTE | 2020-02-12 09:18 | RAD ---
HISTORYCHEST PAINSTUDYCHEST, 1 [id number] view of the chestFINDINGSRight chest wall port with tip in good position. The cardiac silhouette is borderline in size. Stable mild diffuse bilateral interstitial opacities. No pleural effusion or pneumothorax.IMPRESSIONNo significant change. Suspect mild pulmonary edema.Electronically signed by: José Miguel Nova (Feb 12, 2020 09:17:01)
[2020-02-12] MEDS: HYDROCODONE BITARTRATE 80 MG PO SCH (12:47)
== END 2020-02-12 12:55 | disposition home health service (06) | DRG 689 ==
LOC: MED/SURG
PROVIDERS: ADMIT Internal Medicine; ATTEND Internal Medicine